=== PATIENT | female | born 1950 | race Caucasian/White ===

== ENCOUNTER 2020-02-14 10:04 | Outpatient (CLI) | payer MEDICARE, SELFPAY ==
[2020-02-14 10:45] LABS: Add Urine Microscopic? YES; Appearance Urine Cloudy (Clear); Bacteria Urine Trace /hpf; Bilirubin Urine Negative (Negative); Blood Urine 2+ (Negative); Color Urine Yellow (Yellow); Glucose Urine UA Negative (Negative); Ketones Urine Negative (Negative); Leukocyte Esterase Ur 3+ LEU/UL (Negative); Mucus Urine Few /lpf; Nitrate Urine Positive (Negative); Protein Urine 2+ mg/dL (Negative); RBC Urine >75 /hpf (0-2); Specific Grav Ur 1.017 (1.001-1.035); Urobilinogen Urine Negative mg/dL (<2.0); WBC Clumps Urine Present /HPF; WBC Urine >75 /hpf
== END 2020-02-14 10:05 | disposition home or self-care (01) ==
PROVIDERS: PCP Internal Medicine; Visit Provider Nurse Practitioner
DX: R35.0 Frequency of micturition (principal)
CPT/HCPCS: 81001; 87077; 87086; 87088; 87186

== ENCOUNTER 2020-08-16 07:56 | Outpatient (CLI) | payer MEDICARE, SELFPAY ==
[2020-08-16 08:28] LABS: Alanine Aminotransferase 22 U/L (4-35); Alkaline Phosphatase 77 U/L (38-126); Anion Gap 2 mmol/L (8-16); Aspartate Amino Transferase 30 U/L (14-36); Bilirubin,Total 1.2 mg/dL (0.2-1.3); Blood Urea Nitrogen 15 mg/dL (7-17); Calcium 9.5 mg/dL (8.4-10.2); Carbon Dioxide 33 mmol/L (22-30); Chloride 102 mmol/L (98-107); Cholesterol 286 mg/dL (0-200); Estimated Glomerular Filt Rate > 60; Glucose 112 mg/dL (65-105); HDL Direct 93 mg/dL; Potassium 4.4 mmol/L (3.4-5.0); Sodium 137 mmol/L (137-145); Triglycerides 62 mg/dL (<150)
[2020-08-16 08:39] LABS: LDL Cholesterol Direct 144 mg/dL
[2020-08-16 09:13] LABS: Vitamin D 25 Hydroxy 37.6 ng/mL
== END 2020-08-16 07:57 | disposition home or self-care (01) ==
PROVIDERS: PCP Internal Medicine; Visit Provider Nurse Practitioner
DX: E55.9 Vitamin D deficiency, unspecified (principal); E78.5 Hyperlipidemia, unspecified
CPT/HCPCS: 36415; 80053; 80061; 82306

== ENCOUNTER 2020-10-31 15:07 | Outpatient (CLI) | payer MEDICARE, SELFPAY | END 2020-10-31 15:08 | disposition home or self-care (01) | LOC: ANHCOVIDVC 15:07 | PROVIDERS: PCP Internal Medicine | DX: Z23 Encounter for immunization (principal) | CPT/HCPCS: 0001A; 91300 ==

== ENCOUNTER → 2020-11-06 11:22 | Outpatient (CLI) | payer MEDICARE, SELFPAY ==
[2020-11-06 23:58] LABS: SARS-CoV-2 RNA PCR Negative
== END ==
PROVIDERS: PCP Internal Medicine; Visit Provider Nurse Practitioner
DX: R05 Cough (principal); Z20.822 Contact with and (suspected) exposure to COVID-19
CPT/HCPCS: C9803; U0003; U0005

== ENCOUNTER 2020-11-08 12:16 | Outpatient (CLI) | payer MEDICARE, SELFPAY ==
--- NOTE | ~2020-11-08 | XR_ITS ---
EXAMINATION: XR chest 2V DATE: 11/08/2020 12:48 INDICATION: Shortness of breath. TECHNIQUE: Frontal and lateral views of the chest were obtained. COMPARISON: Chest 2 views 12/07/2012 FINDINGS: There is mild scarring at the lung apices. No pleural effusion or pneumothorax. The heart s ize is normal. Surgical clips in the right upper quadrant are likely from cholecystectomy. There are suture anchors in the humeral heads bilaterally. IMPRESSION: 1. Mild scarring at the lung apices. Reviewed, dictated and finalized at location A.
[2020-11-08 13:03] LABS: Basophils Percent Auto 0.4 % (0.2-1.2); Eosinophils Absolute Auto 0.1 K/mm3 (0-0.3); Eosinophils Percent Auto 1.4 % (0-4.4); Hematocrit 41.3 % (37.0-47.0); Hemoglobin 13.5 g/dL (12.0-15.0); Immature Granulocyte Absolute 0.01 K/mm3 (0.00-0.031); Immature Granulocyte Percent A 0.2 % (0-0.5); Lymphocytes Absolute Auto 2.32 K/mm3 (0.9-3.2); Lymphocytes Percent Auto 41.7 % (18.3-44.2); Mean Corpuscular HGB Conc 32.7 g/dl (32-36); Mean Corpuscular Hemoglobin 29.7 pg (26-34); Mean Corpuscular Volume 90.8 fl (80-100); Mean Platelet Volume 10.7 fl (7.4-10.4); Monocytes Absolute Auto 0.4 K/mm3 (0.1-0.6); Monocytes Percent Auto 7.6 % (2.6-8.5); Neutrophils Absolute Auto 2.7 K/mm3 (1.3-6.7); Neutrophils Percent Auto 48.7 % (45.5-73.1); Platelet Count Result 258 k/mm3 (150-375); Red Blood Count 4.55 M/mm3 (4.2-5.4); Red Cell Distribution Width 13.5 % (11.5-14.5); White Blood Count 5.6 K/mm3 (4.5-10.0)
[2020-11-08 13:12] LABS: Add Urine Microscopic? YES; Appearance Urine Clear (Clear); Bilirubin Urine Negative (Negative); Blood Urine Negative (Negative); Color Urine Yellow (Yellow); Glucose Urine UA Negative (Negative); Ketones Urine Negative (Negative); Leukocyte Esterase Ur Negative LEU/UL (Negative); Mucus Urine Few /lpf; Nitrate Urine Negative (Negative); Protein Urine 1+ mg/dL (Negative); Specific Grav Ur 1.029 (1.001-1.035); Urobilinogen Urine Negative mg/dL (<2.0); WBC Urine 0-3 /hpf
[2020-11-08 13:24] LABS: Alanine Aminotransferase 23 U/L (4-35); Albumin Level 4.4 g/dL (3.5-5.1); Alkaline Phosphatase 70 U/L (38-126); Anion Gap 4 mmol/L (8-16); Aspartate Amino Transferase 32 U/L (14-36); Bilirubin,Total 0.7 mg/dL (0.2-1.3); Blood Urea Nitrogen 15 mg/dL (7-17); Calcium 10.1 mg/dL (8.4-10.2); Carbon Dioxide 29 mmol/L (22-30); Chloride 105 mmol/L (98-107); Estimated Glomerular Filt Rate > 60; Glucose 85 mg/dL (65-105); Potassium 4.9 mmol/L (3.4-5.0); Sodium 138 mmol/L (137-145)
== END 2020-11-08 12:17 | disposition home or self-care (01) ==
PROVIDERS: PCP Internal Medicine; Visit Provider Nurse Practitioner
DX: R31.9 Hematuria, unspecified (principal); R06.02 Shortness of breath; E78.5 Hyperlipidemia, unspecified
CPT/HCPCS: 36415; 71046; 80053; 81001; 85025

== ENCOUNTER 2020-11-21 15:11 | Outpatient (CLI) | payer MEDICARE, SELFPAY | END 2020-11-21 15:12 | disposition home or self-care (01) | LOC: ANHCOVIDVC 15:11 | PROVIDERS: PCP Internal Medicine | DX: Z23 Encounter for immunization (principal) | CPT/HCPCS: 0002A; 91300 ==

== ENCOUNTER 2021-03-25 11:14 | Outpatient (CLI) | payer MEDICARE, SELFPAY ==
[2021-03-25 12:32] LABS: LDL Cholesterol Direct 166 mg/dL
[2021-03-25 12:42] LABS: Triglycerides 58 mg/dL (<150)
[2021-03-25 13:01] LABS: Cholesterol 350 mg/dL (0-200); HDL Direct 116 mg/dL
[2021-03-25 15:15] LABS: Vitamin D 25 Hydroxy 37.1 ng/mL
== END 2021-03-25 11:15 | disposition home or self-care (01) ==
PROVIDERS: PCP Internal Medicine; Visit Provider Nurse Practitioner
DX: E55.9 Vitamin D deficiency, unspecified (principal); E78.5 Hyperlipidemia, unspecified
CPT/HCPCS: 36415; 80061; 82306

== ENCOUNTER 2021-04-05 12:11 | Outpatient (CLI) | payer MEDICARE, SELFPAY ==
--- NOTE | ~2021-04-05 | XR_ITS ---
XR knee RT 2V DATE: 04/05/2021 12:31 INDICATION: Right knee pain TECHNIQUE: AP and lateral views COMPARISON: None FINDINGS: No fracture or dislocation or joint effusion. Mild superior pole patellar enthesopathy. Codi nt spaces are well preserved. No radiopaque intra-articular loose body or chondrocalcinosis. No perio steal reaction or bone destruction. IMPRESSION: Mild superior pole patellar enthesopathy; otherwise negative Reviewed, dictated and finalized at location A.
== END 2021-04-05 12:12 | disposition home or self-care (01) ==
PROVIDERS: PCP Internal Medicine; Visit Provider Nurse Practitioner
DX: M25.561 Pain in right knee (principal)
CPT/HCPCS: 73560

== ENCOUNTER 2021-04-22 14:37 | Emergency (ER) | payer MEDICARE, SELFPAY ==
--- NOTE | ~2021-04-22 | XR_ITS ---
EXAMINATION: XR chest 2V DATE: 04/22/2021 15:18 INDICATION: Cough and shortness of breath TECHNIQUE: PA and lateral views of the chest are obtained. COMPARISON: 11/08/2020 FINDINGS: The lungs are free of acute opacities. There is no pleural effusion or pneumothorax. The ca rdiomediastinal silhouette is normal. There is moderate thoracic spondylosis. Surgical clips in the r ight upper quadrant are likely from prior cholecystectomy. Suture anchors are noted in the humeral he ads. IMPRESSION: 1. No acute cardiopulmonary abnormality. Reviewed, dictated and finalized at location A.
--- NOTE | 2021-04-22 14:46 | ED.GENADULT ---
HPI - General Adult General Chief complaint: Upper Respiratory Infection Stated complaint: difficulty breathing/cough Source: patient Mode of arrival: ambulatory Limitations: no limitations History of Present Illness HPI narrative: Patient is a 70-year-old female who presents to the [facility] via POV for evaluation of upper respiratory symptoms that have been present for 4 days. Additionally, patient reports dry cough, sinus problems, ear pain, rhinorrhea, fatigue, chest tightness, pain with deep inspiration, myalgias, and chills. Antihistamines provide minimal relief. Nothing worsens symptoms. Patient reports she is fully vaccinated against Covid. Denies known exposure to sick contacts. Related Data Home Medications Medication Instructions Recorded Confirmed multivitamin with minerals-folic 1 tablet PO DAILY 11/08/20 04/22/21 acid 0.4 mg tablet cranberry fruit concentrate 250 mg 250 mg PO DAILY tablet 12/20/20 04/22/21 chewable tablet biotin 10,000 mcg capsule 10,000 mcg PO DAILY 04/15/21 04/22/21 turmeric root extract 500 mg 500 mg PO DAILY 04/15/21 04/22/21 capsule Allergies Allergy/AdvReac Type Severity Reaction Status Date / Time hydrocodone Allergy Mild HIVES, Verified 04/22/21 15:00 ITCHING hydromorphone Allergy Mild Itching Verified 04/22/21 15:00 oxycodone Allergy Mild Itching Verified 04/22/21 15:01 codeine Allergy Unknown Unknown Verified 04/22/21 15:01 nitrofurantoin AdvReac Intermediate Nausea Verified 04/22/21 15:01 CYCLOBENZAPRINE HCL Allergy Mild Unknown Uncoded 04/22/21 15:01 Review of Systems Review of Systems: Denies history of COPD, bronchitis, asthma, and pneumonia. Denies current/past tobacco use. Denies fever, sweats, change in appetite, skin color changes, headache, nasal congestion/discharge, dizziness, lymphadenopathy, sinus pain, ear drainage, muffled hearing, tinnitus, vertigo, sore throat, drooling, chest pain, heart murmurs, heart palpitations, shortness of breath, wheezing, cyanosis, hemoptysis, hoarseness, orthopnea, pleuritic pain, nausea, vomiting, and diarrhea PMFSH Past Medical History Medical History (Reviewed 04/22/21 @ 14:47 by Bharat Wellington, COORDINATE MEASURING EQUIPMENT OPERATOR, LILIAN) History of kidney stones Increased urinary frequency Surgical History Surgical History History of abdominoplasty History of cholecystectomy History of fusion of cervical spine C-6 History of repair of rotator cuff Bilateral History of right cataract extraction Family History Family History Mother Hypertension Family history of elevated blood lipids Family history of congestive heart failure Family history of chronic obstructive pulmonary disease Sibling Family history of malignant neoplasm of breast in first degree relative Father Patient's father is in good health Other Asthma Family history of gout Social History Social History Smoking status: Never smoker Second hand tobacco smoke exposure: Yes Alcohol intake: current Alcohol use details: 2-3 drinks per year Comments I have reviewed and agree with the patient's past medical, surgical, social, and family hx as documented by the RN. There is no relevant family history pertinent to the presenting complaint. Exam Narrative: GENERAL: Well-appearing, well-nourished, and in no acute distress. HEAD: Normocephalic, atraumatic. No sinus tenderness or facial swelling appreciated. EYES: PERRLA and EOMI. No evidence of erythema, swelling, or drainage. ENT: Bilateral external ears and ear canals normal. Bilateral TMs are normal.No TM perforation. Nares clear, no rhinorrhea or epistaxis. Bilateral turbinates without erythema/ swelling. Mucous membranes moist and pink. Uvula is midline without erythema and swelling. No evidence of petechial rash
== END 2021-04-22 15:35 | disposition home or self-care (01) ==
PROVIDERS: Emergency Provider Nurse Practitioner Family; PCP Internal Medicine
DX: R05 Cough (principal)
CPT/HCPCS: 71046; 99213; G0463

== ENCOUNTER 2021-06-13 11:35 | Outpatient (CLI) | payer MEDICARE, SELFPAY ==
[2021-06-13 12:16] LABS: Alanine Aminotransferase 20 U/L (4-35); Albumin Level 4.4 g/dL (3.5-5.1); Alkaline Phosphatase 77 U/L (38-126); Anion Gap 3 mmol/L (8-16); Aspartate Amino Transferase 28 U/L (14-36); Bilirubin,Total 0.9 mg/dL (0.2-1.3); Blood Urea Nitrogen 18 mg/dL (7-17); Calcium 10.2 mg/dL (8.4-10.2); Carbon Dioxide 32 mmol/L (22-30); Chloride 103 mmol/L (98-107); Estimated Glomerular Filt Rate > 60; Glucose 103 mg/dL (65-110); Potassium 4.6 mmol/L (3.4-5.0); Sodium 138 mmol/L (137-145)
[2021-06-13 13:25] LABS: Thyroid Stimulating Hormone 0.391 uIU/mL (0.465-4.680)
== END 2021-06-13 11:36 | disposition home or self-care (01) ==
LOC: ANHLAB 11:38
PROVIDERS: Nurse Practitioner; PCP Internal Medicine; Visit Provider Internal Medicine
DX: R53.83 Other fatigue (principal); E78.5 Hyperlipidemia, unspecified
CPT/HCPCS: 36415; 80053; 84443

== ENCOUNTER 2021-06-24 08:09 | Outpatient (CLI) | payer MEDICARE, SELFPAY ==
--- NOTE | ~2021-06-24 | NM_ITS ---
EXAMINATION: NM thania stress w perfusion DATE: 06/24/2021 11:25 INDICATION: Sensation of chest tightness. Other chest pain. TECHNIQUE: Rest images were obtained following intravenous administration of 10.2 mCi Tc99m tetrofosm in (Myoview). The patient was infused intravenously with Lexiscan (Regadenoson). Then, 32.5 mCi Tc99m tetrofosmin (Myoview) was administered intravenously, and stress images were obtained. Data was sierra nstructed into short axis and horizontal and vertical long axis SPECT images. Gated SPECT images were also obtained. COMPARISON: None. FINDINGS: There is no definite reversible or fixed perfusion abnormality to suggest ischemia or infar ction. There is normal left ventricular chamber size, wall motion and ejection fraction. Left ventr icular ejection fraction measures >70%. IMPRESSION: 1. Normal myocardial perfusion at rest and during stress. 2. Left ventricular ejection fraction measuring >70%. Reviewed, dictated and finalized at location A.
--- NOTE | 2021-06-24 09:13 | EST_ITS ---
Patient Info Name: Verna Cerna Age: 70 years : 1950 Gender: Female Ht: 62 in Wt: 131 lbs BSA: 1.62 m2 HR: 67 bpm BP: 141 / 99 mmHg Heart Rhythm: Sinus Rhythm Exam Date: 06/24/2021 9:30 AM Exam Location: [facility] Stress Patient Status: Outpatient Admit Date: 06/24/2021 Staff Ordering Physician: Wale Ge DO Attending Provider: Wale Ge DO Exercise Technologist: Heather Wooten CT Exercise Physician: Doc Chand DO Exam Type: CA stress thania w NM Study Info Indications R07.89 - Other chest pain A regadenoson stress test was performed. Summary 1. 1. Negative lexiscan stress test for ischemic ST changes by ECG criteria. 2. 2. Baseline hypertension. 3. 3. Nuclear scan to follow and will be reported separately. Please correlate with it. 4. 4. Patient informed of the above results. Protocol: Lexiscan Stress ECG Details Stage: REST Duration (min): 3 min : 28 sec HR (bpm): 67 SBP (mmHg): 141 DBP (mmHg): 99 Stage: REST Duration (min): 11 min : 41 sec HR (bpm): 67 SBP (mmHg): 141 DBP (mmHg): 99 Stage: STAGE 1 Duration (min): 1 min : 0 sec HR (bpm): 97 SBP (mmHg): 150 DBP (mmHg): 108 Stage: RECOVERY Duration (min): 1 min : 0 sec HR (bpm): 107 SBP (mmHg): 150 DBP (mmHg): 108 Stage: RECOVERY Duration (min): 2 min : 0 sec HR (bpm): 91 SBP (mmHg): 150 DBP (mmHg): 108 Stage: RECOVERY Duration (min): 3 min : 0 sec HR (bpm): 88 SBP (mmHg): 163 DBP (mmHg): 100 Stage: RECOVERY Duration (min): 3 min : 3 sec HR (bpm): 89 SBP (mmHg): 163 DBP (mmHg): 100 Rest HR: 67 bpm Peak HR: 111 bpm Rest Sys BP: 141 mmHg Peak Sys BP: 163 mmHg Max Pred HR: 151 bpm % Max Pred HR: 74 % Target HR: 128 bpm Max RPP: 18,093 bpm*mmHg Termination Reason: Completed protocol Cardiac Symptoms: Shortness of breath Total Time: 1 min : 0 sec Rest Rivas BP: 99 mmHg Peak Rivas BP: 100 mmHg Total Dose: 0.4 mg Resting ECG Sinus rhythm. Stress ECG No ST changes. Arrhythmias None. Report Signatures
== END 2021-06-24 08:10 | disposition home or self-care (01) ==
LOC: ANHCARD 08:10
PROVIDERS: PCP Internal Medicine; Visit Provider Internal Medicine
DX: R07.89 Other chest pain (principal)
CPT/HCPCS: 78452; 93017; A9502; J2785

== ENCOUNTER 2021-07-03 12:21 | Outpatient (CLI) | payer MEDICARE, SELFPAY ==
[2021-07-03 12:35] LABS: Basophils Absolute Auto 0.1 K/mm3 (0.0-0.1); Basophils Percent Auto 0.5 % (0.2-1.2); Eosinophils Absolute Auto 0.1 K/mm3 (0-0.3); Eosinophils Percent Auto 1.2 % (0-4.4); Hematocrit 40.3 % (37.0-47.0); Hemoglobin 13.1 g/dL (12.0-15.0); Immature Granulocyte Absolute 0.03 K/mm3 (0.00-0.031); Immature Granulocyte Percent A 0.3 % (0-0.5); Lymphocytes Percent Auto 29.6 % (18.3-44.2); Mean Corpuscular HGB Conc 32.5 g/dl (32-36); Mean Corpuscular Hemoglobin 29.7 pg (26-34); Mean Corpuscular Volume 91.4 fl (80-100); Mean Platelet Volume 10.5 fl (7.4-10.4); Monocytes Absolute Auto 0.8 K/mm3 (0.1-0.6); Monocytes Percent Auto 8.3 % (2.6-8.5); Neutrophils Absolute Auto 5.7 K/mm3 (1.3-6.7); Neutrophils Percent Auto 60.1 % (45.5-73.1); Platelet Count Result 263 k/mm3 (150-375); Red Blood Count 4.41 M/mm3 (4.2-5.4); Red Cell Distribution Width 13.7 % (11.5-14.5); White Blood Count 9.5 K/mm3 (4.5-10.0)
== END 2021-07-03 12:22 | disposition home or self-care (01) ==
PROVIDERS: PCP Internal Medicine; Visit Provider Internal Medicine
DX: R53.83 Other fatigue (principal)
CPT/HCPCS: 36415; 85025

== ENCOUNTER → 2021-12-03 08:03 | Outpatient (CLI) | payer MEDICARE, SELFPAY ==
[2021-12-03 11:19] LABS: Influenza A QL RT-PCR Negative (Negative); Influenza B QL RT-PCR Negative (Negative); SARS-CoV-2 RNA PCR Negative
== END ==
PROVIDERS: PCP Internal Medicine; Visit Provider Internal Medicine
DX: R68.89 Other general symptoms and signs (principal); Z20.822 Contact with and (suspected) exposure to COVID-19
CPT/HCPCS: 87502; C9803; U0003; U0005

== ENCOUNTER 2021-12-15 23:22 | Emergency (ER) | payer MEDICARE, SELFPAY ==
--- NOTE | ~2021-12-15 | XR_ITS ---
EXAMINATION: XR chest 2V DATE: 12/15/2021 23:55 INDICATION: Chest pain. TECHNIQUE: Frontal and lateral views of the chest were obtained. COMPARISON: Chest 2 views 04/22/2021 FINDINGS: The chest demonstrates clear lungs without pneumonia, pleural effusion, or pneumothorax. Th e heart size is normal. Surgical clips in the right upper quadrant are likely from cholecystectomy. T here are suture anchors in right humeral head. IMPRESSION: 1. No acute cardiopulmonary disease. Reviewed, dictated and finalized at location A.
[2021-12-15 23:27] VITALS: BP 157/95; PULSE 96; RESP 20; TEMP 36.5; O2SAT 98
--- NOTE | 2021-12-15 23:27 | ECG_ITS ---
Measurements Intervals [place] Rate: 75 P: 67 [place]: 154 QRS: 11 QRSD: 86 T: 66 QT: 363 QTc: 405 Interpretive Statements SINUS RHYTHM POSSIBLE RIGHT VENTRICULAR CONDUCTION DELAY [RSR (QR) IN V1/V2] OTHERWISE UNREMARKABLE ECG NO PREVIOUS ECG AVAILABLE FOR COMPARISON Electronically Signed On 12-16-2021 16:17:20 CDT by Geovany Mcclain M.D.
[2021-12-16] VITALS (12 sets, daily range): BP systolic 152–165; BP diastolic 82–91; PULSE 64–78; RESP 12–18; O2SAT 95–100
[2021-12-16] MEDS: ASPIRIN 81 MG CHEWABLE TABLET 324 MG PO (00:12)
[2021-12-16 00:24] LABS: Basophils Absolute Auto 0.1 K/mm3 (0.0-0.1); Basophils Percent Auto 0.8 % (0.2-1.2); Eosinophils Absolute Auto 0.1 K/mm3 (0-0.3); Eosinophils Percent Auto 1.3 % (0-4.4); Hemoglobin 13.1 g/dL (12.0-15.0); Immature Granulocyte Absolute 0.03 K/mm3 (0.00-0.031); Immature Granulocyte Percent A 0.4 % (0-0.5); Lymphocytes Absolute Auto 2.92 K/mm3 (0.9-3.2); Lymphocytes Percent Auto 35.3 % (18.3-44.2); Mean Corpuscular HGB Conc 31.2 g/dl (32-36); Mean Corpuscular Hemoglobin 28.5 pg (26-34); Mean Corpuscular Volume 91.3 fl (80-100); Mean Platelet Volume 10.8 fl (7.4-10.4); Monocytes Absolute Auto 0.6 K/mm3 (0.1-0.6); Monocytes Percent Auto 7.6 % (2.6-8.5); Neutrophils Absolute Auto 4.5 K/mm3 (1.3-6.7); Neutrophils Percent Auto 54.6 % (45.5-73.1); Platelet Count Result 279 k/mm3 (150-375); Red Cell Distribution Width 13.9 % (11.5-14.5); White Blood Count 8.3 K/mm3 (4.5-10.0)
[2021-12-16 00:29] LABS: Alanine Aminotransferase 21 U/L (4-35); Albumin Level 4.4 g/dL (3.5-5.1); Alkaline Phosphatase 88 U/L (38-126); Anion Gap 8 mmol/L (8-16); Aspartate Amino Transferase 28 U/L (14-36); Bilirubin,Total 0.6 mg/dL (0.2-1.3); Blood Urea Nitrogen 15 mg/dL (7-17); Calcium 9.5 mg/dL (8.4-10.2); Carbon Dioxide 28 mmol/L (22-30); Chloride 102 mmol/L (98-107); Estimated CRCL calculation 51 ml/min; Estimated Glomerular Filt Rate > 60; Glucose 89 mg/dL (65-110); INR 0.9; Lipase 70 U/L (23-300); Potassium 3.6 mmol/L (3.4-5.0); Prothrombin Time 12.2 Seconds (11.1-14.7); Sodium 138 mmol/L (137-145)
[2021-12-16 00:30] LABS: Partial Thromboplastin Time 28.3 SECONDS (22.3-36.8)
[2021-12-16 00:40] LABS: Troponin I < 0.012 ng/mL (0.000-0.034)
[2021-12-16] MEDS: BELLADONNA ALK/PHENOB ELIX 10 ML, MAG HYDROX/ALUMINUM HYD/SIMETH 30 ML, LIDOCAINE HCL 2... PO (01:14)
--- NOTE | 2021-12-16 02:04 | ED.GENADULT ---
HPI - General Adult General Chief complaint: Shortness of Breath/Dyspnea Stated complaint: difficulty breathing Time Seen by Provider: 12/16/21 00:17 History of Present Illness HPI narrative: Patient is a 71-year-old female who presents ER with chest pressure. Central. No radiation. Has been having issues with this for about 8 months. She has had a negative stress test and normal pulmonary function test. Tonight symptoms were more increased. They have been treating this as anxiety for which she takes Valium. She reports it does help but makes her go to sleep. She does not feel particularly stressed or anxious about anything at this time. No fevers or chills or sweats. No nausea or vomiting. Symptoms move up into the neck. Related Data Home Medications Medication Instructions Recorded Confirmed biotin 10,000 mcg capsule 10,000 mcg PO DAILY 04/15/21 11/25/21 Lacto.acidophilus-Bif.animalis 1 cap PO DAILY 11/25/21 11/25/21 [Daily Probiotic] multivit with min-folic acid 1 tablet PO DAILY 11/25/21 11/25/21 [Adult One Daily Multivitamin] Allergies Allergy/AdvReac Type Severity Reaction Status Date / Time cyclobenzaprine Allergy Mild Unknown Verified 12/16/21 00:16 hydrocodone Allergy Mild HIVES, Verified 12/16/21 00:16 ITCHING hydromorphone Allergy Mild Itching Verified 12/16/21 00:16 oxycodone Allergy Mild Itching Verified 12/16/21 00:16 codeine Allergy Unknown Unknown Verified 12/16/21 00:16 nitrofurantoin AdvReac Intermediate Nausea Verified 12/16/21 00:16 Review of Systems Review of Systems: All systems reviewed & are unremarkable except as noted in HPI and below Constitutional: Constitutional: Denies chills, Denies fever(s) and Denies weakness ENT: Denies nasal congestion and Denies sore throat Cardiovascular: Cardiovascular: Reports chest pain, Denies rapid heart rate and Reports radiating jaw, neck or arm pain Respiratory: Respiratory: Denies cough, Denies dyspnea and Denies wheezing Gastrointestinal: Gastrointestinal: Denies abdominal pain, Denies diarrhea, Denies nausea and Denies vomiting Psychiatric: Psychiatric: Denies anxiety and Denies depression [facility] Past Medical History Medical History History of kidney stones Increased urinary frequency Surgical History Surgical History History of abdominoplasty History of cholecystectomy History of fusion of cervical spine C-6 History of repair of rotator cuff Bilateral History of right cataract extraction Family History Family History Mother Hypertension Family history of elevated blood lipids Family history of congestive heart failure Family history of chronic obstructive pulmonary disease Sibling Family history of malignant neoplasm of breast in first degree relative Father Patient's father is in good health Other Asthma Family history of gout Social History Social History Smoking status: Never smoker Second hand tobacco smoke exposure: Yes Alcohol intake: current Alcohol use details: 2-3 drinks per year Substance use: never Substance use type: does not use Other substance usage details: Occasional edible Spiritual care concerns: No Exam Narrative: GENERAL: Well-appearing, well-nourished, and in no acute distress. HEAD: Normocephalic, atraumatic. ENT: Mucous membranes moist. TMs normal bilaterally. CHEST: Clear to auscultation. No respiratory distress. HEART: Regular rate and rhythm. Normal peripheral pulses. ABDOMEN: Soft, nontender, nondistended. EXTREMITIES: Normal range of motion. No edema. SKIN: Warm, dry, no rash. NEURO: Alert and oriented x3. PSYCH: Normal mood and affect. Course Course Emergency Course: Patient resting comfortably. Symptoms improved with
== END 2021-12-16 02:22 | disposition home or self-care (01) ==
PROVIDERS: Emergency Provider Emergency Medicine; PCP Internal Medicine
DX: R07.89 Other chest pain (principal); Z87.442 Personal history of urinary calculi; Z98.1 Arthrodesis status; Z98.41 Cataract extraction status, right eye; Z77.22 Contact with and (suspected) exposure to environmental tobacco smoke (acute) (chronic); R94.31 Abnormal electrocardiogram [ECG] [EKG]
CPT/HCPCS: 36415; 71046; 80053; 83690; 84484; 85025; 85610; 85730; 93005; 99284; A9270

== ENCOUNTER 2022-04-17 00:43 | Day surgery (SDC) | payer MEDICARE, SELFPAY ==
[2022-04-07 11:47] VITALS: BMI 24.2
--- NOTE | 2022-04-16 16:00 | PM.HPGS ---
History of Present Illness History of Present Illness Consent: Risks, benefits, and alternatives have been discussed and questions answered. Patient agrees to proceed with procedure. Chief complaint: neoplasm screening Narrative: Verna Cerna is a 71 year old female referred for colon cancer screening. She had screening colonoscopy 10 years ago with removal of 2 small polyps. Seven years ago she was hospitalized with acute ischemic colitis from which he recovered well. Review of Systems Review of Systems: All systems reviewed & are unremarkable except as noted in HPI and below PMFSH Past Medical History Medical History History of kidney stones Increased urinary frequency Surgical History Surgical History History of abdominoplasty History of cholecystectomy History of fusion of cervical spine C-6 History of repair of rotator cuff Bilateral History of right cataract extraction Family History Family History Mother Hypertension Family history of elevated blood lipids Family history of congestive heart failure Family history of chronic obstructive pulmonary disease Sibling Family history of malignant neoplasm of breast in first degree relative Father Patient's father is in good health Other Asthma Family history of gout Social History Social History Smoking status: Never smoker Second hand tobacco smoke exposure: Yes Alcohol intake: never Alcohol use details: 2-3 drinks per year Substance use: current Substance use type: other Other substance usage details: occasional edible Living arrangements: alone Spiritual care concerns: No Meds Home Medications and Allergies Home Medications Medication Instructions Recorded Confirmed Type diazepam 5 mg tablet 5 mg PO DAILY PRN anxiety #30 tabs 06/11/21 04/17/22 Rx multivitamin with minerals-folic 1 tablet PO DAILY 11/25/21 04/17/22 History acid 0.4 mg tablet dextroamphetamine-amphetamine ER 30 mg PO DAILY #30 caps 04/14/22 04/17/22 Rx 30 mg 24hr capsule,extend release (Adderall XR) Allergies Allergy/AdvReac Type Severity Reaction Status Date / Time cyclobenzaprine Allergy Mild Unknown Verified 04/17/22 06:52 hydrocodone Allergy Mild HIVES, Verified 04/17/22 06:52 ITCHING hydromorphone Allergy Mild Itching Verified 04/17/22 06:52 oxycodone Allergy Mild Itching Verified 04/17/22 06:52 codeine Allergy Unknown Unknown Verified 04/17/22 06:52 nitrofurantoin AdvReac Intermediate Nausea Verified 04/17/22 06:52 Exam Const: General: alert Orientation/consciousness: patient oriented x3 Resp: Auscultation: clear to auscultation bilaterally Cardio: Rhythm: regular rhythm GI: GI Palp: Yes Soft to palpation and No Tenderness to palpation present (GI) Neuro: General: patient oriented x3 Assessment and Plan Assessment and plan (1) Colon cancer screening: Code(s): Z12.11 - Encounter for screening for malignant neoplasm of colon Status: Acute Assessment and Plan: Colonoscopy with possible biopsy or polypectomy or cautery or injection of substances.
[2022-04-17 06:45] VITALS: BP 133/77; PULSE 71; RESP 18; TEMP 36.4; O2SAT 97
[2022-04-17] MEDS: LACTATED RINGERS 1,000 ML 150 ML IV CONT (07:13)
--- NOTE | 2022-04-17 07:49 | WPDANESEPPF ---
Anes - Initial Pre Proc Eval Procedure: Operation Date: 04/17/22 08:00 Proposed Procedures p Screening Colonoscopy - Edmundo Torrez MD Date/Time: 04/17/22 07:49 Surgeon: Edmundo Torrez MD Pre Op Diagnosis: neoplasm screening Patient Data Age: 71 Gender: F Height: 1.57 m Weight: 60 kg Last Vital Signs Temp 97.6 F 04/17/22 06:45 Pulse 71 04/17/22 06:45 Resp 18 04/17/22 06:45 BP 133/77 04/17/22 06:45 Pulse Ox 97 04/17/22 06:45 O2 Del Method Room Air 04/17/22 06:45 Allergies Allergy/AdvReac Type Severity Reaction Status Date / Time cyclobenzaprine Allergy Mild Unknown Verified 04/17/22 06:52 hydrocodone Allergy Mild HIVES, Verified 04/17/22 06:52 ITCHING hydromorphone Allergy Mild Itching Verified 04/17/22 06:52 oxycodone Allergy Mild Itching Verified 04/17/22 06:52 codeine Allergy Unknown Unknown Verified 04/17/22 06:52 nitrofurantoin AdvReac Intermediate Nausea Verified 04/17/22 06:52 Home Medications Medication Instructions Recorded Confirmed Type diazepam 5 mg tablet 5 mg PO DAILY PRN anxiety #30 tabs 06/11/21 04/17/22 Rx multivitamin with minerals-folic 1 tablet PO DAILY 11/25/21 04/17/22 History acid 0.4 mg tablet dextroamphetamine-amphetamine ER 30 mg PO DAILY #30 caps 04/14/22 04/17/22 Rx 30 mg 24hr capsule,extend release (Adderall XR) Patient hx anesthesia problems: none Family hx anesthesia problems: none Results Review: All pre-operative results and documents have been reviewed as part of the pre-operative evaluation. [facility] Past Medical History Medical History History of kidney stones Increased urinary frequency Surgical History Surgical History History of abdominoplasty History of cholecystectomy History of fusion of cervical spine C-6 History of repair of rotator cuff Bilateral History of right cataract extraction Family History Family History Mother Hypertension Family history of elevated blood lipids Family history of congestive heart failure Family history of chronic obstructive pulmonary disease Sibling Family history of malignant neoplasm of breast in first degree relative Father Patient's father is in good health Other Asthma Family history of gout Social History Social History Smoking status: Never smoker Second hand tobacco smoke exposure: Yes Alcohol intake: never Alcohol use details: 2-3 drinks per year Substance use: current Substance use type: other Other substance usage details: occasional edible Living arrangements: alone Spiritual care concerns: No Anes - Eval Final PreProcedure Day of Procedure 04/17/22 07:49 Patient weight: normal Heart: regular rate and rhythm Lungs: clear to auscultation Airway: Mallampati scale class II Neurological: alert and oriented Last oral intake: >/= 8 hours ASA classification: II Emergent: no Anesthetic plan: proceed Anesthesia type and monitoring: general GIVS and standard monitoring Results Review: All pre-operative results and documents have been reviewed as part of the pre-operative evaluation. Informed Consent: The patient's anesthetic plan and its attendant risks and benefits were discussed with the patient/family/POA. Questions were solicited and answers provided to the satisfaction of the patient/family/POA.
[2022-04-17 08:22] VITALS: BP 112/64; PULSE 70; RESP 14; O2SAT 97
[2022-04-17 08:32] VITALS: BP 113/65; PULSE 67; RESP 16; O2SAT 97
[2022-04-17 08:42] VITALS: BP 129/71; PULSE 68; RESP 18; O2SAT 100
== END 2022-04-17 08:53 | disposition home or self-care (01) ==
PROVIDERS: PCP Internal Medicine; Visit Provider Internal Medicine Gastroenterology
PROC: 0DJD8ZZ Inspection of Lower Intestinal Tract, Via Natural or Artificial Opening Endoscopic (ICD-10-PCS; CPT 45378; principal; 2022-04-17 08:00)
DX: Z12.11 Encounter for screening for malignant neoplasm of colon (principal); Z98.1 Arthrodesis status; Z90.49 Acquired absence of other specified parts of digestive tract
CPT/HCPCS: G0121; J2704; J7120

== ENCOUNTER 2022-07-08 10:18 | Outpatient (CLI) | payer MEDICARE, SELFPAY ==
[2022-07-08 10:49] LABS: Alanine Aminotransferase 23 U/L (6-35); Albumin Level 4.3 g/dL (3.5-5.1); Alkaline Phosphatase 74 U/L (38-126); Anion Gap 11 mmol/L (8-16); Aspartate Amino Transferase 29 U/L (14-36); Blood Urea Nitrogen 17 mg/dL (7-17); Calcium 9.5 mg/dL (8.4-10.2); Carbon Dioxide 28 mmol/L (22-30); Chloride 101 mmol/L (98-107); Estimated Glomerular Filt Rate > 60; Glucose 102 mg/dL (65-110); HDL Direct 102 mg/dL; Potassium 4.2 mmol/L (3.4-5.0); Sodium 140 mmol/L (137-145); Triglycerides 62 mg/dL (<150)
[2022-07-08 10:58] LABS: LDL Cholesterol Direct 178 mg/dL
[2022-07-08 11:26] LABS: Vitamin D 25 Hydroxy 38.5 ng/mL
[2022-07-08 12:05] LABS: Cholesterol 375 mg/dL (0-200)
== END 2022-07-08 10:19 | disposition home or self-care (01) ==
PROVIDERS: PCP Internal Medicine; Visit Provider Internal Medicine
DX: E55.9 Vitamin D deficiency, unspecified (principal); E78.5 Hyperlipidemia, unspecified; F98.8 Other specified behavioral and emotional disorders with onset usually occurring in childhood and adolescence
CPT/HCPCS: 36415; 80053; 80061; 82306

== ENCOUNTER 2022-07-29 14:52 | Outpatient (CLI) | payer MEDICARE, SELFPAY ==
--- NOTE | ~2022-07-29 | CT_ITS ---
EXAMINATION: CT brain wo con DATE: 07/29/2022 15:08 INDICATION: Maxillofacial pain TECHNIQUE: Computed tomography (CT) of the head was performed without intravenous contrast. The mA wa s adjusted according to patient size. Iterative reconstruction technique was employed. Exam dose: 60 5.33 mGy-cm total exam DLP. COMPARISON: 03/07/2005 CT brain FINDINGS: No intracranial mass lesion or hemorrhage or cerebrovascular accident. No midline shift or mass effect effect. Normal ventricular size. Bilateral carotid siphon internal carotid artery calcifications are noted. No subdural or epidural hematoma. No fracture or bone destruction of the cranial vault. Included paranasal sinuses and the mastoid air cells are unremarkable. IMPRESSION: Cerebral atherosclerosis No acute intracranial finding or skull fracture Reviewed, dictated and finalized at [facility]. Reviewed, dictated and finalized at location B. TANCE ABUSE RN
== END 2022-07-29 14:53 | disposition home or self-care (01) ==
LOC: ANHIMG 14:54
PROVIDERS: PCP Internal Medicine; Visit Provider Internal Medicine
DX: R51.9 Headache, unspecified (principal); I67.2 Cerebral atherosclerosis
CPT/HCPCS: 70450

== ENCOUNTER 2022-10-17 09:49 | Outpatient (CLI) | payer MEDICARE, SELFPAY ==
--- NOTE | ~2022-10-17 | XR_ITS ---
Lumbosacral Spine: AP and lateral views Clinical History: Pain Findings: The normal lordotic curve is maintained. The vertebral bodies and posterior elements are i ntact. There is mild degenerative disc narrowing at L5-S1. There is probable facet arthropathy from L 3 through S1. Cholecystectomy clips noted. The sacroiliac joints are normally outlined. Impression: Mild degenerative spondylitic changes, as above. Reviewed, dictated and finalized at location M. N LIFEGUARD Impression: Mild degenerative spondylitic changes, as above.
[2022-10-17 10:50] LABS: Basophils Percent Auto 0.5 % (0.2-1.2); Eosinophils Absolute Auto 0.1 K/mm3 (0-0.3); Eosinophils Percent Auto 2.2 % (0-4.4); Hematocrit 41.2 % (37.0-47.0); Hemoglobin 12.9 g/dL (12.0-15.0); Immature Granulocyte Absolute 0.02 K/mm3 (0.00-0.031); Immature Granulocyte Percent A 0.4 % (0-0.5); Lymphocytes Absolute Auto 1.89 K/mm3 (0.9-3.2); Lymphocytes Percent Auto 34.4 % (18.3-44.2); Mean Corpuscular HGB Conc 31.3 g/dl (32-36); Mean Corpuscular Hemoglobin 28.9 pg (26-34); Mean Corpuscular Volume 92.2 fl (80-100); Monocytes Absolute Auto 0.5 K/mm3 (0.1-0.6); Monocytes Percent Auto 8.2 % (2.6-8.5); Neutrophils Percent Auto 54.3 % (45.5-73.1); Platelet Count Result 240 k/mm3 (150-375); Red Blood Count 4.47 M/mm3 (4.2-5.4); Red Cell Distribution Width 13.7 % (11.5-14.5); White Blood Count 5.5 K/mm3 (4.5-10.0)
[2022-10-17 11:22] LABS: Thyroid Stimulating Hormone 0.226 uIU/mL (0.465-4.680)
== END 2022-10-17 09:50 | disposition home or self-care (01) ==
PROVIDERS: PCP Internal Medicine; Visit Provider Internal Medicine
DX: M54.9 Dorsalgia, unspecified (principal); R53.83 Other fatigue
CPT/HCPCS: 36415; 72100; 84443; 85025

== ENCOUNTER 2023-01-06 14:20 | Outpatient (CLI) | payer MEDICARE, SELFPAY ==
[2023-01-06 15:30] LABS: Free T4 Free Thyroxine 1.05 ng/mL (0.78-2.19)
[2023-01-06 16:05] LABS: Vitamin B12 > 1000.0 pg/mL (239-931)
== END 2023-01-06 14:21 | disposition home or self-care (01) ==
LOC: ANHLAB 14:23
PROVIDERS: PCP Family Medicine; Visit Provider Nurse Practitioner Family
DX: R53.83 Other fatigue (principal); R79.89 Other specified abnormal findings of blood chemistry
CPT/HCPCS: 36415; 82607; 84439

== ENCOUNTER 2023-01-13 11:11 | Outpatient (CLI) | payer MEDICARE, SELFPAY ==
[2023-01-13 11:51] LABS: LDL Cholesterol Direct 157 mg/dL
[2023-01-13 11:59] LABS: Alanine Aminotransferase 21 U/L (6-35); Albumin Level 4.3 g/dL (3.5-5.1); Alkaline Phosphatase 89 U/L (38-126); Anion Gap 3 mmol/L (8-16); Aspartate Amino Transferase 28 U/L (14-36); Bilirubin,Total 0.6 mg/dL (0.2-1.3); Blood Urea Nitrogen 20 mg/dL (7-17); Calcium 9.7 mg/dL (8.4-10.2); Carbon Dioxide 31 mmol/L (22-30); Chloride 103 mmol/L (98-107); Cholesterol 313 mg/dL (0-200); Estimated Glomerular Filt Rate > 60; Glucose 97 mg/dL (65-110); Potassium 4.7 mmol/L (3.4-5.0); Sodium 137 mmol/L (137-145); Triglycerides 87 mg/dL (<150)
[2023-01-13 12:10] LABS: Thyroid Stimulating Hormone 0.291 uIU/mL (0.465-4.680)
[2023-01-13 12:34] LABS: HDL Direct 120 mg/dL
== END 2023-01-13 11:12 | disposition home or self-care (01) ==
PROVIDERS: PCP Family Medicine; Visit Provider Nurse Practitioner Family
DX: E78.5 Hyperlipidemia, unspecified (principal); R79.89 Other specified abnormal findings of blood chemistry; R53.83 Other fatigue
CPT/HCPCS: 36415; 80053; 80061; 84443

== ENCOUNTER 2023-02-08 13:57 | Emergency (ER) | payer MEDICARE, SELFPAY ==
--- NOTE | ~2023-02-08 | XR_ITS ---
EXAMINATION: XR chest 2V 02/08/2023 14:45 INDICATION: Shortness of breath PROCEDURE: 2 view chest COMPARISON: Comparison to multiple prior studies sequentially, with oldest reviewed study dated 12/07. FINDINGS: The lungs are clear. The cardiomediastinal silhouette is within normal limits. There are no pleural effusions. There is no pneumothorax suspected. There are cholecystectomy clips. IMPRESSION: 1: NO ACUTE CARDIOPULMONARY DISEASE. Reviewed, dictated and finalized at location A.
[2023-02-08 14:00] VITALS: BP 147/72; PULSE 90; RESP 20; TEMP 36.5; O2SAT 100
--- NOTE | 2023-02-08 14:06 | ECG_ITS ---
Measurements Intervals [place] Rate: 73 P: 62 GA: 145 QRS: 19 QRSD: 87 T: 65 QT: 373 QTc: 413 Interpretive Statements SINUS RHYTHM NORMAL ECG COMPARED TO ECG 12/15/2021 23:30:33 NO SIGNIFICANT CHANGES Electronically Signed On 02-09-2023 15:32:14 CDT by Geovany Mcclain M.D.
[2023-02-08 14:20] LABS: Basophils Percent Auto 0.4 % (0.2-1.2); Eosinophils Absolute Auto 0.1 K/mm3 (0-0.3); Eosinophils Percent Auto 1.5 % (0-4.4); Hematocrit 40.2 % (37.0-47.0); Hemoglobin 12.7 g/dL (12.0-15.0); Immature Granulocyte Absolute 0.02 K/mm3 (0.00-0.031); Immature Granulocyte Percent A 0.3 % (0-0.5); Lymphocytes Absolute Auto 2.37 K/mm3 (0.9-3.2); Mean Corpuscular HGB Conc 31.6 g/dl (32-36); Mean Corpuscular Hemoglobin 28.9 pg (26-34); Mean Corpuscular Volume 91.6 fl (80-100); Mean Platelet Volume 10.6 fl (7.4-10.4); Monocytes Absolute Auto 0.5 K/mm3 (0.1-0.6); Monocytes Percent Auto 6.7 % (2.6-8.5); Neutrophils Absolute Auto 4.8 K/mm3 (1.3-6.7); Neutrophils Percent Auto 61.1 % (45.5-73.1); Platelet Count Result 278 k/mm3 (150-375); Red Blood Count 4.39 M/mm3 (4.2-5.4); Red Cell Distribution Width 13.7 % (11.5-14.5); White Blood Count 7.9 K/mm3 (4.5-10.0)
[2023-02-08 15:50] LABS: Alanine Aminotransferase 19 U/L (6-35); Albumin Level 4.4 g/dL (3.5-5.1); Alkaline Phosphatase 105 U/L (38-126); Anion Gap 8 mmol/L (8-16); Aspartate Amino Transferase 27 U/L (14-36); Bilirubin,Total 0.7 mg/dL (0.2-1.3); Blood Urea Nitrogen 17 mg/dL (7-17); Calcium 9.9 mg/dL (8.4-10.2); Carbon Dioxide 27 mmol/L (22-30); Chloride 103 mmol/L (98-107); Estimated CRCL calculation 58 ml/min; Estimated Glomerular Filt Rate > 60; Glucose 104 mg/dL (65-110); Potassium 4.8 mmol/L (3.4-5.0); Sodium 138 mmol/L (137-145)
--- NOTE | 2023-02-08 17:47 | ED.GENADULT ---
HPI - General Adult General Chief complaint: Shortness of Breath/Dyspnea Stated complaint: sob Time Seen by Provider: 02/08/23 17:16 History of Present Illness HPI narrative: 72-year-old female presented to the emergency department for for evaluation of left flank pain. Patient states that she began developing the flank pain last night. Patient states he does have this intermittently. Patient reports pain with inspiration. Patient denies any falls or injuries. Denies any chest pain or shortness of breath. Patient states she has had this pain and sensation previously and she was worked up and states that they diagnosed her with anxiety. Patient denies any prior history of cancer, CVA, ACS, pulm embolism Related Data Home Medications Medication Instructions Recorded Confirmed multivitamin with minerals-folic 1 tablet PO DAILY 11/25/21 10/21/22 acid 0.4 mg tablet Allergies Allergy/AdvReac Type Severity Reaction Status Date / Time cyclobenzaprine Allergy Mild Unknown Verified 01/13/23 10:07 hydrocodone Allergy Mild HIVES, Verified 01/13/23 10:07 ITCHING hydromorphone Allergy Mild Itching Verified 01/13/23 10:07 oxycodone Allergy Mild Itching Verified 01/13/23 10:07 codeine Allergy Unknown Unknown Verified 01/13/23 10:07 nitrofurantoin AdvReac Intermediate Nausea Verified 01/13/23 10:07 Review of Systems Review of Systems: All systems reviewed & are unremarkable except as noted in HPI and below PMFSH Past Medical History Medical History Attention deficit disorder (ADD) without hyperactivity History of kidney stones Increased urinary frequency Vitamin D deficiency Surgical History Surgical History History of abdominoplasty History of cholecystectomy History of fusion of cervical spine C-6 History of repair of rotator cuff Bilateral History of right cataract extraction Family History Family History Mother Hypertension Family history of elevated blood lipids Family history of congestive heart failure Family history of chronic obstructive pulmonary disease Sibling Family history of malignant neoplasm of breast in first degree relative Father Patient's father is in good health Other Asthma Family history of gout Social History Social History Smoking status: Never smoker Second hand tobacco smoke exposure: Yes Alcohol intake: never Substance use: never Substance use type: does not use Lack of Transportation: No Lack of Food: Never True Current Housing: I Have Housing Concerned About Future Housing: No Difficulty Paying Gas/Electric Bills: No Difficulty Paying for Meds: No Currently Unemployed: No Education: Associate Degree Difficulty w/ Childcare or Family Care: YES Living arrangements: alone Spiritual care concerns: No Exam Narrative: APPEARANCE: Well appearing, no pain, no distress, well-nourished. HEAD: normocephalic, atraumatic. EYES: PERRLA/EOMI, conjunctivae clear. NOSE: Normal no drainage NECK: Supple. No adenopathy, no masses. RESPIRATORY: Airway patent, respirations nonlabored. Clear to auscultation bilaterally, no rales, rhonchi, wheezing. CARDIOVASCULAR: Regular rate and rhythm without murmurs rubs or gallops. ABDOMINAL: Soft, nontender, nondistended, normal bowel sounds MUSCULOSKELETAL: Moves all extremities. Strength/ROM intact, No edema, No calf tenderness. NEURO: Alert. Cranial nerves II through XII intact. Grossly intact SKIN: Warm, dry. Normal Color Course Course Emergency Course: 72-year-old female presented the ED for evaluation of flank pain. 89 patient is afebrile with no leukocytosis and stable hemoglobin. Patient had a CMP that had no significant normalities UA showed no evidence of uri
[2023-02-08 18:53] LABS: D Dimer < 0.27 ug/mL (<0.48)
[2023-02-08 18:57] VITALS: BP 160/68; PULSE 62; RESP 17; O2SAT 99
[2023-02-08 20:03] LABS: Add Urine Microscopic? YES; Appearance Urine Clear (Clear); Bacteria Urine None Seen /hpf; Bilirubin Urine Negative (Negative); Blood Urine Negative (Negative); Color Urine Yellow (Yellow); Glucose Urine UA Negative (Negative); Ketones Urine Negative (Negative); Leukocyte Esterase Ur 1+ LEU/UL (Negative); Need Manual Microscopic Reviewed; Nitrate Urine Negative (Negative); Non Pathogenic Casts 0-2; Protein Urine Negative (Negative); RBC Urine 0-2 /hpf (0-2); Specific Grav Ur 1.017 (1.001-1.035); Squamous Epithelial Cell Urine None seen /hpf (Few); Urobilinogen Urine 0.2 mg/dL (<2.0); WBC Urine 0-5 /hpf; pH Urine 5.5 (5.0-9.0)
[2023-02-08 20:33] VITALS: BP 156/76; PULSE 89; RESP 17; O2SAT 96
== END 2023-02-08 20:50 | disposition home or self-care (01) ==
PROVIDERS: Emergency Provider Emergency Medicine; PCP Family Medicine
DX: M54.50 Low back pain, unspecified (principal); Z87.442 Personal history of urinary calculi
CPT/HCPCS: 36415; 71046; 80053; 81001; 85025; 85380; 93005; 99284

== ENCOUNTER 2023-05-18 10:52 | Outpatient (CLI) | payer MEDICARE, SELFPAY ==
--- NOTE | ~2023-05-18 | MR_ITS ---
EXAMINATION: MR lumbar spine wo con DATE: 05/18/2023 12:04 INDICATION: Low back pain, unspecified. TECHNIQUE: Magnetic resonance imaging (MRI) of the lumbar spine was performed without intravenous con trast. Sequences included sagittal T2-weighted FSE, sagittal T2-weighted FS FSE, sagittal T1-weighted FSE, and axial T2-weighted FSE. COMPARISON: Lumbar spine radiographs 10/17/2022 FINDINGS: There is 9 degrees levocurvature of lumbar spine. L5 is a transitional segment. Vertebral b dorinda heights are normal. There is mildly decreased disc height at L2-L3. The distal spinal cord signal intensity is normal. The conus medullaris is at L1. The following disc levels are specifically discu ssed: L1-L2: There is a left foraminal protrusion. There is mild bilateral facet joint osteoarthritis. Ther e is mild left neural foraminal stenosis. There is mild central canal stenosis. L2-L3: The disc is bulging. There is mild bilateral facet joint osteoarthritis. There is mild bilater al neural foraminal stenosis. There is mild central canal stenosis. L3-L4: The disc is bulging. There is moderate right and severe left facet joint osteoarthritis. There is mild bilateral neural foraminal stenosis. There is mild central canal stenosis. L4-L5: The disc is bulging and has an annular fissure. There is severe bilateral facet joint osteoart hritis. There is mild bilateral neural foraminal stenosis. There is mild central canal stenosis. L5-S1: The disc does not extend beyond the endplate margin. There is mild right facet joint osteoarth ritis. There is no neural foraminal stenosis. There is no central canal stenosis. IMPRESSION: 1. Mild lumbar spondylosis. Reviewed, dictated and finalized at location A. IMPRESSION: 1. Mild lumbar spondylosis.
--- NOTE | ~2023-05-18 | MR_ITS ---
EXAMINATION: MR shoulder RT wo con DATE: 05/18/2023 12:05 INDICATION: Right shoulder pain. TECHNIQUE: Magnetic resonance imaging (MRI) of the right shoulder was performed without intravenous c ontrast. COMPARISON: None. FINDINGS: Coracoacromial arch: The acromion undersurface is flat in morphology (type I). There is mild acromioclavicular joint osteo arthritis. There is mild subacromial/subdeltoid bursitis. Rotator cuff: There are suture anchors in humeral head. There is a bursal sided partial-thickness tear of the junct ion of supraspinatus and infraspinatus tendons measuring 7 mm anterior to posterior by 16 mm proximal to distal by 80% tendon thickness. Teres minor tendon is normal. There is mild subscapularis tendino cesar. Biceps tendon and glenoid labrum: Biceps tendon is in bicipital groove. Intra-articular biceps tendon is normal. The glenoid labrum is normal. Fluid: There is no glenohumeral joint effusion. Bones/cartilage: Glenoid cartilage and humeral head cartilage is normal. IMPRESSION: 1. Bursal sided partial-thickness tear of the rotator cuff. 2. Mild acromioclavicular joint osteoarthritis. 3. Mild subacromial/subdeltoid bursitis. Reviewed, dictated and finalized at location A.
== END 2023-05-18 10:53 | disposition home or self-care (01) ==
LOC: ANHIMG 10:54
PROVIDERS: PCP Family Medicine; Visit Provider Nurse Practitioner Family
DX: R93.89 Abnormal findings on diagnostic imaging of other specified body structures (principal); M19.011 Primary osteoarthritis, right shoulder; M75.51 Bursitis of right shoulder; M75.101 Unspecified rotator cuff tear or rupture of right shoulder, not specified as traumatic; M47.896 Other spondylosis, lumbar region
CPT/HCPCS: 72148; 73221

== ENCOUNTER 2023-07-22 11:48 | Outpatient (CLI) | payer MEDICARE, SELFPAY ==
[2023-07-22 13:32] LABS: Alanine Aminotransferase 28 U/L (6-35); Albumin Level 4.3 g/dL (3.5-5.1); Alkaline Phosphatase 93 U/L (38-126); Anion Gap 7 mmol/L (8-16); Aspartate Amino Transferase 31 U/L (14-36); Bilirubin,Total 0.6 mg/dL (0.2-1.3); Blood Urea Nitrogen 16 mg/dL (7-17); Calcium 9.8 mg/dL (8.4-10.2); Carbon Dioxide 28 mmol/L (22-30); Chloride 103 mmol/L (98-107); Estimated Glomerular Filt Rate > 60; Glucose 106 mg/dL (65-110); Potassium 4.4 mmol/L (3.4-5.0); Sodium 138 mmol/L (137-145)
[2023-07-22 13:55] LABS: Free T4 Free Thyroxine 1.18 ng/mL (0.78-2.19); Vitamin D 25 Hydroxy 54.5 ng/mL
[2023-07-22 14:01] LABS: Thyroid Stimulating Hormone 0.383 uIU/mL (0.465-4.680)
== END 2023-07-22 11:49 | disposition home or self-care (01) ==
PROVIDERS: PCP Family Medicine; Visit Provider Nurse Practitioner Family
DX: E55.9 Vitamin D deficiency, unspecified (principal); R53.83 Other fatigue; R79.89 Other specified abnormal findings of blood chemistry; E78.5 Hyperlipidemia, unspecified; F98.8 Other specified behavioral and emotional disorders with onset usually occurring in childhood and adolescence
CPT/HCPCS: 36415; 80053; 82306; 84439; 84443

== ENCOUNTER 2023-07-26 19:27 | Emergency (ER) | payer MEDICARE, SELFPAY ==
[2023-07-26 19:38] VITALS: BP 166/81; PULSE 78; RESP 16; TEMP 36.5; O2SAT 100
--- NOTE | 2023-07-26 19:46 | ED.URI ---
HPI - URI/Sore Throat General Chief Complaint: Upper Respiratory Infection Stated Complaint: soreness under eyes, Headaches Time Seen by Provider: 07/26/23 19:46 Source: patient Mode of arrival: ambulatory Limitations: no limitations History of Present Illness HPI Narrative: 73-year-old female presents with complaint of sinus congestion pressure postnasal drainage for the past 2 weeks. Reports dry cough. Reports pain to upper back with coughing. Started having intermittent mild headaches this week. Saw her primary care physician for headaches. Did outpatient labs but does not know results. Reports that she has a MRI of her head ordered but is not scheduled yet. Patient reports that her primary care physician told her to try Claritin for her sinuses. Patient states that she tried 1 pill and an hour and half later she was dizzy. Denies nausea vomiting diarrhea. Afebrile. no headache at this time. All systems reviewed and negative except as noted above. Related Data Home Medications Medication Instructions Recorded Confirmed multivitamin with minerals-folic 1 tablet PO DAILY 11/25/21 07/26/23 acid 0.4 mg tablet Allergies Allergy/AdvReac Type Severity Reaction Status Date / Time acetaminophen AdvReac Intermediate Other Verified 07/26/23 19:49 [From Coricidin] chlorpheniramine AdvReac Intermediate Other Verified 07/26/23 19:49 [From Coricidin] nitrofurantoin AdvReac Intermediate Nausea Verified 07/26/23 19:39 phenylpropanolamine AdvReac Intermediate Other Verified 07/26/23 19:48 [From Coricidin] codeine AdvReac Mild Hives Verified 07/26/23 19:39 cyclobenzaprine AdvReac Mild Unknown Verified 07/26/23 19:39 hydrocodone AdvReac Mild HIVES, Verified 07/26/23 19:39 ITCHING hydromorphone AdvReac Mild Itching Verified 07/26/23 19:39 oxycodone AdvReac Mild Itching Verified 07/26/23 19:39 Review of Systems Review of Systems: CONSTITUTIONAL: Denies fever, chills, or sweats. EYES: Denies visual changes, redness, or discharge. ENT: Reports rhinorrhea, congestion, sore throat, intermittent otalgia. CARDIOVASCULAR: Denies chest pain, palpitations, or edema. RESPIRATORY: reports cough. Denies dyspnea. GASTROINTESTINAL: Denies abdominal pain, nausea, vomiting, or diarrhea. GENITOURINARY: Denies dysuria or hematuria. SKIN: Denies rash or itching. MUSCULOSKELETAL: Denies back pain, joint pain, or myalgia. NEUROLOGIC: Denies headache, numbness, or weakness. PSYCHIATRIC: Denies anxiety or depression. All other systems reviewed are negative, except as documented in HPI. FORMERLY [facility], 1928–1983 Past Medical History Medical History Attention deficit disorder (ADD) without hyperactivity History of kidney stones Increased urinary frequency Vitamin D deficiency Surgical History Surgical History History of abdominoplasty History of cholecystectomy History of fusion of cervical spine C-6 History of repair of rotator cuff Bilateral History of right cataract extraction Family History Family History Mother Hypertension Family history of elevated blood lipids Family history of congestive heart failure Family history of chronic obstructive pulmonary disease Sibling Family history of malignant neoplasm of breast in first degree relative Father Patient's father is in good health Other Asthma Family history of gout Social History Social History Smoking status: Never smoker Second hand tobacco smoke exposure: Yes Alcohol intake: never Substance use: never Substance use type: does not use Lack of Transportation: No Lack of Food: Never True Current Housing: I Have Housing Concerned About Future Housing: No Difficulty Paying Gas/Electric Bills: No Difficulty Paying for M
== END 2023-07-26 20:00 | disposition home or self-care (01) ==
PROVIDERS: Emergency Provider Nurse Practitioner Family; PCP Family Medicine
DX: J01.90 Acute sinusitis, unspecified (principal); D17.1 Benign lipomatous neoplasm of skin and subcutaneous tissue of trunk; F98.8 Other specified behavioral and emotional disorders with onset usually occurring in childhood and adolescence
CPT/HCPCS: 99213; G0463

== ENCOUNTER 2023-10-27 15:27 | Outpatient (CLI) | payer MEDICARE, SELFPAY ==
--- NOTE | ~2023-10-27 | XR_ITS ---
EXAMINATION: XR finger 4th RT min 2V INDICATION: Right fourth finger pain, initial encounter TECHNIQUE: Three views of the right fourth finger are obtained. COMPARISON: None available FINDINGS: There is an oblique intra-articular fracture at the palmar base of the fourth middle phalan x. There appears to be some calcified callus formation at the fracture site, suggesting subacute inju ry. There is mild osteoarthritis of the interphalangeal joints. There is soft tissue swelling of the fourth finger. No additional fracture is identified. IMPRESSION: 1. Oblique intra-articular fracture at the palmar base of the fourth middle phalanx, likely subacute. Orthopedic evaluation is recommended. Reviewed, dictated and finalized at location B. OFFICE ASSISTANT IMPRESSION: 1. Oblique intra-articular fracture at the palmar base of the fourth middle pha lanx, likely subacute. Orthopedic evaluation is recommended.
[2023-10-27 17:02] LABS: Influenza A QL RT-PCR Negative (Negative); Influenza B QL RT-PCR Negative (Negative); RSV RNA, RT-PCR Negative (Negative); SARS-CoV-2 RNA PCR Negative (Negative)
== END 2023-10-27 15:28 | disposition home or self-care (01) ==
PROVIDERS: PCP Nurse Practitioner Family; Visit Provider Nurse Practitioner Family
DX: M79.644 Pain in right finger(s) (principal); R06.02 Shortness of breath; S62.624A Displaced fracture of middle phalanx of right ring finger, initial encounter for closed fracture; X58.XXXA Exposure to other specified factors, initial encounter
CPT/HCPCS: 73140; 87637

== ENCOUNTER 2023-12-04 14:12 | Outpatient (CLI) | payer MEDICARE, SELFPAY ==
--- NOTE | ~2023-12-04 | MM_ITS ---
EXAMINATION: MM screening jb BI w [place] HISTORY: Screening TECHNIQUE: Craniocaudal and mediolateral oblique 3-D tomosynthesis images were obtained and synthetic 2-D images were generated. CAD analysis was submitted and interpreted. COMPARISON: 03/27/2017 BREAST PARENCHYMAL COMPOSITION: Dense: The breasts are heterogeneously dense, which may obscure small masses FINDINGS: There is no evidence of suspicious mass, calcification, or architectural distortion to sugg est malignancy in either breast. There has been no suspicious interval change. IMPRESSION: 1. No mammographic evidence of malignancy. 2. Recommend routine screening mammography in one year. BI-RADS Category 1: Negative Reviewed, dictated and finalized at location A.
== END 2023-12-04 14:13 | disposition home or self-care (01) ==
LOC: ANHIMG 14:15
PROVIDERS: PCP Nurse Practitioner Family; Visit Provider Nurse Practitioner Family
DX: Z12.31 Encounter for screening mammogram for malignant neoplasm of breast (principal)
CPT/HCPCS: 77063; 77067

== ENCOUNTER 2023-12-25 11:11 | Outpatient (CLI) | payer MEDICARE, SELFPAY ==
[2023-12-25 12:05] LABS: Free T4 Free Thyroxine 1.19 ng/mL (0.78-2.19)
[2023-12-25 12:15] LABS: Total Triiodothyronine (T3) 1.32 NG/ML (0.97-1.69)
[2023-12-28 11:28] LABS: Thyroid Peroxidase Antibodies 1 IU/mL (<9)
[2024-01-01 13:53] LABS: Thyrotropin Receptor Antibody <1.00 IU/L (< OR = 2.00)
[2024-01-01 19:12] LABS: Thyroid Stimulating Immunoglob <89 % baseline (<140)
== END 2023-12-25 11:12 | disposition home or self-care (01) ==
LOC: ANHLAB 11:15
PROVIDERS: PCP Nurse Practitioner Family; Visit Provider Internal Medicine
DX: R79.89 Other specified abnormal findings of blood chemistry (principal); R53.83 Other fatigue
CPT/HCPCS: 36415; 83519; 84439; 84443; 84445; 84480; 86376

== ENCOUNTER 2024-01-04 15:17 | Outpatient (CLI) | payer MEDICARE, SELFPAY ==
--- NOTE | ~2024-01-04 | DEXA_ITS ---
Bone Density Report Name: ADENIKE CARBAJAL Age: 73 Sex: Female Ethnicity: White Date of : 1950 Indication: postmenopausal; screening for osteoporosis; parental hip fracture; history of glucocorticoids; hysterectomy; Referring Provider: DESTINEY STEVEN Study: Bone densitometry was performed. Exam Date: January 04, 2024 Accession number: [id number] Bone Density: Region BMD T-score Z-score Classification AP Spine(L1-L4) 0.858 -1.7 0.5 Osteopenia Femoral Neck (Left) 0.680 -1.5 0.4 Osteopenia Total Hip (Left) 0.920 -0.2 1.5 Normal Femoral Neck (Right) 0.623 -2.0 -0.1 Osteopenia Total Hip (Right) 0.773 -1.4 0.3 Osteopenia Total Hip Mean 0.846 -0.8 0.9 Normal World Health Organization criteria for BMD impression classify patients as: Normal (T-score at or above -1.0), Osteopenia (T-score between -1.0 and -2.5), or Osteoporosis (T-score at or below -2.5). 10-year Fracture Risk(1): Major Osteoporotic Fracture 32% Hip Fracture 15% Reported Risk Factors: [place] (), Neck BMD=0.623, BMI=25.3, parental fracture, glucocorticoids (1) FRAX(R) Version 3.08. Fracture probability calculated for an untreated patient. Fracture probability may be lower if the patient has received treatment. Previous Exams: Region Exam Age BMD T-score BMD Change BMD Change Date g/cm2 vs Baseline vs Previous AP Spine (L1-L4) 01/04/2024 73 0.858 -1.7 -0.072 (-7.8%) -0.132 (-13.4% 03/27/2017 66 0.990 -0.5 0.060 (6.4%)# 0.060 (6.4%)# 02/16/2012 61 0.930 -1.1 Total Hip(Left) 01/04/2024 73 0.920 -0.2 -0.138 (-13.0% -0.085 (-8.5%) 03/27/2017 66 1.005 0.5 -0.053 (-5.0%) -0.053 (-5.0%) 02/16/2012 61 1.057 0.9 Total Hip(Right) 01/04/2024 73 0.773 -1.4 -0.122 (-13.7% -0.187 (-19.5% 03/27/2017 66 0.960 0.1 0.065 (7.2%)# 0.065 (7.2%)# 02/16/2012 61 0.895 -0.4 *Denotes significance at 95% confidence level, LSC for AP Spine = 0.022 g/cm2, LSC for Total Hip = 0.027 g/cm2 # Denotes dissimilar scan types or analysis methods Clinical Information Provided by Patient: Parent has had a hip fracture Has taken Glucocorticoids Has used the following medications: Vitamin D, multi Has the following medical conditions: Hysterectomy Patient maximum height was 62.5 Menopause Age: 56 Drinks caffeinated beverages Onset of menses at age 14 Number of children 2 Impression: The patient has low bone mass, based on
== END 2024-01-04 15:18 | disposition home or self-care (01) ==
LOC: ANHIMG 15:19
PROVIDERS: PCP Nurse Practitioner Family; Visit Provider Nurse Practitioner Family
DX: Z78.0 Asymptomatic menopausal state (principal); M85.88 Other specified disorders of bone density and structure, other site; M85.852 Other specified disorders of bone density and structure, left thigh; M85.851 Other specified disorders of bone density and structure, right thigh
CPT/HCPCS: 77080

== ENCOUNTER 2024-01-19 08:26 | Emergency (ER) | payer MEDICARE, SELFPAY ==
--- NOTE | ~2024-01-19 | XR_ITS ---
EXAMINATION: XR chest 2V DATE: 01/19/2024 08:54 INDICATION: Shortness of breath. Cough. TECHNIQUE: Frontal and lateral views of the chest were obtained. COMPARISON: Chest 2 views 02/08/2023 FINDINGS: There is no pneumonia, pleural effusion, or pneumothorax. The heart size is normal. There a re suture anchors in the humeral heads bilaterally. Surgical clips in the right upper quadrant are brian katz from cholecystectomy. IMPRESSION: 1. No acute cardiopulmonary disease. Reviewed, dictated and finalized at location A.
[2024-01-19 08:34] VITALS: BP 140/96; PULSE 84; RESP 20; TEMP 37.1; O2SAT 100
--- NOTE | 2024-01-19 08:34 | ED.URI ---
HPI - URI/Sore Throat General Chief Complaint: Upper Respiratory Infection Stated Complaint: COUGH/PAIN ACROSS BACK/DIZZY/HOT & COLD/ST Time Seen by Provider: 01/19/24 08:34 Source: patient, RN notes reviewed and old records reviewed Mode of arrival: ambulatory Limitations: no limitations History of Present Illness HPI Narrative: 73-year-old female presents to the [facility] with complaints of fatigue, cough, sinus pain and pressure for 10 days. Has tried [id number] products. States she is feels like she has gotten worse over the last 3 days. Reports that when she coughs she gets a pain across her back. Denies any pain currently Treatments prior to arrival: cold medicine Related Data Home Medications Medication Instructions Recorded Confirmed multivitamin with minerals-folic 1 tablet PO DAILY 11/25/21 01/19/24 acid 0.4 mg tablet Allergies Allergy/AdvReac Type Severity Reaction Status Date / Time acetaminophen AdvReac Intermediate Other Verified 01/19/24 08:31 [From Coricidin] chlorpheniramine AdvReac Intermediate Other Verified 01/19/24 08:31 [From Coricidin] nitrofurantoin AdvReac Intermediate Nausea Verified 01/19/24 08:31 phenylpropanolamine AdvReac Intermediate Other Verified 01/19/24 08:31 [From Coricidin] codeine AdvReac Mild Hives Verified 01/19/24 08:31 cyclobenzaprine AdvReac Mild Unknown Verified 01/19/24 08:31 hydrocodone AdvReac Mild HIVES, Verified 01/19/24 08:31 ITCHING hydromorphone AdvReac Mild Itching Verified 01/19/24 08:31 oxycodone AdvReac Mild Itching Verified 01/19/24 08:31 Review of Systems Review of Systems: All systems reviewed & are unremarkable except as noted in HPI and below Constitutional: Constitutional: Reports no additional constitutional complaints Eyes: Eyes: Reports no additional eye complaints ENT: Reports as per HPI, Reports sinus pain and Reports sinus pressure Cardiovascular: Cardiovascular: Reports no additional cardiovascular complaints, Denies chest pain and Denies dyspnea Respiratory: Respiratory: Reports as per HPI, Reports chest congestion, Reports cough and Denies dyspnea Gastrointestinal: Gastrointestinal: Reports no additional gastrointestinal complaints, Denies abdominal pain, Denies nausea and Denies vomiting Musculoskeletal: Musculoskeletal: Reports no additional musculoskeletal complaints Integumentary/Breasts: Skin/Breast: Reports system reviewed and no additional complaints, except as docu Neurologic: Reports system reviewed and no additional complaints, except as documented Psychiatric: Psychiatric: Reports no additional psychiatric complaints Allergic/Immunologic: Allergic/Immunologic: Reports no additional allergic/immunologic complaints PMFSH Past Medical History Medical History Attention deficit disorder (ADD) without hyperactivity History of kidney stones Increased urinary frequency Vitamin D deficiency Surgical History Surgical History History of abdominoplasty History of cholecystectomy History of fusion of cervical spine C-6 History of repair of rotator cuff Bilateral History of right cataract extraction Family History Family History Mother Hypertension Family history of elevated blood lipids Family history of congestive heart failure Family history of chronic obstructive pulmonary disease Sibling Family history of malignant neoplasm of breast in first degree relative Father Patient's father is in good health Other Asthma Family history of gout Social History Social History Smoking status: Never smoker Second hand tobacco smoke exposure: Yes Alcohol intake: never Substance use: never Substance use type: does not use Do You Feel Safe in your Home?: Yes Lack
== END 2024-01-19 09:20 | disposition home or self-care (01) ==
PROVIDERS: Emergency Provider Nurse Practitioner; PCP Nurse Practitioner Family
DX: J40 Bronchitis, not specified as acute or chronic (principal); J01.01 Acute recurrent maxillary sinusitis; F98.8 Other specified behavioral and emotional disorders with onset usually occurring in childhood and adolescence
CPT/HCPCS: 71046; 99213; G0463

== ENCOUNTER → 2024-02-08 01:32 | Day surgery (SDC) | payer MEDICARE, SELFPAY ==
[2024-01-27 12:20] VITALS: BMI 24.3
--- NOTE | 2024-01-27 12:25 | PC.NURSE ---
Report to the Outpatient Waiting Room, entrance under the green pavilion located off [facility], at time ___1115____ on date ___02/08/24____. Planned Procedure Time: __1:15 PM . Time changes happen often and if your time is changed the preop area will call you the afternoon before. - You and your visitor will be asked to self-screen and do not enter if you have any COVID symptoms. - A mask is optional within the hospital at this time. Patients may have clear liquids (water, carbonated beverages, clear teas, apple juice) until 3 hours prior to surgery (1015 AM) with a maximum of 20 ounces. - No food from midnight until time of surgery - Infants may have breast milk until 4 hours before surgery, formula 6 hours prior to surgery. - Children will be allowed to drink immediately following surgery. If applicable, please bring a bottle or sippy cup to assist with drinking. Juice, water, soda, and popsicles are readily available. For infants on formula, please bring formula the day of surgery. Pacifiers are allowed. Take the following medications with a SIP of water the morning of surgery: _ADDERALL, & TIZANIDINE IF NEEDED_ DO NOT STOP ANY OF YOUR OTHER PRESCRIPTION MEDICATIONS PRIOR TO SURGERY ?EXCEPT THE FOLLOWING Medications to discontinue per ANESTHESIA - _VITAMINS/SUPPLEMENTS 3 DAYS PRIOR TO SURGERY, Date to take last dose 02/04/24 Please no make-up, nail latvian, hairspray, perfume, deodorant, or body powder the day of surgery. No jewelry (including any body piercings) or valuables the day of surgery, leave them at home. Please take a shower or bath the night before, or the morning of, surgery with an antibacterial soap. Wear comfortable, loose fitting clothing. Children are encouraged to wear pajamas. - Jewelry must be removed prior to entering the operating room. Rings and piercings that are not removed may be cut off. - The hospital will not accept responsibility for valuables. - Please leave all valuables, including medications, at home the day of surgery. If you are going home after surgery, a licensed team truck driver must drive you home. - NO public transportation without another adult if you receive anesthesia. - We recommend that an adult stay with you for 24 hours following discharge. - We also recommend that you do not drive, make important decision, drink alcoholic beverages, or take any drugs that were not prescribed by your health care provider for at least 24 hours after your discharge time. For Pediatric surgeries, we recommend two adults accompany the child home. Follow any additional instructions given to you from your surgeon. If you or anyone in your household have experienced Covid symptoms in the past week, please notify your surgeon or the nurse liaison at the phone number below for possible testing. Telephone instructions given to ____PT and asked if any additional questions and then verbalized understanding. Patient advised to call surgeon office or pre surgery nurse liaison [phone] if any additional questions.
[2024-02-08] VITALS (9 sets, daily range): BP systolic 126–151; BP diastolic 59–88; PULSE 70–84; RESP 14–20; TEMP 36.1–37; O2SAT 96–100
--- NOTE | 2024-02-08 12:02 | WPDHPUPDATE1 ---
History and Physical Update Update Date/Time: 02/08/24 12:02 History and Physical has been reviewed, including an updated exam of the patient. There are NO changes in the patient's condition. Risks, benefits, and alternatives have been discussed and questions answered. Patient agrees to proceed with procedure.
[2024-02-08] MEDS: LACTATED RINGERS 1,000 ML 30 ML IV CONT (13:00)
--- NOTE | 2024-02-08 13:04 | WPDANESEPPF ---
Anes - Initial Pre Proc Eval Procedure: Operation Date: 02/08/24 13:15 Proposed Procedures p Excisional Biopsy Of Subcutaneous Mass Left Posterior Shoulder - Libby Kaminski MD Date/Time: 02/08/24 13:04 Surgeon: Libby Kaminski MD Pre Op Diagnosis: subcutaneous mass of left posterior shoulder Patient Data Age: 73 Gender: F Height: 1.59 m Weight: 61.36 kg Allergies Allergy/AdvReac Type Severity Reaction Status Date / Time chlorpheniramine AdvReac Intermediate Other Verified 01/27/24 12:15 [From Coricidin] nitrofurantoin AdvReac Intermediate Nausea Verified 01/27/24 12:15 phenylpropanolamine AdvReac Intermediate Other Verified 01/27/24 12:15 [From Coricidin] codeine AdvReac Mild Hives Verified 01/27/24 12:15 cyclobenzaprine AdvReac Mild Confusion Verified 01/27/24 12:15 hydrocodone AdvReac Mild HIVES, Verified 01/27/24 12:15 ITCHING hydromorphone AdvReac Mild Itching Verified 01/27/24 12:15 oxycodone AdvReac Mild Itching Verified 01/27/24 12:15 Home Medications Medication Instructions Recorded Confirmed Type multivitamin with minerals-folic 1 tablet PO DAILY 11/25/21 01/27/24 History acid 0.4 mg tablet tizanidine 2 mg tablet 2 mg PO TID PRN muscle spasticity 01/06/24 01/27/24 Rx #60 tabs ascorbic acid 7.5 mg-vit E 7.5 1 tablet PO DAILY 01/27/24 01/27/24 History unit-biotin 1,250 mcg chewable tablet (Hair,Skin,Nails with Biotin) calcium carbonate 600 mg-vitamin 1 tablet PO DAILY 01/27/24 01/27/24 History D3 20 mcg (800 unit) chewable tablet (Caltrate 600 plus D) Adderall XR 30 mg capsule,extended 30 mg PO DAILY #30 caps 02/02/24 Rx release (dextroamphetamine-amphetamine) Patient hx anesthesia problems: none Family hx anesthesia problems: none Results Review: All pre-operative results and documents have been reviewed as part of the pre-operative evaluation. [facility], [facility] Past Medical History Medical History Attention deficit disorder (ADD) without hyperactivity History of kidney stones Increased urinary frequency Vitamin D deficiency Surgical History Surgical History History of abdominoplasty History of cholecystectomy History of fusion of cervical spine C-6 History of repair of rotator cuff Bilateral History of right cataract extraction Family History Family History Mother Hypertension Family history of elevated blood lipids Family history of congestive heart failure Family history of chronic obstructive pulmonary disease Sibling Family history of malignant neoplasm of breast in first degree relative Father Patient's father is in good health Other Asthma Family history of gout Social History Social History Smoking status: Never smoker Second hand tobacco smoke exposure: No Alcohol intake: never Substance use: never Substance use type: does not use Do You Feel Safe in your Home?: Yes Lack of Transportation: No Lack of Food: Never True Current Housing: I Have Housing Concerned About Future Housing: No Difficulty Paying Gas/Electric Bills: No Difficulty Paying for Meds: No Currently Unemployed: No Education: Associate Degree Difficulty w/ Childcare or Family Care: YES Living arrangements: with friend(s) Additional living arrangements comments: LIVES WITH [facility] - [place] Spiritual care concerns: No Anes - Eval Final PreProcedure Day of Procedure 02/08/24 13:04 Patient weight: normal Heart: regular rate and rhythm Lungs: clear to auscultation Airway: Mallampati scale and special considerations (Missing many in the post lower aspect. ) Neurological: alert and oriented Last oral intake: >/= 8 hours ASA classification: II Emergent: no An
[2024-02-08] MEDS: BUPIVACAINE/EPINEPHRINE 0.5% 10 ML VIAL 30 ML INFILTRATE (13:37)
[2024-02-08] MEDS: ceFAZolin 2 GM/D5W 50 ML 2 GM/50 ML BAG IVPB (13:38)
--- NOTE | 2024-02-08 14:39 | W.PM.PROC2 ---
Procedure Note - Detailed Date of Procedure 02/08/24 Pre-op Diagnosis subcutaneous mass of left posterior shoulder, upper back Post-op Diagnosis Same Procedure Performed excisional biopsy large subcutaneous mass left posterior shoulder, upper back measuring 9 x 11 cm most consistent with multi lobular lipoma Surgeon Libby Kaminski MD Anesthesia General and Local Indications A 73-year-old female presenting with a large subcutaneous mass on her left posterior shoulder, upper back. She reports that this has been slowly growing over time and is now symptomatic. 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 After adequate induction of general anesthesia, the patient was prepped and draped in the normal sterile fashion. A time-out was then done to verify the patient's identity, as well as the procedure being performed. I began by localizing the area and around this mass in the left posterior shoulder, upper back. I then made an incision over the mass. This was taken down through the dermis and into the subcutaneous tissue. At this point a large multi lobular mass was noted. I was able to excise the main part of the mass in full, however, there was noted to be multiple small pockets of additional mass. I was able to go ahead and excise all of these areas as well. The mass in total measured approximately 9 x 11 cm. It was all contained within the subcutaneous tissue but did extend to the level of the muscle. This did not extend into the muscle. Once the area was completely excised, I copiously irrigated the cavity. Hemostasis was gained with the Bovie cautery. No other pathology was noted in the cavity. I then closed the subcutaneous tissue with 3-0 Vicryl suture. The skin was closed with 4-0 Monocryl subcuticular suture. Dermabond was placed on the wound. The patient tolerated the procedure well and was extubated postoperatively. She will be transferred to the recovery room in stable condition. Estimated Blood Loss 5 Drains No Packing No Pathology Yes Complications No immediate complications Condition Stable [facility] Billing Surgery - Charge Forward: Surgery Billing
== END | disposition home or self-care (01) ==
PROVIDERS: PCP Nurse Practitioner Family; Visit Provider Surgery
PROC: (CPT 21931; principal; 2024-02-08 13:15)
DX: D17.1 Benign lipomatous neoplasm of skin and subcutaneous tissue of trunk (principal); F98.8 Other specified behavioral and emotional disorders with onset usually occurring in childhood and adolescence; E55.9 Vitamin D deficiency, unspecified; Z98.1 Arthrodesis status
CPT/HCPCS: 21931; 88304; J0330; J0690; J1100; J2250; J2371; J2405; J2704; J3010; J7120

== ENCOUNTER 2024-11-07 09:40 | Outpatient (CLI) | payer MEDICARE, SELFPAY ==
[2024-11-07 10:41] LABS: Basophils Absolute Auto 0.1 K/mm3 (0.0-0.1); Basophils Percent Auto 1.3 % (0.2-1.2); Eosinophils Absolute Auto 0.2 K/mm3 (0-0.3); Hematocrit 41.4 % (37.0-47.0); Immature Granulocyte Absolute 0.01 K/mm3 (0.00-0.031); Immature Granulocyte Percent A 0.2 % (0-0.5); Lymphocytes Absolute Auto 2.61 K/mm3 (0.9-3.2); Lymphocytes Percent Auto 41.1 % (18.3-44.2); Mean Corpuscular HGB Conc 31.4 g/dl (32-36); Mean Corpuscular Hemoglobin 28.2 pg (26-34); Mean Corpuscular Volume 89.8 fl (80-100); Mean Platelet Volume 11.1 fl (7.4-10.4); Monocytes Absolute Auto 0.5 K/mm3 (0.1-0.6); Monocytes Percent Auto 8.2 % (2.6-8.5); Neutrophils Absolute Auto 2.9 K/mm3 (1.3-6.7); Neutrophils Percent Auto 46.2 % (45.5-73.1); Platelet Count Result 271 k/mm3 (150-375); Red Blood Count 4.61 M/mm3 (4.2-5.4); Red Cell Distribution Width 14.6 % (11.5-14.5); White Blood Count 6.4 K/mm3 (4.5-10.0)
[2024-11-07 11:09] LABS: Hemoglobin A1C 5.8 % (<5.7)
[2024-11-07 11:14] LABS: Alanine Aminotransferase 29 U/L (6-35); Albumin Level 4.3 g/dL (3.5-5.1); Alkaline Phosphatase 82 U/L (38-126); Anion Gap 6 mmol/L (4-12); Aspartate Amino Transferase 31 U/L (14-36); Bilirubin,Total 1.3 mg/dL (0.2-1.3); Blood Urea Nitrogen 16 mg/dL (7-17); Calcium 9.9 mg/dL (8.4-10.2); Carbon Dioxide 29 mmol/L (22-30); Chloride 103 mmol/L (98-107); Cholesterol 324 mg/dL (0-200); Estimated Glomerular Filt Rate > 60; Glucose 99 mg/dL (65-110); Potassium 4.4 mmol/L (3.4-5.0); Sodium 138 mmol/L (137-145); Triglycerides 69 mg/dL (<150)
[2024-11-07 11:15] LABS: LDL Cholesterol Direct 150 mg/dL
[2024-11-07 11:26] LABS: HDL Direct 129 mg/dL
== END 2024-11-07 09:41 | disposition home or self-care (01) ==
PROVIDERS: PCP Family Medicine; Visit Provider Nurse Practitioner Family
DX: E78.5 Hyperlipidemia, unspecified (principal); E55.9 Vitamin D deficiency, unspecified; R79.89 Other specified abnormal findings of blood chemistry; R73.01 Impaired fasting glucose; F98.8 Other specified behavioral and emotional disorders with onset usually occurring in childhood and adolescence
CPT/HCPCS: 36415; 80053; 80061; 83036; 85025

== ENCOUNTER 2024-11-12 15:58 | Emergency (ER) | payer MEDICARE, SELFPAY ==
--- NOTE | ~2024-11-12 | XR_ITS ---
XR chest 2V DATE: 11/12/2024 16:50 INDICATION: Chest tightness. Anxiety. TECHNIQUE: 2 views COMPARISON: 01/19/2024 PA and lateral chest FINDINGS: Normal heart size. Mild aortic unfolding. No hilar or mediastinal enlargement. No pulmonary infiltrate or consolidation, pleural effusion or pulmonary vascular congestion or pneumo thorax. Status post cholecystectomy Suture anchors are noted at both humeral heads. Osteopenia. IMPRESSION: No active cardiopulmonary disease Reviewed, dictated and finalized at location A.
--- OUTSIDE RECORDS SUMMARY | 2024-11-12 16:01 | XMS_ITS | Continuity of Care Document ---
Author Organization [employer] [place] Address [address] [place] [address] [address] [place] [address] Phone Care Team Providers [employer] Applier Name Role Phone Fadi PT, AYSHAT, Noah Unavailable Unavailable Procedures Procedure Date Neuromuscular Re-Ed Neuromuscular Re-Ed Therapeutic Exercise Neuromuscular Re-Ed Therapeutic Exercise Progress Note Neuromuscular Re-Ed Neuromuscular Re-Ed Therapeutic Exercise Therapeutic Activities Neuromuscular Re-Ed Therapeutic Exercise Therapeutic Activities Neuromuscular Re-Ed Therapeutic Exercise Therapeutic Activities Neuromuscular Re-Ed Therapeutic Exercise Therapeutic Activities Neuromuscular Re-Ed Therapeutic Exercise Therapeutic Activities Neuromuscular Re-Ed Therapeutic Exercise Doc neg elder mal no plan PRES/ABSN URINE INCON ASSESS PT Evaluation Moderate Complexity Therapeutic Activities Neuromuscular Re-Ed Therapeutic Exercise Neuromuscular Re-Ed Therapeutic Activities Therapeutic Exercise Therapeutic Activities Neuromuscular Re-Ed Therapeutic Exercise Neuromuscular Re-Ed Therapeutic Activities Therapeutic Exercise Therapeutic Activities Neuromuscular Re-Ed Therapeutic Exercise Therapeutic Exercise Neuromuscular Re-Ed Therapeutic Activities PT Re-evaluation Therapeutic Activities Neuromuscular Re-Ed Therapeutic Exercise Therapeutic Activities Neuromuscular Re-Ed Therapeutic Exercise Therapeutic Activities Neuromuscular Re-Ed Therapeutic Exercise Therapeutic Activities Neuromuscular Re-Ed Therapeutic Exercise PT Evaluation Low Complexity Therapeutic Activities Therapeutic Exercise PT Re-evaluation Therapeutic Exercise Neuromuscular Re-Ed Manual Therapy Hot or Cold Pack Therapeutic Exercise Manual Therapy Hot or Cold Pack Therapeutic Exercise Manual Therapy Hot or Cold Pack Carrying, Moving And Handling Objects-Cu rrent Carrying, Moving And Handling Objects-Go al Therapeutic Exercise Manual Therapy Hot or Cold Pack Therapeutic Exercise Manual Therapy Hot or Cold Pack Therapeutic Exercise Neuromuscular Re-Ed Manual Therapy Hot or Cold Pack Electrical Stimulation Therapeutic Exercise Manual Therapy Hot or Cold Pack Electrical Stimulation Therapeutic Exercise Manual Therapy Hot or Cold Pack Electrical Stimulation Therapeutic Exercise Manual Therapy Hot or Cold Pack Electrical Stimulation Therapeutic Exercise Manual Therapy Hot or Cold Pack Therapeutic Exercise Neuromuscular Re-Ed Manual Therapy Hot or Cold Pack PT Re-evaluation Therapeutic Exercise Neuromuscular Re-Ed Manual Therapy Hot or Cold Pack Carrying, Moving And Handling Objects-Cu rrent Carrying, Moving And Handling Objects-Go al Therapeutic Exercise Manual Therapy Hot or Cold Pack Therapeutic Exercise Manual Therapy Hot or Cold Pack Therapeutic Exercise Neuromuscular Re-Ed Manual Therapy Hot or Cold Pack Therapeutic Exercise Neuromuscular Re-Ed Manual Therapy Hot or Cold Pack Therapeutic Exercise Neuromuscular Re-Ed Manual Therapy Hot or Cold Pack Carrying, Moving And Handling Objects-Cu rrent Carrying, Moving And Handling Objects-Go al Therapeutic Exercise Manual Therapy Hot or Cold Pack Therapeutic Exercise Neuromuscular Re-Ed Manual Therapy Hot or Cold Pack Therapeutic Exercise Neuromuscular Re-Ed Manual Therapy Hot or Cold Pack Therapeutic Exercise Neuromuscular Re-Ed Manual Therapy Hot or Cold Pack PT Re-evaluation Therapeutic Exercise Manual Therapy Hot or Cold Pack Therapeutic Exercise Manual Therapy Hot or Cold Pack Therapeutic Exercise Manual Therapy Hot or Cold Pack Therapeutic Exercise Manual Therapy Hot or Cold Pack Therapeutic Exercise Manual Therapy Hot or Cold Pack Carrying, Moving And Handling Objects-Cu rrent Carrying, Moving And Handling Objects-Go al Therapeutic Exercise Manual Therapy Hot or Cold Pack Carrying, Moving And Handling Objects-Cu rrent Carrying, Moving And Handling Objects-Go al Therapeutic Exercise Manual Therapy Hot or Cold Pack Therapeutic Exercise Manual Therapy Hot or Cold Pack Therapeutic Exercise Manual Therapy Hot or Cold Pack Therapeutic Exercise Manual Therapy Hot or Cold Pack Therapeutic Exercise Manual Therapy Hot or Cold Pack PT Re-evaluation Therapeutic Exercise Manual Therapy Hot or Cold Pack Therapeutic Exercise Manual Therapy Hot or Cold Pack Therapeutic Exercise Manual Therapy Hot or Cold Pack Therapeutic Exercise Manual Therapy Hot or Cold Pack Carrying, Moving And Handling Objects-Cu rrent Carrying, Moving And Handling Objects-Go al Therapeutic Exercise Manual Therapy Hot or Cold Pack Therapeutic Exercise Manual Therapy Hot or Cold Pack Therapeutic Exercise Manual Therapy Hot or Cold Pack Carrying, Moving And Handling Objects-Cu rrent Carrying, Moving And Handling Objects-Go al Therapeutic Exercise Manual Therapy Hot or Cold Pack Carrying, Moving And Handling Objects-Cu rrent Carrying, Moving And Handling Objects-Go al PT Evaluation Moderate Complexity Therapeutic Exercise Manual Therapy Carrying, Moving And Handling Objects-Cu rrent Carrying, Moving And Handling Objects-Go al Therapeutic Exercise Neuromuscular Re-Ed Manual Therapy Hot or Cold Pack Therapeutic Exercise Neuromuscular Re-Ed Manual Therapy Hot or Cold Pack Carrying, Moving And Handling Objects-Cu rrent Carrying, Moving And Handling Objects-Go al Therapeutic Exercise Neuromuscular Re-Ed Manual Therapy Hot or Cold Pack Therapeutic Exercise Neuromuscular Re-Ed Manual Therapy Hot or Cold Pack Therapeutic Exercise Neuromuscular Re-Ed Manual Therapy Hot or Cold Pack Therapeutic Exercise Neuromuscular Re-Ed Manual Therapy Hot or Cold Pack Therapeutic Exercise Neuromuscular Re-Ed Manual Therapy Hot or Cold Pack Therapeutic Exercise Neuromuscular Re-Ed Manual Therapy Hot or Cold Pack Therapeutic Exercise Neuromuscular Re-Ed Manual Therapy Hot or Cold Pack Therapeutic Exercise Neuromuscular Re-Ed Manual Therapy Hot or Cold Pack Carrying, Moving And Handling Objects-Cu rrent Carrying, Moving And Handling Objects-Go al Therapeutic Exercise Neuromuscular Re-Ed Manual Therapy Hot or Cold Pack Therapeutic Exercise Therapeutic Activities Neuromuscular Re-Ed Manual Therapy Hot or Cold Pack Therapeutic Exercise Neuromuscular Re-Ed Manual Therapy Hot or Cold Pack Therapeutic Exercise Neuromuscular Re-Ed Manual Therapy Hot or Cold Pack Carrying, Moving And Handling Objects-Cu rrent Carrying, Moving And Handling Objects-Go al Therapeutic Exercise Manual Therapy Hot or Cold Pack Therapeutic Exercise Neuromuscular Re-Ed Manual Therapy Hot or Cold Pack Therapeutic Exercise Neuromuscular Re-Ed Manual Therapy Hot or Cold Pack Therapeutic Exercise Therapeutic Activities Neuromuscular Re-Ed Manual Therapy Hot or Cold Pack Therapeutic Exercise Neuromuscular Re-Ed Manual Therapy Hot or Cold Pack Therapeutic Exercise Neuromuscular Re-Ed Manual Therapy Hot or Cold Pack Therapeutic Exercise Therapeutic Activities Manual Therapy Hot or Cold Pack Therapeutic Exercise Therapeutic Activities Manual Therapy Hot or Cold Pack Therapeutic Exercise Manual Therapy Hot or Cold Pack Carrying, Moving And Handling Objects-Cu rrent Carrying, Moving And Handling Objects-Go al Therapeutic Exercise Manual Therapy Hot or Cold Pack Carrying, Moving And Handling Objects-Cu rrent Carrying, Moving And Handling Objects-Go al PT Evaluation High Complexity 7 Therapeutic Exercise Manual Therapy Hot or Cold Pack Carrying, Moving And Handling Objects-Cu rrent Carrying, Moving And Handling Objects-Go al Advance Directives Directive Yes / No Effective Date File Name No Information Encounters Encounter Description Practice Location Reason(s) For Visit Diagnoses Date Provider Providers Copied on Encounter [facility], [place], [place], [id number], tel:[phone] [place] No Information 4 Fadi Zamora. . [facility], [place], [place], [address], tel:[phone] [place] No Information 2 3 Fadi Zamroa. . [facility], [place], [place], [address], [place] tel:[phone] [place] No Information Jun-0 3 Onieljohanarosa Noah. . [facility], [place], [place], [address], [place] tel:[phone] [place] No Information Jun-0 3 Onieljohanarosa Noah. . [facility], [place], [place], [address], [place] tel:[phone] [place] No Information May-2 3 Fadi Zamora. . [facility], [place], [place], [address], [place] tel:[phone] [place] No Information 3 Fadi Zamora. . [facility], [place], [place], [address], [place] tel:[phone] [place] No Information 3 Fadi Zamora. . [facility], [place], [place], [address], [place] tel:[phone] [place] No Information Oct-1 2- 3 Zunildan Noah. . [facility], [address], [place], [place], [address], [place] tel:[phone] [place] No Information Oct-1 0- 3 Klahn Noah. . [facility], [address], [place], [place], [address], [place] tel:[phone] [place] No Information Oct-0 5- 3 Zunildan Noah. . [facility], [address], [place], [place], [address], [place] tel:[phone] [place] No Information Oct-0 3- 3 Zunildan Noah. . [facility], [address], [place], [place], [address], [place] tel:[phone] [place] No Information Sep-2 - 3 Zunildan Noah. . [facility], [address], [place], [place], [address], [place] tel:[phone] [place] No Information Oct-1 9- 1 Makler Luke. . Referring Provider: Sharyn Larios [address], [place], [address]. tel:[phone] [facility], [place], [place], [address], [place] tel:[phone] [place] No Information Oct-1 2- 1 Makler Luke. . Referring Provider: Sharyn Larios [address], [place], [address]. tel:[phone] [facility], [place], [place], [address], [place] tel:[phone] [place] No Information Oct-0 7- 1 Makler Luke. . Referring Provider: Sharyn Larios [address], [place], [address]. tel: [facility] [address], [place], [place], [address], [place] tel:[phone] [place] No Information Oct-0 5-202 1 Makler Luke. . Referring Provider: Sharyn Larios [facility] [address] [facility] 10, [place], [address]. tel: [address], [place], [place], [id number], [place] tel:[phone] [place] No Information Sep-3 0-202 1 Makler Luke. . Referring Provider: Sharyn Larios [facility] [address], [place], [address]. tel: [facility] [address] [place], [place] [address], [place], [place], [address], [place] tel:[phone] [place] No Information Sep-2 8-202 1 Makler Luke. . Referring Provider: Sharyn Larios [facility] [address], [place], [address]. tel: [facility] [address] [place], [place] [address], [place], [place], [address], [place] tel:[phone] [place] No Information Sep-2 3-202 1 Makler Luke. . Referring Provider: Sharyn Larios [facility] [address], [place], [address]. tel: [facility] [address], [place], [place], [address], [place] tel:[phone] [place] No Information Sep-2 1-202 1 Makler Luke. . Referring Provider: Sharyn Larios [facility] [address], [place], [address]. tel: [facility] [address], [place], [place], [address], [place] tel:[phone] [place] No Information Apr- 1 Makdarby Hurleyke. . Referring Provider: Odalis Valencia [address], [place], [address]. tel:[phone] [facility] [address] [facility], [place], [place], [address], [place] tel:[phone] [place] No Information Apr- 1 Makler Meike. . Referring Provider: Odalis Valencia [address], [place], [address]. tel:[phone] [facility] [address] [facility], [place], [place], [address], [place] tel:[phone] [place] Pain in left shoulderStiffnes s of left shoulder, not elsewhere classifiedOth symptoms and signs involving the musculoskeletal systemOther specified postprocedural statesUnsp rotatr-cuff tear/ruptr of left shoulder, not trauma Jan- 8 Ovidio Amy. [address] [facility], [address], [place], [address], [place]. tel:[phone] Referring Provider: Edmund Frazier[address] [place], [address]. tel:[phone] [facility] [address] [address], [place], [place], [address], [place] tel:[phone] [place] Pain in left shoulderStiffnes s of left shoulder, not elsewhere classifiedOth symptoms and signs involving the musculoskeletal systemOther specified postprocedural statesUnsp rotatr-cuff tear/ruptr of left shoulder, not trauma 8 Ovidio Amy. [address] [facility], [address], [place], [address], [place]. tel:[phone] Referring Provider: Daniel Vigil [address] [place], [address]. tel:[phone] [facility] [facility], [place], [place], [address], [place] tel:[phone] [place] Pain in left shoulderStiffnes s of left shoulder, not elsewhere classifiedOth symptoms and signs involving the musculoskeletal systemOther specified postprocedural statesUnsp rotatr-cuff tear/ruptr of left shoulder, not trauma Garcia-1 2-201 8 Ovidio Amy. [address] [facility], [address], [place], [address], [place]. tel:[phone] Referring Provider: Edmund Frazier[address] [facility], [place], [address]. tel:[phone] [place] [address] [address], [place], [address], [place] tel:[phone] [place] Pain in left shoulderStiffnes s of left shoulder, not elsewhere classifiedOth symptoms and signs involving the musculoskeletal systemOther specified postprocedural statesUnsp rotatr-cuff tear/ruptr of left shoulder, not trauma Garcia-0 7-201 8 Ovidio Amy. [address] [facility], [address], [place], [address], [place]. tel:[phone] Referring Provider: Edmund Frazier[address] [facility], [place], [address]. tel:[phone], [place], [place], [address], [place] tel:[phone] [place] Pain in left shoulderStiffnes s of left shoulder, not elsewhere classifiedOth symptoms and signs involving the musculoskeletal systemOther specified postprocedural statesUnsp rotatr-cuff tear/ruptr of left shoulder, not trauma Garcia-0 5-201 8 Ovidio Amy. [address] [facility], [address], [place], [address], [place]. tel:[phone] Referring Provider: Edmund Frazier[address] [facility], [place], [address]. tel:[phone] [address] [facility] [address], [place], [place], [address], [place] tel:[phone] [place] Pain in left shoulderStiffnes s of left shoulder, not elsewhere classifiedOth symptoms and signs involving the musculoskeletal systemOther specified postprocedural statesUnsp rotatr-cuff tear/ruptr of left shoulder, not trauma 8 [place] [employer] Amy. [address] [facility], [address], [place], [address], [place]. [phone] Referring Provider: Edmund Frazier[address] [place], [address]. tel:[phone] [facility] [address], [id number], [place] tel:[phone] [place] Pain in left shoulderStiffnes s of left shoulder, not elsewhere classifiedOth symptoms and signs involving the musculoskeletal systemOther specified postprocedural statesUnsp rotatr-cuff tear/ruptr of left shoulder, not trauma 8 [place] [employer] Amy. [address] [facility], [address], [place], [address], [place]. [phone] Referring Provider: Edmund Frazier[address] [place], [address]. tel:[phone] [facility], [id number], [place] tel:[phone] [place] Pain in left shoulderStiffnes s of left shoulder, not elsewhere classifiedOth symptoms and signs involving the musculoskeletal systemOther specified postprocedural statesUnsp rotatr-cuff tear/ruptr of left shoulder, not trauma 8 [place] Jimé[place], [place]. Referring Provider: Daniel Vigil [address] [place], [address]. tel:[phone] [facility], [id number], [place] tel:[phone] [place] Pain in left shoulderStiffnes s of left shoulder, not elsewhere classifiedOth symptoms and signs involving the musculoskeletal systemOther specified postprocedural statesUnsp rotatr-cuff tear/ruptr of left shoulder, not trauma 8 [place], [place]. Referring Provider: Edmund Frazier[address] [facility], [place], [address]. tel:[phone] [place] [address], [id number], [place] tel:[phone] [place] Pain in left shoulderStiffnes s of left shoulder, not elsewhere classifiedOth symptoms and signs involving the musculoskeletal systemOther specified postprocedural statesUnsp rotatr-cuff tear/ruptr of left shoulder, not trauma May-1 4-201 8 [place] [employer] Amy. [address] [facility], [address], [place], [place], [facility], [place]. tel:[phone] Referring Provider: Edmund Frazier[address] [facility], [place], [address]. tel:[phone] [place] [address] [place] [address], [id number], [place] tel:[phone] [place] Pain in left shoulderStiffnes s of left shoulder, not elsewhere classifiedOth symptoms and signs involving the musculoskeletal systemOther specified postprocedural statesUnsp rotatr-cuff tear/ruptr of left shoulder, not trauma May-1 0-201 8 Ovidio Amy. [address] [place] [address], [address], [place], [address], [place]. tel:[phone] Referring Provider: Edmund Frazier[address] [facility], [place], [address]. tel:[phone] [place] [address] [address] [address], [place], [place], [address], [place] tel:[phone] [place] Pain in left shoulderStiffnes s of left shoulder, not elsewhere classifiedOth symptoms and signs involving the musculoskeletal systemOther specified postprocedural statesUnsp rotatr-cuff tear/ruptr of left shoulder, not trauma May-0 8-201 8 Ovidio Amy. [address] [facility], [address], [place], [address], [place]. tel:[phone] Referring Provider: Edmund Frazier[address] [facility], [place], [address]. tel:[phone] [facility] [address] [address], [place], [place], [address], [place] tel:[phone] [place] Pain in left shoulderStiffnes s of left shoulder, not elsewhere classifiedOth symptoms and signs involving the musculoskeletal systemOther specified postprocedural statesUnsp rotatr-cuff tear/ruptr of left shoulder, not trauma May-0 3-201 8 [place] [employer] Amy. [address] [facility], [address], [place], [address], [place]. [phone] Referring Provider: Edmund Frazier[address] [facility], [place], [address]. tel:[phone] [facility] [address] [facility] 300, [place], [place], [address], [place] tel:[phone] [place] Pain in left shoulderStiffnes s of left shoulder, not elsewhere classifiedOth symptoms and signs involving the musculoskeletal systemOther specified postprocedural statesUnsp rotatr-cuff tear/ruptr of left shoulder, not trauma May-0 1-201 8 Ovidio Amy. [address] [facility], [address], [place], [address], [place]. [phone] Referring Provider: Edmund Frazier[address] [facility], [place], [address]. tel:[phone] [facility], [id number], [place] tel:[phone] [place] Pain in left shoulderStiffnes s of left shoulder, not elsewhere classifiedOth symptoms and signs involving the musculoskeletal systemOther specified postprocedural statesUnsp rotatr-cuff tear/ruptr of left shoulder, not trauma Apr-2 4-201 8 [place] [employer] Amy. [address] [facility], [address], [place], [address], [place]. [phone] Referring Provider: Daniel Vigil [address] [address] [facility], [place], [address]. tel:[phone] [place], [place] [address], [place], [place], [address], [place] tel:[phone] [place] Pain in left shoulderStiffnes s of left shoulder, not elsewhere classifiedOth symptoms and signs involving the musculoskeletal systemOther specified postprocedural statesUnsp rotatr-cuff tear/ruptr of left shoulder, not trauma Apr-2 0-201 8 [place] [employer] Amy. [address] [facility], [address], [place], [address], [place]. tel: [phone] Referring Provider: Daniel Vigil [address] [facility], [place], [address]. tel:[phone] [place] [address] [address], [place], [place], [address], [place] tel:[phone] [place] Pain in left shoulderStiffnes s of left shoulder, not elsewhere classifiedOth symptoms and signs involving the musculoskeletal systemOther specified postprocedural statesUnsp rotatr-cuff tear/ruptr of left shoulder, not trauma Apr-1 8-201 8 [place] [employer] Amy. [address] [facility], [address], [place], [address], [place]. tel: [phone] Referring Provider: Edmund Frazier[address] [facility], [place], [address]. tel:[phone] [place] [address] [address], [place], [place], [address], [place] tel:[phone] [place] Pain in left shoulderStiffnes s of left shoulder, not elsewhere classifiedOth symptoms and signs involving the musculoskeletal systemOther specified postprocedural statesUnsp rotatr-cuff tear/ruptr of left shoulder, not trauma Apr-1 3-201 8 [place] [employer] Amy. [address] [facility], [address], [place], [address], [place]. tel:[phone] Referring Provider: Daniel Vigil [address] [address] [facility], [place], [address]. tel:[phone] [place], [place] [address], [place], [place], [address], [place] tel:[phone] [place] Pain in left shoulderStiffnes s of left shoulder, not elsewhere classifiedOth symptoms and signs involving the musculoskeletal systemOther specified postprocedural statesUnsp rotatr-cuff tear/ruptr of left shoulder, not trauma Apr-0 6-201 8 [place] [employer] Amy. [address] [facility], [address], [place], [address], [place]. tel:[phone] Referring Provider: Edmund Frazier[address] [facility], [place], [address]. tel:[phone] [place] [address] [address], [place], [place], [address], [place] tel:[phone] [place] Pain in left shoulderStiffnes s of left shoulder, not elsewhere classifiedOth symptoms and signs involving the musculoskeletal systemOther specified postprocedural statesUnsp rotatr-cuff tear/ruptr of left shoulder, not trauma Apr-0 3-201 8 Ovidio Amy. [address] [facility], [address], [place], [address], [place]. tel:[phone] Referring Provider: Edmund Frazier[address] [facility], [place], [address]. tel:[phone] [facility] [address], [place], [place], [address], [place] tel:[phone] [place] Pain in left shoulderStiffnes s of left shoulder, not elsewhere classifiedOth symptoms and signs involving the musculoskeletal systemOther specified postprocedural statesUnsp rotatr-cuff tear/ruptr of left shoulder, not trauma Mar-2 9-201 8 Ovidio Amy. [address] [facility], [address], [place], [address], [place]. [phone] Referring Provider: Edmund Frazier[address] [facility], [place], [address]. tel:[phone] [facility] [address], [place] [place], [id number], [place] tel:[phone] [place] Pain in left shoulderStiffnes s of left shoulder, not elsewhere classifiedOth symptoms and signs involving the musculoskeletal systemOther specified postprocedural statesUnsp rotatr-cuff tear/ruptr of left shoulder, not trauma Mar-2 7-201 8 Ovidio Amy. [address] [facility], [address], [place], [address], [place]. tel:[phone] Referring Provider: Daniel Vigil [address] [facility], [place], [address]. tel:[phone] [facility] [address] [facility] [address], [place], [place], [id number], [place] tel:[phone] [place] Pain in left shoulderStiffnes s of left shoulder, not elsewhere classifiedOth symptoms and signs involving the musculoskeletal systemOther specified postprocedural statesUnsp rotatr-cuff tear/ruptr of left shoulder, not trauma Oct- 2- 8 [place] [employer]. [address] [facility], [address], [place], [address], [place]. tel:[phone] Referring Provider: Daniel Vigil [address] [facility], [place], [address]. tel:[phone] [facility] [address] [facility] [address], [place], [place], [id number], [place] tel:[phone] [place] Pain in left shoulderStiffnes s of left shoulder, not elsewhere classifiedOth symptoms and signs involving the musculoskeletal systemOther specified postprocedural statesUnsp rotatr-cuff tear/ruptr of left shoulder, not trauma Oct- 0-201 8 Ovidio Amy. [address] [facility], [address], [place], [address], [place]. tel:[phone] Referring Provider: Daniel Vigil [address] [facility], [place], [address]. tel:[phone] [facility] [address] [facility] [address], [place], [place], [id number], [place] tel:[phone] [place] Pain in left shoulderStiffnes s of left shoulder, not elsewhere classifiedOth symptoms and signs involving the musculoskeletal systemOther specified postprocedural statesUnsp rotatr-cuff tear/ruptr of left shoulder, not trauma Mar-1 5-201 8 [place] [employer]. [address] [place] [address], [address], [place], [address], [place]. tel: [phone] Referring Provider: Edmund Frazier[address] [place] [address], [place], [address]. tel:[phone] [place] [address], [id number], [place] tel:[phone] [place] No Information Oct-1 3-201 8 Ovidio Amy. [address] [place] [address], [address], [place], [address], [place]. tel:[phone] Referring Provider: Daniel Vigil [address] [place] [address], [place], [address]. tel:[phone] [place] [address] [place] [address], [id number], [place] tel:[phone] [place] No Information Mar-0 8-201 8 Ovidio Amy. [address] [place] [address], [address], [place], [address], [place]. tel:[phone] Referring Provider: Edmund Frazier[address] [facility], [place], [address]. tel:[phone] [place] [address], [id number], [place] tel:[phone] [place] No Information Mar-0 6-201 8 [place] [employer]. [address] [place] [address], [address], [place], [address], [place]. tel:[phone] Referring Provider: Edmund Frazier32 [facility], [place], [address]. tel:[phone] [facility] [address], [id number], [place] tel:[phone] [place] No Information Mar-0 1-201 8 [place] [employer] [facility]. [address] [facility], [address], [place], [address], [place]. tel: [phone] Referring Provider: Edmund Frazier[address] [place] [address], [place], [address]. tel:[phone] [place] [address], [address] [place] [address], [id number], [place] tel:[phone] [place] No Information 8 [place] [employer]. [address] [place] [address], [address], [place], [address], [place]. tel: [phone] Referring Provider: Daniel Vigil [address] [place] [address], [place], [address]. tel:[phone] [place] [address], [address] [place] [address], [id number], [place] tel:[phone] [place] No Information 8 Ovidio Amy. [address] [place] [address], [address], [place], [address], [place]. tel: [phone] Referring Provider: Edmund Frazier[address] [place] [address], [place], [address]. tel:[phone] [place] [address], [address] [place] [address], [id number], [place] tel:[phone] [place] No Information 8 Ovidio Amy. [address] [facility], [address], [place], [address], [place]. tel: [phone] Referring Provider: Daniel Vigil [address] [place] [address], [place], [address]. tel:[phone] [place] [address], [address] [place] [address], [id number], [place] tel:[phone] [place] No Information 8 [place] [employer]. [address] [place] [address], [address], [place], [address], [place]. tel:[phone] Referring Provider: Daniel Vigil, [address], [place], [address]. tel:[phone] [place] [address], [address] [place] [address], [id number], tel:[phone] [place] No Information 0 8-201 8 Ovidio Amy. [address] [place] [address], [address], [place], [address], [place]. tel:[phone] Referring Provider: Daniel Vigil, [address] [facility] [address], [place], [address]. tel:[phone] [place] [address], [id number], tel:[phone] [place] No Information 0 5-201 8 Ovidio Amy. [address] [place] [address], [address], [place], [address], [place]. tel:[phone] Referring Provider: Daniel Vigil, [address] [facility] [address], [place], [address]. tel:[phone], [id number], tel:[phone] [place] No Information Sep-0 1-201 8 Ovidio Amy. [address] [place] [address], [address], [place], [address], [place]. tel:[phone] Referring Provider: Daniel Vigil, [address], [place], [address]. tel:[phone], [id number], tel:[phone] [place] No Information 0-201 8 [place] [employer]. [address] [place] [address], [address], [place], [address], [place]. tel:[phone] Referring Provider: Daniel Vigil [address], [place], [address]. tel:[phone] [facility] [address] [facility] [address], [place], [id number], [place] tel:[phone] [place] No Information 8 [place] [employer] [facility]. [address] [facility], [address], [place], [address], [place]. tel: [phone] Referring Provider: Daniel Vigil [address], [place], [address]. tel:[phone] [facility] [address] [facility] [address], [id number], [place] tel:[phone] [place] No Information 8 [place] [employer]. [address] [place] [address], [address], [place], [address], [place]. tel: [phone] Referring Provider: Edmund Frazier[address] [facility] [address], [place], [address]. tel:[phone] [place] [address], [id number], [place] tel:[phone] [place] No Information 8 Ovidio Amy. [address] [facility], [address], [place], [address], [place]. tel:[phone] Referring Provider: Edmund Frazier[address] [facility] [address], [place], [address]. tel:[phone] [facility] [facility] [address], [place], [id number], [place] tel:[phone] [place] Other specified postprocedural states 8 [place] [employer]. [address] [facility], [address], [place], [address], [place]. tel: [phone] Referring Provider: Daniel Vigil [address], [place], [address]. tel:[phone] [facility], [address] [facility] [address], [id number], [place] tel:[phone] [place] No Information Ovidio Amy. [address] [facility], [address], [place], [address], [place]. tel: [phone] Referring Provider: Daniel Vigil, [facility] [address] [facility] [address], [place], [address]. tel:[phone] [place] [address] [facility] [address], [place], [id number], [place] tel:[phone] [place] No Information Ovidio Amy. [address] [facility], [address], [place], [address], [place]. tel:[phone] Referring Provider: Daniel Vigil, [address] [place] [address] Road, [place], [address]. tel:[phone] [place] [address] [facility] [address], [place], [id number], [place] tel:[phone] [place] No Information Ovidio Amy. [address] [facility], [address], [place], [address], [place]. tel:[phone] Referring Provider: Daniel Vigil, [facility] [address] [facility] [address], [place], [address]. tel:[phone] [place] [address] [facility] [address], [id number], [place] tel:[phone] [place] No Information Ovidio Amy. [address] [facility], [address], [place], [address], [place]. tel:[phone] Referring Provider: Daniel Vigil [facility] [address] [facility] [address], [place], [address]. tel:[phone] [facility] [facility] [address], [id number], [place] tel:[phone] [place] No Information 7 Ovidio Amy. [address] [facility], [address], [place], [address], [place]. tel:[phone] Referring Provider: Edmund Frazier[address] [place] [address] Road, [place], [address]. tel:[phone] [place] [address], [facility] [address], [id number], [place] tel:[phone] [place] No Information 7 Ovidio Amy. [address] [facility], [address], [place], [address], [place]. tel:[phone] Referring Provider: Daniel Vigil [address] [place] [address], [place], [address]. tel:[phone] [place] [address], [address] [place] [address], [id number], [place] tel:[phone] [place] No Information 7 Ovidio Amy. [address] [facility], [address], [place], [address], [place]. tel:[phone] Referring Provider: Edmund Frazier[address] [place] [address] Road, [place], [address]. tel:[phone] [place] [address], [address] [place] [address], [id number], [place] tel:[phone] [place] No Information 7 [place] [employer] [facility]. [address] [facility], [address], [place], [address], [place]. tel:[phone] Referring Provider: Daniel Vigil [address] [place] [address] Road, [place], [address]. tel:[phone] [place] [address], [address], [id number], [place] tel:[phone] [place] No Information 7 [place] [employer] [facility]. [address] [facility], [address], [place], [address], [place]. tel: [phone] Referring Provider: Daniel Vigil, [address], [place], [address]. tel:[phone] [place] [address], [address] [place] [address], [id number], [place] tel:[phone] [place] No Information 7 [place] [employer] [facility]. [address] [facility], [address], [place], [address], [place]. tel: [phone] Referring Provider: Daniel Vigil, [address], [place], [address]. tel:[phone], [id number], [place] tel:[phone] [place] No Information 7 Ovidio Amy. [address] [place] [address], [address], [place], [address], [place]. tel: [phone] Referring Provider: Daniel Vigil, [address], [place], [address]. tel:[phone] [place] [address], [id number], [place] tel:[phone] [place] No Information 7 Ovidio Amy. [address] [place] [address], [address], [place], [address], [place]. tel: [phone] Referring Provider: Daniel Vigil, [address], [place], [address]. tel:[phone] [facility] [address], [id number], [place] tel:[phone] [place] No Information 7 Ovidio Amy. [address] [facility], [address], [place], [address], [place]. tel: [phone] Referring Provider: Daniel Vigil, [address], [place], [address]. tel:[phone] [place] [address] [place], [place] [address], [place], [place], [id number], [place] tel:[phone] [place] No Information 2-201 7 Ovidio Amy. [address] [place] [address], [address], [place], [address], [place]. tel: [phone] Referring Provider: Daniel Vigil, [address] [facility] [address], [place], [address]. tel:[phone] [place] [address] [place], [place] [address], [place], [place], [id number], [place] tel:[phone] [place] No Information 0-201 7 Ovidio Amy. [address] [place] [address], [address], [place], [address], [place]. tel: [phone] Referring Provider: Daniel Vigil [facility] [address] [facility] [address], [place], [address]. tel:[phone] [place] [address] [place], [place] [address], [place], [place], [id number], [place] tel:[phone] [place] No Information 7-201 7 Ovidio Amy. [address] [place] [address], [address], [place], [address], [place]. tel: [phone] Referring Provider: Daniel Vigil, [address] [facility] [address], [place], [address]. tel:[phone] [place] [address] [address] [facility], [place], [place], [id number], [place] tel:[phone] [place] No Information 5-201 7 [place] [employer]. [address] [place] [address], [address], [place], [address], [place]. tel: [phone] Referring Provider: Daniel Vigil, [address] [facility] [address], [place], [address]. tel:[phone] [place] [address], [address] [facility], [id number], tel:[phone] [place] No Information 0 3-201 7 [place] [employer]. [address] [place] [address], [address], [place], [address], [place]. tel:[phone] Referring Provider: Daniel Vigil [address] [place] [address], [place], [address]. tel:[phone] [place] [address], [address] [place] [address], [id number], tel:[phone] [place] No Information 3 0-201 7 Ovidio Amy. [address] [place] [address], [address], [place], [address], [place]. tel:[phone] Referring Provider: Daniel Vigil [address] [place] [address], [place], [address]. tel:[phone] [place] [address], [address] [place] [address], [id number], [place] tel:[phone] [place] No Information 8-201 7 Ovidio Amy. [address] [place] [address], [address], [place], [address], [place]. tel:[phone] Referring Provider: Daniel Vigil [address] [place] [address] Road, [place], [address]. tel:[phone] [place] [address], [address] [place] [address], [id number], [place] tel:[phone] [place] No Information 2 6201 7 [place] [employer]. [address] [place] [address], [address], [place], [address], [place]. tel:[phone] Referring Provider: Daniel Vigil [address] [place] [address], [place], [address]. tel:[phone] [place] [address], [address], [id number], tel:[phone] [place] No Information Jan-2 3-201 7 Ovidio Amy. [address] [facility], [address], [place], [address], [place]. [phone] Referring Provider: Roger Frazier [facility], [place], [address]. tel:[phone], [id number], tel:[phone] [place] No Information 7 Ovidio Amy. [address] [place] [address], [address], [place], [address], [place]. tel:[phone] Referring Provider: Edmund Frazier32 [address] [facility], [place], [address]. tel:[phone], [id number], tel:[phone] [place] No Information [place] [employer]. [address] [place] [address], [address], [place], [address], [place]. [phone] Referring Provider: Roger Fraizer S [facility], [place], [address]. tel:[phone], [id number], [place] tel:[phone] [place] Pain in left shoulderStiffnes s of left shoulder, not elsewhere classifiedOth symptoms and signs involving the musculoskeletal systemUnsp rotatr-cuff tear/ruptr of left shoulder, not traumaBursitis of left shoulder 7 [place] [employer] [facility]. [address] [facility], [address], [place], [address], [place]. [phone] Referring Provider: Roger Frazier [facility], [place], [address]. tel:[phone] Family History Family Member Type Diagnosis Age At Onset No Information Payers Payer name Insurance type Covered constitution party ID Authorstevea titrent(s) Medicare [place] [id number] AARP Medicare Supplement [place] [id number] Social History Type Description Quantity Date Captured Comments Sex Female Smoking Status No Information Chief Complaint And Reason For Visit No Information Reason For Referral Reason For Referral No Information History Of Present Illness Encounter Date Complaint History Of Prese nt Illness No Information Functional Status Date Functional Assessmen t No Information Instructions Date Instruction Additional Infor mation No Information Assessments Type Assessment Date No Information Patient Care Teams Name Effective Dates (start - stop) Status Members No Information
--- OUTSIDE RECORDS SUMMARY | 2024-11-12 16:01 | XMS_ITS | Continuity of Care Document ---
Author Organization [facility] Address [address] [place] [address] Phone Care Team Providers Care Operations Advisor Name Role Phone Rylan Stein MD Unavailable Unavailable Advance Directives Directive Yes / No Effective Date File Name No Information Encounters Encounter Description Practice Location Reason(s) For Visit Diagnoses Date Provider Providers [facility] [address], [place], [place], [address], tel:[phone] [facility] LUMBAR DISC DISPLACEMENT Emil Fagan. [address], [place], [place], [address]. tel:[phone] Family History Family Member Type Diagnosis Age At Onset No Information Payers Payer name Insurance type Covered constitution party ID Authoriza tion(s) No Information Social History Type Description Quantity Date Captured [...]
--- NOTE | 2024-11-12 16:02 | ECG_ITS ---
Test Date: 2024-11-12 16:06:28 Measurements Intervals [place] Rate: 84 P: 60 OR: 152 QRS: -2 QRSD: 87 T: 61 QT: 344 QTc: 408 Interpretive Statements SINUS RHYTHM No previous ECG available for comparison Electronically Signed On 11-12-2024 17:44:09 CDT by Keiko King M.D.
[2024-11-12 16:03] VITALS: BP 151/94; PULSE 102; RESP 22; TEMP 36.6; O2SAT 100
[2024-11-12 16:19] VITALS: O2SAT 100
[2024-11-12 16:27] LABS: Basophils Percent Auto 0.5 % (0.2-1.2); Eosinophils Absolute Auto 0.1 K/mm3 (0-0.3); Eosinophils Percent Auto 1.6 % (0-4.4); Immature Granulocyte Absolute 0.02 K/mm3 (0.00-0.031); Immature Granulocyte Percent A 0.3 % (0-0.5); Lymphocytes Absolute Auto 2.43 K/mm3 (0.9-3.2); Mean Corpuscular HGB Conc 32.5 g/dl (32-36); Mean Corpuscular Hemoglobin 28.6 pg (26-34); Mean Corpuscular Volume 88.1 fl (80-100); Mean Platelet Volume 10.6 fl (7.4-10.4); Monocytes Absolute Auto 0.6 K/mm3 (0.1-0.6); Monocytes Percent Auto 8.4 % (2.6-8.5); Neutrophils Absolute Auto 4.4 K/mm3 (1.3-6.7); Neutrophils Percent Auto 57.2 % (45.5-73.1); Platelet Count Result 255 k/mm3 (150-375); Red Blood Count 4.54 M/mm3 (4.2-5.4); Red Cell Distribution Width 14.5 % (11.5-14.5); White Blood Count 7.6 K/mm3 (4.5-10.0)
[2024-11-12 16:37] LABS: Alanine Aminotransferase 22 U/L (6-35); Albumin Level 4.4 g/dL (3.5-5.1); Alkaline Phosphatase 87 U/L (38-126); Anion Gap 8 mmol/L (4-12); Aspartate Amino Transferase 25 U/L (14-36); Bilirubin,Total 0.9 mg/dL (0.2-1.3); Blood Urea Nitrogen 14 mg/dL (7-17); Calcium 10.4 mg/dL (8.4-10.2); Carbon Dioxide 25 mmol/L (22-30); Chloride 105 mmol/L (98-107); Estimated CRCL calculation 52 ml/min; Estimated Glomerular Filt Rate > 60; Glucose 104 mg/dL (65-110); Potassium 4.8 mmol/L (3.4-5.0); Sodium 138 mmol/L (137-145)
--- OUTSIDE RECORDS SUMMARY | 2024-11-12 16:43 | XMS_ITS | Continuity of Care Document ---
Author Organization [facility] Address [address] [place] [address] Phone Care Team Providers Care Process Development Manager Name Role Phone Rylan Stein MD Unavailable Unavailable Advance Directives Directive Yes / No Effective Date File Name No Information Encounters Encounter Description Practice Location Reason(s) For Visit Diagnoses Date Provider Providers [facility] [address], [place], [place], [address], tel:[phone] [facility] LUMBAR DISC DISPLACEMENT Emil Fagan. [address], [place], [place], [address]. tel:[phone] Family History Family Member Type Diagnosis Age At Onset No Information Payers Payer name Insurance type Covered republican ID Authoriza tion(s) No Information Social History [...]
--- OUTSIDE RECORDS SUMMARY | 2024-11-12 16:44 | XMS_ITS | Continuity of Care Document ---
Author Organization [employer] [facility] Address [address] [place] [address] [address] [place] [address] Phone Care Team Providers Care Supervisor Nurse Name Role Phone Fadi PT, AYSHAT, Noah [...] Exercise Therapeutic Exercise Neuromuscular Re-Ed Therapeutic Activities Therapeutic Activities Neuromuscular Re-Ed Therapeutic Exercise Therapeutic Activities PT Re-evaluation Neuromuscular Re-Ed Therapeutic Exercise Therapeutic Activities Neuromuscular Re-Ed Therapeutic Exercise Therapeutic Activities Neuromuscular Re-Ed Therapeutic Exercise Therapeutic Activities Therapeutic Exercise Neuromuscular Re-Ed Therapeutic Activities Neuromuscular Re-Ed Therapeutic Exercise Therapeutic Activities PT Evaluation Low Complexity Therapeutic Exercise PT Re-evaluation Therapeutic Exercise Neuromuscular [...] Diagnoses Date Provider Providers Copied on Encounter [facility], [place], [place], [id number], tel:[phone] Elon No Information 4 Fadi Zamora. . [facility], [place], [place], [address], tel:[phone] Elon No Information 2 3 Fadi Zamora. . [facility], [place], [place], [address], [place] tel:[phone] Elon No Information Jun-0 3 Onieljohanarosa Noah. . [facility], [place], [place], [address], [place] tel:[phone] Elon No Information Jun-0 3 Onieljohanarosa Noah. . [facility], [place], [place], [address], [place] tel:[phone] Elon No Information May-2 3 Fadi Zamora. . [facility], [place], [place], [address], [place] tel:[phone] Elon No Information 3 Fadi Zamora. . [facility], [place], [place], [address], [place] tel:[phone] Elon No Information 3 Fadi Zamora. . [facility], [place], [place], [address], [place] tel:[phone] Elon No Information Oct-1 2- 3 Zunildan Noah. . [facility], [address], [place], [place], [address], [place] tel:[phone] Elon No Information Oct-1 0- 3 Klahn Noah. . [facility], [address], [place], [place], [address], [place] tel:[phone] Elon No Information Oct-0 5- 3 Zunildan Noah. . [facility], [address], [place], [place], [address], [place] tel:[phone] Elon No Information Oct-0 3- 3 Zunildan Noah. . [facility], [address], [place], [place], [address], [place] tel:[phone] Elon No Information Sep-2 - 3 Zunildan Noah. . [facility], [address], [place], [place], [address], [place] tel:[phone] Elon No Information Oct-1 9- 1 Makler Luke. . Referring Provider: Sharyn Larios [address], [place], [address]. tel:[phone] [facility], [place], [place], [address], [place] tel:[phone] Elon No Information Oct-1 2- 1 Makler Luke. . Referring Provider: Sharyn Larios [address], [place], [address]. tel:[phone] [facility], [place], [place], [address], [place] tel:[phone] Elon No Information Oct-0 7- 1 Makler Luke. . Referring Provider: Sharyn Larios [address], [place], [address]. tel: [facility] [address], [place], [place], [address], [place] tel:[phone] Elon No Information Oct-0 5-202 1 Makler Luke. . Referring Provider: Sharyn Larios [facility] [address] [facility] 10, [place], [address]. tel: [address], [place], [place], [address], [place] tel:[phone] Elon No Information Sep-3 0-202 1 Makler Luke. . Referring Provider: Sharyn Larios [facility] [address], [place], [address]. tel: [facility] [address] [place], [place] [address], [place], [place], [address], [place] tel:[phone] Elon No Information Sep-2 8-202 1 Makler Luke. . Referring Provider: Sharyn Larios [facility] [address], [place], [address]. tel: [facility] [address] [place], [place] [address] [address], [place], [place], [address], [place] tel:[phone] Elon No Information Sep-2 3-202 1 Makler Luke. . Referring Provider: Sharyn Larios [facility] [address], [place], [address]. tel: [facility] [address], [place], [place], [address], [place] tel:[phone] Elon No Information Sep-2 1-202 1 Makler Luke. . Referring Provider: Sharyn Larios [facility] [address], [place], [address]. tel: [facility] [address], [place], [place], [address], [place] tel:[phone] Elon No Information Apr- 1 Makdarby Hurleyke. . Referring Provider: Odalis Valencia [address], [place], [address]. tel:[phone] [facility] [address] [facility] [address], [place], [place], [address], [place] tel:[phone] Elon No Information Apr- 1 Makler Meike. . Referring Provider: Odlais Valencia [address], [place], [address]. tel:[phone] [facility] [address] [facility], [place], [place], [address], [place] tel:[phone] Elon Pain in left shoulderStiffnes s of left shoulder, not elsewhere classifiedOth symptoms and signs involving the musculoskeletal systemOther specified postprocedural statesUnsp rotatr-cuff tear/ruptr of left shoulder, not trauma Jan- 8 Ovidio Amy. [address] [facility], [address], [place], [address], [place]. tel:[phone] Referring Provider: Edmund Frazier[address] [place], [address]. tel:[phone] [facility] [address] [address], [place], [place], [address], [place] tel:[phone] Elon Pain in left shoulderStiffnes s of left shoulder, not elsewhere classifiedOth symptoms and signs involving the musculoskeletal systemOther specified postprocedural statesUnsp rotatr-cuff tear/ruptr of left shoulder, not trauma 8 Ovidio Amy. [address] [facility], [address], [place], [address], [place]. tel:[phone] Referring Provider: Daniel Vigil [address] [place], [address]. tel:[phone] [facility] [facility] [address] [facility], [place], [place], [address], [place] tel:[phone] Elon Pain in left shoulderStiffnes s of left shoulder, not elsewhere classifiedOth symptoms and signs involving the musculoskeletal systemOther specified postprocedural statesUnsp rotatr-cuff tear/ruptr of left shoulder, not trauma Garcia-1 2-201 8 Ovidio Amy. [address] [facility], [address], [place], [address], [place]. tel:[phone] Referring Provider: Edmund Frazier[address] [facility], [place], [address]. tel:[phone] [place] [address] [address], [place], [place], [address], [place] tel:[phone] Elon Pain in left shoulderStiffnes s of left shoulder, not elsewhere classifiedOth symptoms and signs involving the musculoskeletal systemOther specified postprocedural statesUnsp rotatr-cuff tear/ruptr of left shoulder, not trauma Garcia-0 7-201 8 Ovidio Amy. [address] [facility], [address], [place], [address], [place]. tel:[phone] Referring Provider: Edmund Frazier[address] [facility], [place], [address]. tel:[phone], [place], [place], [address], [place] tel:[phone] Elon Pain in left shoulderStiffnes s of left shoulder, not elsewhere classifiedOth symptoms and signs involving the musculoskeletal systemOther specified postprocedural statesUnsp rotatr-cuff tear/ruptr of left shoulder, not trauma Garcia-0 5-201 8 Ovidio Amy. [address] [facility], [address], [place], [address], [place]. tel:[phone] Referring Provider: Edmund Frazier[address] [facility], [place], [address]. tel:[phone] [address] [facility], [place], [place], [address], [place] tel:[phone] Elon Pain in left shoulderStiffnes s of left shoulder, not elsewhere classifiedOth symptoms and signs involving the musculoskeletal systemOther specified postprocedural statesUnsp rotatr-cuff tear/ruptr of left shoulder, not trauma 8 Mod[place] Amy. [address] [facility], [address], [place], [address], [place]. [phone] Referring Provider: Edmund Fraz[address] [place], [address]. tel:[phone] [facility] [address], [id number], [place] tel:[phone] Elon Pain in left shoulderStiffnes s of left shoulder, not elsewhere classifiedOth symptoms and signs involving the musculoskeletal systemOther specified postprocedural statesUnsp rotatr-cuff tear/ruptr of left shoulder, not trauma 8 Mod[place] Amy. [address] [facility], [address], [place], [address], [place]. [phone] Referring Provider: Edmund Fraz[address] [place], [address]. tel:[phone] [facility], [id number], [place] tel:[phone] Elon Pain in left shoulderStiffnes s of left shoulder, not elsewhere classifiedOth symptoms and signs involving the musculoskeletal systemOther specified postprocedural statesUnsp rotatr-cuff tear/ruptr of left shoulder, not trauma 8 [place], [place]. Referring Provider: Daniel Vigil [address] [place], [address]. tel:[phone] [facility], [id number], [place] tel:[phone] Elon Pain in left shoulderStiffnes s of left shoulder, not elsewhere classifiedOth symptoms and signs involving the musculoskeletal systemOther specified postprocedural statesUnsp rotatr-cuff tear/ruptr of left shoulder, not trauma 8 [place], [place]. Referring Provider: Edmund Frazier[address] [facility], [place], [address]. tel:[phone] [place] [address], [id number], [place] tel:[phone] Elon Pain in left shoulderStiffnes s of left shoulder, not elsewhere classifiedOth symptoms and signs involving the musculoskeletal systemOther specified postprocedural statesUnsp rotatr-cuff tear/ruptr of left shoulder, not trauma May-1 4-201 8 [place] Amy. [address] [facility], [address], [place], [place], [facility], [place]. tel:[phone] Referring Provider: Edmund Frazier[address] [facility], [place], [address]. tel:[phone] [place] [address] [place] [address], [id number], [place] tel:[phone] Elon Pain in left shoulderStiffnes s of left shoulder, not elsewhere classifiedOth symptoms and signs involving the musculoskeletal systemOther specified postprocedural statesUnsp rotatr-cuff tear/ruptr of left shoulder, not trauma May-1 0-201 8 Ovidio Amy. [address] [place] [address], [address], [place], [address], [place]. tel:[phone] Referring Provider: Edmund Frazier[address] [facility], [place], [address]. tel:[phone] [place] [address] [address] [address], [place], [place], [address], [place] tel:[phone] Elon Pain in left shoulderStiffnes s of left shoulder, not elsewhere classifiedOth symptoms and signs involving the musculoskeletal systemOther specified postprocedural statesUnsp rotatr-cuff tear/ruptr of left shoulder, not trauma May-0 8-201 8 Ovidio Amy. [address] [facility], [address], [place], [address], [place]. tel:[phone] Referring Provider: Edmund Frazier[address] [facility], [place], [address]. tel:[phone] [facility] [address] [address], [place], [place], [address], [place] tel:[phone] Elon Pain in left shoulderStiffnes s of left shoulder, not elsewhere classifiedOth symptoms and signs involving the musculoskeletal systemOther specified postprocedural statesUnsp rotatr-cuff tear/ruptr of left shoulder, not trauma May-0 3-201 8 [place] Amy. [address] [facility], [address], [place], [address], [place]. [phone] Referring Provider: Edmund Frazier[address] [facility], [place], [address]. tel:[phone] [facility] 2121 [facility] 300, [place], [place], [address], [place] tel:[phone] Elon Pain in left shoulderStiffnes s of left shoulder, not elsewhere classifiedOth symptoms and signs involving the musculoskeletal systemOther specified postprocedural statesUnsp rotatr-cuff tear/ruptr of left shoulder, not trauma May-0 1-201 8 Ovidio Amy. [address] [facility], [address], [place], [address], [place]. [phone] Referring Provider: Edmund Frazier[address] [facility], [place], [address]. tel:[phone] [facility], [id number], [place] tel:[phone] Elon Pain in left shoulderStiffnes s of left shoulder, not elsewhere classifiedOth symptoms and signs involving the musculoskeletal systemOther specified postprocedural statesUnsp rotatr-cuff tear/ruptr of left shoulder, not trauma Apr-2 4-201 8 [place] Amy. [address] [facility], [address], [place], [address], [place]. [phone] Referring Provider: Daniel Vigil [address] [facility], [place], [address]. tel:[phone] [place] [address], [place], [place], [address], [place] tel:[phone] Elon Pain in left shoulderStiffnes s of left shoulder, not elsewhere classifiedOth symptoms and signs involving the musculoskeletal systemOther specified postprocedural statesUnsp rotatr-cuff tear/ruptr of left shoulder, not trauma Apr-2 0-201 8 [place] Amy. [address] [facility], [address], [place], [address], [place]. tel: [phone] Referring Provider: Daniel Vigil [address] [address] [facility], [place], [address]. tel:[phone] [place] [address] [address], [place], [place], [address], [place] tel:[phone] Elon Pain in left shoulderStiffnes s of left shoulder, not elsewhere classifiedOth symptoms and signs involving the musculoskeletal systemOther specified postprocedural statesUnsp rotatr-cuff tear/ruptr of left shoulder, not trauma Apr-1 8-201 8 [place] Amy. [address] [facility], [address], [place], [address], [place]. tel: [phone] Referring Provider: Edmund Frazier[address] [facility], [place], [address]. tel:[phone] [place] [address] [address], [place], [place], [address], [place] tel:[phone] Elon Pain in left shoulderStiffnes s of left shoulder, not elsewhere classifiedOth symptoms and signs involving the musculoskeletal systemOther specified postprocedural statesUnsp rotatr-cuff tear/ruptr of left shoulder, not trauma Apr-1 3-201 8 [place] Amy. [address] [facility], [address], [place], [address], [place]. tel:[phone] Referring Provider: Daniel Vigil [address] [facility], [place], [address]. tel:[phone] [place], [place] [address], [place], [place], [address], [place] tel:[phone] Elon Pain in left shoulderStiffnes s of left shoulder, not elsewhere classifiedOth symptoms and signs involving the musculoskeletal systemOther specified postprocedural statesUnsp rotatr-cuff tear/ruptr of left shoulder, not trauma Apr-0 6-201 8 [place] Amy. [address] [facility], [address], [place], [address], [place]. tel:[phone] Referring Provider: Edmund Frazier[address] [facility], [place], [address]. tel:[phone] [place] [address] [address], [place], [place], [address], [place] tel:[phone] Elon Pain in left shoulderStiffnes s of left shoulder, not elsewhere classifiedOth symptoms and signs involving the musculoskeletal systemOther specified postprocedural statesUnsp rotatr-cuff tear/ruptr of left shoulder, not trauma Apr-0 3-201 8 Ovidio Amy. [address] [facility], [address], [place], [address], [place]. tel:[phone] Referring Provider: Edmund Frazier[address] [facility], [place], [address]. tel:[phone] [facility] [address], [place], [place], [address], [place] tel:[phone] Elon Pain in left shoulderStiffnes s of left shoulder, not elsewhere classifiedOth symptoms and signs involving the musculoskeletal systemOther specified postprocedural statesUnsp rotatr-cuff tear/ruptr of left shoulder, not trauma Mar-2 9-201 8 Ovidio Amy. [address] [facility], [address], [place], [address], [place]. [phone] Referring Provider: Edmund Frazier[address] [facility], [place], [address]. tel:[phone] [facility] [address], [place], [place], [address], [place] tel:[phone] Elon Pain in left shoulderStiffnes s of left shoulder, not elsewhere classifiedOth symptoms and signs involving the musculoskeletal systemOther specified postprocedural statesUnsp rotatr-cuff tear/ruptr of left shoulder, not trauma Mar-2 7-201 8 Ovidio Amy. [address] [facility], [address], [place], [address], [place]. tel:[phone] Referring Provider: Daniel Vigil [address] [facility], [place], [address]. tel:[phone] [facility] [address] [facility] [address], [place], [place], [address], [place] tel:[phone] Elon Pain in left shoulderStiffnes s of left shoulder, not elsewhere classifiedOth symptoms and signs involving the musculoskeletal systemOther specified postprocedural statesUnsp rotatr-cuff tear/ruptr of left shoulder, not trauma Oct- 2- 8 [place] Amy. [address] [facility], [address], [place], [address], [place]. tel:[phone] Referring Provider: Daniel Vigil [address] [facility], [place], [address]. tel:[phone] [facility] [address], [place], [place], [address], [place] tel:[phone] Elon Pain in left shoulderStiffnes s of left shoulder, not elsewhere classifiedOth symptoms and signs involving the musculoskeletal systemOther specified postprocedural statesUnsp rotatr-cuff tear/ruptr of left shoulder, not trauma Oct- 0-201 8 Ovidio Amy. [address] [facility], [address], [place], [address], [place]. tel:[phone] Referring Provider: Daniel Vigil [address] [facility], [place], [address]. tel:[phone] [facility] [address] [facility] [address], [place], [place], [id number], [place] tel:[phone] Elon Pain in left shoulderStiffnes s of left shoulder, not elsewhere classifiedOth symptoms and signs involving the musculoskeletal systemOther specified postprocedural statesUnsp rotatr-cuff tear/ruptr of left shoulder, not trauma Mar-1 5-201 8 [place] Amy. [address] [place] [address], [address], [place], [address], [place]. tel: [phone] Referring Provider: Edmund Frazier[address] [place] [address], [place], [address]. tel:[phone] [place] [address], [id number], [place] tel:[phone] Elon No Information Oct-1 3-201 8 Ovidio Amy. [address] [place] [address], [address], [place], [address], [place]. tel:[phone] Referring Provider: Daniel Vigil [address] [place] [address], [place], [address]. tel:[phone] [place] [address] [place] [address], [id number], [place] tel:[phone] Elon No Information Mar-0 8-201 8 Ovidio Amy. [address] [place] [address], [address], [place], [address], [place]. tel: [phone] Referring Provider: Edmund Frazier[address] [facility], [place], [address]. tel:[phone] [place] [address], [id number], [place] tel:[phone] Elon No Information Mar-0 6-201 8 Mod[place] Amy. [address] [place] [address], [address], [place], [address], [place]. tel:[phone] Referring Provider: Edmund Frazier32 [facility], [place], [address]. tel:[phone] [facility] [address], [id number], [place] tel:[phone] Elon No Information Mar-0 1-201 8 Modesto Amy. [address] [facility], [address], [place], [address], [place]. tel: [phone] Referring Provider: Edmund Frazier[address] [place] [address], [place], [address]. tel:[phone] [place] [address], [address] [place] [address], [id number], [place] tel:[phone] Elon No Information 8 Mod[place] Amy. [address] [place] [address], [address], [place], [address], [place]. tel: [phone] Referring Provider: Daniel Viigl [address] [place] [address], [place], [address]. tel:[phone] [place] [address], [address] [place] [address], [id number], [place] tel:[phone] Elon No Information 8 Ovidio Amy. [address] [place] [address], [address], [place], [address], [place]. tel: [phone] Referring Provider: Edmund Frazier[address] [place] [address], [place], [address]. tel:[phone] [place] [address], [address] [place] [address], [id number], [place] tel:[phone] Elon No Information 8 Ovidio Amy. [address] [facility], [address], [place], [address], [place]. tel: [phone] Referring Provider: Daniel Vigil [address] [place] [address], [place], [address]. tel:[phone] [place] [address], [address] [place] [address], [id number], [place] tel:[phone] Elon No Information 8 Mod[place] Amy. [address] [place] [address], [address], [place], [address], [place]. tel:[phone] Referring Provider: Daniel Vigil, [address], [place], [address]. tel:[phone] [place] [address], [address] [place] [address], [id number], tel:[phone] Elon No Information 0 8-201 8 Ovidio Amy. [address] [place] [address], [address], [place], [address], [place]. tel:[phone] Referring Provider: Daniel Vigil, [address] [facility] [address], [place], [address]. tel:[phone] [place] [address], [id number], tel:[phone] Elon No Information 0 5-201 8 Ovidio Amy. [address] [place] [address], [address], [place], [address], [place]. tel:[phone] Referring Provider: Daniel Vigil, [address] [facility] [address], [place], [address]. tel:[phone], [id number], tel:[phone] Elon No Information Sep-0 1-201 8 Ovidio Amy. [address] [place] [address], [address], [place], [address], [place]. tel:[phone] Referring Provider: Daniel Vigil, [address], [place], [address]. tel:[phone], [id number], tel:[phone] Elon No Information 0-201 8 [place] Amy. [address] [place] [address], [address], [place], [address], [place]. tel:[phone] Referring Provider: Daniel Vigil [address], [place], [address]. tel:[phone] [facility] [address] [facility] [address], [place], [id number], [place] tel:[phone] Elon No Information 8 [place] Amy. [address] [facility], [address], [place], [address], [place]. tel: [phone] Referring Provider: Daniel Vigil [address], [place], [address]. tel:[phone] [facility] [address], [id number], [place] tel:[phone] Elon No Information 8 [place] Amy. [address] [place] [address], [address], [place], [address], [place]. tel: [phone] Referring Provider: Edmund Frazier[address] [facility], [place], [address]. tel:[phone] [place] [address], [id number], [place] tel:[phone] Elon No Information 8 Ovidio Amy. [address] [facility] [facility], [address], [place], [address], [place]. tel:[phone] Referring Provider: Edmund Frazier[address] [facility] [address], [place], [address]. tel:[phone] [facility], [place], [id number], [place] tel:[phone] Elon Other specified postprocedural states 8 [place] Amy. [address] [facility], [address], [place], [address], [place]. tel: [phone] Referring Provider: Daniel Vigil [address], [place], [address]. tel:[phone] [facility], [address] [facility] [address], [place], [id number], [place] tel:[phone] Elon No Information Ovidio Amy. [address] [facility], [address], [place], [address], [place]. tel: [phone] Referring Provider: Daniel Vigil, [facility] [address] [facility] [address], [place], [address]. tel:[phone] [place] [id number] [facility] [address], [place], [id number], [place] tel:[phone] Elon No Information Ovidio Amy. [address] [facility], [address], [place], [address], [place]. tel:[phone] Referring Provider: Daniel Vigil, [address] [place] [address] Road, [place], [address]. tel:[phone] [place] [id number] [facility] [address], [place], [id number], [place] tel:[phone] Elon No Information Ovidio Amy. [address] [facility], [address], [place], [address], [place]. tel:[phone] Referring Provider: Daniel Vigil, [facility] [address] [facility] [address], [place], [address]. tel:[phone] [place], [place] [id number] [facility] [address], [id number], [place] tel:[phone] Elon No Information Ovidio Amy. [address] [facility], [address], [place], [address], [place]. tel:[phone] Referring Provider: Daniel Vigil [facility] [address] [facility] [address], [place], [address]. tel:[phone] [facility] [facility] [address], [id number], [place] tel:[phone] Elon No Information 7 Ovidio Amy. [address] [facility], [address], [place], [address], [place]. tel:[phone] Referring Provider: Edmund Frazier[address] [place] [address] Road, [place], [address]. tel:[phone] [place] [address], [facility] [address], [id number], [place] tel:[phone] Elon No Information 7 Ovidio Amy. [address] [facility], [address], [place], [address], [place]. tel:[phone] Referring Provider: Daniel Vigil [address] [place] [address], [place], [address]. tel:[phone] [place] [address], [address] [place] [address], [id number], [place] tel:[phone] Elon No Information 7 Ovidio Amy. [address] [facility], [address], [place], [address], [place]. tel:[phone] Referring Provider: Edmund Frazier[address] [place] [address] Road, [place], [address]. tel:[phone] [place] [address], [address] [place] [address], [id number], [place] tel:[phone] Elon No Information 7 [place] Amy. [address] [facility], [address], [place], [address], [place]. tel:[phone] Referring Provider: Daniel Vigil [address] [place] [address] Road, [place], [address]. tel:[phone] [place] [address], [address], [id number], [place] tel:[phone] Elon No Information 7 [place] Amy. [address] [facility], [address], [place], [address], [place]. tel: [phone] Referring Provider: Daniel Vigil, [address], [place], [address]. tel:[phone] [place] [address], [address] [place] [address], [id number], [place] tel:[phone] Elon No Information 7 [place] Amy. [address] [facility], [address], [place], [address], [place]. tel: [phone] Referring Provider: Daniel Vigil, [address], [place], [address]. tel:[phone], [id number], [place] tel:[phone] Elon No Information 7 Ovidio Amy. [address] [place] [address], [address], [place], [address], [place]. tel: [phone] Referring Provider: Daniel Vigil, [address], [place], [address]. tel:[phone] [place] [address], [id number], [place] tel:[phone] Elon No Information 7 Ovidio Amy. [address] [place] [address], [address], [place], [address], [place]. tel: [phone] Referring Provider: Daniel Vigil, [address], [place], [address]. tel:[phone] [facility] [address], [id number], [place] tel:[phone] Elon No Information 7 Ovidio Amy. [address] [facility], [address], [place], [address], [place]. tel: [phone] Referring Provider: Daniel Vigil, [address], [place], [address]. tel:[phone] [place] [address] [place], [place] [address] [address], [place], [place], [id number], [place] tel:[phone] Elon No Information 2-201 7 Ovidio Amy. [address] [place] [address], [address], [place], [address], [place]. tel: [phone] Referring Provider: Daniel Vigil, [address] [facility] [address], [place], [address]. tel:[phone] [place] [address] [place], [place] [address] [address], [place], [id number], [place] tel:[phone] Elon No Information 0-201 7 Ovidio Amy. [address] [place] [address], [address], [place], [address], [place]. tel: [phone] Referring Provider: Daniel Vigil [facility] S [facility] [address], [place], [address]. tel:[phone] [place] [address] [place], [place] [address] [address], [place], [id number], [place] tel:[phone] Elon No Information 7-201 7 Ovidio Amy. [address] [place] [address], [address], [place], [address], [place]. tel: [phone] Referring Provider: Daniel Vigil, [address] [facility] [address], [place], [address]. tel:[phone] [place] [address] [address] [facility], [place], [place], [id number], [place] tel:[phone] Elon No Information 5-201 7 [place] Amy. [address] [place] [address], [address], [place], [address], [place]. tel: [phone] Referring Provider: Daniel Vigil, [address] [facility] [address], [place], [address]. tel:[phone] [place] [address], [address] [facility], [id number], tel:[phone] Elon No Information 0 3-201 7 [place] Amy. [address] [place] [address], [address], [place], [address], [place]. tel:[phone] Referring Provider: Daniel Vigil [address] [place] [address], [place], [address]. tel:[phone] [place] [address], [address] [place] [address], [id number], tel:[phone] Elon No Information 3 0-201 7 Ovidio Amy. [address] [place] [address], [address], [place], [address], [place]. tel:[phone] Referring Provider: Daniel Vigil [address] [place] [address], [place], [address]. tel:[phone] [place] [address], [address] [place] [address], [id number], [place] tel:[phone] Elon No Information 8-201 7 Ovidio Amy. [address] [place] [address], [address], [place], [address], [place]. tel:[phone] Referring Provider: Daniel Vigil [address] [place] [address] Road, [place], [address]. tel:[phone] [place] [address], [address] [place] [address], [id number], [place] tel:[phone] Elon No Information 2 6201 7 [place] Amy. [address] [place] [address], [address], [place], [address], [place]. tel:[phone] Referring Provider: Daniel Vigil [address] [place] [address], [place], [address]. tel:[phone] [place] [address], [address], [id number], tel:[phone] Elon No Information Jan-2 3-201 7 Ovidio Amy. [address] [facility], [address], [place], [address], [place]. [phone] Referring Provider: Roger Frazier [facility], [place], [address]. tel:[phone], [id number], tel:[phone] Elon No Information 7 Ovidio Amy. [address] [place] [address], [address], [place], [address], [place]. tel:[phone] Referring Provider: Edmund Frazier[address] [facility], [place], [address]. tel:[phone], [id number], tel:[phone] Elon No Information Mod[place] Amy. [address] [place] [address], [address], [place], [address], [place]. [phone] Referring Provider: Roger Frazier [facility], [place], [address]. tel:[phone], [id number], [place] tel:[phone] Elon Pain in left shoulderStiffnes s of left shoulder, not elsewhere classifiedOth symptoms and signs involving the musculoskeletal systemUnsp rotatr-cuff tear/ruptr of left shoulder, not traumaBursitis of left shoulder 7 [place] Amy. [address] [facility], [address], [place], [address], [place]. [phone] Referring Provider: Roger Frazier [facility], [place], [address]. tel:[phone] Family History Family Member Type Diagnosis Age At Onset No Information Payers Payer name Insurance type Covered constitution party ID Authorstevea titrent(s) Medicare [place] [id number] AARP Medicare Supplement [place] [id number] Social History Type Description Quantity Date Captured [...]
[2024-11-12 16:49] LABS: Troponin I < 0.012 ng/mL (0.000-0.034)
[2024-11-12] MEDS: LORazepam INJ (*CRX) 2 MG/ML VIAL 0.5 MG IV PUSH (16:59)
[2024-11-12 17:05] VITALS: BP 144/76; PULSE 72; RESP 15; O2SAT 100
--- NOTE | 2024-11-12 17:25 | ED_ITS ---
HPI - Chest Pain General Chief Complaint: Chest Pain Stated Complaint: chest tightness I've had this for months told an Time Seen by Provider: 11/12/24 16:26 History of Present Illness HPI narrative: 74-year-old female with history of hypertension and anxiety presents emergency department for chest tightness for 1 year. Patient states she has chest tightness throughout the front of her chest. She can at immediately identify any aggravating or alleviating factors but upon further questioning she notes that when she was previously on antianxiety medications and when she takes Valium her symptoms seem to improve. She states she was on medication for anxiety about 8 months ago and took this medication for 2 months p.r.n. with improvement. She never refilled this medication with her PCP. She notes she has been under lot of stress and believes her significant other has undiagnosed dementia. She has been evaluated by her PCP for this issue and was told her symptoms are likely secondary to anxiety. 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 She denies exertional symptoms. She is reporting intermittent dyspnea which seems to be worse when she lays flat. She denies lower extremity edema, history of CHF, history of COPD or asthma. She does not smoke. She has no history of cardiac disease or stroke and no immediate family history of cardiac disease or strokes. Pt is endorsing fatigue and difficulty sleeping at night. Related Data Home Medications ?Medication ?Instructions ?Recorded ?Confirmed ?Last Taken ?Type multivitamin with minerals-folic 1 tablet PO DAILY 11/25/21 11/08/24 Unknown History acid 0.4 mg tablet ascorbic acid 7.5 mg-vit E 7.5 1 tablet PO DAILY 01/27/24 11/08/24 Unknown History unit-biotin 1,250 mcg chewable tablet (Hair,Skin,Nails with Biotin) calcium 600 mg (as carbonate)-vit 1 tablet PO DAILY 01/27/24 11/08/24 Unknown History D3 20 mcg (800 unit) chewable tablet (Caltrate plus D) Allergies Allergy/AdvReac Type Severity Reaction Status Date / Time chlorpheniramine (From AdvReac Intermediate Other Verified 11/12/24 16:18 Coricidin) nitrofurantoin AdvReac Intermediate Nausea Verified 11/12/24 16:18 phenylpropanolamine (From AdvReac Intermediate Other Verified 11/12/24 16:18 Coricidin) codeine AdvReac Mild Hives Verified 11/12/24 16:18 cyclobenzaprine AdvReac Mild Confusion Verified 11/12/24 16:18 hydrocodone AdvReac Mild HIVES, Verified 11/12/24 16:18 ITCHING hydromorphone AdvReac Mild Itching Verified 11/12/24 16:18 oxycodone AdvReac Mild Itching Verified 11/12/24 16:18 Review of Systems 2 Review of Systems: All systems reviewed & are unremarkable except as noted in HPI and below PMFSH Past Medical History Medical History History of kidney stones Increased urinary frequency Attention deficit disorder (ADD) without hyperactivity Vitamin D deficiency Surgical History Surgical History Hx of local excision of skin lesion Excisional biopsy large subcutaneous mass left posterior shoulder, upper back measuring 9 x 11 cm most consistent with multi lobular lipoma on 02/08/[address] Kaminski. History of right cataract extraction History of abdominoplasty History of fusion of cervical spine C-6 History of cholecystectomy History of repair of rotator cuff Bilateral Family History Family History Mother Hypertension Family history of elevated blood lipids Family history of congestive heart failure Family history of chronic obstructive pulmonary disease Sibling Family history of malignant neoplasm of breast in first degree relative Father Patient's father is in good health Other Asthma Family history of gout Social History Social History Smoking status: Never smoker Second hand tobacco smoke exposure: No Alcohol intake: never Substance use: never Substance use type: does not use Do You Feel Safe in your Home?: Yes Lack of Transportation: No Lack of Food: Never True Current Housing: I Have Housing Concerned About Future Housing: No Difficulty Paying Gas/Electric Bills: No Difficulty Paying for Meds: No Currently Unemployed: No Education: Associate Degree Difficulty w/ Childcare or Family Care: YES Living arrangements: with friend(s) Additional living arrangements comments: LIVES WITH DOMESTIC [facility]NER - [facility] Occupation/Education: retired Gender identity (if verbalized by the patient): Female Sexual Orientation (if Verbalized by the Patient): Straight or Heterosexual Spiritual care concerns: No Agree to blood products: Yes Exam 2 Narrative: GENERAL: Anxious-appearing, well-nourished, and in no acute distress. HEAD: Normocephalic, atraumatic. EYES: PERRLA and EOMI. ENT: Nares clear, no rhinorrhea or epistaxis. Mucous membranes moist. NECK: Supple. CHEST: Clear to auscultation. No respiratory distress. HEART: Regular rate and rhythm. No murmur heard. Normal peripheral pulses. ABDOMEN: Soft, nontender, nondistended, normal active bowel sounds. EXTREMITIES: Normal range of motion. No edema. Negative Homans bilaterally SKIN: Warm, dry, no rash. NEURO: No focal deficits. Alert and oriented x3 Course Vital Signs Vital signs: Vital Signs Temperature 97.9 F 11/12/24 16:03 Pulse Rate 102 H 11/12/24 16:03 Respiratory Rate 22 H 11/12/24 16:03 Blood Pressure 151/94 H 11/12/24 16:03 Pulse Oximetry 100 11/12/24 16:03 Oxygen Delivery Room Air 11/12/24 16:03 Temperature 97.9 F 11/12/24 16:03 Pulse Rate 74 11/12/24 18:06 Respiratory Rate 17 11/12/24 18:06 Blood Pressure 133/70 11/12/24 18:06 Pulse Oximetry 100 11/12/24 18:06 Oxygen Delivery Room Air 11/12/24 16:19 MDM - Chest Pain MDM Narrative Medical decision making narrative: 74-year-old female with history of hypertension and anxiety presents emergency department for chest tightness for 1 year. Patient notes she is under a lot of stress. She has been evaluated by her PCP for this and attributed it to anxiety. She notes that her symptoms seem to improve when she takes Valium and when she was on a different prn anxiety medication 8 months ago. She denies exertional sx, but is endorsing some dyspnea and orthopnea. Also reporting fatigue but has difficulty falling asleep at night. Will obtain chest pain or for including EKG, troponin, chest x-ray. Patient will be given a dose of Ativan she appears very anxious on exam. EKG shows normal sinus rhythm with a rate of 84 ppm, normal MN interval, normal QRS duration, normal QTC, no ischemic changes. Troponin undetectable. D-dimer and BNP within normal limits. Wells score is low risk. Chest x-ray shows no acute cardiopulmonary findings. Patient updated on results. Heart score is 2. She received Ativan with significant improvement and is resting comfortably in exam bed. Suspect symptoms are secondary to anxiety, however will provide follow-up for Cardiology. Advised to follow-up closely with PCP. Hydroxyzine sent to pharmacy to use p.r.n. given she does not like side effects of Valium which is what she has at home. Discussed return precautions. She is agreeable with the plan verbalized understanding. Discharged in stable condition. Lab Data 11/12/24 16:22 11/12/24 16:22 Labs: Lab Results 11/12/24 11/12/24 Range/Units 16:22 17:33 WBC 7.6 (4.5-10.0) K/mm3 RBC 4.54 (4.2-5.4) M/mm3 Hgb 13.0 (12.0-15.0) g/dL Hct 40.0 (37.0-47.0) % MCV 88.1 (80-100) fl MCH 28.6 (26-34) pg MCHC 32.5 (32-36) g/dl RDW 14.5 (11.5-14.5) % Plt Count 255 (150-375) k/mm3 MPV 10.6 H (7.4-10.4) fl Immature Gran % (Auto) 0.3 (0-0.5) % Neut % (Auto) 57.2 (45.5-73.1) % Lymph % (Auto) 32.0 (18.3-44.2) % Robertson % (Auto) 8.4 (2.6-8.5) % Eos % (Auto) 1.6 (0-4.4) % Baso % (Auto) 0.5 (0.2-1.2) % Lymph # (Auto) 2.43 (0.9-3.2) K/mm3 Robertson # (Auto) 0.6 (0.1-0.6) K/mm3 Eos # (Auto) 0.1 (0-0.3) K/mm3 Baso # (Auto) 0.0 (0.0-0.1) K/mm3 Abs Immat Gran (auto) 0.02 (0.00-0.031) K/mm3 Absolute Neuts (auto) 4.4 (1.3-6.7) K/mm3 Absolute Nucleated RBC 0.000 (0.0-0.012) K/mm3 Nucleated RBC % 0.0 (0.0-0.2) % PT 12.4 (11.1-14.7) Seconds INR 0.9 APTT 27.3 (22.3-36.8) Seconds D-Dimer 0.27 (<0.48) ug/mL Sodium 138 (137-145) mmol/L Potassium 4.8 (3.4-5.0) mmol/L Chloride 105 (98-107) mmol/L Carbon Dioxide 25 (22-30) mmol/L Anion Gap 8 (4-12) mmol/L BUN 14 (7-17) mg/dL Creatinine 0.65 L (0.7-1.0) mg/dL Estim Creat Clear Calc 52 ml/min Estimated GFR > 60 (59 - ) Glucose 104 (65-110) mg/dL Calcium 10.4 H (8.4-10.2) mg/dL Total Bilirubin 0.9 (0.2-1.3) mg/dL AST 25 (14-36) U/L ALT 22 (6-35) U/L Alkaline Phosphatase 87 (38-126) U/L Troponin I < 0.012 (0.000-0.034) ng/mL NT-Pro-B Natriuret Pep 52 (19.9-100) pg/mL Total Protein 7.0 (6.3-8.2) g/dL Albumin 4.4 (3.5-5.1) g/dL Lipase 68 (23-300) U/L Influenza A (RT-PCR) Negative (Negative) Influenza B (RT-PCR) Negative (Negative) RSV (RT-PCR) Negative (Negative) SARS-CoV-2 RNA (RT-PCR) Negative (Negative) Discharge Plan Discharge Clinical Impression: Atypical chest pain, Anxiety Patient Disposition: Home, Self-Care Condition: Stable Instructions: Antibiotic Form, Chest Pain (DC), Anxiety (ED) Additional Instructions: You were evaluated in the emergency department for chest tightness. Your workup here is reassuring. Your symptoms seem to be related to anxiety, however you should still follow-up with field crop ii farmworker to ensure there is no underlying cardiac disease. Please follow-up closely with her primary care provider as well for further management of your anxiety. Take hydroxyzine as needed for acute anxiety. Return to the emergency department if you develop new or worsening symptoms. Patient Language: Pashto Prescriptions: New hydroxyzine pamoate 50 mg capsule 50 mg PO TID PRN (Reason: anxiety) Qty: 20 0RF No Action dextroamphetamine-amphetamine [Adderall XR] 20 mg capsule,extended release 24hr 20 mg PO DAILY Qty: 30 0RF fluticasone propionate [Flonase Allergy Relief] 50 mcg/actuation spray,suspension 2 spray intranasal DAILY Qty: 48 1RF Rx Instructions: administer into each nostril azithromycin 250 mg tablet See Rx Instructions PO .COMPLEX Qty: 6 0RF Rx Instructions: For 250 mg dose pack: take 500 mg today (day 1), then 250 mg for 4 days (days 2-5) PO lisinopril 5 mg tablet 5 mg PO DAILY Qty: 30 1RF fluconazole 150 mg tablet 150 mg PO ONCE Qty: 2 0RF Rx Instructions: as a single dose may repeat in 72 hours if no improvement in symptoms. Caltrate 600 plus D 600 mg-20 mcg (800 unit) Tablet,Chewable 1 tablet PO DAILY Hair, Skin, Nails with Biotin 7.5-7.5-1,250 mg-unit-mcg Tablet,Chewable 1 tablet PO DAILY multivit with min-folic acid 0.4 mg Tablet 1 tablet PO DAILY tizanidine 2 mg tablet 2 mg PO TID PRN (Reason: muscle spasticity) Qty: 60 0RF dextroamphetamine-amphetamine [Adderall XR] 30 mg capsule,extended release 24hr 30 mg PO DAILY Qty: 30 0RF Follow-up/Referrals: Keiko King MD [Physician] - Alta Obregon APRN [Primary Care Provider] - Quality HEART score for chest pain patients History: slightly suspicious ECG: normal Age: > or = to 65 years Risk factors: no risk factors known Troponin: < or = to 1x normal limit Heart score: 2
[2024-11-12 17:42] LABS: Lipase 68 U/L (23-300)
[2024-11-12 17:48] LABS: INR 0.9; Partial Thromboplastin Time 27.3 Seconds (22.3-36.8); Prothrombin Time 12.4 Seconds (11.1-14.7)
[2024-11-12 17:51] LABS: NT Pro B Type Natriuretic Pept 52 pg/mL (19.9-100)
[2024-11-12 17:59] LABS: D Dimer 0.27 ug/mL (<0.48)
[2024-11-12 18:06] VITALS: BP 133/70; PULSE 74; RESP 17; O2SAT 100
[2024-11-12 18:22] LABS: Influenza A QL RT-PCR Negative (Negative); Influenza B QL RT-PCR Negative (Negative); RSV RNA, RT-PCR Negative (Negative); SARS-CoV-2 RNA PCR Negative (Negative)
== END 2024-11-12 19:19 | disposition home or self-care (01) ==
PROVIDERS: Emergency Medicine; Emergency Provider Physician Assistant; PCP Nurse Practitioner Family
DX: R07.89 Other chest pain (principal); F41.9 Anxiety disorder, unspecified; R06.00 Dyspnea, unspecified; Z20.822 Contact with and (suspected) exposure to COVID-19; E55.9 Vitamin D deficiency, unspecified; F98.8 Other specified behavioral and emotional disorders with onset usually occurring in childhood and adolescence; Z98.1 Arthrodesis status; Z87.442 Personal history of urinary calculi; Z98.41 Cataract extraction status, right eye; Z90.49 Acquired absence of other specified parts of digestive tract; Z79.899 Other long term (current) drug therapy
CPT/HCPCS: 36415; 71046; 80053; 83690; 83880; 84484; 85025; 85380; 85610; 85730; 87637; 93005; 96374; 99284; J2060

== ENCOUNTER 2024-11-24 11:21 | Outpatient (CLI) | payer MEDICARE, SELFPAY ==
--- NOTE | ~2024-11-24 | MMUS_ITS ---
EXAMINATION: MM diagnostic jb BI w enrico, US breast BI complete HISTORY: Bloody nipple discharge on the left TECHNIQUE: Additional 3-D tomosynthesis images of the breasts were performed and synthetic 2-D images were generated. CAD analysis was submitted and interpreted. High resolution bilateral complete breas t ultrasound was performed. COMPARISON: Comparison to multiple prior studies sequentially, with oldest reviewed study dated 04/2015. BREAST PARENCHYMAL COMPOSITION: Not dense: There are scattered areas of fibroglandular density. FINDINGS: MAMMOGRAPHIC FINDINGS: The breasts are composed of stable fibroglandular tissue. There are scattered stable benign-appearing breast calcifications. No suspicious distinct masses or architectural distortion in either breast. ULTRASOUND: Complete US of all 4 quadrants of the breast/s and retroareolar region was reviewed. Right breast: Normal heterogeneous echotexture without focal solid or cystic mass. Left breast: In the subareolar location of the left breast there is an oval circumscribed hypoechoic mass measuring 11 x 8 x 5 mm without posterior features or internal vascularity. IMPRESSION: 1. Oval hypoechoic left breast mass located in the subareolar location measuring 11 mm. 2. Ultrasound-guided left breast biopsy recommended. BI-RADS category 4, suspicious findings. Reviewed, dictated and finalized at location A. IMPRESSION: 1. Oval hypoechoic left breast mass located in the subareolar location measurin g 11 mm. 2. Ultrasound-guided left breast biopsy recommended. BI-RADS category 4, suspicious findings.
== END 2024-11-24 11:22 | disposition home or self-care (01) ==
PROVIDERS: PCP Nurse Practitioner Family; Visit Provider Nurse Practitioner Family
DX: N64.52 Nipple discharge (principal); R92.8 Other abnormal and inconclusive findings on diagnostic imaging of breast
CPT/HCPCS: 76641; 77062; 77066; G0279

== ENCOUNTER 2024-12-26 19:27 | Emergency (ER) | payer MEDICARE, SELFPAY ==
[2024-12-26 19:30] VITALS: BP 134/56; PULSE 88; RESP 18; O2SAT 98
--- NOTE | 2024-12-26 21:43 | PC.NURSE ---
Call x1 for labs, no answer, patient not seen in waiting room.
--- NOTE | 2024-12-26 22:04 | PC.NURSE ---
Called for room, no answer, patient not seen in waiting room.
== END 2024-12-26 21:43 | disposition left against medical advice (07) ==
PROVIDERS: PCP Nurse Practitioner Family
DX: K62.5 Hemorrhage of anus and rectum (principal)
CPT/HCPCS: 99199

== ENCOUNTER 2024-12-27 14:56 | Inpatient (IN) | payer MEDICARE, SELFPAY ==
--- NOTE | ~2024-12-27 | CT_ITS ---
EXAMINATION: CTA abdomen pelvis DATE: 12/27/2024 18:45 CDT INDICATION: Personal history of ischemic colitis presents following remote history of rectal bleeding TECHNIQUE: Computed tomographic angiography (CTA) of the abdomen and pelvis with 100 mL Omnipaque-350 intravenous contrast. The dose-length product was 284.97 mGy-cm. Maximum intensity projection 3D-rec onstructions of the aorta and other arteries were constructed by the technologist on a separate works tation. FINDINGS/OBSERVATIONS: LUNG BASES: The bilateral lung bases are clear. The heart is borderline enlarged without pericardial effusion. Small hiatal hernia is present. LIVER: The liver enhances homogeneously, without enlargement. GALLBLADDER AND BILIARY SYSTEM: The gallbladder is surgically absent. PANCREAS: The pancreas enhances homogeneously without ductal dilatation. SPLEEN: The spleen enhances homogeneously and is not enlarged. KIDNEYS: The bilateral kidneys enhance symmetrically without hydronephrosis or renal calculi. ADRENAL GLANDS: Unremarkable. GASTROINTESTINAL TRACT: Colonic diverticulosis without surrounding inflammatory change. Mural thickening and edema is identified within the descending colon, with surrounding inflammatory c hange. APPENDIX: The appendix is not definitively visualized. However, no pericecal inflammatory change is identified suggest the presence of acute appendicitis. VASCULATURE: No aneurysmal dilatation or significant stenosis. The celiac axis is patent, demonstrating conventional anatomy. The superior mesenteric artery is also patent, without filling defect and demonstrates conventional a natomy. The inferior mesenteric artery is diminutive, but patent. No contrast extravasation is identified within the visualized bowel loops suggest acute hemorrhage. LYMPH NODES: No pathologically enlarged or morphologically suspicious lymph nodes within the retroperitoneum or at the root of the mesentery. PELVIC STRUCTURES: The bladder is only minimally distended, and otherwise unremarkable. The uterus is either atrophic or surgically absent. BODY WALL AND MUSCULOSKELETAL: Age appropriate degenerative disease within the lumbosacral spine. IMPRESSION: No acute contrast extravasation to suggest GI bleeding. Inflammatory change within the descending colon, as detailed above. Reviewed, dictated and finalized at location A.
--- NOTE | ~2024-12-27 | US_ITS ---
US abdomen limited INDICATION: Right upper quadrant pain. Elevated liver function tests. PROCEDURE: Realtime right upper abdominal ultrasound. COMPARISON: No prior studies for comparison. FINDINGS: The pancreas is normal without focal mass or pancreatic ductal dilation. Liver echotexture is normal without focal mass or intrahepatic biliary dilatation. There is normal directional flow i n the portal vein. Gallbladder is surgically absent. Common bile duct measures 11 mm. No sonographic Cordero's sign. IMPRESSION: 1: Mildly dilated common bile duct measuring 11 mm which may relate to prior cholecystectomy. No obst ructing stone or mass identified. Reviewed, dictated and finalized at location A. IMPRESSION: 1: Mildly dilated common bile duct measuring 11 mm which may relate to prior ch olecystectomy. No obstructing stone or mass identified.
[2024-12-27 15:06] VITALS: BP 123/61; PULSE 70; RESP 16; TEMP 36.5; O2SAT 100
[2024-12-27 16:04] LABS: Basophils Percent Auto 0.5 % (0.2-1.2); Eosinophils Absolute Auto 0.1 K/mm3 (0-0.3); Eosinophils Percent Auto 1.3 % (0-4.4); Hematocrit 39.8 % (37.0-47.0); Hemoglobin 12.4 g/dL (12.0-15.0); Immature Granulocyte Absolute 0.02 K/mm3 (0.00-0.031); Immature Granulocyte Percent A 0.2 % (0-0.5); Lymphocytes Absolute Auto 2.76 K/mm3 (0.9-3.2); Lymphocytes Percent Auto 33.3 % (18.3-44.2); Mean Corpuscular HGB Conc 31.2 g/dl (32-36); Mean Corpuscular Hemoglobin 28.3 pg (26-34); Mean Corpuscular Volume 90.9 fl (80-100); Mean Platelet Volume 10.9 fl (7.4-10.4); Monocytes Absolute Auto 0.7 K/mm3 (0.1-0.6); Monocytes Percent Auto 8.1 % (2.6-8.5); Neutrophils Absolute Auto 4.7 K/mm3 (1.3-6.7); Neutrophils Percent Auto 56.6 % (45.5-73.1); Platelet Count Result 239 k/mm3 (150-375); Red Blood Count 4.38 M/mm3 (4.2-5.4); Red Cell Distribution Width 14.5 % (11.5-14.5); White Blood Count 8.3 K/mm3 (4.5-10.0)
[2024-12-27 16:15] LABS: Alanine Aminotransferase 17 U/L (6-35); Albumin Level 4.3 g/dL (3.5-5.1); Alkaline Phosphatase 81 U/L (38-126); Anion Gap 6 mmol/L (4-12); Aspartate Amino Transferase 23 U/L (14-36); Bilirubin,Total 1.1 mg/dL (0.2-1.3); Blood Urea Nitrogen 15 mg/dL (7-17); Calcium 9.6 mg/dL (8.4-10.2); Carbon Dioxide 26 mmol/L (22-30); Chloride 106 mmol/L (98-107); Estimated CRCL calculation 52 ml/min; Estimated Glomerular Filt Rate > 60; Glucose 87 mg/dL (65-110); Potassium 4.1 mmol/L (3.4-5.0); Sodium 138 mmol/L (137-145)
[2024-12-27 16:20] LABS: Prothrombin Time 13.2 Seconds (11.1-14.7)
[2024-12-27 16:21] LABS: Partial Thromboplastin Time 27.4 Seconds (22.3-36.8)
--- NOTE | 2024-12-27 17:55 | ED_ITS ---
HPI - GI Bleed General Chief complaint: GI Bleed Stated complaint: Rectal bleeding Time Seen by Provider: 12/27/24 15:41 Source: patient Mode of arrival: ambulatory Limitations: no limitations History of Present Illness HPI Narrative: This is a 74-year-old female, with history of hypertension and acute ischemic colitis, who presents to the emergency department complaining of rectal bleeding from our the past day. She states this began yesterday afternoon and was associated with diffuse abdominal cramping rated moderate to severe. She noted initial passage of bright red blood that has since slowed. Her last bowel movement was yesterday evening. She has however noted intermittent passage of what appeared to be small clots, most recently approximately 30 minutes prior to my evaluation. She complains of generalized fatigue but denies fevers, vomiting, bleeding elsewhere or loss of consciousness. She has no other complaints at this time. Related Data Home Medications Medication Instructions Recorded Confirmed Last Taken Type multivitamin with minerals-folic 1 tablet PO DAILY 11/25/21 11/22/24 Unknown History acid 0.4 mg tablet ascorbic acid 7.5 mg-vit E 7.5 1 tablet PO DAILY 01/27/24 11/22/24 Unknown History unit-biotin 1,250 mcg chewable tablet (Hair,Skin,Nails with Biotin) calcium 600 mg (as carbonate)-vit 1 tablet PO DAILY 01/27/24 11/22/24 Unknown History D3 20 mcg (800 unit) chewable tablet (Caltrate plus D) Allergies Allergy/AdvReac Type Severity Reaction Status Date / Time chlorpheniramine (From AdvReac Intermediate Other Verified 12/27/24 14:57 Coricidin) nitrofurantoin AdvReac Intermediate Nausea Verified 12/27/24 14:57 phenylpropanolamine (From AdvReac Intermediate Other Verified 12/27/24 14:57 Coricidin) codeine AdvReac Mild Hives Verified 12/27/24 14:57 cyclobenzaprine AdvReac Mild Confusion Verified 12/27/24 14:57 hydrocodone AdvReac Mild HIVES, Verified 11/22/24 14:32 ITCHING hydromorphone AdvReac Mild Itching Verified 11/22/24 14:32 oxycodone AdvReac Mild Itching Verified 11/22/24 14:32 Review of Systems 2 Review of Systems: All systems reviewed & are unremarkable except as noted in HPI and below PMFSH Past Medical History Medical History History of kidney stones Increased urinary frequency Attention deficit disorder (ADD) without hyperactivity Vitamin D deficiency Surgical History Surgical History Hx of local excision of skin lesion Excisional biopsy large subcutaneous mass left posterior shoulder, upper back measuring 9 x 11 cm most consistent with multi lobular lipoma on 02/08/[address] Kaminski. History of right cataract extraction History of abdominoplasty History of fusion of cervical spine C-6 History of cholecystectomy History of repair of rotator cuff Bilateral Family History Family History Mother Hypertension Family history of elevated blood lipids Family history of congestive heart failure Family history of chronic obstructive pulmonary disease Sibling Family history of malignant neoplasm of breast in first degree relative Father Patient's father is in good health Other Asthma Family history of gout Social History Social History Smoking status: Never smoker Second hand tobacco smoke exposure: No Alcohol intake: never Substance use: never Substance use type: does not use Do You Feel Safe in your Home?: Yes Lack of Transportation: No Lack of Food: Never True Current Housing: I Have Housing Concerned About Future Housing: No Difficulty Paying Gas/Electric Bills: No Difficulty Paying for Meds: No Currently Unemployed: No Education: Associate Degree Difficulty w/ Childcare or Family Care: YES Living arrangements: with friend(s) Additional living arrangements comments: LIVES WITH [facility] Occupation/Education: retired Gender identity (if verbalized by the patient): Female Sexual Orientation (if Verbalized by the Patient): Straight or Heterosexual Spiritual care concerns: No Agree to blood products: Yes Exam 2 Narrative: GENERAL: Well-developed, well-nourished, and in no acute distress. HEAD: Normocephalic, atraumatic. EYES: PERRLA and EOMI. CHEST: Clear to auscultation. No respiratory distress. No wheezes rales or rhonchi HEART: Regular rate and rhythm. No murmur heard. Normal peripheral pulses. ABDOMEN: Soft, diffuse abdominal tenderness to palpation without rebound or guarding, nondistended, normal active bowel sounds. EXTREMITIES: Normal range of motion. No edema. SKIN: Warm, dry, no rash. NEURO: Alert and oriented x3. No focal deficit. Moving all 4 limbs spontaneously PSYCH: Normal mood and affect. Course Course Emergency Course: 19:34 - CBC unremarkable. Hemoglobin 12.4 with a baseline of 13. Platelets within normal limits. Coags within normal limits. Chemistries within normal limits. CT angiogram of the abdomen pelvis shows mural thickening consistent with colitis of the descending colon but is not concerning for ischemia. The patient has had continued episodes of passage of small tissue versus clots without other severe bleeding. 19:34 - I discussed the patient with GI physician, Dr. Turner who agrees to consult. 21:18 - (After a delay due to a separate critical patient) I discussed patient with hospitalist, CORTES Steven who accepts admission. Vital Signs Vital signs: Vital Signs Temperature 97.7 F 12/27/24 15:06 Pulse Rate 70 12/27/24 15:06 Respiratory Rate 16 12/27/24 15:06 Blood Pressure 123/61 12/27/24 15:06 Pulse Oximetry 100 12/27/24 15:06 Oxygen Delivery Room Air 12/27/24 15:06 Temperature 97.7 F 12/27/24 15:06 Pulse Rate 63 12/27/24 18:26 Respiratory Rate 14 12/27/24 18:26 Blood Pressure 134/70 12/27/24 18:26 Pulse Oximetry 98 12/27/24 18:26 Oxygen Delivery Room Air 12/27/24 15:06 MDM - GI Bleed MDM Narrative Medical decision making narrative: Plan: Labs, imaging, pain control, IV fluids, reassess Differential Diagnosis Differential diagnosis: Likely infectious diarrhea, gastritis, Upper gastrointestinal hemorrhage, Lower gastrointestinal hemorrhage and other (Coagulopathy, malignancy, colitis, ischemia, AV malformation, metabolic abnormality, other) Lab Data 12/27/24 15:56 12/27/24 15:57 Labs: Lab Results 12/27/24 12/27/24 Range/Units 15:56 15:57 WBC 8.3 (4.5-10.0) K/mm3 RBC 4.38 (4.2-5.4) M/mm3 Hgb 12.4 (12.0-15.0) g/dL Hct 39.8 (37.0-47.0) % MCV 90.9 (80-100) fl MCH 28.3 (26-34) pg MCHC 31.2 L (32-36) g/dl RDW 14.5 (11.5-14.5) % Plt Count 239 (150-375) k/mm3 MPV 10.9 H (7.4-10.4) fl Immature Gran % (Auto) 0.2 (0-0.5) % Neut % (Auto) 56.6 (45.5-73.1) % Lymph % (Auto) 33.3 (18.3-44.2) % [place] % (Auto) 8.1 (2.6-8.5) % Eos % (Auto) 1.3 (0-4.4) % Baso % (Auto) 0.5 (0.2-1.2) % Lymph # (Auto) 2.76 (0.9-3.2) K/mm3 [place] # (Auto) 0.7 H (0.1-0.6) K/mm3 Eos # (Auto) 0.1 (0-0.3) K/mm3 Baso # (Auto) 0.0 (0.0-0.1) K/mm3 Abs Immat Gran (auto) 0.02 (0.00-0.031) K/mm3 Absolute Neuts (auto) 4.7 (1.3-6.7) K/mm3 Absolute Nucleated RBC 0.000 (0.0-0.012) K/mm3 Nucleated RBC % 0.0 (0.0-0.2) % PT 13.2 (11.1-14.7) Seconds INR 1.0 APTT 27.4 (22.3-36.8) Seconds Sodium 138 (137-145) mmol/L Potassium 4.1 (3.4-5.0) mmol/L Chloride 106 (98-107) mmol/L Carbon Dioxide 26 (22-30) mmol/L Anion Gap 6 (4-12) mmol/L BUN 15 (7-17) mg/dL Creatinine 0.65 L (0.7-1.0) mg/dL Estim Creat Clear Calc 52 ml/min Estimated GFR > 60 (59 - ) Glucose 87 (65-110) mg/dL Calcium 9.6 (8.4-10.2) mg/dL Total Bilirubin 1.1 (0.2-1.3) mg/dL AST 23 (14-36) U/L ALT 17 (6-35) U/L Alkaline Phosphatase 81 (38-126) U/L Total Protein 7.0 (6.3-8.2) g/dL Albumin 4.3 (3.5-5.1) g/dL Blood Type B Positive Antibody Screen Positive Antibody Identification Anti-Ellen Antigen Identification Ellen Antigen - NEGATIVE ALIYAH, IgG Interpret Not Performed ALIYAH, Poly Interpret Negative ALIYAH, Complement Interp Not Performed Discharge Plan Discharge Clinical Impression: GI bleed, Colitis, Diffuse abdominal pain Patient Disposition: Still a Patient Condition: Stable Patient Language: [place] Leonean Prescriptions: No Action dextroamphetamine-amphetamine [Adderall XR] 20 mg capsule,extended release 24hr 20 mg PO DAILY Qty: 30 0RF fluticasone propionate [Flonase Allergy Relief] 50 mcg/actuation spray,suspension 2 spray intranasal DAILY Qty: 48 1RF Rx Instructions: administer into each nostril azithromycin 250 mg tablet See Rx Instructions PO .COMPLEX Qty: 6 0RF Rx Instructions: For 250 mg dose pack: take 500 mg today (day 1), then 250 mg for 4 days (days 2-5) PO fluconazole 150 mg tablet 150 mg PO ONCE Qty: 2 0RF Rx Instructions: as a single dose may repeat in 72 hours if no improvement in symptoms. lisinopril 5 mg tablet 5 mg PO BID Qty: 60 1RF Caltrate 600 plus D 600 mg-20 mcg (800 unit) Tablet,Chewable 1 tablet PO DAILY Hair, Skin, Nails with Biotin 7.5-7.5-1,250 mg-unit-mcg Tablet,Chewable 1 tablet PO DAILY multivit with min-folic acid 0.4 mg Tablet 1 tablet PO DAILY tizanidine 2 mg tablet 2 mg PO TID PRN (Reason: muscle spasticity) Qty: 60 0RF dextroamphetamine-amphetamine [Adderall XR] 30 mg capsule,extended release 24hr 30 mg PO DAILY Qty: 30 0RF Follow-up/Referrals: Alta Obregon APRN [Primary Care Provider] - Time of Disposition: 19:34
[2024-12-27 18:26] VITALS: BP 134/70; PULSE 63; RESP 14; O2SAT 98
[2024-12-27] MEDS: MORPHINE SULFATE (*CRX) 4 MG/ML INJ IV PUSH (20:25)
[2024-12-27 20:30] VITALS: BP 152/61; PULSE 78; RESP 16; O2SAT 99
--- NOTE | 2024-12-27 21:34 | P.HP_ITS ---
H&P: HPI History of Present Illness Date/Time: 12/27/24 21:34 Chief Complaint: Rectal bleeding Narrative: This is a very pleasant 74-year-old female patient with past medical history of hypertension, acute ischemic colitis 10 years ago, ADHD, kidney stones, vitamin- D deficiency, cataract surgery, abdominal plasty, cervical fusion, cholecystectomy and removal of lipoma who comes to the emergency room who compla ins of 2 days of abdominal pain and cramping described as cramps like a menstrual cramp, light reading per rectum that is slowing down but still passing small clots in fatigued. Patient does not follow a specific diet. She last had a colonoscopy in [address] Torrez in which polyps were removed. Patient does not take any blood thinning medications including aspirin. She has associated nausea, no vomiting. Patient denies any chest pain, dyspnea. No urinary symptoms of burning, urgency, frequency or hematuria. A workup was performed in the emergency room consisted of labs and imaging. Vital signs were noted to be stable. Patient has unremarkable CBC with noted hemoglobin of 12.4. Metabolic panel is also unremarkable. Coags are normal. CT abdomen and pelvis was performed that showed no contrast extravasation to suggest bleeding however there are some inflammatory changes in the descending colon. He ER physician spoke with Dr. Turner on-call for GI and patient is going to be admitted observation at this time with GI consult. Review of Systems Review of Systems: All systems reviewed & are unremarkable except as noted in HPI and below PMFSH Past Medical History Medical History (Updated 12/27/24 @ 21:46 by KERMIT Nunez) Attention deficit disorder Hypertension History of kidney stones Increased urinary frequency Attention deficit disorder (ADD) without hyperactivity Vitamin D deficiency Surgical History Surgical History Hx of local excision of skin lesion Excisional biopsy large subcutaneous mass left posterior shoulder, upper back measuring 9 x 11 cm most consistent with multi lobular lipoma on 02/08/[address] Kaminski. History of right cataract extraction History of abdominoplasty History of fusion of cervical spine C-6 History of cholecystectomy History of repair of rotator cuff Bilateral Family History Family History Mother Hypertension Family history of elevated blood lipids Family history of congestive heart failure Family history of chronic obstructive pulmonary disease Sibling Family history of malignant neoplasm of breast in first degree relative Father Patient's father is in good health Other Asthma Family history of gout Social History Social History Smoking status: Never smoker Second hand tobacco smoke exposure: No Alcohol intake: never Substance use: never Substance use type: does not use Do You Feel Safe in your Home?: Yes Lack of Transportation: No Lack of Food: Never True Current Housing: I Have Housing Concerned About Future Housing: No Difficulty Paying Gas/Electric Bills: No Difficulty Paying for Meds: No Currently Unemployed: No Education: Associate Degree Difficulty w/ Childcare or Family Care: YES Living arrangements: with friend(s) Additional living arrangements comments: LIVES WITH [facility] - [facility] Occupation/Education: retired Gender identity (if verbalized by the patient): Female Sexual Orientation (if Verbalized by the Patient): Straight or Heterosexual Spiritual care concerns: No Agree to blood products: Yes Meds Home Medications and Allergies Home Medications Medication Instructions Recorded Confirmed Type multivitamin with minerals-folic 1 tablet PO DAILY 11/25/21 11/22/24 History acid 0.4 mg tablet tizanidine 2 mg tablet 2 mg PO TID PRN muscle spasticity 01/06/24 11/22/24 Rx #60 tabs ascorbic acid 7.5 mg-vit E 7.5 1 tablet PO DAILY 01/27/24 11/22/24 History unit-biotin 1,250 mcg chewable tablet (Hair,Skin,Nails with Biotin) calcium 600 mg (as carbonate)-vit 1 tablet PO DAILY 01/27/24 11/22/24 History D3 20 mcg (800 unit) chewable tablet (Caltrate plus D) fluconazole 150 mg tablet 150 mg PO ONCE #2 tabs 10/18/24 11/22/24 Rx Adderall XR 30 mg capsule,extended 30 mg PO DAILY #30 caps 11/07/24 11/22/24 Rx release (dextroamphetamine-amphetamine) azithromycin 250 mg tablet See Rx Instructions PO .COMPLEX #6 11/08/24 11/22/24 Rx tabs dextroamphetamine-amphetamine ER 20 mg PO DAILY #30 caps 11/08/24 11/22/24 Rx 20 mg 24hr capsule,extend release (Adderall XR) fluticasone propionate 50 2 spray intranasal DAILY #48 mL 11/08/24 11/22/24 Rx mcg/actuation nasal spray,suspension (Flonase Allergy Relief) lisinopril 5 mg tablet 5 mg PO BID #60 tabs 11/22/24 11/22/24 Rx Allergies Allergy/AdvReac Type Severity Reaction Status Date / Time chlorpheniramine (From AdvReac Intermediate Other Verified 12/27/24 14:57 Coricidin) nitrofurantoin AdvReac Intermediate Nausea Verified 12/27/24 14:57 phenylpropanolamine (From AdvReac Intermediate Other Verified 12/27/24 14:57 Coricidin) codeine AdvReac Mild Hives Verified 12/27/24 14:57 cyclobenzaprine AdvReac Mild Confusion Verified 12/27/24 14:57 hydrocodone AdvReac Mild HIVES, Verified 11/22/24 14:32 ITCHING hydromorphone AdvReac Mild Itching Verified 11/22/24 14:32 oxycodone AdvReac Mild Itching Verified 11/22/24 14:32 Vital Signs Vital Signs - 24 hr 12/27/24 15:06 12/27/24 18:26 Temperature 97.7 F Pulse Rate 70 63 Respiratory Rate 16 14 Blood Pressure 123/61 134/70 Pulse Oximetry 100 98 Oxygen Delivery Room Air Exam Const: General: comfortable and no acute distress Other: Lying in stretcher in no acute distress at this time. HENMT: Face/Nose/Sinus: Normal nares present Mouth: Yes dry mucous membranes Eyes: General: appearance normal, both eyes and all related structures Sclera: sclerae normal Pupils: Equal, round and reactive pupils present Neck: Neck: supple and no JVD Lymphatic: lymphadenopathy not noted Chest: Other: Nontender Resp: Effort & Inspection: normal respiratory effort Auscultation: clear to auscultation bilaterally Cardio: Rate: regular rate Rhythm: regular rhythm Heart sounds: no gallops, no murmurs and no rubs GI: Inspection: non-distended GI Palp: Yes Soft to palpation and Yes Tenderness to palpation present (GI) (Left lower quadrant and left upper quadrant) Auscultation: normal bowel sounds Skin: General skin exam: normal color, no rashes or lesions noted and no erythema Lesions: no lesions noted Rashes: no rashes noted Wounds: no wounds Neuro: General: gait normal Speech: normal speech Motor exam (neuro): 5/5 motor strength present throughout and Normal motor muscle tone present throughout Sensory Exam: normal sensation Extrem: General: normal to inspection, no edema and no pedal edema Other: Freely and equally moves all extremities well without deficit. Psych: Mental Status: mental status grossly normal Affect: normal affect H&P: Results Labs Labs: Short CBC 12/27/24 Range/Units 15:56 WBC 8.3 (4.5-10.0) K/mm3 Hgb 12.4 (12.0-15.0) g/dL Hct 39.8 (37.0-47.0) % Plt Count 239 (150-375) k/mm3 BMP 12/27/24 15:57 Sodium 138 Potassium 4.1 Chloride 106 Carbon Dioxide 26 BUN 15 Creatinine 0.65 L Glucose 87 Calcium 9.6 Liver Function 12/27/24 Range/Units 15:57 Total Bilirubin 1.1 (0.2-1.3) mg/dL AST 23 (14-36) U/L ALT 17 (6-35) U/L Alkaline Phosphatase 81 (38-126) U/L Albumin 4.3 (3.5-5.1) g/dL Assessment and Plan Assessment and plan (1) Colitis: Code(s): K52.9 - Noninfective gastroenteritis and colitis, unspecified Status: Acute Assessment and Plan: * As evidence by CTA of abdomen and pelvis showing inflammatory changes in the descending colon. * Imaging independently reviewed by myself * GI consulted, Dr. Turner * Continue to monitor labs and vital signs and trend * NPO after midnight * Normal saline at 100 mL/hour for hydration * Start Cipro and Flagyl * P.r.n. pain meds with morphine as she tolerated it in ED * P.r.n. antiemetics with Zofran * Last colonoscopy was in 2021 with removal of 1 polyp (2) GI bleed: Qualifiers: GI bleed type/associated pathology: unspecified gastrointestinal hemorrhage type Qualified Code(s): K92.2 - Gastrointestinal hemorrhage, unspec ified Code(s): K92.2 - Gastrointestinal hemorrhage, unspecified Status: Acute Assessment and Plan: * See above 1. (3) Hypertension: Code(s): I10 - Essential (primary) hypertension Status: Chronic Assessment and Plan: * Stable. Continue home medications when confirmed * IV hydralazine ordered p.r.n. (4) Vitamin D deficiency: Code(s): E55.9 - Vitamin D deficiency, unspecified Status: Chronic Assessment and Plan: * Continue home medications when confirmed (5) Attention deficit disorder: Code(s): F98.8 - Other specified behavioral and emotional disorders with onset usually occurring in childhood and adolescence Status: Chronic Assessment and Plan: * Continue home medications been confirmed Quality VTE Prophylaxis VTE prophylaxis: mechanical ordered Hospitalist MIPS Advance Care Plan I have confirmed that the patient's Advanced Care Plan is present, code status is documented, or surrogate decision maker is listed in patient medical record.: Yes Medication Reconciliation I have utilized all available resources to obtain, update and review the patients current medications (includes all prescriptions, OTC, herbals, cannabis, and nutritional supplements).: Yes
[2024-12-27 21:45] VITALS: BP 116/64; PULSE 63; RESP 17; O2SAT 100
[2024-12-27] MEDS: SODIUM CHLORIDE 0.9% IV 1,000 ML 100 ML IV CONT (22:20)
[2024-12-27] MEDS: metroNIDAZOLE 500 MG/ISO 100ML 500 MG/100 ML BAG 100 MG IVPB (22:20)
[2024-12-27 22:47] VITALS: BMI 25.1
[2024-12-28] VITALS: BP 135/88; PULSE 67; RESP 18; TEMP 36; O2SAT 98
[2024-12-28] MEDS: CIPROFLOXACIN 400 MG/D5W 200ML 200 ML 200 MG IVPB ×3 (00:05→23:57)
[2024-12-28] MEDS: MORPHINE SULFATE (*CRX) 4 MG/ML INJ IV PUSH ×2 (02:57→10:50)
[2024-12-28] MEDS: metroNIDAZOLE 500 MG/ISO 100ML 500 MG/100 ML BAG 100 MG IVPB ×3 (05:17→22:29)
[2024-12-28 06:00] VITALS: BP 110/53; PULSE 66; RESP 18; TEMP 36.2; O2SAT 97
[2024-12-28 07:37] LABS: Basophils Percent Auto 0.4 % (0.2-1.2); Eosinophils Absolute Auto 0.1 K/mm3 (0-0.3); Eosinophils Percent Auto 1.3 % (0-4.4); Hematocrit 38.2 % (37.0-47.0); Immature Granulocyte Absolute 0.02 K/mm3 (0.00-0.031); Immature Granulocyte Percent A 0.3 % (0-0.5); Lymphocytes Percent Auto 36.2 % (18.3-44.2); Mean Corpuscular HGB Conc 31.4 g/dl (32-36); Mean Corpuscular Hemoglobin 28.6 pg (26-34); Mean Corpuscular Volume 91.2 fl (80-100); Mean Platelet Volume 11.5 fl (7.4-10.4); Monocytes Absolute Auto 0.6 K/mm3 (0.1-0.6); Monocytes Percent Auto 8.1 % (2.6-8.5); Neutrophils Absolute Auto 4.2 K/mm3 (1.3-6.7); Neutrophils Percent Auto 53.7 % (45.5-73.1); Platelet Count Result 220 k/mm3 (150-375); Red Blood Count 4.19 M/mm3 (4.2-5.4); Red Cell Distribution Width 14.6 % (11.5-14.5); White Blood Count 7.7 K/mm3 (4.5-10.0)
[2024-12-28 07:52] LABS: Anion Gap 6 mmol/L (4-12); Blood Urea Nitrogen 14 mg/dL (7-17); Calcium 9.1 mg/dL (8.4-10.2); Carbon Dioxide 27 mmol/L (22-30); Chloride 105 mmol/L (98-107); Estimated CRCL calculation 57 ml/min; Estimated Glomerular Filt Rate > 60; Glucose 99 mg/dL (65-110); Sodium 138 mmol/L (137-145)
--- NOTE | 2024-12-28 08:04 | P.PNIM_ITS ---
Progress Note: A&P Assessment and Plan (1) Colitis: Code(s): K52.9 - Noninfective gastroenteritis and colitis, unspecified Status: Acute Assessment and Plan: * Abd/Pelvis CTA: Inflammatory change within the descending colon, No acute contrast extravasation to suggest GI bleeding * Continue to monitor labs and vital signs and trend * NPO * NS at 100 mL/hour for hydration * Continue Cipro and Flagyl * P.r.n. pain meds/antiemetics * Last colonoscopy was in 2021 with removal of 1 polyp * GI consulted, still pending at this time (2) GI bleed: Qualifiers: GI bleed type/associated pathology: unspecified gastrointestinal hemorrhage type Qualified Code(s): K92.2 - Gastrointestinal hemorrhage, unspecified Code(s): K92.2 - Gastrointestinal hemorrhage, unspecified Status: Acute Assessment and Plan: * See above 1. (3) Hypertension: Code(s): I10 - Essential (primary) hypertension Status: Chronic Assessment and Plan: * Stable. Continue home medications when confirmed * PRN IV hydralazine (4) Vitamin D deficiency: Code(s): E55.9 - Vitamin D deficiency, unspecified Status: Chronic Assessment and Plan: * Continue home medications (5) Attention deficit disorder: Code(s): F98.8 - Other specified behavioral and emotional disorders with onset usually occurring in childhood and adolescence Status: Chronic Assessment and Plan: * Continue home medications Time Spent With Patient Time: 15-25 Subjective Date/time seen: 12/28/24 08:04 Interval history: Pt is a 74-year-old female with a pmhx of HTN, acute ischemic colitis (10y ago), AHD, Vit D def, abdominal plasty, cervical fusion, cholecystectomy, and removal of lipoma who presents to the hospital for 2 day history of abdominal pain/cramping and light bleeding and clot passage from rectum. 12/28/2024 Patient is sitting comfortably in bed at time of exam. Denies any CP, SOB, n/v, or abdominal pain at this time. Denies any diarrhea/hematochezia today or last night as well. Physical exam is benign. GI consult is still pending at this time. Will continue abx, NPO status, and PRN antiemetics/pain meds. No other complaints or concerns at this time. Review of Systems Review of Systems: All systems reviewed & are unremarkable except as noted in HPI and below Exam Const: General: comfortable and no acute distress Other: Lying in stretcher in no acute distress at this time. HENMT: Face/Nose/Sinus: Normal nares present Mouth: Yes dry mucous membranes Eyes: General: appearance normal, both eyes and all related structures Sclera: sclerae normal Pupils: Equal, round and reactive pupils present Neck: Neck: supple and no JVD Lymphatic: lymphadenopathy not noted Chest: Other: Nontender Resp: Effort & Inspection: normal respiratory effort Auscultation: clear to auscultation bilaterally Cardio: Rate: regular rate Rhythm: regular rhythm Heart sounds: no gallops, no murmurs and no rubs GI: Inspection: non-distended Auscultation: normal bowel sounds Skin: General skin exam: normal color, no rashes or lesions noted, no erythema, No lesion and No rashes Lesions: no lesions noted Rashes: no rashes noted Wounds: no wounds Neuro: General: gait normal Cranial nerves: Yes Equal, round and reactive pupils present Speech: normal speech Motor exam (neuro): 5/5 motor strength present throughout and Normal motor muscle tone present throughout Sensory Exam: normal sensation Extrem: General: normal to inspection, no edema and no pedal edema Other: Freely and equally moves all extremities well without deficit. Psych: Mental Status: mental status grossly normal Affect: normal affect Objective Data Vital Signs Vital Signs: Vital Signs - 24 hr 12/27/24 15:06 12/27/24 18:26 12/27/24 20:30 Temperature 97.7 F Pulse Rate 70 63 78 Respiratory Rate 16 14 16 Blood Pressure 123/61 134/70 152/61 H Pulse Oximetry 100 98 99 Oxygen Delivery Room Air 12/27/24 21:45 12/27/24 22:50 12/28/24 00:00 Temperature 96.8 F L Pulse Rate 63 67 Respiratory Rate 17 18 Blood Pressure 116/64 135/88 Pulse Oximetry 100 98 Oxygen Delivery Room Air 12/28/24 06:00 Temperature 97.1 F L Pulse Rate 66 Respiratory Rate 18 Blood Pressure 110/53 L Pulse Oximetry 97 Oxygen Delivery Intake/Output Intake/Output: Intake & Output 12/25/24 12/26/24 12/27/24 12/28/24 23:59 23:59 23:59 23:59 Intake Total 200 Balance 200 Meds/Results Medications: Active Medications Generic Name Dose Route Start Last Admin Trade Name Freq PRN Reason Stop Dose Admin Calcium Carbonate 500 mg 12/28/24 09:00 Calcium/Vitamin D 500 Mg/5 Mcg (200 I.U.) Tablet PO QAM [facility] Hydralazine HCl 10 mg 12/27/24 21:47 Hydralazine Hcl 20 Mg/Ml Vial IV PUSH Q8H PRN Blood Pressure - High Sodium Chloride 1,000 mls @ 100 mls/hr 12/27/24 21:50 12/27/24 22:20 Normal Saline Iv IV CONT 100 mls/hr .Q10H LEAH Administration Ciprofloxacin/Dextrose 200 mls @ 200 mls/hr 12/28/24 11:00 Cipro 400 Mg/D5w 200 Ml IVPB Q12H LEAH Metronidazole 500 mg in 100 mls @ 100 mls/hr 12/28/24 06:00 12/28/24 06:17 Flagyl 500 Mg/Iso Soln 100 Ml IVPB Infused Q8HR [facility] Infusion Lisinopril 5 mg 12/28/24 09:00 Lisinopril 5 Mg Tablet PO Q12HR [facility] Miscellaneous Information 1 each 12/28/24 00:01 Dextroamphetamine-Amphetamine [Adderall Xr] 20 Mg Capsule,Extended Rele Is Nonformulary, C XX 01/27/25 00:00 CLARIFY [facility] Morphine Sulfate 4 mg 12/27/24 21:47 12/28/24 02:57 Morphine Sulfate (*Crx) 4 Mg/Ml Inj IV PUSH 4 mg Q4HR PRN Administration Abdominal Cramping Multivitamins/Calcium 1 tablet 12/28/24 09:00 Therapeutic Multivitamins/Minerals Tab (*Bkc) PO DAILY [facility] Non-Formulary Medication 20 mg 12/28/24 09:00 Dextroamphetamine-Amphetamine [Adderall Xr] PO 01/27/25 08:59 DAILY [facility] Ondansetron HCl 4 mg 12/27/24 21:47 Ondansetron Inj 4 Mg/2 Ml Vial IV PUSH Q6HR PRN Nausea Radiology Results: ITS Impressions Abdomen/Pelvis CTA 12/27/24 18:38 IMPRESSION: No acute contrast extravasation to suggest GI bleeding. Inflammatory change within the descending colon, as detailed above. Labs Labs: Laboratory Results - last 24 hr 12/27/24 12/27/24 12/28/24 15:56 15:57 06:36 WBC 8.3 7.7 RBC 4.38 4.19 L Hgb 12.4 12.0 Hct 39.8 38.2 MCV 90.9 91.2 MCH 28.3 28.6 MCHC 31.2 L 31.4 L RDW 14.5 14.6 H Plt Count 239 220 MPV 10.9 H 11.5 H Immature Gran % (Auto) 0.2 0.3 Neut % (Auto) 56.6 53.7 Lymph % (Auto) 33.3 36.2 King % (Auto) 8.1 8.1 Eos % (Auto) 1.3 1.3 Baso % (Auto) 0.5 0.4 Lymph # (Auto) 2.76 2.80 King # (Auto) 0.7 H 0.6 Eos # (Auto) 0.1 0.1 Baso # (Auto) 0.0 0.0 Abs Immat Gran (auto) 0.02 0.02 Absolute Neuts (auto) 4.7 4.2 Absolute Nucleated RBC 0.000 0.000 Nucleated RBC % 0.0 0.0 PT 13.2 INR 1.0 APTT 27.4 Sodium 138 138 Potassium 4.1 4.0 Chloride 106 105 Carbon Dioxide 26 27 Anion Gap 6 6 BUN 15 14 Creatinine 0.65 L 0.59 L Estim Creat Clear Calc 52 57 Estimated GFR > 60 > 60 Glucose 87 99 Calcium 9.6 9.1 Magnesium 2.0 Total Bilirubin 1.1 AST 23 ALT 17 Alkaline Phosphatase 81 Total Protein 7.0 Albumin 4.3 Blood Type B Positive Antibody Screen Positive Antibody Identification Anti-Gallup Antigen Identification Ellen Antigen - NEGATIVE ALIYAH, IgG Interpret Not Performed ALIYAH, Poly Interpret Negative ALIYAH, Complement Interp Not Performed Quality VTE Prophylaxis VTE prophylaxis: mechanical ordered
[2024-12-28] MEDS: ONDANSETRON INJ 4 MG/2 ML VIAL IV PUSH ×2 (09:03→21:00)
[2024-12-28] MEDS: SODIUM CHLORIDE 0.9% IV 1,000 ML 100 ML IV CONT (13:45)
[2024-12-28 14:00] VITALS: BP 119/46; PULSE 98; RESP 20; TEMP 35.8; O2SAT 59
--- NOTE | 2024-12-28 15:45 | WPDGICN ---
Assessment and Plan Assessment and plan (1) Colitis: Code(s): K52.9 - Noninfective gastroenteritis and colitis, unspecified <KERMIT Byers - Last Filed: 12/28/24 16:24> Status: Acute <ULICES ByersC - Last Filed: 12/28/24 16:24> Assessment and Plan: CTA abdomen/pelvis shows inflammatory changes in descending colon without active bleeding. Currently on cipro and flagyl with improvement in abdominal pain and has had no episodes of rectal bleeding today. CBC negative for anemia and no leukocytosis noted. DDX: Ischemic colitis VS Infectious colitis VS Inflammatory bowel disease -Stool calprotectin, stool cultures, c-diff and Giardia to be obtained. -Continue Cipro and Flagyl -Continue supportive measures -Since symptoms are improving pt can follow up as out patient for colonoscopy. -From GI standpoint, since no scopes currently planned, Okay to advance diet as tolerated <KERMIT Byers - Last Filed: 12/28/24 16:24> (2) GI bleed: Qualifiers: GI bleed type/associated pathology: unspecified gastrointestinal hemorrhage type Qualified Code(s): K92.2 - Gastrointestinal hemorrhage, unspecified <KERMIT Byers - Last Filed: 12/28/24 16:24> Code(s): K92.2 - Gastrointestinal hemorrhage, unspecified <ULICES ByersC - Last Filed: 12/28/24 16:24> Status: Acute <ULICES ByersC - Last Filed: 12/28/24 16:24> Assessment and Plan: Rectal bleeding improving with no episodes of rectal bleeding today -monitor <ULICES ByersC - Last Filed: 12/28/24 16:24> (3) Diffuse abdominal pain: Code(s): R10.84 - Generalized abdominal pain <ULICES ByersC - Last Filed: 12/28/24 16:24> Status: Acute <ULICES ByersC - Last Filed: 12/28/24 16:24> GI Consult Note Consult date/time: 12/28/24 15:45 <KERMIT Byers - Last Filed: 12/28/24 16:24> Reason for consult: GI bleed <KERMIT Byers - Last Filed: 12/28/24 16:24> HPI: Verna Cerna is a 74 year old female who we were ask to for rectal bleeding. Verna presented to the ER yesterday for complaints of rectal bleeding and diffuse abdominal cramping x1 day. She reports having a regular bowel movement on Thursday, but when she flushed the toilet, she noticed orangey-red blood. She then had to go again and passed a large amount of bright red blood without diarrhea, which frightened her. CTA of the abdomen and pelvis showed inflammatory changes within the descending colon but no acute contrast extravasation to suggest GI bleed. CBC negative for anemia with no leukocytosis. She states the bleeding has stopped today but still has some cramping that is better than two days ago. She reports significant nausea but no vomiting. She reports having a similar episode in 2021 which led to a colonoscopy with only polyp noted. She has distant history of ischemic colitis in 2013. Prior to recent episode she reports having a salad that she had made at home and recently started lisinopril 5 mg BID for HTN. Her last bowel movement was two days ago, and she has not seen blood in her stool today. She denies smoking tobacco or marijuana. She takes Adderall for ADD. <KERMIT Byers - Last Filed: 12/28/24 16:24> Review of Systems Constitutional: Constitutional: Reports anorexia and Reports fatigue <KERMIT Byers - Last Filed: 12/28/24 16:24> Eyes: Eyes: Denies change in vision <KERMIT Byers - Last Filed: 12/28/24 16:24> ENT: Denies hoarseness <KERMIT Byers - Last Filed: 12/28/24 16:24> Cardiovascular: Cardiovascular: Denies chest pain <KERMIT Byers - Last Filed: 12/28/24 16:24> Respiratory: Respiratory: Denies cough <KREMIT Byers - Last Filed: 12/28/24 16:24> Gastrointestinal: Gastrointestinal: Reports as per HPI <KERMIT Byers - Last Filed: 12/28/24 16:24> Genitourinary: Genitourinary: Denies urinary frequency <KERMIT Byers - Last Filed: 12/28/24 16:24> Musculoskeletal: Musculoskeletal: Denies abnormal gait and Denies myalgias <KERMIT Byers - Last Filed: 12/28/24 16:24> Integumentary/Breasts: Skin/Breast: Denies rash and Denies jaundice <KERMIT Byers - Last Filed: 12/28/24 16:24> Neurologic: Denies abnormal gait <KERMIT Byers - Last Filed: 12/28/24 16:24> Psychiatric: Psychiatric: Reports change in appetite <KERMIT Byers - Last Filed: 12/28/24 16:24> Endocrine: Endocrine: Reports fatigue <KERMIT Byers - Last Filed: 12/28/24 16:24> [facility] Past Medical History Medical History: Medical History Attention deficit disorder Hypertension History of kidney stones Increased urinary frequency Attention deficit disorder (ADD) without hyperactivity Vitamin D deficiency <KERMIT Byers - Last Filed: 12/28/24 16:24> Surgical History Surgical History: Surgical History Hx of local excision of skin lesion Excisional biopsy large subcutaneous mass left posterior shoulder, upper back measuring 9 x 11 cm most consistent with multi lobular lipoma on 02/08/[address] Kaminski. History of right cataract extraction History of abdominoplasty History of fusion of cervical spine C-6 History of cholecystectomy History of repair of rotator cuff Bilateral <KERMIT Byers - Last Filed: 12/28/24 16:24> Family History Family History: Family History Mother Hypertension Family history of elevated blood lipids Family history of congestive heart failure Family history of chronic obstructive pulmonary disease Sibling Family history of malignant neoplasm of breast in first degree relative Father Patient's father is in good health Other Asthma Family history of gout <KERMIT Byers - Last Filed: 12/28/24 16:24> Social History Social History: Social History Smoking status: Never smoker Second hand tobacco smoke exposure: No Alcohol intake: never Substance use: never Substance use type: other Other substance usage details: CBD gummies Do You Feel Safe in your Home?: Yes Lack of Transportation: No Lack of Food: Never True Current Housing: I Have Housing Concerned About Future Housing: No Difficulty Paying Gas/Electric Bills: No Difficulty Paying for Meds: No Currently Unemployed: No Education: High School Diploma/GED Difficulty w/ Childcare or Family Care: No Living arrangements: with friend(s) Additional living arrangements comments: LIVES WITH [facility]NER - [facility] Occupation/Education: retired Gender identity (if verbalized by the patient): Female Sexual Orientation (if Verbalized by the Patient): Straight or Heterosexual Spiritual care concerns: No Agree to blood products: Yes <KERMIT Byers - Last Filed: 12/28/24 16:24> Meds Home Medications and Allergies Home medications: Home Medications Medication Instructions Recorded Confirmed Type multivitamin with minerals-folic 1 tablet PO DAILY 11/25/21 12/27/24 History acid 0.4 mg tablet ascorbic acid 7.5 mg-vit E 7.5 1 tablet PO DAILY 01/27/24 12/27/24 History unit-biotin 1,250 mcg chewable tablet (Hair,Skin,Nails with Biotin) calcium 600 mg (as carbonate)-vit 1 tablet PO DAILY 01/27/24 12/27/24 History D3 20 mcg (800 unit) chewable tablet (Caltrate plus D) dextroamphetamine-amphetamine ER 20 mg PO DAILY #30 caps 11/08/24 12/27/24 Rx 20 mg 24hr capsule,extend release (Adderall XR) lisinopril 5 mg tablet 5 mg PO BID #60 tabs 11/22/24 12/27/24 Rx <KERMIT Byers - Last Filed: 12/28/24 16:24> Allergies/Adverse reactions: Allergies Allergy/AdvReac Type Severity Reaction Status Date / Time chlorpheniramine (From AdvReac Intermediate Other Verified 12/27/24 14:57 Coricidin) nitrofurantoin AdvReac Intermediate Nausea Verified 12/27/24 14:57 phenylpropanolamine (From AdvReac Intermediate Other Verified 12/27/24 14:57 Coricidin) codeine AdvReac Mild Hives Verified 12/27/24 14:57 cyclobenzaprine AdvReac Mild Confusion Verified 12/27/24 14:57 hydrocodone AdvReac Mild HIVES, Verified 11/22/24 14:32 ITCHING hydromorphone AdvReac Mild Itching Verified 11/22/24 14:32 oxycodone AdvReac Mild Itching Verified 11/22/24 14:32 <KERMIT Byers - Last Filed: 12/28/24 16:24> Vital Signs Vital Signs - 24 hr 12/27/24 18:26 12/27/24 20:30 12/27/24 21:45 Temperature Pulse Rate 63 78 63 Respiratory Rate 14 16 17 Blood Pressure 134/70 152/61 H 116/64 Pulse Oximetry 98 99 100 Oxygen Delivery 12/27/24 22:50 12/28/24 00:00 12/28/24 06:00 Temperature 96.8 F L 97.1 F L Pulse Rate 67 66 Respiratory Rate 18 18 Blood Pressure 135/88 110/53 L Pulse Oximetry 98 97 Oxygen Delivery Room Air 12/28/24 08:00 Temperature Pulse Rate Respiratory Rate Blood Pressure Pulse Oximetry Oxygen Delivery Room Air <KERMIT Byers - Last Filed: 12/28/24 16:24> Exam Const: General: comfortable <KERMIT Byers - Last Filed: 12/28/24 16:24> HENMT: Face/Nose/Sinus: Normal nares present <KERMIT Byers - Last Filed: 12/28/24 16:24> Eyes: Sclera: sclerae normal <KERMIT Byers - Last Filed: 12/28/24 16:24> Neck: Neck: supple <Justina Vega APNRadhaC - Last Filed: 12/28/24 16:24> Resp: Effort & Inspection: normal respiratory effort <ULICES ByersC - Last Filed: 12/28/24 16:24> Cardio: Rate: regular rate <KERMIT Byers - Last Filed: 12/28/24 16:24> Rhythm: regular rhythm <ULICES ByersC - Last Filed: 12/28/24 16:24> GI: Inspection: non-distended <KERMIT Byers - Last Filed: 12/28/24 16:24> Auscultation: normal bowel sounds <Justina Vega APNRadhaNicol - Last Filed: 12/28/24 16:24> Results Labs CBC & Chem 7: 12/28/24 06:36 12/28/24 06:36 <Justina Vega APNChi - Last Filed: 12/28/24 16:24> Labs: Short CBC 12/27/24 12/28/24 Range/Units 15:56 06:36 WBC 8.3 7.7 (4.5-10.0) K/mm3 Hgb 12.4 12.0 (12.0-15.0) g/dL Hct 39.8 38.2 (37.0-47.0) % Plt Count 239 220 (150-375) k/mm3 BMP 12/27/24 12/28/24 15:57 06:36 Sodium 138 138 Potassium 4.1 4.0 Chloride 106 105 Carbon Dioxide 26 27 BUN 15 14 Creatinine 0.65 L 0.59 L Glucose 87 99 Calcium 9.6 9.1 Liver Function 12/27/24 Range/Units 15:57 Total Bilirubin 1.1 (0.2-1.3) mg/dL AST 23 (14-36) U/L ALT 17 (6-35) U/L Alkaline Phosphatase 81 (38-126) U/L Albumin 4.3 (3.5-5.1) g/dL <KERMIT Byers - Last Filed: 12/28/24 16:24> Attestation Supervising Provider Attestation I, Vic Manrique MD, have provided a substantive portion of the care of this patient and discussed the patient with my Nurse Practitioner. I have reviewed any new relevant radiographic and laboratory results including medications. I agree with her documentation as noted below. I personally performed the medical decision making and much of the history and exam for this encounter. briefly, here with lower abdominal pain and blood in stools, ct scan showed colitis. Last colonoscopy 2021 without polyp, she has previous history of what it seems to be ischemic colitis. Plan is liquid diet, pain control, antibiotics. <Vic Manrique MD - Last Filed: 12/28/24 17:53>
--- NOTE | 2024-12-28 18:49 | PHAR ---
home med verified adderall xr 20mg capsules #12 in home med bottle
[2024-12-28 21:24] VITALS: BP 146/64; PULSE 76; RESP 16; TEMP 36.7; O2SAT 100
[2024-12-28] MEDS: ACETAMINOPHEN 325 MG TABLET 650 MG PO (22:29)
[2024-12-28] MEDS: lisinopriL 5 MG TABLET PO (22:30)
[2024-12-29] MEDS: SODIUM CHLORIDE 0.9% IV 1,000 ML 100 ML IV CONT ×2 (02:50→14:57)
[2024-12-29 05:49] VITALS: BP 110/57; PULSE 55; RESP 16; TEMP 36.4; O2SAT 95
[2024-12-29] MEDS: metroNIDAZOLE 500 MG/ISO 100ML 500 MG/100 ML BAG 100 MG IVPB ×3 (05:57→20:25)
[2024-12-29 08:04] LABS: Basophils Percent Auto 0.5 % (0.2-1.2); Eosinophils Absolute Auto 0.1 K/mm3 (0-0.3); Eosinophils Percent Auto 2.4 % (0-4.4); Hematocrit 36.7 % (37.0-47.0); Hemoglobin 11.2 g/dL (12.0-15.0); Immature Granulocyte Absolute 0.01 K/mm3 (0.00-0.031); Immature Granulocyte Percent A 0.2 % (0-0.5); Lymphocytes Absolute Auto 2.09 K/mm3 (0.9-3.2); Lymphocytes Percent Auto 36.3 % (18.3-44.2); Mean Corpuscular HGB Conc 30.5 g/dl (32-36); Mean Corpuscular Hemoglobin 28.2 pg (26-34); Mean Corpuscular Volume 92.4 fl (80-100); Mean Platelet Volume 11.2 fl (7.4-10.4); Monocytes Absolute Auto 0.5 K/mm3 (0.1-0.6); Monocytes Percent Auto 8.5 % (2.6-8.5); Neutrophils Percent Auto 52.1 % (45.5-73.1); Platelet Count Result 195 k/mm3 (150-375); Red Blood Count 3.97 M/mm3 (4.2-5.4); Red Cell Distribution Width 14.2 % (11.5-14.5); White Blood Count 5.8 K/mm3 (4.5-10.0)
[2024-12-29 08:19] LABS: Alanine Aminotransferase 194 U/L (6-35); Albumin Level 3.5 g/dL (3.5-5.1); Alkaline Phosphatase 98 U/L (38-126); Anion Gap 1 mmol/L (4-12); Aspartate Amino Transferase 147 U/L (14-36); Bilirubin,Total 1.2 mg/dL (0.2-1.3); Blood Urea Nitrogen 8 mg/dL (7-17); Calcium 8.9 mg/dL (8.4-10.2); Carbon Dioxide 30 mmol/L (22-30); Chloride 108 mmol/L (98-107); Estimated CRCL calculation 49 ml/min; Estimated Glomerular Filt Rate > 60; Glucose 92 mg/dL (65-110); Potassium 4.7 mmol/L (3.4-5.0); Sodium 139 mmol/L (137-145)
[2024-12-29] MEDS: lisinopriL 5 MG TABLET PO ×2 (08:38→20:24)
[2024-12-29] MEDS: DEXTROAMPHETAMINE PO ×2 (08:40)
[2024-12-29] MEDS: AMPHETAMINE PO ×2 (08:40)
[2024-12-29] MEDS: [UNRECOGNIZED DRUG - OTHER] PO (08:40)
[2024-12-29 08:45] VITALS: RESP 16; O2SAT 95
--- NOTE | 2024-12-29 08:57 | P.PNIM_ITS ---
Progress Note: A&P Assessment and Plan (1) Colitis: Code(s): K52.9 - Noninfective gastroenteritis and colitis, unspecified Status: Acute Assessment and Plan: * Abd/Pelvis CTA: Inflammatory change within the descending colon, No acute contrast extravasation to suggest GI bleeding * Continue to monitor labs and vital signs and trend * NPO * NS at 100 mL/hour for hydration * Continue Cipro and Flagyl * P.r.n. pain meds/antiemetics * Last colonoscopy was in 2021 with removal of 1 polyp * GI consulted, appreciate further recommendations * As of 12/28, no scopes were planned, will look for further recommendations given additional episode of bloody diarrhea * RUQ US: Mildly dilated common bile duct measuring 11 mm which may relate to prior cholecystectomy. No obstructing stone or mass identified. * Hepatitis panel pending (2) GI bleed: Qualifiers: GI bleed type/associated pathology: unspecified gastrointestinal hemorrhage type Qualified Code(s): K92.2 - Gastrointestinal hemorrhage, unspecified Code(s): K92.2 - Gastrointestinal hemorrhage, unspecified Status: Acute Assessment and Plan: * See above 1. (3) Hypertension: Code(s): I10 - Essential (primary) hypertension Status: Chronic Assessment and Plan: * Stable. Continue home medications when confirmed * PRN IV hydralazine * No changes (4) Vitamin D deficiency: Code(s): E55.9 - Vitamin D deficiency, unspecified Status: Chronic Assessment and Plan: * Continue home medications * No changes (5) Attention deficit disorder: Code(s): F98.8 - Other specified behavioral and emotional disorders with onset usually occurring in childhood and adolescence Status: Chronic Assessment and Plan: * Continue home medications Time Spent With Patient Time: Subjective Date/time seen: 12/29/24 08:57 Interval history: Pt is a 74-year-old female with a pmhx of HTN, acute ischemic colitis (10y ago), AHD, Vit D def, abdominal plasty, cervical fusion, cholecystectomy, and removal of lipoma who presents to the hospital for 2 day history of abdominal pain/cramping and light bleeding and clot passage from rectum. 12/29/2024 Patient sitting comfortably in bed. Denies any chest pain, shortness a breath, nausea or vomiting at this time. Does endorse intermittent lower abdominal dis comfort but not at this time. States that she had an episode of painless bloody diarrhea this morning, no further episodes since this morning. Also on a.m. labs, LFTs were increased. Right upper quadrant ultrasound was obtained and showed mildly dilated common duct measuring 11 mm, but no obstructing stone or mass identified. Will continue to follow GI recommendations with additional hepatitis panel to further assess increased LFTs. Review of Systems Review of Systems: All systems reviewed & are unremarkable except as noted in HPI and below Exam Const: General: comfortable and no acute distress Other: Lying in stretcher in no acute distress at this time. HENMT: Face/Nose/Sinus: Normal nares present Mouth: Yes dry mucous membranes Eyes: General: appearance normal, both eyes and all related structures Sclera: sclerae normal Pupils: Equal, round and reactive pupils present Neck: Neck: supple and no JVD Lymphatic: lymphadenopathy not noted Chest: Other: Nontender Resp: Effort & Inspection: normal respiratory effort Auscultation: clear to auscultation bilaterally Cardio: Rate: regular rate Rhythm: regular rhythm Heart sounds: no gallops, no murmurs and no rubs GI: Inspection: non-distended Auscultation: normal bowel sounds Skin: General skin exam: normal color, no rashes or lesions noted, no erythema, No lesion and No rashes Lesions: no lesions noted Rashes: no rashes noted Wounds: no wounds Neuro: General: gait normal Cranial nerves: Yes Equal, round and reactive pupils present Speech: normal speech Motor exam (neuro): 5/5 motor strength present throughout and Normal motor muscle tone present throughout Sensory Exam: normal sensation Extrem: General: normal to inspection, no edema and no pedal edema Other: Freely and equally moves all extremities well without deficit. Psych: Mental Status: mental status grossly normal Affect: normal affect Objective Data Vital Signs Vital Signs: Vital Signs - 24 hr 12/28/24 14:00 12/28/24 20:00 12/28/24 21:24 Temperature 96.4 F L 98.0 F Pulse Rate 98 76 Respiratory Rate 20 16 Blood Pressure 119/46 L 146/64 H Pulse Oximetry 59 L 100 Oxygen Delivery Room Air 12/29/24 05:49 12/29/24 08:45 Temperature 97.6 F Pulse Rate 55 L Respiratory Rate 16 16 Blood Pressure 110/57 L Pulse Oximetry 95 95 Oxygen Delivery Room Air Intake/Output Intake/Output: Intake & Output 12/26/24 12/27/24 12/28/24 12/29/24 23:59 23:59 23:59 23:59 Intake Total 1600 2220 Balance 1600 2220 Meds/Results Medications: Active Medications Generic Name Dose Route Start Last Admin Trade Name Freq PRN Reason Stop Dose Admin Acetaminophen 650 mg 12/28/24 22:19 12/28/24 22:29 Acetaminophen 325 Mg Tablet PO 650 mg Q4H PRN Administration Headache Calcium Carbonate 500 mg 12/28/24 09:00 12/29/24 08:39 Calcium/Vitamin D 500 Mg/5 Mcg (200 I.U.) Tablet PO Not Given QAM LEAH Home Med 20 each 12/29/24 09:00 12/29/24 08:40 Home Med (Dextroamphetamine-Amphetamine)Adderall Xr 20mg Capsules PO 01/28/25 08:59 20 each DAILY LEAH Administration Hydralazine HCl 10 mg 12/27/24 21:47 Hydralazine Hcl 20 Mg/Ml Vial IV PUSH Q8H PRN Blood Pressure - High Sodium Chloride 1,000 mls @ 100 mls/hr 12/27/24 21:50 12/29/24 07:03 Normal Saline Iv IV CONT Not Given .Q10H LEAH Ciprofloxacin/Dextrose 200 mls @ 200 mls/hr 12/28/24 11:00 12/29/24 00:57 Cipro 400 Mg/D5w 200 Ml IVPB Infused Q12H LEAH Infusion Metronidazole 500 mg in 100 mls @ 100 mls/hr 12/28/24 06:00 12/29/24 06:57 Flagyl 500 Mg/Iso Soln 100 Ml IVPB Infused Q8HR LEAH Infusion Lisinopril 5 mg 12/28/24 09:00 12/29/24 08:38 Lisinopril 5 Mg Tablet PO 5 mg Q12HR LEAH Administration Morphine Sulfate 4 mg 12/27/24 21:47 12/28/24 10:50 Morphine Sulfate (*Crx) 4 Mg/Ml Inj IV PUSH 4 mg Q4HR PRN Administration Abdominal Cramping Multivitamins/Calcium 1 tablet 12/28/24 09:00 12/29/24 08:39 Therapeutic Multivitamins/Minerals Tab (*Bkc) PO Not Given DAILY [facility] Home Med ( 1 each 12/28/24 18:45 12/29/24 08:40 Dextroamphetamin/ PO 01/27/25 18:44 1 each Amphetamine 20 Mg ) DAILY LEAH Administration Adderall 20mg Xr Ondansetron HCl 4 mg 12/27/24 21:47 12/28/24 21:00 Ondansetron Inj 4 Mg/2 Ml Vial IV PUSH 4 mg Q6HR PRN Administration Nausea Radiology Results: ITS Impressions Abdomen/Pelvis CTA 12/27/24 18:38 IMPRESSION: No acute contrast extravasation to suggest GI bleeding. Inflammatory change within the descending colon, as detailed above. Labs Labs: Laboratory Results - last 24 hr 12/29/24 07:45 WBC 5.8 RBC 3.97 L Hgb 11.2 L Hct 36.7 L MCV 92.4 MCH 28.2 MCHC 30.5 L RDW 14.2 Plt Count 195 MPV 11.2 H Immature Gran % (Auto) 0.2 Neut % (Auto) 52.1 Lymph % (Auto) 36.3 [place] % (Auto) 8.5 Eos % (Auto) 2.4 Baso % (Auto) 0.5 Lymph # (Auto) 2.09 [place] # (Auto) 0.5 Eos # (Auto) 0.1 Baso # (Auto) 0.0 Abs Immat Gran (auto) 0.01 Absolute Neuts (auto) 3.0 Absolute Nucleated RBC 0.000 Nucleated RBC % 0.0 Sodium 139 Potassium 4.7 Chloride 108 H Carbon Dioxide 30 Anion Gap 1 L BUN 8 D Creatinine 0.69 L Estim Creat Clear Calc 49 Estimated GFR > 60 Glucose 92 Calcium 8.9 Total Bilirubin 1.2 AST 147 H ALT 194 H Alkaline Phosphatase 98 Total Protein 6.0 L Albumin 3.5 Quality VTE Prophylaxis VTE prophylaxis: mechanical ordered
[2024-12-29 09:40] VITALS: O2SAT 98
[2024-12-29] MEDS: ONDANSETRON INJ 4 MG/2 ML VIAL IV PUSH ×2 (10:07→23:22)
[2024-12-29] MEDS: CIPROFLOXACIN 400 MG/D5W 200ML 200 ML 200 MG IVPB ×2 (10:09→23:22)
[2024-12-29] MEDS: ACETAMINOPHEN 325 MG TABLET 650 MG PO ×3 (10:10→20:24)
[2024-12-29 14:00] VITALS: BP 128/49; PULSE 67; RESP 16; TEMP 35.9; O2SAT 98
[2024-12-29 16:40] LABS: Hepatitis B Surface Antigen Negative (Negative)
[2024-12-29 16:46] LABS: HAV RESULT Negative (Negative); Hepatitis B Core IgM Result Negative (Negative)
[2024-12-29 16:58] LABS: Hepatitis C Virus Antibody Negative (Negative)
--- NOTE | 2024-12-29 17:38 | WPDGIPROGNO ---
Progress Note: A&P Assessment and Plan (1) Colitis: Code(s): K52.9 - Noninfective gastroenteritis and colitis, unspecified Status: Acute Assessment and Plan: could be infectious vs ischemic on abx no need to repeat colonoscopy, probably as outpatient after fully recovered from this episode (2) Rectal bleeding: Code(s): K62.5 - Hemorrhage of anus and rectum Status: Acute Assessment and Plan: from colitis ct scan reviewed c/w colitis ? ischemic (3) Diffuse abdominal pain: Code(s): R10.84 - Generalized abdominal pain Status: Acute (4) Elevated liver enzymes: Code(s): R74.8 - Abnormal levels of other serum enzymes Status: Acute Assessment and Plan: new finding ultrasound no major findings probably from colitis, use of abx, etc Subjective Date/time seen: 12/29/24 17:38 Interval history: earlier had blood after using restroom, still with lower abdominal pain and headache Review of Systems Review of Systems: All systems reviewed & are unremarkable except as noted in HPI and below Exam Const: General: comfortable and no acute distress HENMT: Face/Nose/Sinus: Normal nares present Mouth: Yes dry mucous membranes Eyes: General: appearance normal, both eyes and all related structures Sclera: sclerae normal Neck: Neck: supple and no JVD Chest: Other: Nontender Resp: Effort & Inspection: normal respiratory effort Auscultation: clear to auscultation bilaterally Cardio: Rate: regular rate Rhythm: regular rhythm GI: Inspection: non-distended GI Palp: Yes Tenderness to palpation present (GI) (mild ttp in lower abdomen, no rebound) and No Guarding due to palpation present (GI) Auscultation: normal bowel sounds Skin: General skin exam: normal color Neuro: Cranial nerves: Yes Equal, round and reactive pupils present Speech: normal speech Motor exam (neuro): 5/5 motor strength present throughout Extrem: General: normal to inspection and no edema Psych: Mental Status: mental status grossly normal Affect: normal affect Objective Data Vital Signs Vital Signs: Vital Signs - 24 hr 12/28/24 20:00 12/28/24 21:24 12/29/24 05:49 Temperature 98.0 F 97.6 F Pulse Rate 76 55 L Respiratory Rate 16 16 Blood Pressure 146/64 H 110/57 L Pulse Oximetry 100 95 Oxygen Delivery Room Air 12/29/24 08:45 05/08/25 09:40 12/29/24 14:00 Temperature 96.6 F L Pulse Rate 67 Respiratory Rate 16 16 Blood Pressure 128/49 L Pulse Oximetry 95 98 98 Oxygen Delivery Room Air Room Air Intake/Output Intake/Output: Intake & Output 12/26/24 12/27/24 12/28/24 12/29/24 23:59 23:59 23:59 23:59 Intake Total 1600 3495.0 Balance 1600 3495.0 Meds/Results Medications: Active Medications Generic Name Dose Route Start Last Admin Trade Name Freq PRN Reason Stop Dose Admin Acetaminophen 650 mg 12/28/24 22:19 12/29/24 14:58 Acetaminophen 325 Mg Tablet PO 650 mg Q4H PRN Administration Headache Calcium Carbonate 500 mg 12/28/24 09:00 12/29/24 08:39 Calcium/Vitamin D 500 Mg/5 Mcg (200 I.U.) Tablet PO Not Given QAM LEAH Dicyclomine HCl 20 mg 12/29/24 17:37 Dicyclomine Hcl 10 Mg Capsule PO QID PRN Abdominal Cramping Home Med 20 each 12/29/24 09:00 12/29/24 08:40 Home Med (Dextroamphetamine-Amphetamine)Adderall Xr 20mg Capsules PO 01/28/25 08:59 20 each DAILY LEAH Administration Hydralazine HCl 10 mg 12/27/24 21:47 Hydralazine Hcl 20 Mg/Ml Vial IV PUSH Q8H PRN Blood Pressure - High Sodium Chloride 1,000 mls @ 100 mls/hr 12/27/24 21:50 12/29/24 17:10 Normal Saline Iv IV CONT 100 mls/hr .Q10H LEAH Infusion Ciprofloxacin/Dextrose 200 mls @ 200 mls/hr 12/28/24 11:00 12/29/24 11:10 Cipro 400 Mg/D5w 200 Ml IVPB Infused Q12H LEAH Infusion Metronidazole 500 mg in 100 mls @ 100 mls/hr 12/28/24 06:00 12/29/24 14:35 Flagyl 500 Mg/Iso Soln 100 Ml IVPB Infused Q8HR LEAH Infusion Lisinopril 5 mg 12/28/24 09:00 12/29/24 08:38 Lisinopril 5 Mg Tablet PO 5 mg Q12HR LEAH Administration Morphine Sulfate 4 mg 12/27/24 21:47 12/28/24 10:50 Morphine Sulfate (*Crx) 4 Mg/Ml Inj IV PUSH 4 mg Q4HR PRN Administration Abdominal Cramping Multivitamins/Calcium 1 tablet 12/28/24 09:00 12/29/24 08:39 Therapeutic Multivitamins/Minerals Tab (*Bkc) PO Not Given DAILY LEAH Home Med ( 1 each 12/30/24 09:00 Dextroamphetamin/ PO 01/27/25 18:44 Amphetamine 20 Mg ) DAILY LEAH Adderall 20mg Xr Ondansetron HCl 4 mg 12/27/24 21:47 12/29/24 10:07 Ondansetron Inj 4 Mg/2 Ml Vial IV PUSH 4 mg Q6HR PRN Administration Nausea Radiology Results: ITS Impressions Abdomen/Pelvis CTA 12/27/24 18:38 IMPRESSION: No acute contrast extravasation to suggest GI bleeding. Inflammatory change within the descending colon, as detailed above. Abdomen Ultrasound 12/29/24 14:13 IMPRESSION: 1: Mildly dilated common bile duct measuring 11 mm which may relate to prior cholecystectomy. No obstructing stone or mass identified. Labs Labs: Laboratory Results - last 24 hr 12/29/24 12/29/24 07:40 07:45 WBC 5.8 RBC 3.97 L Hgb 11.2 L Hct 36.7 L MCV 92.4 MCH 28.2 MCHC 30.5 L RDW 14.2 Plt Count 195 MPV 11.2 H Immature Gran % (Auto) 0.2 Neut % (Auto) 52.1 Lymph % (Auto) 36.3 [place] % (Auto) 8.5 Eos % (Auto) 2.4 Baso % (Auto) 0.5 Lymph # (Auto) 2.09 [place] # (Auto) 0.5 Eos # (Auto) 0.1 Baso # (Auto) 0.0 Abs Immat Gran (auto) 0.01 Absolute Neuts (auto) 3.0 Absolute Nucleated RBC 0.000 Nucleated RBC % 0.0 Sodium 139 Potassium 4.7 Chloride 108 H Carbon Dioxide 30 Anion Gap 1 L BUN 8 D Creatinine 0.69 L Estim Creat Clear Calc 49 Estimated GFR > 60 Glucose 92 Calcium 8.9 Total Bilirubin 1.2 AST 147 H ALT 194 H Alkaline Phosphatase 98 Total Protein 6.0 L Albumin 3.5 Hepatitis A IgM Ab Negative Hep Bs Antigen Negative Hep B Core IgM Ab Negative Hepatitis C Ab Screen Negative
[2024-12-29 20:00] VITALS: PULSE 66; RESP 12; O2SAT 99
[2024-12-29] MEDS: DICYCLOMINE HCL 10 MG CAPSULE 20 MG PO (20:24)
[2024-12-29 21:56] VITALS: BP 151/70; PULSE 66; RESP 12; TEMP 36.4; O2SAT 99
[2024-12-30] MEDS: ONDANSETRON INJ 4 MG/2 ML VIAL IV PUSH ×2 (04:41→09:34)
[2024-12-30] MEDS: metroNIDAZOLE 500 MG/ISO 100ML 500 MG/100 ML BAG 100 MG IVPB (05:20)
[2024-12-30] MEDS: SODIUM CHLORIDE 0.9% IV 1,000 ML 100 ML IV CONT (05:21)
[2024-12-30 06:00] VITALS: BP 156/65; PULSE 63; RESP 12; TEMP 36.5; O2SAT 100
[2024-12-30 06:17] LABS: Basophils Percent Auto 0.7 % (0.2-1.2); Eosinophils Absolute Auto 0.2 K/mm3 (0-0.3); Eosinophils Percent Auto 3.6 % (0-4.4); Hematocrit 34.9 % (37.0-47.0); Hemoglobin 10.9 g/dL (12.0-15.0); Immature Granulocyte Absolute 0.02 K/mm3 (0.00-0.031); Immature Granulocyte Percent A 0.4 % (0-0.5); Lymphocytes Absolute Auto 2.27 K/mm3 (0.9-3.2); Mean Corpuscular HGB Conc 31.2 g/dl (32-36); Mean Corpuscular Hemoglobin 28.7 pg (26-34); Mean Corpuscular Volume 91.8 fl (80-100); Monocytes Absolute Auto 0.5 K/mm3 (0.1-0.6); Monocytes Percent Auto 8.9 % (2.6-8.5); Neutrophils Absolute Auto 2.5 K/mm3 (1.3-6.7); Neutrophils Percent Auto 45.4 % (45.5-73.1); Platelet Count Result 192 k/mm3 (150-375); Red Cell Distribution Width 14.2 % (11.5-14.5); White Blood Count 5.5 K/mm3 (4.5-10.0)
[2024-12-30 06:31] LABS: Lactic Acid Reflex 0.7 mmol/L (0.7-2.0)
[2024-12-30 06:33] LABS: Alanine Aminotransferase 134 U/L (6-35); Albumin Level 3.7 g/dL (3.5-5.1); Alkaline Phosphatase 91 U/L (38-126); Anion Gap 4 mmol/L (4-12); Aspartate Amino Transferase 77 U/L (14-36); Bilirubin,Total 1.1 mg/dL (0.2-1.3); Blood Urea Nitrogen 8 mg/dL (7-17); Carbon Dioxide 29 mmol/L (22-30); Chloride 107 mmol/L (98-107); Estimated CRCL calculation 54 ml/min; Estimated Glomerular Filt Rate > 60; Glucose 95 mg/dL (65-110); Potassium 4.2 mmol/L (3.4-5.0); Sodium 140 mmol/L (137-145)
[2024-12-30 08:00] VITALS: O2SAT 100
[2024-12-30] MEDS: ACETAMINOPHEN 325 MG TABLET 650 MG PO (10:19)
[2024-12-30] MEDS: DICYCLOMINE HCL 10 MG CAPSULE 20 MG PO (10:19)
--- NOTE | 2024-12-30 10:53 | P.DS_ITS ---
DS: Admitting Diagnosis Discharge Date 12/30/2024 Admitting Diagnosis Colitis GI bleed DS: Discharge Diagnosis Discharge Diagnosis (1) Colitis: Code(s): K52.9 - Noninfective gastroenteritis and colitis, unspecified Status: Acute (2) GI bleed: Qualifiers: GI bleed type/associated pathology: unspecified gastrointestinal hemorrhage type Qualified Code(s): K92.2 - Gastrointestinal hemorrhage, unspecified Code(s): K92.2 - Gastrointestinal hemorrhage, unspecified Status: Acute (3) Hypertension: Code(s): I10 - Essential (primary) hypertension Status: Chronic (4) Vitamin D deficiency: Code(s): E55.9 - Vitamin D deficiency, unspecified Status: Chronic (5) Attention deficit disorder: Code(s): F98.8 - Other specified behavioral and emotional disorders with onset usually occurring in childhood and adolescence Status: Chronic DS: Summary Hospital Course Reason for hospitalization: Rectal bleeding Hospital Course: This is a very pleasant 74-year-old female patient with past medical history of hypertension, acute ischemic colitis 10 years ago, ADHD, kidney stones, vitamin- D deficiency, cataract surgery, abdominal plasty, cervical fusion, cholecyst ectomy and removal of lipoma who comes to the emergency room who complains of 2 days of abdominal pain and cramping described as cramps like a menstrual cramp, light reading per rectum that is slowing down but still passing small clots in fatigued. Patient does not follow a specific diet. She last had a colonoscopy in [address] Torrez in which polyps were removed. Patient does not take any blood thinning medications including aspirin. She has associated nausea, no vomiting. Patient denies any chest pain, dyspnea. No urinary symptoms of burning, urgency, frequency or hematuria. A workup was performed in the emergency room consisted of labs and imaging. Vital signs were noted to be stable. Patient has unremarkable CBC with noted hemoglobin of 12.4. Metabolic panel is also unremarkable. Coags are normal. CT abdomen and pelvis was performed that showed no contrast extravasation to suggest bleeding however there are some inflammatory changes in the descending colon. He ER physician spoke with Dr. Turner on-call for GI and patient is going to be admitted observation at this time with GI consult. Gastroenterology was consulted regarding presence of colitis. Agreed with continuation of ciprofloxacin and Flagyl. Throughout hospitalization, patient's rectal bleeding improved greatly. Patient continued to have some nausea but no vomiting. CBC remained negative for anemia or leukocytosis. On 12/29, she did have an episode early in the morning of blood after using the restroom with some mild lower abdominal discomfort, but this improved over the day and she cont inued to have improving symptoms through 12/30. GI agreed that rectal bleeding and abdominal pain likely attributed to colitis but otherwise is stable at this time. Blood work has been stable and maintained throughout hospitalization. Vital signs also have been stable. On 12/30, patient had some slight nausea but otherwise had no complaints. She expressed interest in being discharged and from a GI standpoint, she is stable to follow-up in the outpatient setting with their office. GI will likely set up a colonoscopy after she has fully recovered from this episode. She requires no further workup can be discharged home at this time. She will be given a prescription for Zofran as needed for nausea. Status at Discharge Functional status at discharge: independent ambulation Overall status at discharge: patient is back to baseline Time Spent with Patient Time attestation: Total time spent providing and/or coordinating discharge services:35 Exam Const: General: comfortable and no acute distress Other: Lying in stretcher in no acute distress at this time. HENMT: Face/Nose/Sinus: Normal nares present Mouth: Yes dry mucous membranes Eyes: General: appearance normal, both eyes and all related structures Sclera: sclerae normal Pupils: Equal, round and reactive pupils present Neck: Neck: supple and no JVD Lymphatic: lymphadenopathy not noted Chest: Other: Nontender Resp: Effort & Inspection: normal respiratory effort Auscultation: clear to auscultation bilaterally Cardio: Rate: regular rate Rhythm: regular rhythm Heart sounds: no gal lops, no murmurs and no rubs GI: Inspection: non-distended Auscultation: normal bowel sounds Skin: General skin exam: normal color, no rashes or lesions noted, no erythema, No lesion and No rashes Lesions: no lesions noted Rashes: no rashes noted Wounds: no wounds Neuro: General: gait normal Cranial nerves: Yes Equal, round and reactive pupils present Speech: normal speech Motor exam (neuro): 5/5 motor strength present throughout and Normal motor muscle tone present throughout Sensory Exam: normal sensation Extrem: General: normal to inspection, no edema and no pedal edema Other: Freely and equally moves all extremities well without deficit. Psych: Mental Status: mental status grossly normal Affect: normal affect DS: Data Data Completed and Pending Labs on day of discharge: Labs from last 24 hours 12/30/24 12/29/24 05:58 07:40 WBC 5.5 RBC 3.80 L Hgb 10.9 L Hct 34.9 L MCV 91.8 MCH 28.7 MCHC 31.2 L RDW 14.2 Plt Count 192 MPV 11.0 H Immature Gran % (Auto) 0.4 Neut % (Auto) 45.4 L Lymph % (Auto) 41.0 [place] % (Auto) 8.9 H Eos % (Auto) 3.6 Baso % (Auto) 0.7 Lymph # (Auto) 2.27 [place] # (Auto) 0.5 Eos # (Auto) 0.2 Baso # (Auto) 0.0 Abs Immat Gran (auto) 0.02 Absolute Neuts (auto) 2.5 Absolute Nucleated RBC 0.000 Nucleated RBC % 0.0 Sodium 140 Potassium 4.2 Chloride 107 Carbon Dioxide 29 Anion Gap 4 BUN 8 Creatinine 0.62 L Estim Creat Clear Calc 54 Estimated GFR > 60 Glucose 95 Lactic Acid 0.7 Calcium 9.0 Total Bilirubin 1.1 AST 77 H ALT 134 H Alkaline Phosphatase 91 Total Protein 6.0 L Albumin 3.7 Hepatitis A IgM Ab Negative Hep Bs Antigen Negative Hep B Core IgM Ab Negative Hepatitis C Ab Screen Negative Discharge Plan Discharge Attending physician on discharge: Albaro Nair Consulting providers: Vic Manrique Discharging Clinician: Albaro Nair Anticipated Discharge Date/Time: 12/30/24 10:50 Patient Disposition: Home Activity: as tolerated Diet: as tolerated Discharge Instructions: Discharge disposition: Stable Take medications as prescribed. Monitor blood pressures Take caution while standing, rising, or moving Change positions slowly taking a break between each position change If you standing feel dizzy sit back down and take a break Encouraged to continue with yearly vaccinations Return to the emergency department if he developed sudden shortness of breath, chest pain, nausea, vomiting, upset stomach or intractable diarrhea Return to the emergency department if you develop fever greater than 101.5 Follow-up with the primary care physician within 1-2 weeks Follow-up with Dr. Manrique of gastroenterology for follow-up appointment as soon as possible. Thank you for [facility] for your healthcare needs Patient Instructions: Antibiotic Form Patient Language: Bahamian Stand Alone Forms: General Discharge Information Follow-up/Referrals: Vic Manrique MD [Physician] - Alta Obregon APRN [Primary Care Provider] - Discharge Medications: New ondansetron 4 mg tablet,disintegrating 4 mg PO Q8H PRN (Reason: nausea and vomiting) Qty: 14 0RF Continued dextroamphetamine-amphetamine [Adderall XR] 20 mg capsule,extended release 24hr 20 mg PO DAILY Qty: 30 0RF lisinopril 5 mg tablet 5 mg PO BID Qty: 60 1RF Caltrate 600 plus D 600 mg-20 mcg (800 unit) Tablet,Chewable 1 tablet PO DAILY Hair, Skin, Nails with Biotin 7.5-7.5-1,250 mg-unit-mcg Tablet,Chewable 1 tablet PO DAILY multivit with min-folic acid 0.4 mg Tablet 1 tablet PO DAILY Date of admission: 12/29/24 10:34 Primary Care Provider: Alta Obregon Admitting Provider: Dat Lopez Attending physician on admission: Albaro Nair Condition: Stable Quality VTE Prophylaxis VTE prophylaxis: mechanical ordered
--- NOTE | 2024-12-30 17:15 | WPDGIPROGNO ---
Progress Note: A&P Assessment and Plan (1) Colitis: Code(s): K52.9 - Noninfective gastroenteritis and colitis, unspecified Status: Acute Assessment and Plan: could be infectious vs ischemic, pain almost resolved no need to repeat colonoscopy, probably as outpatient after fully recovered from this episode in few weeks she can go home and complete 5 more days of abx (2) Rectal bleeding: Code(s): K62.5 - Hemorrhage of anus and rectum Status: Acute Assessment and Plan: from colitis ct scan reviewed c/w colitis ? ischemic (3) Elevated liver enzymes: Code(s): R74.8 - Abnormal levels of other serum enzymes Status: Acute Assessment and Plan: new finding ultrasound no major findings probably from colitis, use of abx, etc trending down repeat as outpatient Subjective Date/time seen: 12/30/24 10:15 Interval history: doing better, she is feeling like going home Review of Systems Review of Systems: All systems reviewed & are unremarkable except as noted in HPI and below Exam Const: General: comfortable and no acute distress HENMT: Face/Nose/Sinus: Normal nares present Mouth: Yes dry mucous membranes Eyes: General: appearance normal, both eyes and all related structures Sclera: sclerae normal Neck: Neck: supple and no JVD Chest: Other: Nontender Resp: Effort & Inspection: normal respiratory effort Auscultation: clear to auscultation bilaterally Cardio: Rate: regular rate Rhythm: regular rhythm GI: Inspection: non-distended GI Palp: Yes Tenderness to palpation present (GI) (mild ttp in lower abdomen, no rebound) and No Guarding due to palpation present (GI) Auscultation: normal bowel sounds Skin: General skin exam: normal color Neuro: Cranial nerves: Yes Equal, round and reactive pupils present Speech: normal speech Motor exam (neuro): 5/5 motor strength present throughout Extrem: General: normal to inspection and no edema Psych: Mental Status: mental status grossly normal Affect: normal affect Objective Data Vital Signs Vital Signs: Vital Signs - 24 hr 12/29/24 20:00 12/29/24 21:56 12/30/24 06:00 Temperature 97.5 F L 97.7 F Pulse Rate 66 66 63 Respiratory Rate 12 12 12 Blood Pressure 151/70 H 156/65 H Pulse Oximetry 99 99 100 Oxygen Delivery Room Air 12/30/24 08:00 Temperature Pulse Rate Respiratory Rate Blood Pressure Pulse Oximetry 100 Oxygen Delivery Room Air Intake/Output Intake/Output: Intake & Output 12/27/24 12/28/24 12/29/24 12/30/24 23:59 23:59 23:59 23:59 Intake Total 1600 3895.0 1415 Balance 1600 3895.0 1415 Meds/Results Radiology Results: ITS Impressions Abdomen/Pelvis CTA 12/27/24 18:38 IMPRESSION: No acute contrast extravasation to suggest GI bleeding. Inflammatory change within the descending colon, as detailed above. Abdomen Ultrasound 12/29/24 14:13 IMPRESSION: 1: Mildly dilated common bile duct measuring 11 mm which may relate to prior cholecystectomy. No obstructing stone or mass identified. Labs Labs: Laboratory Results - last 24 hr 12/30/24 05:58 WBC 5.5 RBC 3.80 L Hgb 10.9 L Hct 34.9 L MCV 91.8 MCH 28.7 MCHC 31.2 L RDW 14.2 Plt Count 192 MPV 11.0 H Immature Gran % (Auto) 0.4 Neut % (Auto) 45.4 L Lymph % (Auto) 41.0 Gilchrist % (Auto) 8.9 H Eos % (Auto) 3.6 Baso % (Auto) 0.7 Lymph # (Auto) 2.27 Gilchrist # (Auto) 0.5 Eos # (Auto) 0.2 Baso # (Auto) 0.0 Abs Immat Gran (auto) 0.02 Absolute Neuts (auto) 2.5 Absolute Nucleated RBC 0.000 Nucleated RBC % 0.0 Sodium 140 Potassium 4.2 Chloride 107 Carbon Dioxide 29 Anion Gap 4 BUN 8 Creatinine 0.62 L Estim Creat Clear Calc 54 Estimated GFR > 60 Glucose 95 Lactic Acid 0.7 Calcium 9.0 Total Bilirubin 1.1 AST 77 H ALT 134 H Alkaline Phosphatase 91 Total Protein 6.0 L Albumin 3.7
== END 2024-12-30 12:27 | disposition home or self-care (01) | DRG 391 ==
LOC: ANHED 21:21 → ANH3MEDSUR 21:53
PROVIDERS: Internal Medicine Gastroenterology; Admitting Provider Internal Medicine; Emergency Provider Preventive Medicine Aerospace Medicine; PCP Nurse Practitioner Family; Visit Provider Physician Assistant
DX: A09 Infectious gastroenteritis and colitis, unspecified (principal); K55.039 Acute (reversible) ischemia of large intestine, extent unspecified; I10 Essential (primary) hypertension; E55.9 Vitamin D deficiency, unspecified; F90.9 Attention-deficit hyperactivity disorder, unspecified type; Z90.49 Acquired absence of other specified parts of digestive tract; Z98.1 Arthrodesis status
CPT/HCPCS: 36415; 74174; 76705; 80048; 80053; 80074; 83605; 83735; 85025; 85610; 85730; 86850; 86880; 86900; 86901; 86902; 96365; 96375; 96376; 99285; A9270; G0378; J0744; J1836; J2270; J2405; J7030; Q9967

== ENCOUNTER 2025-03-01 12:25 | Outpatient (CLI) | payer MEDICARE, SELFPAY ==
--- NOTE | ~2025-03-01 | XR_ITS ---
Right Knee Technique: AP, lateral, and sunrise views were obtained. Clinical History: Chondromalacia patella Findings: No fracture or dislocation is seen. Osseous alignment is anatomic. Joint spaces are preserv ed without degenerative or erosive change. Soft tissues are unremarkable. No joint effusion is seen. Impression: Unremarkable right knee radiographs. Reviewed, dictated and finalized at location . Impression: Unremarkable right knee radiographs.
--- NOTE | ~2025-03-01 | XR_ITS ---
Left Knee Technique: AP, lateral, and sunrise views were obtained. Clinical History: Chondromalacia patella Findings: No fracture or dislocation is seen. Osseous alignment is anatomic. Joint spaces are preserv ed without degenerative or erosive change. Soft tissues are unremarkable. No joint effusion is seen. Impression: Unremarkable left knee radiographs. Reviewed, dictated and finalized at location . Impression: Unremarkable left knee radiographs.
--- OUTSIDE RECORDS SUMMARY | 2025-03-01 12:05 | XMS_ITS | Encounter Summary ---
Author Organization [facility] Healthcare Address [address] [place] [address] Care Team Providers Care Market Investigator Name Role Phone Unavailable Primary Care Provider Unavailabl e Reason for Visit * Diagnostic Imaging (Routine) - Pending Review Specialty Diagnoses / Procedures Referred By Leoncio t Referred To Contact Procedures Breast Imaging Screening Outside Reference Transcribed Order, Provider Referral ID Status Reason Start Date Expiration Date V isits Requested Visits Authorized [id number] Pending Review 01/03/2025 02/02/2026 1 1 Encounter Details Date Type Department Care Team (Late st Contact Info) Description 02/16/2012 Hospital Encounter [facility] [address] [place] [id number] Social History Tobacco Use Types Packs/Day Years Used Date Smoking Tobacco: Never Comments No Sex and Gender Information Value Date Recorded Sex Assigned at Not on file 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 There will be no report generated by a [facility] Radiologist. Narrative [email or web address] - 01/03/2025 10:37 AM CDT EXAMINATION: Images For Reference Purposes Only us Provider Transcribed Order IMG MAMMO PROCEDURES Final Result Performing Organization Address City/State/[facility] Co de Phone Number [email or web address] documented in this encounter Visit Diagnoses Not on filedocumented in this encounter
--- OUTSIDE RECORDS SUMMARY | 2025-03-01 12:05 | XMS_ITS | Encounter Summary ---
Author Organization [facility] Healthcare Address [address] [place] [address] Care Team Providers Care Gardener Name Role Phone Unavailable Primary Care Provider Unavailabl e Reason for Visit * Diagnostic Imaging (Routine) - Pending Review Specialty Diagnoses / Procedures Referred By Leoncio t Referred To Contact Procedures Breast Imaging Screening Outside Reference Transcribed Order, Provider Referral ID Status Reason Start Date Expiration Date V isits Requested Visits Authorized [id number] Pending Review 01/03/2025 02/02/2026 1 1 Encounter Details Date Type Department Care Team (Late st Contact Info) Description 03/18/2013 Hospital Encounter [facility] Radiology [facility] [address] [place] [id number] Social History Tobacco Use Types Packs/Day Years Used Date Smoking Tobacco: Never Comments No Sex and Gender Information Value Date Recorded Sex Assigned at Not on file 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 There will be no report generated by a [facility] Radiologist. Narrative [email or web address] - 01/03/2025 10:37 AM CDT EXAMINATION: Images For Reference Purposes Only us Provider Transcribed Order IMG MAMMO PROCEDURES Final Result Performing Organization Address City/State/[facility] Co de Phone Number [email or web address] documented in this encounter Visit Diagnoses Not on filedocumented in this encounter
--- OUTSIDE RECORDS SUMMARY | 2025-03-01 12:05 | XMS_ITS | Encounter Summary ---
Author Organization [facility] Address [address] [place] [address] Phone Care Team Providers Care Fire Apparatus Engineer Name Role Phone Alta Obregon PROCESS MANAGER Primary Care Provider [phone] Encounter Details Date Type Department Care Team (Late st Contact Info) Description 01/23/2025 Results Follow-Up [facility] Surgery [address] [facility] [address] [place] [address] Lucinda Elena NP [address] [facility] [id number] [place] [address] US Breast Left Limited Social History Tobacco Use Types Packs/Day Years Used Date Smoking Tobacco: Never Comments No Sex and Gender Information Value Date Recorded Sex Assigned at Not on file 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
--- OUTSIDE RECORDS SUMMARY | 2025-03-01 12:05 | XMS_ITS | Referral Summary ---
Author Organization [facility] Address [address] [place] [address] Care Team Providers Care Sheet Sorter Name Role Phone Alta Obregon NP Primary Care Provider [phone] Encounters Date Type Department Care Team Description 02/07/2025 Orders Only [facility] Surgery [address] [place] [address] [address] [place] [phone] Ailyn Santos PA Abnormal findings on diagnostic imaging of breast (Primary Dx); Encounter for screening mammogram for breast cancer 02/07/2025 Results Follow-Up [facility] Surgery [address] [place] [address] 8 [place] [phone] Ailyn Santos PA Surgical pathology 02/06/2025 Telephone [facility] [address] [place] [phone] Tisha Daniel Test Results (Left breast biopsy 02/02/25 ) 02/02/2025 2:08 PM CDT - 02/02/2025 11:59 PM CDT Hospital Encounter [facility]) [address] [place], [place] [phone] Abnormal mammogram Discharge Disposition: Discharge to home or self care 02/02/2025 1:37 PM CDT - 02/02/2025 11:59 PM CDT Hospital Encounter [facility]) [address] [place] [phone] Abnormal mammogram Discharge Disposition: Discharge to home or self care 01/23/2025 Results Follow-Up [facility] Surgery [address] [place] [phone] Lucinda Elena NP US Breast Left Limited 01/23/2025 9:06 AM CDT - 01/23/2025 11:59 PM CDT Hospital Encounter [facility] [place] - Breast Imaging [address] [place] [address] 8 [place] [address] Abnormal findings on diagnostic imaging of breast Discharge Disposition: Discharge to home or self care 01/23/2025 9:00 AM CDT Office Visit [facility] Surgery [address] [place] [phone] Lucinda Elena NP Bloody discharge from left nipple (Primary Dx); Abnormal findings on diagnostic imaging of breast 01/09/2025 2:55 PM CDT - 01/09/2025 11:59 PM CDT Hospital Encounter [facility]) [address] [place] [phone] Abnormal findings on diagnostic imaging of breast Discharge Disposition: Discharge to home or self care 12/27/2024 Orders Only [facility] Surgery [address] [place] [phone] Lucinda Elena NP Abnormal findings on diagnostic imaging of breast (Primary Dx) 12/13/2024 Orders Only [facility] Surgery [address] [place] [phone] Iliana Martinez NP Abnormal findings on diagnostic imaging of breast (Primary Dx) 12/09/2024 Orders Only [facility] [address] [place] [phone] Provider, MD Jannie from Last 3 Months Allergies Active Allergy Reactions Criticality Noted Date Comments Hydrocodone-Acetaminophen Itching,Hives Medium 009 Reaction: ITCHING Morphine (Bulk) Itching Low 11/10/2008 Medications amoxicillin-cla vulanate (AUGMENTIN) 875125 mg per tablet 12/14/2017 Active calcium carbonate-vitam in D3 (CALCIUM+D) 400-133.3 mg-unit tablet daily. Activ e ADDERALL XR 20 mg 24 hr capsule 01/13/2018 Active diclofenac sodium (VOLTAREN) 1 % gel Place on the skin. 10/07/2017 Active estradiol (CLIMARA) 0.025 mg/[address] on the skin. Active famotidine (PEPCID) 40 mg tablet daily. Active diclofenac epolamine (FLECTOR) 1.3 %Indications:Sp rains and Strains Place on the skin. Active lidocaine (LIDODERM) 5 % APPLY 2 PATCHs TO THE AFFECTED AREA AND LEAVE IN PLACE FOR 12 HOURS, THEN REMOVE AND LEAVE OFF FOR 12 HOURS. 08/08/2009 Active pldkcrtb-wgi-te on fum-folic ac 7.5 mg iron-400 mcg tablet daily. 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 Gender Identity Not on file Sexual Orientation Not on file Last Filed Vital Signs Vital Sign Reading Time Taken Comments Blood Pressure 145/86 12/18/2014 3:29 PM CDT Pulse 69 12/18/2014 3:29 PM CDT Temperature - - Respiratory Rate - - Oxygen Saturation 100% 01/27/2014 12:59 PM CDT Inhaled Oxygen Concentration - - Weight 61.2 kg (135 lb) 01/23/2025 9:49 AM CDT Height 157.5 cm (5' 2) 01/23/2025 9:49 AM CDT Body Mass Index 24.69 01/23/2025 9:49 AM CDT Plan of Treatment Not on file Medical Devices Implanted Type Area Taco Maker Device Identifier Shelf Expiration Date Model / Serial / Lot Bard Peripheral Vascular Ultraclip Bard 17ga 10cm 2 Trigger Permanent Ultrasound [id number] - [id number] Implanted:Qty: 1 on 02/02/2025 by Taryn Gutierrez MD at [facility] Left: Breast Bard Peripheral Vascular [id number] / / Procedures Procedure Name Priority Date/Time Associated Diagnosis Comments ARMANDO POST CLIP PLACEMENT LEFT Schedule Routine, Read Routine (OP Routine) 02/02/2025 2:20 PM CDT Abnormal mammogram US GUIDED BREAST BIOPSY LEFT Schedule Routine, Read Routine (OP Routine) 02/02/2025 2:07 PM CDT Abnormal mammogram SURGICAL PATHOLOGY Routine 02/02/2025 1: 54 PM CDT Abnormal mammogram US BREAST LEFT LIMITED Schedule Routine, Read Routine (OP Routine) 01/23/2025 10:01 AM CDT Abnormal findings on diagnostic imaging of breast BREAST IMAGING [facility] DIAGNOSTIC OUTSIDE CONSULT Routine 01/09/2025 2:56 PM CDT Abnormal findings on diagnostic imaging of breast DIAGNOSTIC MAMMOGRAM Schedule Routine, Read Routine (OP Routine) 11/24/2024 7:38 AM CDT from Last 3 Months or Most Recently Relevant to Health Maintenance Results * Armando Post Clip Placement Left (02/02/2025 2:20 PM CDT) Anatomical Region Laterality Modality Breast Left Mammography 02/02/2025 2:22 PM CDT Addenda Addendum by Taryn Gutierrez MD on 02/07/2025 8:05 AM CDT ADDENDUM: Pathology from biopsy of the left breast demonstrated the following: Diagnosis: Breast, left, 3:00, subareolar, core biopsy - Benign breast tissue with dense stromal fibrosis - No evidence of atypia or malignancy Please refer to pathology report for details. Pathology is benign and concordant. Management of the patient's left nipple discharge will be determined by surgical oncology. Normal interval screening mammography is recommended. Results and recommendations will be discussed with the patient by [facility] or referring provider staff and will be separately documented in the medical record. Electronically signed by: Taryn Gutierrez M.D. Impressions 02/02/2025 2:22 PM CDT Successful core needle biopsy of the LEFT breast. Pathology is pending. ASSESSMENT: Post Procedure Mammograms for Marker Placement Electronically signed by: Taryn Gutierrez M.D. Narrative 02/02/2025 2:22 PM CDT EXAMINATION: LEFT BREAST CORE BIOPSY UTILIZING SONOGRAPHIC GUIDANCE, PLACEMENT OF A BIOPSY TISSUE MARKER CLIP, AND LEFT FULL FIELD DIGITAL MAMMOGRAM WITH DIGITAL BREAST TOMOSYNTHESIS HISTORY: Abnormal breast imaging. 74-year-old female with left breast spontaneous nipple discharge and a 1.1 cm left subareolar mass which is of moderate suspicion for malignancy. Ultrasound guided core needle biopsy is requested to evaluate for malignancy. COMPARISON: Multiple prior studies dating back to 2014 BREAST PARENCHYMAL COMPOSITION: The breasts are heterogeneously dense, which may obscure small masses. PROCEDURE AND FINDINGS: The risks and potential benefits of the procedures were discussed with the patient and written informed consent was obtained. After sterile preparation of the skin, 1% lidocaine was utilized for local anesthesia. A small skin incision was made with a #11 scalpel blade. A 14G vacuum-assisted biopsy needle was then advanced through the skin incision to the edge of the lesion of interest at the left breast 3:00 subareolar position from a lateral approach utilizing sonographic guidance. A total of 3 tissue cores were obtained through the lesion. An UltraClip wing-shaped tissue marker clip was then placed at the biopsy site. Hemostasis was achieved. Dermabond and an ice pack were applied. There was no evidence of significant immediate complication. The patient was given verbal as well as written post procedural instructions prior to release from the department. The tissue cores were submitted to surgical pathology in formalin for histologic analysis. A two-view LEFT digital mammogram, including digital breast tomosynthesis, obtained post procedure demonstrates that the tissue marker clip is in expected position. The attending radiologist, Dr. Taryn Gutierrez M.D., was present throughout the entire procedure. Procedure Note Taryn Gutierrez MD - 02/02/2025 EXAMINATION: LEFT BREAST CORE BIOPSY UTILIZING SONOGRAPHIC GUIDANCE, PLACEMENT OF A BIOPSY TISSUE MARKER CLIP, AND LEFT FULL FIELD DIGITAL MAMMOGRAM WITH DIGITAL BREAST TOMOSYNTHESIS HISTORY: Abnormal breast imaging. 74-year-old female with left breast spontaneous nipple discharge and a 1.1 cm left subareolar mass which is of moderate suspicion for malignancy. Ultrasound guided core needle biopsy is requested to evaluate for malignancy. COMPARISON: Multiple prior studies dating back to 2015 BREAST PARENCHYMAL COMPOSITION: The breasts are heterogeneously dense, which may obscure small masses. PROCEDURE AND FINDINGS: The risks and potential benefits of the procedures were discussed with the patient and written informed consent was obtained. After sterile preparation of the skin, 1% lidocaine was utilized for local anesthesia. A small skin incision was made with a #11 scalpel blade. A 14G vacuum-assisted biopsy needle was then advanced through the skin incision to the edge of the lesion of interest at the left breast 3:00 subareolar position from a lateral approach utilizing sonographic guidance. A total of 3 tissue cores were obtained through the lesion. An UltraClip wing-shaped tissue marker clip was then placed at the biopsy site. Hemostasis was achieved. Dermabond and an ice pack were applied. There was no evidence of significant immediate complication. The patient was given verbal as well as written post procedural instructions prior to release from the department. The tissue cores were submitted to surgical pathology in formalin for histologic analysis. A two-view LEFT digital mammogram, including digital breast tomosynthesis, obtained post procedure demonstrates that the tissue marker clip is in expected position. The attending radiologist, Dr. Taryn Gutierrez M.D., was present throughout the entire procedure. IMPRESSION: Successful core needle biopsy of the LEFT breast. Pathology is pending. ASSESSMENT: Post Procedure Mammograms for Marker Placement Electronically signed by: Taryn Gutierrez M.D. Iliana Martinez NP IMG MAMMO PROCEDURES Ed ited Result - Final * US Guided Breast Biopsy Left (02/02/2025 2:07 PM CDT) Anatomical Region Laterality Modality Breast Left Ultrasound 02/02/2025 2:22 PM CDT Addenda Addendum by Taryn Gutierrez MD on 02/07/2025 8:05 AM CDT ADDENDUM: Pathology from biopsy of the left breast demonstrated the following: Diagnosis: Breast, left, 3:00, subareolar, core biopsy - Benign breast tissue with dense stromal fibrosis - No evidence of atypia or malignancy Please refer to pathology report for details. Pathology is benign and concordant. Management of the patient's left nipple discharge will be determined by surgical oncology. Normal interval screening mammography is recommended. Results and recommendations will be discussed with the patient by [facility] or referring provider staff and will be separately documented in the medical record. Electronically signed by: Taryn Gutierrez M.D. Impressions 02/02/2025 2:22 PM CDT Successful core needle biopsy of the LEFT breast. Pathology is pending. ASSESSMENT: Post Procedure Mammograms for Marker Placement Electronically signed by: Taryn Gutierrez M.D. Narrative 02/02/2025 2:22 PM CDT EXAMINATION: LEFT BREAST CORE BIOPSY UTILIZING SONOGRAPHIC GUIDANCE, PLACEMENT OF A BIOPSY TISSUE MARKER CLIP, AND LEFT FULL FIELD DIGITAL MAMMOGRAM WITH DIGITAL BREAST TOMOSYNTHESIS HISTORY: Abnormal breast imaging. 74-year-old female with left breast spontaneous nipple discharge and a 1.1 cm left subareolar mass which is of moderate suspicion for malignancy. Ultrasound guided core needle biopsy is requested to evaluate for malignancy. COMPARISON: Multiple prior studies dating back to 2014 BREAST PARENCHYMAL COMPOSITION: The breasts are heterogeneously dense, which may obscure small masses. PROCEDURE AND FINDINGS: The risks and potential benefits of the procedures were discussed with the patient and written informed consent was obtained. After sterile preparation of the skin, 1% lidocaine was utilized for local anesthesia. A small skin incision was made with a #11 scalpel blade. A 14G vacuum-assisted biopsy needle was then advanced through the skin incision to the edge of the lesion of interest at the left breast 3:00 subareolar position from a lateral approach utilizing sonographic guidance. A total of 3 tissue cores were obtained through the lesion. An UltraClip wing-shaped tissue marker clip was then placed at the biopsy site. Hemostasis was achieved. Dermabond and an ice pack were applied. There was no evidence of significant immediate complication. The patient was given verbal as well as written post procedural instructions prior to release from the department. The tissue cores were submitted to surgical pathology in formalin for histologic analysis. A two-view LEFT digital mammogram, including digital breast tomosynthesis, obtained post procedure demonstrates that the tissue marker clip is in expected position. The attending radiologist, Dr. Taryn Gutierrez M.D., was present throughout the entire procedure. us Iliana Martinez BOTTOM SAW OPERATOR IMG MAMMO PROCEDURES Ed ited Result - Final * Surgical pathology (02/02/2025 1:54 PM CDT) Tissue (Breast biopsy, needle core) 02/02/2025 1:54 PM CDT Comment:LEFT ultrasound guid ed breast biopsy 3:00 subareolar BIRADS 4B. Narrative PATHOLOGY [facility] - 02/03/2025 12:05 PM CDT EPIC results best viewed via link to PDF [facility] [place] [address] Note to Patients: This report may contain a detailed description of human tissue sent by a health care provider to the laboratory for pathologic evaluation. The content of this report is essential for diagnosis and may provide important critical findings. This information may be unfamiliar to patients to review without a medical professional present. It is advised that the patient review this report in the presence of a health care provider who can answer questions and explain the details. SURGICAL PATHOLOGY REPORT FINAL Patient Name: VERNA CARBAJAL Gender: F : 1950 (Age: 74) Address: [address] [place] [address] Hospital #: [id number] Taken:02/02/2025 Received:02/02/2025 Reported: 02/03/2025 Patient Type: [facility] Ancillary Service: Laboratory Location: Physician(s): Ramya Galvin WHNP Tina Ann Winter, NP Diagnosis: Breast, left, 3:00, subareolar, core biopsy - Benign breast tissue with dense stromal fibrosis - No evidence of atypia or malignancy elca/02/03/2025 12:05 By this signature, I attest that the above diagnosis is based upon my personal examination of the slides(and/or other material indicated in the diagnosis). Noelle Skinner MD Report Electronically Reviewed and Signed Out By Noelle Skinner MD 02/03/2025 12:05:00 Cheyanne Garcia M.D. History: The patient is a 74-year-old woman presenting for abnormal mammogram. Operative procedure: Left ultrasound-guided breast biopsy BI-RADS 4B. Specimen(s) Received: A: Left ultrasound guided breast biopsy 3:00 subareolar birads 4b. Gross Description: Received in formalin, labeled with the patient s identifiers and left ultrasound-guided breast biopsy 3:00 subareolar BI-RADS 4B are three nielson-yellow cores of fibrofatty tissue (measuring 0.8 to 2.1 cm in length by 0.2 cm in diameter. Labeled A1 to A2. Jar 0. Placed in formalin immediately after collection. Total fixation time= 7.0 hours. [facility]/02/02/2025 17:41 PA(s): Christen Bear By this signature, I attest that the above diagnosis is based upon my personal examination of the slides(and/or other material). Addenda/Procedures The performance characteristics of some immunohistochemical stains, fluorescence in-situ hybridization tests and immunophenotyping by flow cytometry cited in this report (if any) were determined by the Surgical Pathology and Flow Cytometry Departments at [facility] as part of an ongoing ethanol quality leader program and in compliance with federally mandated regulations drawn from the Clinical Laboratory Improvement Act of 1988 (CLIA '88). Some of these tests rely on the use of analyte specific reagents and are subject to specific labeling requirements by the US Food and Drug Administration. Such diagnostic tests may only be performed in a facility that is certified by the Department of Health and Human Services as a high complexity laboratory under CLIA '88. The FDA has determined that such clearance or approval is not necessary. This test is used for clinical purposes. It should not be regarded as investigational or for research. Nevertheless, federal rules concerning the medical use of analyte specific reagents require that the following disclaimer be attached to the report: This test was developed and its performance characteristics determined by the Surgical Pathology and Flow Cytometry Departments of [facility]. It has not been cleared or approved by the U. S. Food and Drug Administration. IMAGES AND SCANNED DOCUMENTS, IF INCLUDED, ONLY VIEWABLE IN PDF VERSION OF REPORT us Iliana Martinez NP LAB PATHOLOGY ORDERABLE S Final Result PATHOLOGY [facility] [address] [place], [place] [phone] * (ABNORMAL) US Breast Left Limited (01/23/2025 10:01 AM CDT) Anatomical Region Laterality Modality Breast Left Ultrasound 01/23/2025 10:2 0 AM CDT Addenda Addendum by Taryn Gutierrez MD on 02/06/2025 9:47 AM CDT ADDENDUM: Pathology from biopsy of the left breast demonstrated the following: Diagnosis: Breast, left, 3:00, subareolar, core biopsy - Benign breast tissue with dense stromal fibrosis - No evidence of atypia or malignancy Please refer to pathology report for details. Pathology is benign and concordant. Management of the patient's left nipple discharge will be determined by surgical oncology. Normal interval screening mammography is recommended. Results and recommendations will be discussed with the patient by [facility] or referring provider staff and will be separately documented in the medical record. Electronically signed by: Taryn Gutierrez M.D. Impressions 01/23/2025 10:29 AM CDT In the LEFT subareolar breast, at the 3 o'clock position, there is a hypoechoic mass which is moderately suspicious. Ultrasound guided biopsy of this mass is recommended. The method of initial detection of finding was patient-reported clinical symptom (Pat). OVERALL FINAL ASSESSMENT: SUSPICIOUS. BI-RADS Category 4B: Moderate suspicion for malignancy. RECOMMENDATION: Ultrasound-guided biopsy of LEFT breast hypoechoic mass. Drs. Kash Doty and Dr. Knox discussed the above findings and recommendations with the patient. She has been scheduled for biopsy on 02/02/2025. This facility will contact the referring clinician's office for an order. Dr. Wild Knox MD (residential roofer helper) personally participated in sonographic imaging of this patient. Dictated by: Wild nKox M.D. The radiology attending physician has personally reviewed this study, and had reviewed and/or edited this written report and agrees with it. Electronically signed by: Kash Doty MD Narrative 01/23/2025 10:29 AM CDT EXAMINATION: LEFT BREAST ULTRASOUND HISTORY: 74-year-old presenting with spontaneous, left-sided nipple bloody discharge. COMPARISON: Mammogram 11/24/2024, 12/04/2023 and 11/02/2019. As on outside hospital for 11/10/2024 TECHNIQUE: Directed ultrasound evaluation of the LEFT breast was performed by a trained truck rental manager and by Dr. Doty. ULTRASOUND FINDINGS: LEFT breast, 3:00 in the subareolar region: There is a 1.0 x 0.5 x 1.1 cm hypoechoic, parallel, slightly irregular mass closely related to nearby ducts. There are no posterior features. There is no internal Doppler signal. LEFT breast, subareolar region at the 6, 9 and 12:00 positions: No suspicious sonographic findings. Procedure Note Kash Doty MD / Taryn Gutierrez MD - 01/23/2025 EXAMINATION: LEFT BREAST ULTRASOUND HISTORY: 74-year-old presenting with spontaneous, left-sided nipple bloody discharge. COMPARISON: Mammogram 11/24/2024, 12/04/2023 and 11/02/2019. As on outside hospital for 11/10/2024 TECHNIQUE: Directed ultrasound evaluation of the LEFT breast was performed by a trained truck rental manager and by Dr. Doty. ULTRASOUND FINDINGS: LEFT breast, 3:00 in the subareolar region: There is a 1.0 x 0.5 x 1.1 cm hypoechoic, parallel, slightly irregular mass closely related to nearby ducts. There are no posterior features. There is no internal Doppler signal. LEFT breast, subareolar region at the 6, 9 and 12:00 positions: No suspicious sonographic findings. IMPRESSION: In the LEFT subareolar breast, at the 3 o'clock position, there is a hypoechoic mass which is moderately suspicious. Ultrasound guided biopsy of this mass is recommended. The method of initial detection of finding was patient-reported clinical symptom (Pat). OVERALL FINAL ASSESSMENT: SUSPICIOUS. BI-RADS Category 4B: Moderate suspicion for malignancy. RECOMMENDATION: Ultrasound-guided biopsy of LEFT breast hypoechoic mass. Drs. Kash Doty and Dr. Knox discussed the above findings and recommendations with the patient. She has been scheduled for biopsy on 02/02/2025. This facility will contact the referring clinician's office for an order. Dr. Wild Knox MD (residential roofer helper) personally participated in sonographic imaging of this patient. Dictated by: Wild Knox M.D. The radiology attending physician has personally reviewed this study, and had reviewed and/or edited this written report and agrees with it. Electronically signed by: Kash Doty MD Iliana Brunner Terelesia BOTTOM SAW OPERATOR IMG MAMMO PROCEDURES Ed ited Result - Final * Breast Imaging DX Outside Consult (01/09/2025 2:56 PM CDT) Anatomical Region Laterality Modality Breast N/A Mammography 01/09/2025 3:02 PM CDT Impressions 01/09/2025 3:02 PM CDT Negative bilateral breast imaging. OVERALL FINAL ASSESSMENT: BI-RADS Category 0: Incomplete - Need Additional Imaging Evaluation. RECOMMENDATION: Targeted left breast ultrasound for new onset left nipple discharge. NOTE: The findings, conclusions and recommendations within this report do not replace the initial findings, conclusions and recommendations made at the facility where the study was performed based upon the imaging and clinical condition at that time. Review of the prior report and correlation with the clinical history are necessary. The provided images may or may not represent the iroquois source data set and thus may contain changes which may lower the sensitivity of the second opinion interpretation. Electronically signed by: Taryn Gutierrez M.D. Narrative 01/09/2025 3:02 PM CDT EXAMINATION: REVIEW AND INTERPRETATION OF OUTSIDE IMAGING FACILITY PERFORMING OUTSIDE IMAGING: [facility] EXAM(S) REVIEWED: 1. BILATERAL DIAGNOSTIC MAMMOGRAM WITH TOMOSYNTHESIS, 11/24/2024 DATE OF INTERPRETATION: 12/10/2024 HISTORY: 74-year-old female who by report has new onset left nipple discharge. By report, a left breast ultrasound was performed, and a 1.1 cm oval, hypoechoic mass was identified for which ultrasound-guided core needle biopsy was recommended. COMPARISON: Multiple prior studies dating back to 08/01/2015 BREAST PARENCHYMAL COMPOSITION: The breasts are heterogeneously dense, which may obscure small masses. FINDINGS: No suspicious findings were identified in either breast. Procedure Note Taryn Gutierrez MD - 01/09/2025 EXAMINATION: REVIEW AND INTERPRETATION OF OUTSIDE IMAGING FACILITY PERFORMING OUTSIDE IMAGING: [facility] EXAM(S) REVIEWED: 1. BILATERAL DIAGNOSTIC MAMMOGRAM WITH TOMOSYNTHESIS, 11/24/2024 DATE OF INTERPRETATION: 12/10/2024 HISTORY: 74-year-old female who by report has new onset left nipple discharge. By report, a left breast ultrasound was performed, and a 1.1 cm oval, hypoechoic mass was identified for which ultrasound-guided core needle biopsy was recommended. COMPARISON: Multiple prior studies dating back to 08/01/2015 BREAST PARENCHYMAL COMPOSITION: The breasts are heterogeneously dense, which may obscure small masses. FINDINGS: No suspicious findings were identified in either breast. IMPRESSION: Negative bilateral breast imaging. OVERALL FINAL ASSESSMENT: BI-RADS Category 0: Incomplete - Need Additional Imaging Evaluation. RECOMMENDATION: Targeted left breast ultrasound for new onset left nipple discharge. NOTE: The findings, conclusions and recommendations within this report do not replace the initial findings, conclusions and recommendations made at the facility where the study was performed based upon the imaging and clinical condition at that time. Review of the prior report and correlation with the clinical history are necessary. The provided images may or may not represent the [place] source data set and thus may contain changes which may lower the sensitivity of the second opinion interpretation. Electronically signed by: Taryn Gutierrez M.D. Lucinda Elena NP IMG MAMMO PROCEDURES Final Result * Diagnostic Mammogram (11/24/2024 7:38 AM CDT) Anatomical Region Laterality Modality Breast Mammography Historical Provider IMG MAMMO PROCEDURES Irma l Result from Last 3 Months or Most Recently Relevant to Health Maintenance Insurance MEDICARE [facility] MEDICARE [facility] MEDICARE [facility] Care Teams Sheet Sorter Relationship Specialty Start Date End Date Alta Obregon NP [address] [place], [place] [id number] PCP - General Nurse Practitioner 01/11/25
--- OUTSIDE RECORDS SUMMARY | 2025-03-01 12:05 | XMS_ITS | Encounter Summary ---
Author Organization [facility] Healthcare Address [address] [place] [address] Care Team Providers Care Firer Locomotive Name Role Phone Gerson Brand MD Primary Care Provider [phone] Reason for Visit * Diagnostic Imaging (Routine) - Pending Review Specialty Diagnoses / Procedures Referred By Contac t Referred To Contact Procedures Breast Imaging Screening Outside Reference Transcribed Order, Provider Referral ID Status Reason Start Date Expiration Date V isits Requested Visits Authorized [id number] Pending Review 01/03/2025 02/02/2026 1 1 Encounter Details Date Type Department Care Team (Late st Contact Info) Description 03/27/2017 Hospital Encounter [facility] [address] [place] [id number] Social History Tobacco Use Types Packs/Day Years Used Date Smoking Tobacco: Never Comments No Sex and Gender Information Value Date Recorded Sex Assigned at Not on file 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 There will be no report generated by a [facility] Radiologist. Narrative RAD_MAMMO_[facility] - 01/03/2025 10:37 AM CDT EXAMINATION: Images For Reference Purposes Only us Provider Transcribed Order IMG MAMMO PROCEDURES Final Result RAD_MAMMO_[facility] documented in this encounter Visit Diagnoses Not on filedocumented in this encounter Care Teams Firer Locomotive Relationship Specialty Start Date End Date Gerson Brand MD PCP - General 01/05/17 02/09/18 documented as of this encounter
--- OUTSIDE RECORDS SUMMARY | 2025-03-01 12:05 | XMS_ITS | Clinical Summary ---
Author Organization [facility] Address [address] [place] [address] Care Team Providers Care Risk Control Consultant Name Role Phone Alta Obregon NP Primary Care Provider [phone] Allergies Active Allergy Reactions Criticality Noted Date Comments Hydrocodone-Acetaminophen Itching,Hives Medium 009 Reaction: ITCHING Morphine (Bulk) Itching Low 11/10/2008 Medications amoxicillin-cla vulanate (AUGMENTIN) 875-125 mg per tablet 12/14/2017 Active calcium carbonate-vitam [...] LEAVE OFF FOR 12 HOURS. 08/08/2009 Active khkbtnyu-qss-ze on fum-folic ac 7.5 mg iron-400 mcg tablet daily. Active lisinopriL (PRINIVIL,ZESTR IL) 5 mg tablet Take 1 tablet (5 mg total) by mouth 2 (two) times a day 11/22/2024 Active Active Problems No known active problems Encounters Date Type Department Care Team Description 02/07/[address] [facility] [address] [place] [address] [address] [place] [phone] Ailyn Santos PA Abnormal findings on diagnostic imaging of breast (Primary Dx); Encounter for screening mammogram for breast cancer 02/07/2025 Results Follow-Up [facility] [address] [place] [address] 8 [place] [phone] Ailyn Santos PA Surgical pathology 02/06/2025 Telephone [facility]) [address] [place] [address] Tisha Daniel Test Results (Left breast biopsy 02/02/25 ) 02/02/2025 2:08 PM CDT - 02/02/2025 11:59 PM CDT Hospital Encounter [facility] ([facility]) [address] [place] [address] Abnormal mammogram Discharge Disposition: Discharge to home or self care 02/02/2025 1:37 PM CDT - 02/02/2025 11:59 PM CDT Hospital Encounter [facility] ([facility]) [address] [place] [address] Abnormal mammogram Discharge Disposition: Discharge to home or self care 01/23/2025 9:06 AM CDT - 01/23/2025 11:59 PM CDT Hospital Encounter [facility] [address] [place] [address] 8 [place] [address] Abnormal findings on diagnostic imaging of breast Discharge Disposition: Discharge to home or self care 01/23/2025 9:00 AM CDT Office Visit [facility] [address] [place] [address] 8 [place] [phone] Lucinda Elena NP Bloody discharge from left nipple (Primary Dx); Abnormal findings on diagnostic imaging of breast 01/23/2025 Results Follow-Up [facility] [address] [place] [address] 8 [place] [phone] Lucinda Elena NP US Breast Left Limited 01/09/2025 2:55 PM CDT - 01/09/2025 11:59 PM CDT Hospital Encounter [facility]) [address] [place] [address] Abnormal findings on diagnostic imaging of breast Discharge Disposition: Discharge to home or self care 12/27/[address] [facility] [address] [place] [address] 8 [place] [phone] Lucinda Elena NP Abnormal findings on diagnostic imaging of breast (Primary Dx) 12/13/[address] [facility] [address] [place] [address] 8 [place] [phone] Iliana Martinez NP Abnormal findings on diagnostic imaging of breast (Primary Dx) 12/09/2024 Orders Only [facility] ([facility]) [address] [place] [address] ProviderJannie MD from Last 3 Months Surgical History Surgery Date Site/Laterality Comments EPIDURAL INJECTION LUMBOSACRAL 01/27/2014 N/A EPIDURAL INJECTION LUMBOSACRAL 01/10/2014 N/A FLUORO GUIDED ASPIRATION OR INJECTION INTERMEDIATE JOINT LEFT 02/17/2018 Left HYSTERECTOMY OOPHORECTOMY BREAST BIOPSY 02/02/2025 Left Family History Medical History Relation Name Comments Breast cancer Sister Endometrial cancer Neg Hx Ovarian cancer Neg Hx Thyroid cancer Neg Hx Relation Name Status Comments Sister Social History Tobacco Use Types Packs/Day Years Used Date Smoking Tobacco: Never Tobacco Cessation:Counseling Given: Not Answered Comments No Sex and Gender Information Value Date Recorded Sex Assigned at Not on file 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 Gender Identity Not on file Sexual Orientation Not on file Obstetrics History Para Term AB IAB SAB Ectopic Multiple Livin g Live Births 2 2 2 Date Outcome GA Total Labor Labor/2nd/3rd Weight Sex Type Anes PTL Katelin A1 A5 Name Clin Term Term Last Filed Vital Signs Vital Sign Reading [...] 01/23/2025 9:49 AM CDT Plan of Treatment Health Maintenance Due Date Last Done Comments Colon Cancer Screening-Colonoscopy 1950 Depression Screening 1950 Fall Risk Assessment 1950 Hepatitis C Screening 1950 Osteoporosis Screening-Bone Density Scan 1950 Hepatitis B Screening 1969 DTaP/Tdap/Td Vaccine (1 - Tdap) 06/20/2014 4 Well Visit 65+ 2016 Zoster Vaccine (2 of 2) 01/17/2019 11/22/2018, 09/13 Influenza Vaccine (Season Ended) 2025 05/14/2019, 04/22/2018, 06/27/2017, Additional history exists Breast Cancer Screening-Mammogram 11/24/2025 11/24/2024, 11/02/2019, 08/01/2015 Pneumococcal vaccine 65+ Completed 02/12/2018, 02/2017 Medical Devices Implanted Type Area Zyglo Inspector Device Identifier Shelf Expiration Date Model / Serial / Lot Bard Peripheral Vascular Ultraclip Bard 17ga 10cm 2 Trigger Permanent Ultrasound [id number] - [id number] Implanted:Qty: 1 on 02/02/2025 by Taryn Gutierrez MD at [facility] Left: Breast Bard Peripheral Vascular [id number] / / Procedures Procedure Name Priority Date/Time [...] will be discussed with the patient by [facility] or referring provider staff and will [...] Placement Electronically signed by: Taryn Gutierrez M.D. us Iliana Martinez HANGER OFF IMG MAMMO PROCEDURES Ed ited Result - [...] will be discussed with the patient by [facility] or referring provider staff and will [...] M.D., was present throughout the entire procedure. Iliana Martinez NP IMG MAMMO PROCEDURES Ed ited Result - Final * Surgical pathology (02/02/2025 1:54 PM CDT) Tissue (Breast biopsy, needle core) 02/02/2025 1:54 PM CDT Comment:LEFT ultrasound guid ed breast biopsy 3:00 subareolar BIRADS 4B. Narrative PATHOLOGY [facility] - 02/03/2025 12:05 PM CDT EPIC results best viewed via link to PDF [facility] of Surgical Pathology [facility] [place] [address] Note to Patients: This report may contain [...] Gender: F : 1950 (Age: 74) Address: [address] [place], [place] [id number] Hospital #: [id number] Taken:02/02/2025 Received:02/02/2025 Reported: 02/03/2025 Patient Type: [facility] Ancillary Service: Laboratory Location: Physician(s): Ramya Galvin [...] after collection. Total fixation time= 7.0 hours. [facility]02[facility]2025 17:41 PA(s): Christen Bear By this signature, I attest that the above diagnosis is based upon my personal examination of the slides(and/or other material). Addenda/Procedures The performance characteristics of some immunohistochemical stains, fluorescence in-situ hybridization tests and immunophenotyping by flow cytometry cited in this report (if any) were determined by the Surgical Pathology and Flow Cytometry Departments at [facility] as part of an ongoing senior data quality analyst program and in compliance with federally mandated [...] Surgical Pathology and Flow Cytometry Departments of [facility]. It has not been cleared or approved by the [place]. S. Food and Drug Administration. IMAGES AND SCANNED DOCUMENTS, IF INCLUDED, ONLY VIEWABLE IN PDF VERSION OF REPORT us Iliana Martinez NP LAB PATHOLOGY ORDERABLE S Final Result PATHOLOGY [facility] 3rd Floor [place], [place] [phone] * (ABNORMAL) US Breast Left Limited (01/23/2025 [...] be discussed with the patient by Breast [facility] or referring provider staff and [...] for an order. Dr. Wild Knox MD (vice president process) personally participated in sonographic imaging of this [...] LEFT breast was performed by a trained city treasurer and by Dr. Doty. ULTRASOUND FINDINGS: LEFT [...] LEFT breast was performed by a trained city treasurer and by Dr. Doty. ULTRASOUND FINDINGS: LEFT [...] for an order. Dr. Wild Knox MD (vice president process) personally participated in sonographic imaging of this patient. Dictated by: Wild Knox M.D. The radiology attending physician has personally reviewed this study, and had reviewed and/or edited this written report and agrees with it. Electronically signed by: Kash Doty MD Iliana Martinez HANGER OFF IMG MAMMO PROCEDURES Ed ited Result - [...] images may or may not represent the [place] source data set and thus may contain changes which may lower the sensitivity of the second opinion interpretation. Electronically signed by: Taryn Gutierrez M.D. Narrative 01/09/2025 3:02 PM CDT EXAMINATION: REVIEW AND INTERPRETATION OF OUTSIDE IMAGING FACILITY PERFORMING OUTSIDE IMAGING: [facility] EXAM(S) REVIEWED: 1. BILATERAL DIAGNOSTIC MAMMOGRAM WITH [...] OF OUTSIDE IMAGING FACILITY PERFORMING OUTSIDE IMAGING: [facility] EXAM(S) REVIEWED: 1. BILATERAL DIAGNOSTIC MAMMOGRAM WITH [...] images may or may not represent the [place] source data set and thus may contain changes which may lower the sensitivity of the second opinion interpretation. Electronically signed by: Taryn Gutierrez M.D. Lucinda Elena NP IMG MAMMO PROCEDURES Final Result * Diagnostic Mammogram (11/24/2024 7:38 AM CDT) Anatomical Region Laterality Modality Breast Mammography Historical Provider IMDilan MAMMO PROCEDURES Irma l Result from Last 3 Months or Most Recently Relevant to Health Maintenance Insurance MEDICARE [facility] Address: [facility] [address] [place] [address] [facility] MEDICARE [facility] MEDICARE [facility] Care Teams Risk Control Consultant Relationship Specialty Start Date End Date Alta Obregon NP [address] [place] [address] PCP - General Nurse Practitioner 01/11/25
--- OUTSIDE RECORDS SUMMARY | 2025-03-01 12:28 | XMS_ITS | Encounter Summary ---
Author Organization [facility] Healthcare Address [address] [place] [address] Care Team Providers Care Bicycle Ii Assembler Name Role Phone Unavailable Primary Care Provider Unavailabl e Reason for Visit * Diagnostic Imaging (Routine) - Pending Review Specialty Diagnoses / Procedures Referred By Leoncio t Referred To Contact Procedures Breast Imaging Screening Outside Reference Transcribed Order, Provider Referral ID Status Reason Start Date Expiration Date V isits Requested Visits Authorized [id number] Pending Review 01/03/2025 02/02/2026 1 1 Encounter Details Date Type Department Care Team (Late st Contact Info) Description 03/18/2013 Hospital Encounter [facility] [address] [place] [phone] Social History Tobacco Use Types Packs/Day Years Used Date Smoking Tobacco: Never Comments No Sex and Gender Information Value Date Recorded Sex Assigned at Not on file 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 Radiology. There will be no report generated by a [facility] Radiologist. Narrative RAD_MAMMO_[facility] - 01/03/2025 10:37 AM CDT EXAMINATION: Images For Reference Purposes Only us Provider Transcribed Order IMG MAMMO PROCEDURES Final Result Performing Organization Address City/State/[facility] Co de Phone Number [facility] documented in this encounter Visit Diagnoses Not on filedocumented in this encounter
--- OUTSIDE RECORDS SUMMARY | 2025-03-01 12:28 | XMS_ITS | Referral Summary ---
Author Organization [facility] Address [address] [place] [address] Care Team Providers Care Stunt Person Name Role Phone Alta Obregon NP Primary Care Provider [phone] Encounters Date Type Department Care Team Description 02/07/2025 Orders Only [facility] Surgery [address] [place] [address] 8 [place] [phone] Ailyn Santos PA Abnormal findings on diagnostic imaging of breast (Primary Dx); Encounter for screening mammogram for breast cancer 02/07/2025 Results Follow-Up [facility] Surgery [address] [place] [address] 8 [place] [phone] Ailyn Santos PA Surgical pathology 02/06/2025 Telephone [facility] [address] [place] [address] Tisha Daniel Test Results (Left breast biopsy 02/02/25 ) 02/02/2025 2:08 PM CDT - 02/02/2025 11:59 PM CDT Hospital Encounter [facility]) [address] [place], [place] [phone] Abnormal mammogram Discharge Disposition: Discharge to home or self care 02/02/2025 1:37 PM CDT - 02/02/2025 11:59 PM CDT Hospital Encounter [facility]) [address] [place] [phone] Abnormal mammogram Discharge Disposition: Discharge to home or self care 01/23/2025 Results Follow-Up [facility] Surgery [address] [place] [phone] Lucinda Elena NP US Breast Left Limited 01/23/2025 9:06 AM CDT - 01/23/2025 11:59 PM CDT Hospital Encounter [facility] - Breast Imaging [address] [place] [address] 8 [place] [address] Abnormal findings on diagnostic imaging of breast Discharge Disposition: Discharge to home or self care 01/23/2025 9:00 AM CDT Office Visit [facility] Surgery [address] [place] [phone] Lucinda Elena NP Bloody discharge from left nipple (Primary Dx); Abnormal findings on diagnostic imaging of breast 01/09/2025 2:55 PM CDT - 01/09/2025 11:59 PM CDT Hospital Encounter [facility] Rad[facility]) [address] [place] [address] Abnormal findings on diagnostic imaging of breast Discharge Disposition: Discharge to home or self care 12/27/2024 Orders Only [facility] Surgery [address] [place] [phone] Lucinda Elena NP Abnormal findings on diagnostic imaging of breast (Primary Dx) 12/13/2024 Orders Only [facility] Surgery [address] [place] [phone] Iliana Martinez NP Abnormal findings on diagnostic imaging of breast (Primary Dx) 12/09/2024 Orders Only [facility] [address] [place] [phone] Provider, MD Jannie from Last 3 Months [...] LEAVE OFF FOR 12 HOURS. 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 us Iliana Martinez CLINICAL PRACTITIONER IMG MAMMO PROCEDURES Ed ited Result - Final * Surgical pathology (02/02/2025 1:54 PM CDT) Tissue (Breast biopsy, needle core) 02/02/2025 1:54 PM CDT Comment:LEFT ultrasound guid ed breast biopsy 3:00 subareolar BIRADS 4B. Narrative PATHOLOGY [facility] - 02/03/2025 12:05 PM CDT EPIC results best viewed via link to PDF [facility] [place] [address] Note to Patients: This report may contain [...] Gender: F : 1950 (Age: 74) Address: [address] [place] [address] Hospital #: [id number] Taken:02/02/2025 Received:02/02/2025 Reported: 02/03/2025 Patient Type: [facility] [...] after collection. Total fixation time= 7.0 hours. [facility]02/02/2025 17:41 PA(s): Christen Bear By this signature, I attest that the above diagnosis is based upon my personal examination of the slides(and/or other material). Addenda/Procedures The performance characteristics of some immunohistochemical stains, fluorescence in-situ hybridization tests and immunophenotyping by flow cytometry cited in this report (if any) were determined by the Surgical Pathology and Flow Cytometry Departments at [facility] as part of an ongoing air quality instrument specialist program and in compliance with federally mandated [...] Surgical Pathology and Flow Cytometry Departments of [facility]. It has not been cleared or approved by the U. S. Food and Drug Administration. IMAGES AND SCANNED DOCUMENTS, IF INCLUDED, ONLY VIEWABLE IN PDF VERSION OF REPORT us Iliana Martinez NP LAB PATHOLOGY ORDERABLE S Final Result PATHOLOGY [facility] 3rd Floor [place], [place] [phone] * (ABNORMAL) US Breast Left Limited (01/23/2025 [...] will be discussed with the patient by [facility] or referring provider staff and will be [...] for an order. Dr. Wild Knox MD (resident care manager rn) personally participated in sonographic imaging of this [...] LEFT breast was performed by a trained medical records manager and by Dr. Doty. ULTRASOUND FINDINGS: [...] LEFT breast was performed by a trained medical records manager and by Dr. Doty. ULTRASOUND FINDINGS: [...] for an order. Dr. Wild Knox MD (resident care manager rn) personally participated in sonographic imaging of this patient. Dictated by: Wild Knox M.D. The radiology attending physician has personally reviewed this study, and had reviewed and/or edited this written report and agrees with it. Electronically signed by: Kash Doty MD Iliana Brunner Terelesia CLINICAL PRACTITIONER IMG MAMMO PROCEDURES Ed ited Result - [...] images may or may not represent the [place] source data set and thus may contain changes which may lower the sensitivity of the second opinion interpretation. Electronically signed by: Taryn Gutierrez M.D. Narrative 01/09/2025 3:02 PM CDT EXAMINATION: REVIEW AND INTERPRETATION OF OUTSIDE IMAGING FACILITY PERFORMING OUTSIDE IMAGING: [facility] EXAM(S) REVIEWED: 1. BILATERAL DIAGNOSTIC MAMMOGRAM WITH [...] OF OUTSIDE IMAGING FACILITY PERFORMING OUTSIDE IMAGING: [facility] EXAM(S) REVIEWED: 1. BILATERAL DIAGNOSTIC MAMMOGRAM WITH [...] images may or may not represent the [place] source data set and thus may contain [...] Recently Relevant to Health Maintenance Insurance MEDICARE [facility] MEDICARE [facility] MEDICARE [facility] Care Teams Stunt Person Relationship Specialty Start Date End Date Alta Obregon NP [address] [place], [place] [id number] PCP - General Nurse Practitioner 01/11/25
--- OUTSIDE RECORDS SUMMARY | 2025-03-01 12:28 | XMS_ITS | Clinical Summary ---
Author Organization [facility] Address [address] [place] [address] Care Team Providers Care Charter Boat Captain Name Role Phone Alta Obregon NP Primary Care Provider [phone] Allergies Active Allergy Reactions Criticality Noted Date [...] LEAVE OFF FOR 12 HOURS. 08/08/2009 Active elvylpgs-cgc-ed on fum-folic ac 7.5 mg iron-400 mcg tablet daily. Active lisinopriL (PRINIVIL,ZESTR IL) 5 mg tablet Take 1 tablet (5 mg total) by mouth 2 (two) times a day 11/22/2024 Active Active Problems No known active problems Encounters Date Type Department Care Team Description 02/07/2025 Orders Only [facility] Surgery [address] [place] [address] 8 [place] [phone] Ailyn Santos PA Abnormal findings on diagnostic imaging of breast (Primary Dx); Encounter for screening mammogram for breast cancer 02/07/2025 Results Follow-Up [facility] Surgery [address] [place] [address] 8 [place] [phone] Ailyn Santos PA Surgical pathology 02/06/2025 Telephone [facility] [address] [place] [address] Tisha Daniel Test Results (Left breast biopsy 02/02/25 ) 02/02/2025 2:08 PM CDT - 02/02/2025 11:59 PM CDT Hospital Encounter [facility] ([facility] [address] [place] [address] Abnormal mammogram Discharge Disposition: Discharge to home or self care 02/02/2025 1:37 PM CDT - 02/02/2025 11:59 PM CDT Hospital Encounter [facility] ([facility]) [address] [place] [address] Abnormal mammogram Discharge Disposition: Discharge to home or self care 01/23/2025 9:06 AM CDT - 01/23/2025 11:59 PM CDT Hospital Encounter [facility] - Breast Imaging [address] [place] [address] 8 [place] [address] Abnormal findings on diagnostic imaging of breast Discharge Disposition: Discharge to home or self care 01/23/2025 9:00 AM CDT Office Visit [facility] [address] [place] [address] 8 [place] [phone] Lucinda Elena NP Bloody discharge from left nipple (Primary Dx); Abnormal findings on diagnostic imaging of breast 01/23/2025 Results Follow-Up [facility] [address] [place] [address] 8 [place] [phone] Lucinda Elena NP US Breast Left Limited 01/09/2025 2:55 PM CDT - 01/09/2025 11:59 PM CDT Hospital Encounter [facility]) [address] [place] [address] Abnormal findings on diagnostic imaging of breast Discharge Disposition: Discharge to home or self care 12/27/2024 Orders Only [facility] [address] [place] [address] 8 [place] [phone] Lucinda Elena NP Abnormal findings on diagnostic imaging of breast (Primary Dx) 12/13/2024 Orders Only [facility] [address] [place] [address] 8 [place] [phone] Iliana Martinez NP Abnormal findings on diagnostic imaging of breast (Primary Dx) 12/09/2024 Orders Only [facility] ([facility]) [address] [place] [address] ProviderJannie MD from Last 3 Months Surgical [...] on file 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 us Iliana Martinez GEAR TOOTH GRINDING MACHINE OPERATOR IMG MAMMO PROCEDURES Ed ited Result [...] will be discussed with the patient by [facility] or referring provider staff and will [...] biopsy 3:00 subareolar BIRADS 4B. Narrative PATHOLOGY [facility] - 02/03/2025 12:05 PM CDT EPIC results best viewed via link to PDF [facility] Bethany Rivera Laboratory of Surgical Pathology [place] [address] Note to Patients: This report may contain [...] Gender: F : 1950 (Age: 74) Address: [address] [place], [place] [address] Hospital #: [id number] Taken:02/02/2025 Received:02/02/2025 Reported: 02/03/2025 Patient Type: [facility] Ancillary Service: Laboratory Location: Physician(s): Ramya [...] after collection. Total fixation time= 7.0 hours. [facility]02/02/2025 17:41 PA(s): Christen Bear By this signature, I attest that the above diagnosis is based upon my personal examination of the slides(and/or other material). Addenda/Procedures The performance characteristics of some immunohistochemical stains, fluorescence in-situ hybridization tests and immunophenotyping by flow cytometry cited in this report (if any) were determined by the Surgical Pathology and Flow Cytometry Departments at [facility] as part of an ongoing water quality assistant program and in compliance with federally mandated [...] Surgical Pathology and Flow Cytometry Departments of [facility]. It has not been cleared or approved by the U. S. Food and Drug Administration. IMAGES AND SCANNED DOCUMENTS, IF INCLUDED, ONLY VIEWABLE IN PDF VERSION OF REPORT us Iliana Martinez NP LAB PATHOLOGY ORDERABLE S Final Result PATHOLOGY [facility] 3rd Floor [place], [place] [phone] * (ABNORMAL) US Breast Left Limited (01/23/2025 [...] be discussed with the patient by Breast [facility] or referring provider staff and [...] an order. Dr. Wild Knox MD (residential care officer) personally participated in sonographic imaging of this [...] LEFT breast was performed by a trained divisional merchandising manager and by Dr. Doty. ULTRASOUND FINDINGS: [...] LEFT breast was performed by a trained divisional merchandising manager and by Dr. Doty. ULTRASOUND FINDINGS: [...] an order. Dr. Wild Knox MD (residential care officer) personally participated in sonographic imaging of this patient. Dictated by: Wild Knox M.D. The radiology attending physician has personally reviewed this study, and had reviewed and/or edited this written report and agrees with it. Electronically signed by: Kash Doty MD Iliana Martinez GEAR TOOTH GRINDING MACHINE OPERATOR IMG MAMMO PROCEDURES Ed ited Result [...] images may or may not represent the [place] source data set and thus may contain changes which may lower the sensitivity of the second opinion interpretation. Electronically signed by: Taryn Gutierrez M.D. Narrative 01/09/2025 3:02 PM CDT EXAMINATION: REVIEW AND INTERPRETATION OF OUTSIDE IMAGING FACILITY PERFORMING OUTSIDE IMAGING: [facility] EXAM(S) REVIEWED: 1. BILATERAL DIAGNOSTIC MAMMOGRAM WITH [...] IMAGING FACILITY PERFORMING OUTSIDE IMAGING: [facility] EXAM(S) REVIEWED: 1. BILATERAL DIAGNOSTIC MAMMOGRAM WITH [...] images may or may not represent the [place] source data set and thus may contain [...] Recently Relevant to Health Maintenance Insurance MEDICARE [facility] MEDICARE [facility] MEDICARE [facility] Care Teams Charter Boat Captain Relationship Specialty Start Date End Date Alta Obregon NP [address] [place] [address] PCP - General Nurse Practitioner 01/11/25
--- OUTSIDE RECORDS SUMMARY | 2025-03-01 12:28 | XMS_ITS | Encounter Summary ---
Author Organization [facility] Healthcare Address [address] [place] [address] Care Team Providers Care Douper Name Role Phone Gerson Brand MD Primary Care Provider [phone] Reason for Visit * Diagnostic Imaging (Routine) - Pending Review Specialty Diagnoses / Procedures Referred By Contac t Referred To Contact Procedures Breast Imaging Screening Outside Reference Transcribed Order, Provider Referral ID Status Reason Start Date Expiration Date V isits Requested Visits Authorized [id number] Pending Review 01/03/2025 02/02/2026 1 1 Encounter Details Date Type Department Care Team (Late st Contact Info) Description 03/27/2017 Hospital Encounter [facility] [address] [place] [address] Social History Tobacco Use Types Packs/Day Years Used Date Smoking Tobacco: Never Comments No Sex and Gender Information Value Date Recorded Sex Assigned at Not on file 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 Gender Identity Not on file Sexual Orientation Not on file documented as of this encounter Plan of Treatment Not on file documented as of this encounter Procedures Procedure Name Priority Date/Time Associated Diagnosis Comments BREAST IMAGING [facility] SCREENING OUTSIDE REFERENCE Routine 03/27/2017 12:00 AM CDT documented in this encounter Results * Breast Imaging Screening Outside Reference (03/27/2017 12:00 AM CDT) Impressions RAD_MAMMO[facility] - 01/03/2025 10:37 AM CDT These images are for Reference purposes only and have not been reviewed by [facility] Radiology. There will be no report generated by a [facility] Radiologist. Narrative RAD_MAMMO_[facility] - 01/03/2025 10:37 AM CDT EXAMINATION: Images For Reference Purposes Only us Provider Transcribed Order IMG MAMMO PROCEDURES Final Result RAD_MAMMO_[facility] documented in this encounter Visit Diagnoses Not on filedocumented in this encounter Care Teams Douper Relationship Specialty Start Date End Date Gerson Brand MD PCP - General 01/05/17 02/09/18 documented as of this encounter
--- OUTSIDE RECORDS SUMMARY | 2025-03-01 12:28 | XMS_ITS | Encounter Summary ---
Author Organization [facility] Healthcare Address [address] [place] [address] Care Team Providers Care Brush Painter Name Role Phone Unavailable Primary Care Provider Unavailabl e Reason for Visit * Diagnostic Imaging (Routine) - Pending Review Specialty Diagnoses / Procedures Referred By Leoncio t Referred To Contact Procedures Breast Imaging Screening Outside Reference Transcribed Order, Provider Referral ID Status Reason Start Date Expiration Date V isits Requested Visits Authorized [id number] Pending Review 01/03/2025 02/02/2026 1 1 Encounter Details Date Type Department Care Team (Late st Contact Info) Description 02/16/2012 Hospital Encounter [facility] [address] [place] [phone] Social History Tobacco Use Types Packs/Day Years Used Date Smoking Tobacco: Never Comments No Sex and Gender Information Value Date Recorded Sex Assigned at Not on file 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 There will be no report generated by a [facility] Radiologist. Narrative RAD_MAMMO_[facility] - 01/03/2025 10:37 AM CDT EXAMINATION: Images For Reference Purposes Only us Provider Transcribed Order IMG MAMMO PROCEDURES Final Result Performing Organization Address City/State/[facility] Co de Phone Number RAD_MAMMO[facility] documented in this encounter Visit Diagnoses Not on filedocumented in this encounter
--- OUTSIDE RECORDS SUMMARY | 2025-03-01 12:28 | XMS_ITS | Encounter Summary ---
Author Organization [facility] Address [address] [place] [address] Phone Care Team Providers Care Butter Maker Name Role Phone Alta Obregon STEEL FABRICATING SUPERVISOR Primary Care Provider [phone] Encounter Details Date Type Department Care Team (Late st Contact Info) Description 01/23/2025 Results Follow-Up [facility] Surgery [address] 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
[2025-03-01 12:54] LABS: Hematocrit 40.0 % (37.0-47.0); Hemoglobin 12.6 g/dL (12.0-15.0); Immature Granulocyte Percent A 0.3 % (0-0.5); Lymphocytes Absolute Auto 2.45 K/mm3 (0.9-3.2); Mean Corpuscular HGB Conc 31.5 g/dl (32-36); Mean Corpuscular Hemoglobin 28.5 pg (26-34); Mean Corpuscular Volume 90.5 fl (80-100); Nucleated Red Blood Cells Absolute Auto 0.000 K/mm3 (0.0-0.012); Nucleated Red Blood Cells Perc 0.0 % (0.0-0.2); Platelet Count Result 266 k/mm3 (150-375); Red Blood Count 4.42 M/mm3 (4.2-5.4); White Blood Count 7.2 K/mm3 (4.5-10.0)
[2025-03-01 16:04] LABS: Alanine Aminotransferase 18 U/L (6-35); Albumin Level 4.4 g/dL (3.5-5.1); Alkaline Phosphatase 79 U/L (38-126); Anion Gap 8 mmol/L (4-12); Aspartate Amino Transferase 34 U/L (14-36); Bilirubin,Total 0.5 mg/dL (0.2-1.3); Blood Urea Nitrogen 16 mg/dL (7-17); Calcium 10.5 mg/dL (8.4-10.2); Carbon Dioxide 26 mmol/L (22-30); Chloride 105 mmol/L (98-107); Estimated Glomerular Filt Rate > 60; Glucose 102 mg/dL (65-110); Potassium 4.9 mmol/L (3.4-5.0); Sodium 139 mmol/L (137-145); Total Protein 7.6 g/dL (6.3-8.2)
[2025-03-01 16:51] LABS: Iron 76 ug/dL (37-170)
[2025-03-01 17:09] LABS: Percent Iron Saturation 29 % (20-50)
[2025-03-01 17:30] LABS: Ferritin 64.60 ng/mL (11.1-264)
== END 2025-03-01 12:26 | disposition home or self-care (01) ==
PROVIDERS: Nurse Practitioner Family; PCP Nurse Practitioner Family; Visit Provider Orthopaedic Surgery
DX: D64.9 Anemia, unspecified (principal); K52.9 Noninfective gastroenteritis and colitis, unspecified; M22.41 Chondromalacia patellae, right knee; M22.42 Chondromalacia patellae, left knee
CPT/HCPCS: 36415; 73564; 80053; 82728; 83540; 83550; 85025

== ENCOUNTER 2025-07-17 08:51 | Outpatient (CLI) | payer MEDICARE, SELFPAY ==
--- OUTSIDE RECORDS SUMMARY | 2012-02-15 23:00 | XMS_ITS | Encounter Summary ---
Author Organization [facility] Healthcare Address [address] [place] [address] Care Team Providers Care Distributor Advertising Material Name Role Phone Unavailable Primary Care Provider Unavailabl e Reason for Visit * Diagnostic Imaging (Routine) - Pending Review Specialty Diagnoses / Procedures Referred By Leoncio t Referred To Contact Procedures Breast Imaging Screening Outside Reference Transcribed Order, Provider Referral ID Status Reason Start Date Expiration Date V isits Requested Visits Authorized [id number] Pending Review 01/03/2025 02/02/2026 1 1 Encounter Details Date Type Department Care Team (Late st Contact Info) Description 02/16/2012 Hospital Encounter [facility] [address], [place] [id number] Social History Tobacco Use Types Packs/Day Years Used Date Smoking Tobacco: Never Social Connection and Isolation Panel Answer Date Recorded In a typical week, how many times do you talk on the phone with family, friends, or neighbors? Three times a week 07/03/20 How often do you get togethe r with friends or relatives? Three times a week 07/03/2025 How often do you attend chur ch or cheondoism services? 1 to 4 times per year 07/03/2025 Do you belong to any clubs o r organizations such as taoist groups, unions, fraternal or athletic groups, or school groups? Yes 07/03/2025 How often do you attend meet ings of the clubs or organizations you belong to? 1 to 4 times per year 07/03/2025 Are you , , di vorced, , never , or living with a partner? 07/03/2025 Overall Financial Resource Strain (CARDIA) Answe r Date Recorded How hard is it for you to pa y for the very basics like food, housing, medical care, and heating? Not hard at all 07/03/2025 Hunger Vital Sign Answer Date Recorded Within the past 12 months, y ou worried that your food would run out before you got the money to buy more. Never true 07/03/20 25 Within the past 12 months, t he food you bought just didn't last and you didn't have money to get more. Never true 07/03/2025 PRAPARE - Transportation Answer Date Re corded In the past 12 months, has l ack of transportation kept you from medical appointments or from getting medications? No 06/24 In the past 12 months, has l ack of transportation kept you from meetings, work, or from getting things needed for daily living? No 07/03/2025 Housing Stability Vital Sign Answer Darryn e Recorded In the last 12 months, was t here a time when you were not able to pay the mortgage or rent on time? No 07/03/2025 In the past 12 months, how m any times have you moved where you were living? 0 07/03/2025 At any time in the past [address] [facility], were you homeless or living in a halfway (including now)? No 07/03/[address] [facility] Utilities Answer Date Recorded In the past 12 months has th e electric, gas, oil, or water company threatened to shut off services in your home? No 07/03/2025 Personal Safety Answer Date Recorded Have you ever been in or are you currently in a harmful physical or emotional relationship or is someone making you feel afraid or unsafe? Denies 07/01/2025 Comments No Sex and Gender Information Value Date Recorded Sex Assigned at Not on file Legal Sex Female 8:16 AM HORIZONTAL DRILL OPERATOR Gender Identity Not on file Sexual Orientation Not on file documented as of this encounter Functional Status * Difference in Last Two Lauri Scores Answer Date of Assessment Author 0 07/04/2025 7:10 AM HORIZONTAL DRILL OPERATOR Carole Brock RN * Weiner Fall Risk Question Answer Date of Assessment Author History of Falling 0 07/04/2025 7:10 AM HORIZONTAL DRILL OPERATOR Carole Brock RN Secondary Diagnosis 0 07/04/2025 7:10 AM Carole Clarke RN Ambulatory Aids 0 07/04/2025 7:10 AM HORIZONTAL DRILL OPERATOR Carole Whiting RN Intravenous Therapy/Heparin/Saline Lock 20 07/04/2025 7:10 AM Carole Nick RN Gait/Transferring 0 07/04/2025 7:10 AM Carole Nick RN Mental Status 0 07/04/2025 7:10 AM HORIZONTAL DRILL OPERATOR Carole Masters RN * Lauri Scale Question Answer Date of Assessment Author Sensory Perceptions 4 07/04/2025 7:10 AM Carole Clarke RN Moisture 4 07/04/2025 7:10 AM HORIZONTAL DRILL OPERATOR Carole Morris RN Activity 3 07/04/2025 7:10 AM HORIZONTAL DRILL OPERATOR Carole Morris RN Mobility 4 07/04/2025 7:10 AM HORIZONTAL DRILL OPERATOR Carole Morris RN Nutrition 3 07/04/2025 7:10 AM HORIZONTAL DRILL OPERATOR Carole Morris RN Friction and Shear 3 07/04/2025 7:10 AM HORIZONTAL DRILL OPERATOR Carole Brock RN * MAP (mmHg) Answer Date of Assessment Author 100 07/04/2025 7:25 AM HORIZONTAL DRILL OPERATOR Dio Chairez * Lauri Scale Score Answer Date of Assessment Author 21 07/04/2025 7:10 AM Carole Nick RN * Question Answer Date of Assessment Author BP Location Left arm 07/04/2025 7:25 AM Dio Mary BP Method Automatic 07/04/2025 7:25 AM Dio Mary * Fall Risk Interventions Question Answer Date of Assessment Author All Low Fall Interventions Applied Yes 07/04/2025 7:10 AM Carole Nick RN All Moderate Fall Interventions Applied Yes 07/04/2025 7:10 AM Carole Nick RN All High Fall Risk Interventions Applied No 07/04/2025 7:10 AM Carole Nick RN All High Risk Interventions EXCEPT: Bed alarm;Chair alarm 07/03/2025 8:00 PM Verónica Lang, JULIENNE Reason For Exception(s) BMAT 4 07/03/2025 8:00 P M Verónica Lang, RN * Weiner Fall Risk Score (Score >= 45 places fall precaution order) Answer Date of Assessment Author 20 07/04/2025 7:10 AM Carole Nick RN * Prior Fall Event (Autopopulated from EMR) Answer Date of Assessment Author None found 07/04/2025 7:10 AM Carole Nick, JULIENNE * B.M.A.T. - Bedside Mobility Assessment Tool for Nurses Question Answer Date of Assessment Author Is patient able to participate in the BMAT? Yes 07/04/2025 7:10 AM Jt Nick RN BMAT Level Level 4 - Green 07/04/2025 7:10 AM Carole Patino RN * Question Answer Date of Assessment Author 1. Has the patient self-reported, presented with clinical signs of, or have a documented history of any of the following within the past 30 days? No 07/01/2025 2:00 PM Anthony Martinez RN * Question Answer Date of Assessment Author Is the patient being treated today because it is known or suspected that they prepared, started, or tried to end their life? No 07/01/2025 2:00 PM Anthony Martinez RN * Question Answer Date of Assessment Author 1. In the past month, have y ou wished you were or that you could go to sleep and not wake up? No 07/01/2025 2:00 PM Anthony Martinez RN 2. In the past month, have y ou actually had any thoughts of killing yourself? No 07/01/2025 2:00 PM Anthony Martinez RN 6. Have you ever done anythi ng, started to do anything, or prepared to do anything to end your life? No 07/01/2025 2:00 PM Anthony Martinez RN * Suicide Risk Level Answer Date of Assessment Author No risk level 07/01/2025 2:00 PM Moise Martinez RN * Self-Injurious Risk Level Answer Date of Assessment Author No risk level 07/01/2025 2:00 PM Moise Martinez RN * Pressure Injury Prevention Question Answer Date of Assessment Author Pressure Ulcer Prevention Interventions Keep skin clean and dry (Sensory Perception/Moisture ) 07/04/2025 7:10 AM HORIZONTAL DRILL OPERATOR Carole Brock, RN 2 Nurse Skin Assessment Jt RN and Sander RN 07/04/2025 7:10 AM HORIZONTAL DRILL OPERATOR Carole Brock, JULIENNE * Transdermal Patch Admission Assessment Question Answer Date of Assessment Author Transdermal Patch Assessment on Admission Not Present 07/01/2025 2:00 PM HORIZONTAL DRILL OPERATOR Anthony Sharma RN * Fall Risk Assessment Tool - MEDFRAT Question Answer Date of Assessment Author Prior Fall Event (Autopopula juliana from EMR) None found 07/01/2025 8:09 AM Mary Moreno R N Pt needs supervision/assista nce with ambulation? (makes patient High risk) No 07/01/2025 8:09 AM Mary Moreno R N History of falling in last 3 months, including since admission 0 07/01/2025 8:09 AM Mary Moreno R N Confusion or disorientation 0 07/01/2025 8: 09 AM Mary Moreno RN Intoxicated or sedated 0 07/01/2025 8:09 AM Mary Moreno RN Impaired gait 0 07/01/2025 8:09 AM Mary Moreno RN Mobility assist device used 0 07/01/2025 8: 09 AM Mary Moreno RN Altered elimination 0 07/01/2025 8:09 AM Mary Beltran RN Fall risk score: (1-2 low ri sk), (3-4 moderate risk), (5 or more high risk) 0 07/01/2025 8:09 AM Mary Moreno R N * Integumentary Question Answer Date of Assessment Author Integumentary (WDL) WDL 07/04/2025 7:10 AM Carole Clarke, JULIENNE * Question Answer Date of Assessment Author Percent Meal Eaten (%) 75 07/04/2025 1:20 PM Silva Barnes Feeding Level of Assistance Able to feed self 07/04/2025 1:20 PM HORIZONTAL DRILL OPERATOR Rosa Jauregui Appetite Good 07/04/2025 1:20 PM HORIZONTAL DRILL OPERATOR Silva Garcia Percent Snack Eaten (%) 0 07/04/2025 8:45 A M HORIZONTAL DRILL OPERATOR Dio Chairez * Question Answer Date of Assessment Author BP Location Left arm 07/04/2025 7:25 AM Dio Mary BP Method Automatic 07/04/2025 7:25 AM Dio Mary * Fall Risk Interventions Question Answer Date of Assessment Author All Low Fall Interventions Applied Yes 07/04/2025 7:10 AM Carole Nick RN All Moderate Fall Interventions Applied Yes 07/04/2025 7:10 AM Carole Nick RN All High Fall Risk Interventions Applied No 07/04/2025 7:10 AM Carole Nick RN All High Risk Interventions EXCEPT: Bed alarm;Chair alarm 07/03/2025 8:00 PM HORIZONTAL DRILL OPERATOR Verónica Fu RN Reason For Exception(s) BMAT 4 07/03/2025 8:00 P M HORIZONTAL DRILL OPERATOR Verónica Fu RN * ADL Screening Question Answer Date of Assessment Author Patient's Vision Adequate to Safely Complete Daily Activities Yes 07/01/2025 2:00 PM Anthony Martinez RN Patient's Judgement Adequate to Safely Complete Daily Activities Yes 07/01/2025 2:00 PM Anthony Martinez RN Patient's Memory Adequate to Safely Complete Daily Activities Yes 07/01/2025 2:00 PM Anthony Martinez RN Patient Able to Express Needs/Desires Yes 07/01/2025 2:00 PM Anthony Martinez RN Dressing Independent 07/01/2025 2:00 PM Moise Quiñones RN Grooming Independent 07/01/2025 2:00 PM Moise Quiñones RN Feeding Independent 07/01/2025 2:00 PM Moise Quiñones RN Bathing Independent 07/01/2025 2:00 PM Moise Quiñones RN Toileting Independent 07/01/2025 2:00 PM Moise Quiñones RN In/Out Bed Independent 07/01/2025 2:00 PM Moise Quiñones RN Walks in Home Independent 07/01/2025 2:00 PM Moise Zamarripa RN Weakness of Legs None 07/01/2025 2:00 PM Moise Lacy RN Weakness of Arms/Hands None 07/01/2025 2:00 PM Moise Martinez RN Hearing - Right Ear Functional 07/01/2025 2:00 PM CS T Moise Sharma RN Hearing - Left Ear Functional 07/01/2025 2:00 PM Moise Martinez RN Dominant hand? Right 07/01/2025 2:00 PM Moise Rodrigez RN Decline in ADLs in last 2 weeks? No 07/01/2025 2:00 PM Anthony Martinez RN * Therapy Consults Question Answer Date of Assessment Author PT Evaluation Needed 2 07/01/2025 2:00 PM Moise Hatch RN OT Evaluation Needed 2 07/01/2025 2:00 PM Moise Hatch RN BROOM BUNDLER Evaluation Needed 2 07/01/2025 2:00 PM Moise Martinez RN * Assistive Devices Question Answer Date of Assessment Author Assistive Devices/DME None 07/01/2025 2:00 PM Moise Martinez RN * Speech/Swallow Screening Question Answer Date of Assessment Author Currently, does patient have difficulty swallowing; coughing/choking while swallowing, or feels like food is sticking No 07/01/2025 2:00 PM Moise Martinez RN In the past two weeks has the patient had changes in speaking or ability to comprehend conversation No 07/01/2025 2:00 PM Moise Martinez RN Currently, does patient require thickened liquids or dysphagia diet No 07/01/2025 2:00 PM Moise Martinez RN Patient is in need of BROOM BUNDLER Order: No BROOM BUNDLER order needed from this assessment 07/01/2025 2:00 PM Moise Martinez RN * Hygiene Question Answer Date of Assessment Author Hygiene Level of Assistance Independent 07/04/2025 2:00 PM HORIZONTAL DRILL OPERATOR Dio Chairez Toileting: Assistance with Up to bathroom toilet 07/04/2025 2:00 PM HORIZONTAL DRILL OPERATOR Dio Chairez Toileting: Level of assistance Independent 07/04/2025 2:00 PM HORIZONTAL DRILL OPERATOR Dio Chairez Bath Bathed/showered non- chg (CHG not indicated OR not required here) 07/03/2025 2:00 PM HORIZONTAL DRILL OPERATOR Silva Jauregui documented as of this encounter Mental Status * Question Answer Entry Date Author Neuro (JULIANO) WDL 07/04/2025 7:10 AM HORIZONTAL DRILL OPERATOR Carole Morris RN documented in this encounter Plan of Treatment Not on file documented as of this encounter Procedures Procedure Name Priority Date/Time Associated Diagnosis Comments BREAST IMAGING MG SCREENING OUTSIDE REFERENCE Routine 02/16/2012 12:00 AM CDT documented in this encounter Results * Breast Imaging Screening Outside Reference (02/16/2012 12:00 AM CDT) Impressions [facility] - 01/03/2025 10:37 AM CDT These images are for Reference purposes only and have not been reviewed by [facility]. There will be no report generated by a [facility] Radiologist. Narrative [facility] - 01/03/2025 10:37 AM CDT EXAMINATION: Images For Reference Purposes Only us Provider Transcribed Order IMG MAMMO PROCEDURES Final Result [facility] documented in this encounter Visit Diagnoses Not on filedocumented in this encounter Additional Health Concerns Infection Onset Date Last Indicated Resolved Time COVID: Suspected 07/02/2025 07/02/2025 07/02/2025 3:40 PM HORIZONTAL DRILL OPERATOR COVID: Suspected 07/02/2025 07/02/2025 07/02/2025 6:19 PM HORIZONTAL DRILL OPERATOR documented as of this encounter
--- OUTSIDE RECORDS SUMMARY | 2013-03-17 23:00 | XMS_ITS | Encounter Summary ---
Author Organization [facility] Healthcare Address [address] [place] [address] Care Team Providers Care Utilization Review Coordinator Name Role Phone Unavailable Primary Care Provider Unavailabl e Reason for Visit * Diagnostic Imaging (Routine) - Pending Review Specialty Diagnoses / Procedures Referred By Leoncio t Referred To Contact Procedures Breast Imaging Screening Outside Reference Transcribed Order, Provider Referral ID Status Reason Start Date Expiration Date V isits Requested Visits Authorized [id number] Pending Review 01/03/2025 02/02/2026 1 1 Encounter Details Date Type Department Care Team (Late st Contact Info) Description 03/18/2013 Hospital Encounter [facility] [address], [place] [id number] Social History Tobacco Use Types Packs/Day Years [...] often do you attend chur ch or advent services? 1 to 4 times per year 07/03/2025 Do you belong to any clubs o r organizations such as anabaptist groups, unions, fraternal or athletic groups, or [...] any time in the past 12 m [facility], were you homeless or living in a snf (including now)? No 07/03/[address] [facility] Utilities Answer Date Recorded In the [...] on file Legal Sex Female 8:16 AM BAND SALVAGER Gender Identity Not on file Sexual Orientation Not on file documented as of this encounter Functional Status * Difference in Last Two Lauri Scores Answer Date of Assessment Author 0 07/04/2025 7:10 AM BAND SALVAGER Carole Brock RN * Weiner Fall Risk Question Answer Date of Assessment Author History of Falling 0 07/04/2025 7:10 AM BAND SALVAGER Carole Brock RN Secondary Diagnosis 0 07/04/2025 7:10 AM Carole Clarke RN Ambulatory Aids 0 07/04/2025 7:10 AM BAND SALVAGER Carole Whiting RN Intravenous Therapy/Heparin/Saline Lock 20 07/04/2025 7:10 AM Carole Nick RN Gait/Transferring 0 07/04/2025 7:10 AM Carole Nick RN Mental Status 0 07/04/2025 7:10 AM BAND SALVAGER Carole Masters RN * Lauri Scale Question Answer Date of Assessment Author Sensory Perceptions 4 07/04/2025 7:10 AM Carole Clarke RN Moisture 4 07/04/2025 7:10 AM BAND SALVAGER Carole Morris RN Activity 3 07/04/2025 7:10 AM BAND SALVAGER Carole Morris RN Mobility 4 07/04/2025 7:10 AM BAND SALVAGER Carole Morris RN Nutrition 3 07/04/2025 7:10 AM BAND SALVAGER Carole Morris RN Friction and Shear 3 07/04/2025 7:10 AM BAND SALVAGER Carole Brock RN * MAP (mmHg) Answer Date of Assessment Author 100 07/04/2025 7:25 AM BAND SALVAGER Dio Chairez * Lauri Scale Score Answer [...] dry (Sensory Perception/Moisture ) 07/04/2025 7:10 AM BAND SALVAGER Carole Brock, RN 2 Nurse Skin Assessment Jt RN and Sander RN 07/04/2025 7:10 AM BAND SALVAGER Carole rBock, JULIENNE * Transdermal Patch Admission Assessment Question Answer Date of Assessment Author Transdermal Patch Assessment on Admission Not Present 07/01/2025 2:00 PM BAND SALVAGER Anthony Sharma RN * Fall Risk Assessment [...] Able to feed self 07/04/2025 1:20 PM BAND SALVAGER Rosa Jauregui Appetite Good 07/04/2025 1:20 PM BAND SALVAGER Silva Garcia Percent Snack Eaten (%) 0 07/04/2025 8:45 A M BAND SALVAGER Dio Chairez * Question Answer Date of Assessment Author BP Location Left arm 07/04/2025 7:25 AM Dio Mayr BP Method Automatic 07/04/2025 7:25 AM Dio [...] EXCEPT: Bed alarm;Chair alarm 07/03/2025 8:00 PM BAND SALVAGER Verónica Fu RN Reason For Exception(s) BMAT 4 07/03/2025 8:00 P M BAND SALVAGER Verónica Fu RN * ADL Screening Question [...] 2 07/01/2025 2:00 PM Moise Hatch RN STRAIGHT LINE PRESS SETTER Evaluation Needed 2 07/01/2025 2:00 PM Moise [...] Martinez RN Patient is in need of STRAIGHT LINE PRESS SETTER Order: No STRAIGHT LINE PRESS SETTER order needed from this assessment 07/01/2025 2:00 PM Moise Martinez RN * Hygiene Question Answer Date of Assessment Author Hygiene Level of Assistance Independent 07/04/2025 2:00 PM BAND SALVAGER Dio Chairez Toileting: Assistance with Up to bathroom toilet 07/04/2025 2:00 PM BAND SALVAGER Dio Chairez Toileting: Level of assistance Independent 07/04/2025 2:00 PM BAND SALVAGER Dio Chairez Bath Bathed/showered non- chg (CHG not indicated OR not required here) 07/03/2025 2:00 PM BAND SALVAGER Silva Jauregui documented as of this encounter Mental Status * Question Answer Entry Date Author Neuro (JULIANO) WDL 07/04/2025 7:10 AM BAND SALVAGER Carole Morris RN documented in this encounter Plan of Treatment Not on file documented as of this encounter Procedures Procedure Name Priority Date/Time Associated Diagnosis Comments BREAST IMAGING MG SCREENING OUTSIDE REFERENCE Routine 03/18/2013 12:00 AM CDT documented in this encounter Results * Breast Imaging Screening Outside Reference (03/18/2013 12:00 AM CDT) Impressions [facility] - 01/03/2025 10:37 AM CDT These images are for Reference purposes only and have not been reviewed by [facility]. There will be no report generated by a [facility] Radiologist. Narrative [facility] - 01/03/2025 10:37 AM CDT EXAMINATION: Images For Reference Purposes Only us Provider Transcribed Order IMG MAMMO PROCEDURES Final Result [facility] documented in this encounter Visit Diagnoses Not on filedocumented in this encounter Additional Health Concerns Infection Onset Date Last Indicated Resolved Time COVID: Suspected 07/02/2025 07/02/2025 07/02/2025 3:40 PM BAND SALVAGER COVID: Suspected 07/02/2025 07/02/2025 07/02/2025 6:19 PM BAND SALVAGER documented as of this encounter
--- OUTSIDE RECORDS SUMMARY | 2017-03-26 23:00 | XMS_ITS | Encounter Summary ---
Author Organization [facility] Healthcare Address [address] [place] [address] Care Team Providers Care Blood Coordinator Name Role Phone Gerson Brand MD Primary Care Provider [phone] Reason for Visit * Diagnostic Imaging (Routine) - Pending Review Specialty Diagnoses / Procedures Referred By Contac t Referred To Contact Procedures Breast Imaging Screening Outside Reference Transcribed Order, Provider Referral ID Status Reason Start Date Expiration Date V isits Requested Visits Authorized [id number] Pending Review 01/03/2025 02/02/2026 1 1 Encounter Details Date Type Department Care Team (Late st Contact Info) Description 03/27/2017 Hospital Encounter [facility] [address] [place] [address] Social History Tobacco Use Types Packs/Day Years [...] often do you attend chur ch or voodoo services? 1 to 4 times per year 07/03/2025 Do you belong to any clubs o r organizations such as worship groups, unions, fraternal or athletic groups, or [...] any time in the past 12 m [facility], were you homeless or living in a detention (including now)? No 07/03/2025 [facility] Utilities Answer Date Recorded In the [...] on file Legal Sex Female 8:16 AM TECHNICAL APPLICATIONS SCIENTIST Gender Identity Not on file Sexual Orientation Not on file documented as of this encounter Functional Status * Difference in Last Two Lauri Scores Answer Date of Assessment Author 0 07/04/2025 7:10 AM Carole Nick, RN * Weiner Fall Risk Question Answer Date of Assessment Author History of Falling 0 07/04/2025 7:10 AM Carole Nick, RN Secondary Diagnosis 0 07/04/2025 7:10 AM Carole Clarke RN Ambulatory Aids 0 07/04/2025 7:10 AM TECHNICAL APPLICATIONS SCIENTIST Carole Whiting RN Intravenous Therapy/Heparin/Saline Lock 20 07/04/2025 7:10 AM Carole Nick RN Gait/Transferring 0 07/04/2025 7:10 AM TECHNICAL APPLICATIONS SCIENTIST Carole Brock RN Mental Status 0 07/04/2025 7:10 AM TECHNICAL APPLICATIONS SCIENTIST Carole Masters RN * Lauri Scale Question Answer Date of Assessment Author Sensory Perceptions 4 07/04/2025 7:10 AM Carole Clarke RN Moisture 4 07/04/2025 7:10 AM TECHNICAL APPLICATIONS SCIENTIST Carole Morris RN Activity 3 07/04/2025 7:10 AM TECHNICAL APPLICATIONS SCIENTIST Carole Morris RN Mobility 4 07/04/2025 7:10 AM TECHNICAL APPLICATIONS SCIENTIST Carole Morrsi RN Nutrition 3 07/04/2025 7:10 AM TECHNICAL APPLICATIONS SCIENTIST Carole Morris RN Friction and Shear 3 07/04/2025 7:10 AM TECHNICAL APPLICATIONS SCIENTIST Carole Brock RN * MAP (mmHg) Answer Date of Assessment Author 100 07/04/2025 7:25 AM Dio Fitzgerald * Lauri Scale Score Answer Date of Assessment Author 21 07/04/2025 7:10 AM Carole Nick RN * Question Answer Date of Assessment Author BP Location Left arm 07/04/2025 7:25 AM Doi Mary BP Method Automatic 07/04/2025 7:25 AM [...] EXCEPT: Bed alarm;Chair alarm 07/03/2025 8:00 PM TECHNICAL APPLICATIONS SCIENTIST Verónica Fu, JULIENNE Reason For Exception(s) BMAT 4 07/03/2025 8:00 P M TECHNICAL APPLICATIONS SCIENTIST Verónica Fu, JULIENNE * Weiner Fall Risk Score (Score >= [...] dry (Sensory Perception/Moisture ) 07/04/2025 7:10 AM TECHNICAL APPLICATIONS SCIENTIST Carole Brock, JULIENNE 2 Nurse Skin Assessment JULIENNE Waters and Sander RN 07/04/2025 7:10 AM TECHNICAL APPLICATIONS SCIENTIST Carole Brock, JULIENNE * Transdermal Patch Admission Assessment Question Answer Date of Assessment Author Transdermal Patch Assessment on Admission Not Present 07/01/2025 2:00 PM TECHNICAL APPLICATIONS SCIENTIST Anthony Sharma RN * Fall Risk Assessment Tool - MEDFRAT Question Answer Date of Assessment Author Prior Fall Event (Autopopula juliana from EMR) None found 07/01/2025 8:09 AM Mary Moreno RN Pt needs supervision/assista nce with ambulation? (makes [...] Beltran RN Fall risk score: (1-2 low risk), (3-4 moderate risk), (5 or more high risk) 0 07/01/2025 8:09 AM Mary Moreno R N * Integumentary Question Answer Date of Assessment Author Integumentary (WDL) WDL 07/04/2025 7:10 AM Carole Clarke, JULIENNE * Question Answer Date of Assessment Author Percent Meal Eaten (%) 75 07/04/2025 1:20 PM Silva Barnes Feeding Level of Assistance Able to feed self 07/04/2025 1:20 PM TECHNICAL APPLICATIONS SCIENTIST Rosa Jauregui Appetite Good 07/04/2025 1:20 PM TECHNICAL APPLICATIONS SCIENTIST Silva Garcia Percent Snack Eaten (%) 0 07/04/2025 8:45 A M TECHNICAL APPLICATIONS SCIENTIST Dio Chairez * Question Answer Date of [...] EXCEPT: Bed alarm;Chair alarm 07/03/2025 8:00 PM TECHNICAL APPLICATIONS SCIENTIST Verónica Fu RN Reason For Exception(s) BMAT 4 07/03/2025 8:00 P M TECHNICAL APPLICATIONS SCIENTIST Verónica Fu RN * ADL Screening Question [...] Right Ear Functional 07/01/2025 2:00 PM CS Moise Rea RN Hearing - Left Ear Functional 07/01/2025 [...] 2 07/01/2025 2:00 PM Moise Hatch RN ENROLLMENT NURSE Evaluation Needed 2 07/01/2025 2:00 PM Moise [...] Martinez RN Patient is in need of ENROLLMENT NURSE Order: No ENROLLMENT NURSE order needed from this assessment 07/01/2025 2:00 PM TECHNICAL APPLICATIONS SCIENTIST Dimaporo, Vernalee, RN * Hygiene Question Answer Date of Assessment Author Hygiene Level of Assistance Independent 07/04/2025 2:00 PM TECHNICAL APPLICATIONS SCIENTIST Dio Chairez Toileting: Assistance with Up to bathroom toilet 07/04/2025 2:00 PM TECHNICAL APPLICATIONS SCIENTIST Dio Chairez Toileting: Level of assistance Independent 07/04/2025 2:00 PM TECHNICAL APPLICATIONS SCIENTIST Dio Chairez Bath Bathed/showered non- chg (CHG not indicated OR not required here) 07/03/2025 2:00 PM TECHNICAL APPLICATIONS SCIENTIST Silva Jauregui documented as of this encounter Mental Status * Question Answer Entry Date Author Neuro (CHERRIEL) WDL 07/04/2025 7:10 AM TECHNICAL APPLICATIONS SCIENTIST Carole Morris RN documented in this encounter Plan of Treatment Not on file documented as of this encounter Procedures Procedure Name Priority Date/Time Associated Diagnosis Comments BREAST IMAGING MG SCREENING OUTSIDE REFERENCE Routine 03/27/2017 12:00 AM CDT documented in this encounter Results * Breast Imaging Screening Outside Reference (03/27/2017 12:00 AM CDT) Impressions [facility] - 01/03/2025 10:37 AM CDT These images are for Reference purposes only and have not been reviewed by [facility] Radiology. There will be no report generated by a [facility] Radiologist. Narrative [facility] - 01/03/2025 10:37 AM CDT EXAMINATION: Images For Reference Purposes Only us Provider Transcribed Order IMG MAMMO PROCEDURES Final Result [facility] documented in this encounter Visit Diagnoses Not on filedocumented in this encounter Additional Health Concerns Infection Onset Date Last Indicated Resolved Time COVID: Suspected 07/02/2025 07/02/2025 07/02/2025 3:40 PM TECHNICAL APPLICATIONS SCIENTIST COVID: Suspected 07/02/2025 07/02/2025 07/02/2025 6:19 PM TECHNICAL APPLICATIONS SCIENTIST documented as of this encounter Care Teams Blood Coordinator Relationship Specialty Start Date End Date Gerson Brand MD PCP - General 01/05/17 02/09/18 documented as of this encounter
--- NOTE | ~2025-07-17 | XR_ITS ---
EXAMINATION: XR foot RT min 3V DATE: 07/17/2025 09:44 INDICATION: Pain, right forefoot TECHNIQUE: AP, oblique, lateral views of the right foot were obtained. COMPARISON: None. FINDINGS: No acute bony lesions. 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 No valgus deformity of the toes. Joints in the mid foot including Lisfranc joints are normal. Prominent calcaneal spur. IMPRESSION: 1. Prominent plantar calcaneal spur. 2. 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 Reviewed, dictated and finalized at location T. RMAL WAITER/WAITRESS
--- NOTE | ~2025-07-17 | XR_ITS ---
EXAMINATION: XR knee LT min 4V, XR knee RT min 4V DATE: 07/17/2025 09:44 INDICATION: Bilateral knee pain. Chondromalacia patella. TECHNIQUE: [place] view of patellofemoral joints on both sides were obtained. AP standing view both knees, oblique views and lateral views were obtained as well. COMPARISON: Left knee x-ray dated 03/01/2025, right knee x-ray dated 03/01/2025 FINDINGS: Medial and lateral compartments of both knee joints are normal on AP weightbearing views. On the sunrise views, grade 2 degenerative changes of the lateral compartment of patellofemoral articulation on both sides. Soft tissues are unremarkable. IMPRESSION: 1. Mild degenerative changes are the lateral facet of patellofemoral joint of both knee joints noted. Remaining compartments are normal on both sides. Reviewed, dictated and finalized at location T. HOUSE CLERK IMPRESSION: 1. Mild degenerative changes are the lateral facet of patellofemoral joint of b oth knee joints noted. Remaining compartments are normal on both sides.
--- OUTSIDE RECORDS SUMMARY | 2025-07-17 09:29 | XMS_ITS | Clinical Summary ---
Author Organization [facility] Address [address] [place] [address] Care Team Providers [employer] Name Role Phone Alta Obregon NP Primary Care Provider [phone] Allergies Active Allergy Reactions Criticality Noted Date Comments Hydrocodone-Acetaminophen Itching Low 11/10/2008 Reaction: ITCHING Morphine (Bulk) Itching Low 11/10/2008 Medications calcium carbonate-vitamin D3 (CALCIUM+D) 400-133.3 mg-unit tablet Take 1 tablet by mouth daily Active ADDERALL XR 20 mg 24 hr capsule Take 1 capsule (20 mg total) by mouth every morning 8 Active exmbxptm-myi-hrqg fum-folic ac 7.5 mg iron-400 mcg tablet Take 1 tablet by mouth daily Active lisinopriL (PRINIVIL,ZESTRIL) 5 mg tablet Take 1 tablet (5 mg total) by mouth 2 (two) times a day 5 Active metroNIDAZOLE (FLAGYL) 500 mg tabletIndications: Abdominal/Pelvic Infection Take 1 tablet (500 mg total) by mouth 2 (two) times a day 7 tablet 5 Active ondansetron ODT (ZOFRAN-ODT) 4 mg disintegrating tabletIndications: Nausea and Vomiting Take 1 tablet (4 mg total) by mouth every 6 (six) hours as needed for nausea or vomiting 20 tablet [address] (PROTONIX) 40 mg EC tabletIndications: Treatment of Non-Bleeding Gastric Disorder Take 1 tablet (40 mg total) by mouth daily 14 tablet 5 11/26/2 025 Active cefdinir (OMNICEF) 300 mg capsule Take 1 capsule (300 mg total) by mouth 2 (two) times a day 6 capsule Active amoxicillin-clavul anate (AUGMENTIN) 875-125 mg per tablet 8 Discontin ued(Thera py completed ) diclofenac sodium (VOLTAREN) 1 % gel Place on the skin. 8 025 Discontin ued(Thera py completed ) estradiol (CLIMARA) 0.025 mg/[address] on the skin. Discontin ued(Thera py completed ) famotidine (PEPCID) 40 mg tablet daily. Discontin ued(Thera py completed ) diclofenac epolamine (FLECTOR) 1.3 %Indications:Sprai ns and Strains Place on the skin. Discontin ued(Thera py completed ) lidocaine (LIDODERM) 5 % APPLY 2 PATCHs TO THE AFFECTED AREA AND LEAVE IN PLACE FOR 12 HOURS, THEN REMOVE AND LEAVE OFF FOR 12 HOURS. 9 Discontin ued(Thera py completed ) Active Problems Problem Noted Date Diagnosed Date Primary hypertension 07/02/2025 Assessment & Plan (07/03/2025 8:42 AM AIR INTELLIGENCE SPECIALIST): Continue lisinopril Assessment & Plan (07/02/2025 6:41 PM AIR INTELLIGENCE SPECIALIST): Continue lisinopril ADHD 07/02/2025 Assessment & Plan (07/03/2025 8:42 AM AIR INTELLIGENCE SPECIALIST): Continue Adderall Assessment & Plan (07/02/2025 6:41 PM AIR INTELLIGENCE SPECIALIST): Continue Adderall Acute cough 07/02/2025 Assessment & Plan (07/03/2025 8:09 PM AIR INTELLIGENCE SPECIALIST): Absent fever, normal lung exam. Swab for RSV, COVID and influenza negative. P.r.n. cough syrup. Subsiding. Follow for resolution. Assessment & Plan (07/02/2025 6:41 PM AIR INTELLIGENCE SPECIALIST): Absent fever, normal lung exam. Swab for RSV, COVID and influenza negative. P.r.n. cough syrup. Follow for resolution. Colitis 07/01/2025 Assessment & Plan (07/03/2025 8:14 PM AIR INTELLIGENCE SPECIALIST): H/o recurrent colitis. Past colonoscopies done within the last 5 years unremarkable per patient but for a polyp removed. Continue Flagyl and ceftriaxone day 3 No stool sample sent, no bowel movement since admit S/p IVFs now on a full liquid diet. Advance to a regular, low-fiber diet for dinner. Patient will pick foods that are easier to digest. IV PPI now transitioned to oral PPI daily Advised outpatient GI referral for repeat colonoscopy; referral placed. Oral Tylenol for mild pain, IV Toradol for second-line pain (we will use this p.r.n. as suspect bleeding from colitis and not from an upper GI source), IV morphine with Benadryl for severe pain or breakthrough pain. Assessment & Plan (07/02/2025 6:41 PM AIR INTELLIGENCE SPECIALIST): Continue IV Flagyl and ceftriaxone day 2 Full liquid diet Continue IV PPI daily Advised outpatient GI referral for repeat colonoscopy Oral Tylenol for mild pain, IV Toradol for second-line pain (we will use this p.r.n. as suspect bleeding from colitis and not from an upper GI source), IV morphine with Benadryl for severe pain or breakthrough pain. Discontinue IV fluids. Hematochezia 07/01/2025 Assessment & Plan (07/03/2025 8:14 PM AIR INTELLIGENCE SPECIALIST): H/o recurrent colitis. Past colonoscopies done within the last 5 years unremarkable per patient but for a polyp removed. Continue Flagyl and ceftriaxone day 3 No stool sample sent, no bowel movement since admit S/p IVFs now on a full liquid diet. Advance to a regular, low-fiber diet for dinner. Patient will pick foods that are easier to digest. IV PPI now transitioned to oral PPI daily Advised outpatient GI referral for repeat colonoscopy; referral placed. Oral Tylenol for mild pain, IV Toradol for second-line pain (we will use this p.r.n. as suspect bleeding from colitis and not from an upper GI source), IV morphine with Benadryl for severe pain or breakthrough pain. Assessment & Plan (07/02/2025 6:41 PM AIR INTELLIGENCE SPECIALIST): Continue IV Flagyl and ceftriaxone day 2 Full liquid diet Continue IV PPI daily Advised outpatient GI referral for repeat colonoscopy Oral Tylenol for mild pain, IV Toradol for second-line pain (we will use this p.r.n. as suspect bleeding from colitis and not from an upper GI source), IV morphine with Benadryl for severe pain or breakthrough pain. Discontinue IV fluids. Encounters Date Type Department Care Team Description 07/01/2025 8:35 AM AIR INTELLIGENCE SPECIALIST - 07/04/2025 3:00 PM AIR INTELLIGENCE SPECIALIST Hospital Encounter [address] [address] Shira Marino MD Chowdhury, Farhanaz, MD Colitis (Primary Dx); Hematochezia Discharge Disposition: Discharge to home or self care 04/27/2025 1:00 PM CDT [facility] [address] [place] [phone] Ailyn Santos PA Breast pain (Primary Dx) 04/18/2025 [facility] [address] [place] [phone] Sena Lugo CMA 04/18/2025 Orders Only [facility] [address] [place] [phone] Ailyn Santos PA Breast pain, left (Primary Dx) from Last 3 Months Surgical History Surgery [...] Tobacco: Never Tobacco Cessation:Counseling Given: Not Answered Social Connection and Isolation Panel Answer Date Recorded In a typical week, how many times do you talk on the phone with family, friends, or neighbors? Three times a week 07/03/20 How often do you get togethe r with friends or relatives? Three times a week 07/03/2025 How often do you attend chur ch or church services? 1 to 4 times per year 07/03/2025 Do you belong to any clubs o r organizations such as pentecostal groups, unions, fraternal or athletic groups, or [...] money to buy more. Never true 07/03/20 Within the past 12 months, t he [...] any time in the past 12 m [facility], were you homeless or living in a chcf (including now)? No 07/03/2025 [facility] Utilities Answer Date Recorded In the past 12 months has th e electric, gas, oil, or water [employer] threatened to shut off services in your home? No 07/03/2025 Personal Safety Answer Date Recorded Have you ever been in or are you currently in a harmful physical or emotional relationship or is someone making you feel afraid or unsafe? Denies 07/01/2025 Comments No Sex and Gender Information Value Date Recorded Sex Assigned at Not on file Legal Sex Female 8:16 AM AIR INTELLIGENCE SPECIALIST Gender Identity Not on file Sexual Orientation Not on file Obstetrics History Para Term AB IAB SAB Ectopic Multiple Livin g Live Births 2 2 2 Date Outcome GA Total Labor Labor/2nd/3rd Weight Sex Type Anes PTL Katelin A1 A5 Name Clin Term Term Last Filed Vital Signs Vital Sign Reading Time Taken Comments Blood Pressure 133/85 07/04/2025 7:25 AM AIR INTELLIGENCE SPECIALIST Pulse 57 07/04/2025 7:25 AM AIR INTELLIGENCE SPECIALIST Temperature 36.6 C (97.9 F) 07/04/2025 7:25 AM AIR INTELLIGENCE SPECIALIST Respiratory Rate 18 07/04/2025 7:25 AM AIR INTELLIGENCE SPECIALIST Oxygen Saturation 98% 07/04/2025 7:25 AM AIR INTELLIGENCE SPECIALIST Inhaled Oxygen Concentration - - Weight 65.1 kg (143 lb 8.3 oz) 07/01/2025 1:32 P M AIR INTELLIGENCE SPECIALIST Height 157.5 cm (5' 2) 07/01/2025 1:32 PM AIR INTELLIGENCE SPECIALIST Body Mass Index 26.25 07/01/2025 1:32 PM AIR INTELLIGENCE SPECIALIST Plan of Treatment Health Maintenance Due Date Last Done Comments Colon Cancer Screening-Colonoscopy 1950 Depression Screening 1950 Hepatitis C Screening 1950 Osteoporosis Screening-Bone Density Scan 1950 Hepatitis B Screening 1969 DTaP/Tdap/Td Vaccine (1 - Tdap) 06/20/2014 4 Well Visit 65+ 2016 Zoster Vaccine (2 of 2) 01/17/2019 11/22/2018, 09/13 Covid-19 Vaccine (3 - 2024-2 6 season) 2025 11/21/2020, 10/31/2020 Influenza Vaccine (#1) 2025 , 05/14/2019, 04/22/2018, Additional history exists Breast Cancer Screening-Mammogram 11/24/2025 11/24/2024, 11/02/2019, 08/01/2015 Fall Risk Assessment 07/04/2026 07/04/2025 Pneumococcal vaccine 65+ Completed 02/12/2018, 02/2017 Medical Devices Implanted Type Area Surgical Services Coordinator Device Identifier Shelf Expiration Date Model / Serial / Lot Bard Peripheral Vascular Ultraclip Bard 17ga 10cm 2 Trigger Permanent Ultrasound [id number] - [id number] Implanted:Qty: 1 on 02/02/2025 by Taryn Gutierrez MD at [facility] Left: Breast [employer] Peripheral V[employer] [id number] / / Procedures Procedure Name Priority Date/Time Associated Diagnosis Comments EGFR Routine 07/04/2025 3:48 AM AIR INTELLIGENCE SPECIALIST DIFFERENTIAL AUTO Routine 07/04/2025 3:4 8 AM AIR INTELLIGENCE SPECIALIST FOLATE Routine 07/04/2025 3:48 AM AIR INTELLIGENCE SPECIALIST CBC WITH AUTO DIFFERENTIAL Routine 07/04/2025 3:48 AM AIR INTELLIGENCE SPECIALIST BASIC METABOLIC PANEL Routine 07/04/2025 3:48 AM AIR INTELLIGENCE SPECIALIST IRON PROFILE W/ IBC Routine 07/03/2025 6 :39 AM AIR INTELLIGENCE SPECIALIST VITAMIN B12 Routine 07/03/2025 6:39 AM AIR INTELLIGENCE SPECIALIST FERRITIN Routine 07/03/2025 6:39 AM AIR INTELLIGENCE SPECIALIST EGFR Routine 07/03/2025 6:39 AM AIR INTELLIGENCE SPECIALIST DIFFERENTIAL AUTO Routine 07/03/2025 6:3 9 AM AIR INTELLIGENCE SPECIALIST CBC WITH AUTO DIFFERENTIAL Routine 07/03/2025 6:39 AM AIR INTELLIGENCE SPECIALIST BASIC METABOLIC PANEL Routine 07/03/2025 6:39 AM AIR INTELLIGENCE SPECIALIST HEMOGLOBIN AND HEMATOCRIT Timed 07/02/2025 5:17 PM AIR INTELLIGENCE SPECIALIST INFLUENZA A/B, RSV, AND COVID-19 PCR Routine 07/02/2025 2:52 PM AIR INTELLIGENCE SPECIALIST EGFR Routine 07/02/2025 4:23 AM AIR INTELLIGENCE SPECIALIST DIFFERENTIAL AUTO Routine 07/02/2025 4:2 3 AM AIR INTELLIGENCE SPECIALIST CBC WITH AUTO DIFFERENTIAL Routine 07/02/2025 4:23 AM AIR INTELLIGENCE SPECIALIST BASIC METABOLIC PANEL Routine 07/02/2025 4:23 AM AIR INTELLIGENCE SPECIALIST HEMOGLOBIN AND HEMATOCRIT STAT 07/01/2025 9:39 PM AIR INTELLIGENCE SPECIALIST BLOOD CULTURE STAT 07/01/2025 11:25 AM AIR INTELLIGENCE SPECIALIST SEPSIS LACTATE WITH REFLEX STAT 07/01/2025 11:24 AM AIR INTELLIGENCE SPECIALIST BLOOD CULTURE STAT 07/01/2025 11:24 AM AIR INTELLIGENCE SPECIALIST CTA ABDOMEN PELVIS W WO CONTRAST ED 07/01/2025 9:36 AM AIR INTELLIGENCE SPECIALIST URINALYSIS AND REFLEX TO MICROSCOPIC AND CULTURE STAT 07/01/2025 8:49 AM AIR INTELLIGENCE SPECIALIST EGFR STAT 07/01/2025 8:23 AM AIR INTELLIGENCE SPECIALIST DIFFERENTIAL AUTO STAT 07/01/2025 8:2 3 AM AIR INTELLIGENCE SPECIALIST LIPASE STAT 07/01/2025 8:23 AM AIR INTELLIGENCE SPECIALIST COMPREHENSIVE METABOLIC PANEL STAT 07/01/2025 8:23 AM AIR INTELLIGENCE SPECIALIST CBC WITH AUTO DIFFERENTIAL STAT 07/01/2025 8:23 AM AIR INTELLIGENCE SPECIALIST DIAGNOSTIC MAMMOGRAM Schedule Routine, Read Routine (OP Routine) 11/24/2024 7:38 AM CDT from Last 3 Months or Most Recently Relevant to Health Maintenance Results * eGFR (07/04/2025 3:48 AM AIR INTELLIGENCE SPECIALIST) Pathologist [facility] eGFR >90 >=60 mL/min/1. 73 m2 Comment: Interpretive Data Reference Interval Normal >/= 90 mL/min/1.73m2 Mildly decreased* 60 - 89 mL/min/1.73m2 Mildly to moderately decreased 45 - 59 mL/min/1.73m2 Moderately to severely decreased 30 - 44 mL/min/1.73m2 Severely decreased 15 - 29 mL/min/1.73m2 Kidney Failure < 15 mL/min/1.73m2 *Relative to young adult level Estimated glomerular filtration rate is determined by the 2020 CKD-EPI equation recommended by the National Kidney Foundation (A Unifying Approach to GFR Estimation: Recommendations of the NKF-ASK Task Force on Reassessing the Inclusion of Race in Diagnosing Kidney Disease, JASN 2020). The CKD-EPI equation should not be used for patients with unstable renal function and has not been validated in children and those over 70. Current interpretive data was last reviewed 2021. Blood 07/04/2025 3:48 AM AIR INTELLIGENCE SPECIALIST 07/04/2025 4:13 AM AIR INTELLIGENCE SPECIALIST us Regulo Wright NP LAB BLOOD ORDERABLES Final Re sult [facility] [address] [facility] Department [place] [address] * Differential, auto (07/04/2025 3:48 AM AIR INTELLIGENCE SPECIALIST) [facility] Neutrophil abs 4.55 1.50 - 6.50 K/cumm Imm gran abs 0.02 0.00 - 0.10 K/cumm [facility] Lymphocyte abs 1.92 0.80 - 3.30 K/cumm [facility] Monocyte abs 0.61 0.20 - 0.80 K/cumm [facility] Eosinophil abs 0.24 0.00 - 0.50 K/cumm [facility] Basophil abs 0.04 0.00 - 0.10 K/cumm [facility] Neutrophil pct 61.6 % [facility] Comment: Interpretive Data Percent cell count reference ranges are not reported, since discordance with absolute values may lead to misinterpretation of CBC data. Current Interpretive Data was last revised on 2017. Imm gran pct 0.3 % [facility] Comment: Interpretive Data Percent cell count reference ranges are not reported, since discordance with absolute values may lead to misinterpretation of CBC data. Current Interpretive Data was last revised on 2017. Lymphocyte pct 26.0 % [facility] Comment: Interpretive Data Percent cell count reference ranges are not reported, since discordance with absolute values may lead to misinterpretation of CBC data. Current Interpretive Data was last revised on 2017. Monocyte pct 8.3 % [facility] Comment: Interpretive Data Percent cell count reference ranges are not reported, since discordance with absolute values may lead to misinterpretation of CBC data. Current Interpretive Data was last revised on 2017. Eosinophil pct 3.3 % [facility] Comment: Interpretive Data Percent cell count reference ranges are not reported, since discordance with absolute values may lead to misinterpretation of CBC data. Current Interpretive Data was last revised on 2017. Basophil pct 0.5 % [facility] Comment: Interpretive Data Percent cell count reference ranges are not reported, since discordance with absolute values may lead to misinterpretation of CBC data. Current Interpretive Data was last revised on 2017. Blood 07/04/2025 3:48 AM AIR INTELLIGENCE SPECIALIST 07/04/2025 4:13 AM AIR INTELLIGENCE SPECIALIST us Regulo Wright NP LAB BLOOD ORDERABLES Final Re sult [facility] [address] [facility] Department [place] [address] * (ABNORMAL) CBC with auto differential (07/04/2025 3:48 AM AIR INTELLIGENCE SPECIALIST) WBC 7.38 3.80 - 9.90 K/cumm Hgb 9.8(L) 11.9 - 15.5 g/dL [facility] Hct 31.3(L) 35.6 - 45.5 % [facility] Plt 201 150 - 400 K/cumm [facility] MPV 11.5 9.1 - 12.3 fL [facility] RBC 3.47(L) 3.90 - 5.20 M/cumm [facility] MCV 90.2 81.3 - 96.4 fL [facility] MCH 28.2 27.1 - 33.3 pg [facility] MCHC 31.3(L) 32.3 - 35.7 g/dL [facility] RDW CV 13.6 11.1 - 14.9 % [facility] RDW SD 45.0 35.7 - 48.1 fL [facility] NRBC abs 0.00 0.00 - 0.01 K/cumm [facility] Blood 07/04/2025 3:48 AM AIR INTELLIGENCE SPECIALIST 07/04/2025 4:13 AM AIR INTELLIGENCE SPECIALIST Regulo Wright NP LAB BLOOD ORDERABLES Final Re sult Performing Organization Address City/[facility]/ZIP Co de Phone Number [address] [place] [address] * Folate (07/04/2025 3:48 AM AIR INTELLIGENCE SPECIALIST) [facility] Folic acid >20.0 >=5.0 ng/mL Blood 07/04/2025 3:48 AM AIR INTELLIGENCE SPECIALIST 07/04/2025 4:13 AM AIR INTELLIGENCE SPECIALIST Shira Marino MD LAB BLOOD ORDERABLES Irma l Result Performing Organization Address [facility] Co de Phone Number [address] [place] [address] * Basic metabolic panel (07/04/2025 3:48 AM AIR INTELLIGENCE SPECIALIST) [facility] Sodium 139 135 - 145 mmol/L Potassium, pl 4.5 3.3 - 4.9 mmol/L [facility] Chloride 105 97 - 110 mmol/L [facility] CO2 25 22 - 32 mmol/L [facility] Anion gap 9 2 - 15 mmol/L [facility] BUN 14 6 - 25 mg/dL [facility] Creatinine 0.69 0.60 - 1.10 mg/dL [facility] Glucose 99 70 - 199 mg/dL [facility] Comment: Interpretive Data Fasting glucose >/= 126 mg/dl is diagnostic for diabetes. Fasting is defined as no caloric intake for at least 8 hours. Fasting glucose between 100 mg/dl to 125 mg/dl is diagnostic of prediabetes. In a patient with classic symptoms of hyperglycemia or hyperglycemic crisis, a random glucose >/= 200 mg/dl is diagnostic for diabetes. In the absence of unequivocal hyperglycemia, results should be confirmed by repeat testing. The classification and Diagnosis of Diabetes Diabetes Care 2021; 46: S19-S40. Current interpretive data was last revised 2022. Calcium 9.0 8.5 - 10.3 mg/dL [facility] Blood 07/04/2025 3:48 AM AIR INTELLIGENCE SPECIALIST 07/04/2025 4:13 AM AIR INTELLIGENCE SPECIALIST us Regulo Wright NP LAB BLOOD ORDERABLES Final Re sult [facility] Department [place] [address] * eGFR (07/03/2025 6:39 AM AIR INTELLIGENCE SPECIALIST) eGFR >90 >=60 mL/min/1. 73 m2 Comment: Interpretive Data Reference Interval Normal >/= 90 mL/min/1.73m2 Mildly decreased* 60 - 89 mL/min/1.73m2 Mildly to moderately decreased 45 - 59 mL/min/1.73m2 Moderately to severely decreased 30 - 44 mL/min/1.73m2 Severely decreased 15 - 29 mL/min/1.73m2 Kidney Failure < 15 mL/min/1.73m2 *Relative to young adult level Estimated glomerular filtration rate is determined by the 2020 CKD-EPI equation recommended by the National Kidney Foundation (A Unifying Approach to GFR Estimation: Recommendations of the NKF-ASK Task Force on Reassessing the Inclusion of Race in Diagnosing Kidney Disease, JASN 202). The CKD-EPI equation should not be used for patients with unstable renal function and has not been validated in children and those over 70. Current interpretive data was last reviewed 2021. Blood 07/03/2025 6:39 AM AIR INTELLIGENCE SPECIALIST 07/03/2025 6:45 AM AIR INTELLIGENCE SPECIALIST us Regulo Wright NP LAB BLOOD ORDERABLES Final Re sult [facility] [address] [facility] Department [place] [address] * Differential, auto (07/03/2025 6:39 AM AIR INTELLIGENCE SPECIALIST) Neutrophil abs 4.82 1.50 - 6.50 K/cumm Imm gran abs 0.03 0.00 - 0.10 K/cumm [facility] Lymphocyte abs 1.95 0.80 - 3.30 K/cumm [facility] Monocyte abs 0.47 0.20 - 0.80 K/cumm [facility] Eosinophil abs 0.15 0.00 - 0.50 K/cumm [facility] Basophil abs 0.03 0.00 - 0.10 K/cumm [facility] Neutrophil pct 64.7 % [facility] Comment: Interpretive Data Percent cell count reference ranges are not reported, since discordance with absolute values may lead to misinterpretation of CBC data. Current Interpretive Data was last revised on 2017. Imm gran pct 0.4 % [facility] Comment: Interpretive Data Percent cell count reference ranges are not reported, since discordance with absolute values may lead to misinterpretation of CBC data. Current Interpretive Data was last revised on 2017. Lymphocyte pct 26.2 % [facility] Comment: Interpretive Data Percent cell count reference ranges are not reported, since discordance with absolute values may lead to misinterpretation of CBC data. Current Interpretive Data was last revised on 2017. Monocyte pct 6.3 % [facility] Comment: Interpretive Data Percent cell count reference ranges are not reported, since discordance with absolute values may lead to misinterpretation of CBC data. Current Interpretive Data was last revised on 2017. Eosinophil pct 2.0 % [facility] Comment: Interpretive Data Percent cell count reference ranges are not reported, since discordance with absolute values may lead to misinterpretation of CBC data. Current Interpretive Data was last revised on 2017. Basophil pct 0.4 % [facility] Comment: Interpretive Data Percent cell count reference ranges are not reported, since discordance with absolute values may lead to misinterpretation of CBC data. Current Interpretive Data was last revised on 2017. Blood 07/03/2025 6:39 AM AIR INTELLIGENCE SPECIALIST 07/03/2025 6:45 AM AIR INTELLIGENCE SPECIALIST us Regulo Wright NP LAB BLOOD ORDERABLES Final Re sult Performing Organization Address [facility] Co de Phone Number [address] [place] [address] * (ABNORMAL) Iron profile w/ IBC (07/03/2025 6:39 AM AIR INTELLIGENCE SPECIALIST) [facility] Iron 51 35 - 145 mcg/dL TIBC 206(L) 250 - 400 mcg/dL [facility] Transferrin saturation 25 20 - 50 % [facility] Blood 07/03/2025 6:39 AM AIR INTELLIGENCE SPECIALIST 07/03/2025 6:45 AM AIR INTELLIGENCE SPECIALIST Shira Marino MD LAB BLOOD ORDERABLES Irma l Result Performing Organization Address [facility] Co de Phone Number [address] [address] * (ABNORMAL) CBC with auto differential (07/03/2025 6:39 AM AIR INTELLIGENCE SPECIALIST) [facility] WBC 7.45 3.80 - 9.90 K/cumm Hgb 10.6(L) 11.9 - 15.5 g/dL [facility] Hct 33.7(L) 35.6 - 45.5 % [facility] Plt 193 150 - 400 K/cumm [facility] MPV 11.0 9.1 - 12.3 fL [facility] RBC 3.71(L) 3.90 - 5.20 M/cumm [facility] MCV 90.8 81.3 - 96.4 fL [facility] MCH 28.6 27.1 - 33.3 pg [facility] MCHC 31.5(L) 32.3 - 35.7 g/dL [facility] RDW CV 13.5 11.1 - 14.9 % [facility] RDW SD 45.3 35.7 - 48.1 fL [facility] NRBC abs 0.00 0.00 - 0.01 K/cumm [facility] Blood 07/03/2025 6:39 AM AIR INTELLIGENCE SPECIALIST 07/03/2025 6:45 AM AIR INTELLIGENCE SPECIALIST Regulo Wright NP LAB BLOOD ORDERABLES Final Re sult Performing Organization Address [facility] Co de Phone Number [address] [place] [address] * (ABNORMAL) Ferritin (07/03/2025 6:39 AM AIR INTELLIGENCE SPECIALIST) [facility] Ferritin 373(H) 13 - 150 ng/mL Blood 07/03/2025 6:39 AM AIR INTELLIGENCE SPECIALIST 07/03/2025 6:45 AM AIR INTELLIGENCE SPECIALIST Shira Marino MD LAB BLOOD ORDERABLES Irma l Result Performing Organization Address [facility] Co de Phone Number [address] [place] [address] * (ABNORMAL) Vitamin B12 (07/03/2025 6:39 AM AIR INTELLIGENCE SPECIALIST) [facility] Vitamin B12 >2,000(H) 230 - 1,250 pg/mL Blood 07/03/2025 6:39 AM AIR INTELLIGENCE SPECIALIST 07/03/2025 6:45 AM AIR INTELLIGENCE SPECIALIST Shira Marino MD LAB BLOOD ORDERABLES Irma l Result Performing Organization Address [facility] Co de Phone Number [address] [place] [address] * Basic metabolic panel (07/03/2025 6:39 AM AIR INTELLIGENCE SPECIALIST) [facility] Sodium 138 135 - 145 mmol/L Potassium, pl 4.4 3.3 - 4.9 mmol/L [facility] Chloride 106 97 - 110 mmol/L [facility] CO2 26 22 - 32 mmol/L [facility] Anion gap 6 2 - 15 mmol/L [facility] BUN 11 6 - 25 mg/dL [facility] Creatinine 0.64 0.60 - 1.10 mg/dL [facility] Glucose 91 70 - 199 mg/dL [facility] Comment: Interpretive Data Fasting glucose >/= 126 mg/dl is diagnostic for diabetes. Fasting is defined as no caloric intake for at least 8 hours. Fasting glucose between 100 mg/dl to 125 mg/dl is diagnostic of prediabetes. In a patient with classic symptoms of hyperglycemia or hyperglycemic crisis, a random glucose >/= 200 mg/dl is diagnostic for diabetes. In the absence of unequivocal hyperglycemia, results should be confirmed by repeat testing. The classification and Diagnosis of Diabetes Diabetes Care 2021; 46: S19-S40. Current interpretive data was last revised 2022. Calcium 9.2 8.5 - 10.3 mg/dL [facility] Blood 07/03/2025 6:39 AM AIR INTELLIGENCE SPECIALIST 07/03/2025 6:45 AM AIR INTELLIGENCE SPECIALIST Regulo Wright NP LAB BLOOD ORDERABLES Final Re sult Performing Organization Address City/[facility] Co de Phone Number [address] [place] [place] [address] * (ABNORMAL) Hemoglobin and hematocrit (07/02/2025 5:17 PM AIR INTELLIGENCE SPECIALIST) [facility] Hgb 10.5(L) 11.9 - 15.5 g/dL Hct 32.7(L) 35.6 - 45.5 % [facility] Blood 07/02/2025 5:17 PM AIR INTELLIGENCE SPECIALIST 07/02/2025 6:02 PM AIR INTELLIGENCE SPECIALIST Shira Marino MD LAB BLOOD ORDERABLES Irma l Result Performing Organization Address City/[facility] Co de Phone Number [address] [place] [address] * Influenza A/B, RSV, and COVID-19 PCR Nasopharyngeal (07/02/2025 2:52 PM AIR INTELLIGENCE SPECIALIST) [facility] COVID-19 RNA Negative Negative Influenza A RNA Negative Negative [facility] Influenza B RNA Negative Negative [facility] RSV RNA Negative Negative [facility] Comment: Interpretive data: Testing performed by [facility]. This test is performed using the miradio[employer] Xpert Xpress CoV-2/Flu/RSV plus assay. This is a multiplex, real-time reverse transcriptase PCR assay intended for the qualitative detection of nucleic acid from SARS-CoV-2, influenza A, influenza B, and respiratory syncytial virus. This assay has been cleared by the [place] Food and Drug administration. The performance characteristics have been verified by the [facility]. Results must be considered in the clinical context, and a negative result does not rule out infection. Interpretive Data last revised 2023 Nasopharyngeal 07/02/2025 2: 52 PM AIR INTELLIGENCE SPECIALIST 07/02/2025 2:57 PM AIR INTELLIGENCE SPECIALIST Narrative [facility] - 07/02/2025 3:39 PM AIR INTELLIGENCE SPECIALIST Is the Patient experiencing symptoms consistent with COVID?->Yes Shira Yissel Marino MD LAB MICROBIOLOGY - GENERA L ORDERABLES Final Result [facility] [address] [facility] Department [place] [address] * eGFR (07/02/2025 4:23 AM AIR INTELLIGENCE SPECIALIST) eGFR >90 >=60 mL/min/1. 73 m2 Comment: Interpretive Data Reference Interval Normal >/= 90 mL/min/1.73m2 Mildly decreased* 60 - 89 mL/min/1.73m2 Mildly to moderately decreased 45 - 59 mL/min/1.73m2 Moderately to severely decreased 30 - 44 mL/min/1.73m2 Severely decreased 15 - 29 mL/min/1.73m2 Kidney Failure < 15 mL/min/1.73m2 *Relative to young adult level Estimated glomerular filtration rate is determined by the 2020 CKD-EPI equation recommended by the National Kidney Foundation (A Unifying Approach to GFR Estimation: Recommendations of the NKF-ASK Task Force on Reassessing the Inclusion of Race in Diagnosing Kidney Disease, JASN 202). The CKD-EPI equation should not be used for patients with unstable renal function and has not been validated in children and those over 70. Current interpretive data was last reviewed 2021. Blood 07/02/2025 4:23 AM AIR INTELLIGENCE SPECIALIST 07/02/2025 4:57 AM AIR INTELLIGENCE SPECIALIST us Regulo Wright NP LAB BLOOD ORDERABLES Final Re sult [facility] [address] [facility] Department [place] [address] * (ABNORMAL) Differential, auto (07/02/2025 4:23 AM AIR INTELLIGENCE SPECIALIST) Neutrophil abs 6.52(H) 1.50 - 6.50 K/cumm Imm gran abs 0.02 0.00 - 0.10 K/cumm [facility] Lymphocyte abs 2.11 0.80 - 3.30 K/cumm [facility] Monocyte abs 0.79 0.20 - 0.80 K/cumm [facility] Eosinophil abs 0.12 0.00 - 0.50 K/cumm [facility] Basophil abs 0.03 0.00 - 0.10 K/cumm [facility] Neutrophil pct 68.0 % [facility] Comment: Interpretive Data Percent cell count reference ranges are not reported, since discordance with absolute values may lead to misinterpretation of CBC data. Current Interpretive Data was last revised on 2017. Imm gran pct 0.2 % [facility] Comment: Interpretive Data Percent cell count reference ranges are not reported, since discordance with absolute values may lead to misinterpretation of CBC data. Current Interpretive Data was last revised on 2017. Lymphocyte pct 22.0 % [facility] Comment: Interpretive Data Percent cell count reference ranges are not reported, since discordance with absolute values may lead to misinterpretation of CBC data. Current Interpretive Data was last revised on 2017. Monocyte pct 8.2 % [facility] Comment: Interpretive Data Percent cell count reference ranges are not reported, since discordance with absolute values may lead to misinterpretation of CBC data. Current Interpretive Data was last revised on 2017. Eosinophil pct 1.3 % [facility] Comment: Interpretive Data Percent cell count reference ranges are not reported, since discordance with absolute values may lead to misinterpretation of CBC data. Current Interpretive Data was last revised on 2017. Basophil pct 0.3 % [facility] Comment: Interpretive Data Percent cell count reference ranges are not reported, since discordance with absolute values may lead to misinterpretation of CBC data. Current Interpretive Data was last revised on 2017. Blood 07/02/2025 4:23 AM AIR INTELLIGENCE SPECIALIST 07/02/2025 4:57 AM AIR INTELLIGENCE SPECIALIST [facility] BLOOD ORDERABLES Final Re sult Performing Organization Address [facility]/ZIP Co de Phone Number [address] [employer] [place], [place] [id number] * (ABNORMAL) CBC with auto differential (07/02/2025 4:23 AM AIR INTELLIGENCE SPECIALIST) WBC 9.59 3.80 - 9.90 K/cumm Hgb 10.7(L) 11.9 - 15.5 g/dL [facility] Hct 34.4(L) 35.6 - 45.5 % [facility] Plt 202 150 - 400 K/cumm [facility] MPV 11.3 9.1 - 12.3 fL [facility] RBC 3.76(L) 3.90 - 5.20 M/cumm [facility] MCV 91.5 81.3 - 96.4 fL [facility] MCH 28.5 27.1 - 33.3 pg [facility] MCHC 31.1(L) 32.3 - 35.7 g/dL [facility] RDW CV 13.7 11.1 - 14.9 % [facility] RDW SD 46.2 35.7 - 48.1 fL [facility] NRBC abs 0.00 0.00 - 0.01 K/cumm [facility] Blood 07/02/2025 4:23 AM AIR INTELLIGENCE SPECIALIST 07/02/2025 4:57 AM AIR INTELLIGENCE SPECIALIST [facility] BLOOD ORDERABLES Final Re sult Performing Organization Address City/[facility]/ZIP Co de Phone Number [address] [place] [address] * Basic metabolic panel (07/02/2025 4:23 AM AIR INTELLIGENCE SPECIALIST) Sodium 138 135 - 145 mmol/L Potassium, pl 4.4 3.3 - 4.9 mmol/L [facility] Chloride 105 97 - 110 mmol/L [facility] CO2 25 22 - 32 mmol/L [facility] Anion gap 8 2 - 15 mmol/L [facility] BUN 14 6 - 25 mg/dL [facility] Creatinine 0.69 0.60 - 1.10 mg/dL [facility] Glucose 108 70 - 199 mg/dL [facility] Comment: Interpretive Data Fasting glucose >/= 126 mg/dl is diagnostic for diabetes. Fasting is defined as no caloric intake for at least 8 hours. Fasting glucose between 100 mg/dl to 125 mg/dl is diagnostic of prediabetes. In a patient with classic symptoms of hyperglycemia or hyperglycemic crisis, a random glucose >/= 200 mg/dl is diagnostic for diabetes. In the absence of unequivocal hyperglycemia, results should be confirmed by repeat testing. The classification and Diagnosis of Diabetes Diabetes Care 2021; 46: S19-S40. Current interpretive data was last revised 2022. Calcium 9.3 8.5 - 10.3 mg/dL [facility] Blood 07/02/2025 4:23 AM AIR INTELLIGENCE SPECIALIST 07/02/2025 4:57 AM AIR INTELLIGENCE SPECIALIST us Regulo Wright NP LAB BLOOD ORDERABLES Final [facility] Organization Address City/State/ZIP Co de Phone Number [facility] [address] [facility] [place] [address] * (ABNORMAL) Hemoglobin and hematocrit (07/01/2025 9:39 PM AIR INTELLIGENCE SPECIALIST) Hgb 10.9(L) 11.9 - 15.5 g/dL Hct 34.7(L) 35.6 - 45.5 % [facility] Blood 07/01/2025 9:39 PM AIR INTELLIGENCE SPECIALIST 07/01/2025 9:58 PM AIR INTELLIGENCE SPECIALIST Shira Marino MD LAB BLOOD ORDERABLES Irma l Result Performing Organization Address City/[facility]/ZIP Co de Phone Number [facility] Department [place] [employer] [place] [address] * Blood culture Blood (07/01/2025 11:25 AM AIR INTELLIGENCE SPECIALIST) Report Final Report: No growth Comment:Testing performed by : [facility], [address] [place]., [address] Blood 07/01/2025 11:2 5 AM AIR INTELLIGENCE SPECIALIST 07/01/2025 1:05 PM AIR INTELLIGENCE SPECIALIST Narrative [facility] - 07/05/2025 4:00 PM AIR INTELLIGENCE SPECIALIST Collection->Peripheral 1. Blood cultures are incubated for 4 days on a continuously monitored blood culture system. The first report of a negative culture is issued within 24 hours of receipt of the specimen in the laboratory. 2. Positive culture results are reported as soon as they are detected. 3. The most important factor for detection of microbes in the setting of bloodstream infection is the volume of blood submitted for culture. Failure to collect an optimal blood volume can result in false negative blood cultures. 4. For pediatric patients, the recommended blood volume to collect follows a weight based strategy. See the electronic test catalog for collection instructions. 5. For positive blood cultures, a rapid molecular test may be performed for organism identification using the red ePlex blood culture identification panel for gram positive (BCID-GP) and gram negative (BCID-GN) organisms. This nucleic acid amplification test detects microbial DNA in positive blood culture broth. This assay has been cleared by the [place] Food and Drug Administration and its performance characteristics have been verified by the [facility]biology [facility]. For questions about this culture, contact the Microbiology Laboratory at [phone]. Interpretive data was last revised on 24. Tisha RINCON LAB MICROBIOLOGY - GENERAL O RDERABLES Final Result Performing Organization Address City/[facility]/ZIP Co de Phone Number [facility] [address] [facility] Department [place] [address] * Sepsis Lactate w/ Reflex (07/01/2025 11:24 AM AIR INTELLIGENCE SPECIALIST) Sepsis Lactate 1.0 0.7 - 2.0 mmol/L Blood 07/01/2025 11:2 4 AM AIR INTELLIGENCE SPECIALIST 07/01/2025 11:36 AM AIR INTELLIGENCE SPECIALIST Tisha RINCON LAB BLOOD ORDERABLES Final R esult [facility] Department [place] [address] * Blood culture Blood (07/01/2025 11:24 AM AIR INTELLIGENCE SPECIALIST) Report Final Report: No growth Comment:Testing performed by : [facility], [address] [place] [address] Blood 07/01/2025 11:2 4 AM AIR INTELLIGENCE SPECIALIST 07/01/2025 1:05 PM AIR INTELLIGENCE SPECIALIST Narrative [facility] - 07/05/2025 4:00 PM AIR INTELLIGENCE SPECIALIST Collection->Peripheral 1. Blood cultures are incubated for 4 days on a continuously monitored blood culture system. The first report of a negative culture is issued within 24 hours of receipt of the specimen in the laboratory. 2. Positive culture results are reported as soon as they are detected. 3. The most important factor for detection of microbes in the setting of bloodstream infection is the volume of blood submitted for culture. Failure to collect an optimal blood volume can result in false negative blood cultures. 4. For pediatric patients, the recommended blood volume to collect follows a weight based strategy. See the electronic test catalog for collection instructions. 5. For positive blood cultures, a rapid molecular test may be performed for organism identification using the red ePlex blood culture identification panel for gram positive (BCID-GP) and gram negative (BCID-GN) organisms. This nucleic acid amplification test detects microbial DNA in positive blood culture broth. This assay has been cleared by the [place] Food and Drug Administration and its performance characteristics have been verified by the [facility] Microbiology Laboratory. For questions about this culture, contact the Microbiology Laboratory at [phone]. Interpretive data was last revised on 24. Tisha RINCON LAB MICROBIOLOGY - GENERAL O RDERABLES Final Result [facility] [address] [facility] [place] [address] * CTA Abdomen Pelvis (07/01/2025 9:36 AM AIR INTELLIGENCE SPECIALIST) Anatomical Region Laterality Modality Body N/A Computed Tomogra phy 07/01/2025 10:2 5 AM AIR INTELLIGENCE SPECIALIST Impressions 07/01/2025 10:25 AM AIR INTELLIGENCE SPECIALIST 1. Segment of circumferential wall thickening and pericolonic fat stranding at the splenic flexure likely related to colitis. There is a diverticulum in the middle of this segment but no focal fat stranding surrounding the diverticulum to suggest diverticulitis. No intraluminal pooling of contrast is identified. Electronically signed by: Calin Stallworth M.D. Narrative 07/01/2025 10:25 AM AIR INTELLIGENCE SPECIALIST EXAMINATION: CTA ABDOMEN PELVIS HISTORY: Rectal bleeding. TECHNIQUE: CTA of the abdominal aorta was performed with intravenous contrast using helical scanning technique. Unenhanced images of the abdomen and pelvis were obtained. Arterial and portal venous phase images were obtained of the abdomen and pelvis. Images reviewed with soft tissue and bone windows. Reconstructed coronal and sagittal MPR images reviewed. All images stored on PACS. 3D MIP images rendered on scanning unit and reviewed at time of interpretation. Automated exposure control was used as a dose optimization technique for this examination. COMPARISON: None FINDINGS: VASCULATURE: ABDOMINAL AORTA: No aortic aneurysm or dissection. Mild atherosclerotic calcification of the aorta. No intramural hematoma on the unenhanced series. MESENTERIC/RENAL: No flowing limiting disease. Single renal arteries bilaterally. No anatomic variation of the mesenteric vessels. Common/external iliac arteries: Mild atherosclerotic calcification without significant stenosis Internal iliac arteries: Mild atherosclerotic calcification without significant stenosis. LOWER CHEST: No significant pulmonary abnormalities. No pleural effusion. LIVER: No focal liver lesion. GALLBLADDER: Prior cholecystectomy. BILE DUCTS: No intrahepatic or extrahepatic ductal dilatation. SPLEEN: Normal size. No focal lesions. PANCREAS: No masses. No adjacent inflammation or peripancreatic fluid collections. No pancreatic ductal dilatation. ADRENALS: Normal. KIDNEYS/URINARY TRACT: No identified significant cystic or solid masses. No hydronephrosis or hydroureter. Symmetric nephrograms. Urinary bladder is unremarkable. GI: Segmental circumferential wall thickening and pericolonic fat stranding at the splenic flexure. There is an adjacent diverticulum but the segment of wall thickening appears to involve a larger portion of the colon than would be expected for diverticulitis. This is favored represent colitis. No bowel obstruction. The appendix is not seen. No pericecal inflammatory change. Tiny hiatal hernia. PERITONEUM: No ascites or free air. RETROPERITONEUM: No mass or lymphadenopathy. REPRODUCTIVE: No significant abnormality. VASCULATURE: See above. MUSCULOSKELETAL: No significant abnormality. Sacralization of the transverse process of L5. Minimal bilateral hip osteoarthritis. OTHER: No other abnormality. Procedure Note Calin Stallworth MD - 07/01/2025 EXAMINATION: CTA ABDOMEN PELVIS HISTORY: Rectal bleeding. TECHNIQUE: CTA of the abdominal aorta was performed with intravenous contrast using helical scanning technique. Unenhanced images of the abdomen and pelvis were obtained. Arterial and portal venous phase images were obtained of the abdomen and pelvis. Images reviewed with soft tissue and bone windows. Reconstructed coronal and sagittal MPR images reviewed. All images stored on PACS. 3D MIP images rendered on scanning unit and reviewed at time of interpretation. Automated exposure control was used as a dose optimization technique for this examination. COMPARISON: None FINDINGS: VASCULATURE: ABDOMINAL AORTA: No aortic aneurysm or dissection. Mild atherosclerotic calcification of the aorta. No intramural hematoma on the unenhanced series. MESENTERIC/RENAL: No flowing limiting disease. Single renal arteries bilaterally. No anatomic variation of the mesenteric vessels. Common/external iliac arteries: Mild atherosclerotic calcification without significant stenosis Internal iliac arteries: Mild atherosclerotic calcification without significant stenosis. LOWER CHEST: No significant pulmonary abnormalities. No pleural effusion. LIVER: No focal liver lesion. GALLBLADDER: Prior cholecystectomy. BILE DUCTS: No intrahepatic or extrahepatic ductal dilatation. SPLEEN: Normal size. No focal lesions. PANCREAS: No masses. No adjacent inflammation or peripancreatic fluid collections. No pancreatic ductal dilatation. ADRENALS: Normal. KIDNEYS/URINARY TRACT: No identified significant cystic or solid masses. No hydronephrosis or hydroureter. Symmetric nephrograms. Urinary bladder is unremarkable. GI: Segmental circumferential wall thickening and pericolonic fat stranding at the splenic flexure. There is an adjacent diverticulum but the segment of wall thickening appears to involve a larger portion of the colon than would be expected for diverticulitis. This is favored represent colitis. No bowel obstruction. The appendix is not seen. No pericecal inflammatory change. Tiny hiatal hernia. PERITONEUM: No ascites or free air. RETROPERITONEUM: No mass or lymphadenopathy. REPRODUCTIVE: No significant abnormality. VASCULATURE: See above. MUSCULOSKELETAL: No significant abnormality. Sacralization of the transverse process of L5. Minimal bilateral hip osteoarthritis. OTHER: No other abnormality. IMPRESSION: 1. Segment of circumferential wall thickening and pericolonic fat stranding at the splenic flexure likely related to colitis. There is a diverticulum in the middle of this segment but no focal fat stranding surrounding the diverticulum to suggest diverticulitis. No intraluminal pooling of contrast is identified. Electronically signed by: Calin Stallworth M.D. Tisha RINCON IMG CT PROCEDURES Final Resu lt * Urinalysis reflex to microscopic and culture Urine (07/01/2025 8:49 AM AIR INTELLIGENCE SPECIALIST) Color, ur Yellow Yellow Clarity, ur Clear Clear [facility] Specific gravity, ur 1.013 1.003 - 1.030 [facility] pH, urine 5.5 [facility] Comment: Interpretive Data U rine pH is affected by diet, medications, systemic acid-base disturbances, and renal tubular function. pH may affect urinary stone formation. For example, urine pH below 6.0 may help reduce the tendency for calcium phosphate stones and pH greater than 6.0 may reduce the tendency for uric acid stone formation. Source: [facility] Current Interpretive Data was last revised on 2017 Protein, ur ql Negative Negative [facility] Glucose, ur ql Negative Negative [facility] Ketones, ur Negative Negative [facility] Bilirubin, ur Negative Negative [facility] Blood, ur Negative Negative [facility] Urobilinogen, ur <2.0 <2.0 mg/dL [facility] Nitrite, ur Negative Negative [facility] Leukocyte esterase, ur Negative Negative [facility] UA reflex comment Reflex conditions for microscopic UA and culture not met. [facility] Urine 07/01/2025 8:49 AM AIR INTELLIGENCE SPECIALIST 07/01/2025 8:52 AM AIR INTELLIGENCE SPECIALIST Shira Marino MD LAB MICROBIOLOGY - GENERA L ORDERABLES Final Result [facility] [address] Department [place] [address] * eGFR (07/01/2025 8:23 AM AIR INTELLIGENCE SPECIALIST) [facility] eGFR >90 >=60 mL/min/1. 73 m2 Comment: Interpretive Data Reference Interval Normal >/= 90 mL/min/1.73m2 Mildly decreased* 60 - 89 mL/min/1.73m2 Mildly to moderately decreased 45 - 59 mL/min/1.73m2 Moderately to severely decreased 30 - 44 mL/min/1.73m2 Severely decreased 15 - 29 mL/min/1.73m2 Kidney Failure < 15 mL/min/1.73m2 *Relative to young adult level Estimated glomerular filtration rate is determined by the 2020 CKD-EPI equation recommended by the National Kidney Foundation (A Unifying Approach to GFR Estimation: Recommendations of the NKF-ASK Task Force on Reassessing the Inclusion of Race in Diagnosing Kidney Disease, JASN 2020). The CKD-EPI equation should not be used for patients with unstable renal function and has not been validated in children and those over 70. Current interpretive data was last reviewed 2021. Blood 07/01/2025 8:23 AM AIR INTELLIGENCE SPECIALIST 07/01/2025 8:26 AM AIR INTELLIGENCE SPECIALIST us Shira Marino MD LAB BLOOD ORDERABLES Irma l Result Performing Organization Address [facility] Co de Phone Number [facility] [address] Department [place] [address] * (ABNORMAL) Differential, auto (07/01/2025 8:23 AM AIR INTELLIGENCE SPECIALIST) [facility] Neutrophil abs 9.34(H) 1.50 - 6.50 K/cumm Imm gran abs 0.05 0.00 - 0.10 K/cumm [facility] Lymphocyte abs 2.02 0.80 - 3.30 K/cumm [facility] Monocyte abs 0.78 0.20 - 0.80 K/cumm [facility] Eosinophil abs 0.08 0.00 - 0.50 K/cumm [facility] [facility] Basophil abs 0.03 0.00 - 0.10 K/cumm [facility] Neutrophil pct 76.0 % [facility] Comment: Interpretive Data Percent cell count reference ranges are not reported, since discordance with absolute values may lead to misinterpretation of CBC data. Current Interpretive Data was last revised on 2017. Imm gran pct 0.4 % [facility] Comment: Interpretive Data Percent cell count reference ranges are not reported, since discordance with absolute values may lead to misinterpretation of CBC data. Current Interpretive Data was last revised on 2017. Lymphocyte pct 16.4 % [facility] Comment: Interpretive Data Percent cell count reference ranges are not reported, since discordance with absolute values may lead to misinterpretation of CBC data. Current Interpretive Data was last revised on 2017. Monocyte pct 6.3 % [facility] Comment: Interpretive Data Percent cell count reference ranges are not reported, since discordance with absolute values may lead to misinterpretation of CBC data. Current Interpretive Data was last revised on 2017. Eosinophil pct 0.7 % [facility] Comment: Interpretive Data Percent cell count reference ranges are not reported, since discordance with absolute values may lead to misinterpretation of CBC data. Current Interpretive Data was last revised on 2017. Basophil pct 0.2 % [facility] Comment: Interpretive Data Percent cell count reference ranges are not reported, since discordance with absolute values may lead to misinterpretation of CBC data. Current Interpretive Data was last revised on 2017. Blood 07/01/2025 8:23 AM AIR INTELLIGENCE SPECIALIST 07/01/2025 8:26 AM AIR INTELLIGENCE SPECIALIST us Shira Yissel Marino MD LAB BLOOD ORDERABLES Irma l Result [facility] [address] [facility] [place] [address] * (ABNORMAL) CBC with auto differential (07/01/2025 8:23 AM AIR INTELLIGENCE SPECIALIST) WBC 12.30(H) 3.80 - 9.90 K/cumm Hgb 13.0 11.9 - 15.5 g/dL [facility] Hct 40.7 35.6 - 45.5 % [facility] Plt 258 150 - 400 K/cumm [facility] MPV 11.0 9.1 - 12.3 fL [facility] RBC 4.51 3.90 - 5.20 M/cumm [facility] MCV 90.2 81.3 - 96.4 fL [facility] MCH 28.8 27.1 - 33.3 pg [facility] MCHC 31.9(L) 32.3 - 35.7 g/dL [facility] RDW CV 13.5 11.1 - 14.9 % [facility] RDW SD 45.0 35.7 - 48.1 fL [facility] NRBC abs 0.00 0.00 - 0.01 K/cumm [facility] Blood Venous blood specimen / Unknown 07/01/2025 8:23 AM AIR INTELLIGENCE SPECIALIST 07/01/2025 8:26 AM AIR INTELLIGENCE SPECIALIST Shira Marino MD LAB BLOOD ORDERABLES Irma l Result Performing Organization Address [facility] Co de Phone Number [address] [place] [address] * Lipase (07/01/2025 8:23 AM AIR INTELLIGENCE SPECIALIST) [facility] Lipase 20 10 - 99 Units/L Blood Venous blood specimen / Unknown 07/01/2025 8:23 AM AIR INTELLIGENCE SPECIALIST 07/01/2025 8:26 AM AIR INTELLIGENCE SPECIALIST Shira Marino MD LAB BLOOD ORDERABLES Irma l Result Performing Organization Address [facility] Co de Phone Number [address] [place] [address] * Comprehensive metabolic panel (07/01/2025 8:23 AM AIR INTELLIGENCE SPECIALIST) [facility] Sodium 137 135 - 145 mmol/L Potassium, pl 4.2 3.3 - 4.9 mmol/L [facility] Comment:Hemolyzed; Potassium value may be falsely elevated by as much as 1.0 mmol/L. Suggest redraw and reanalysis. Chloride 103 97 - 110 mmol/L [facility] CO2 23 22 - 32 mmol/L [facility] Anion gap 11 2 - 15 mmol/L [facility] BUN 14 6 - 25 mg/dL [facility] Creatinine 0.60 0.60 - 1.10 mg/dL [facility] Glucose 108 70 - 199 mg/dL [facility] Comment: Interpretive Data Fasting glucose >/= 126 mg/dl is diagnostic for diabetes. Fasting is defined as no caloric intake for at least 8 hours. Fasting glucose between 100 mg/dl to 125 mg/dl is diagnostic of prediabetes. In a patient with classic symptoms of hyperglycemia or hyperglycemic crisis, a random glucose >/= 200 mg/dl is diagnostic for diabetes. In the absence of unequivocal hyperglycemia, results should be confirmed by repeat testing. The classification and Diagnosis of Diabetes Diabetes Care 2021; 46: S19-S40. Current interpretive data was last revised 2022. Calcium 10.2 8.5 - 10.3 mg/dL [facility] Bilirubin, total 0.7 0.1 - 1.2 mg/dL [facility] Protein, pl 7.2 6.5 - 8.5 g/dL [facility] Albumin 4.3 3.5 - 5.0 g/dL [facility] Alk phos 97 40 - 130 Units/L [facility] ALT 15 7 - 45 Units/L [facility] AST 23 10 - 45 Units/L [facility] Blood 07/01/2025 8:23 AM AIR INTELLIGENCE SPECIALIST 07/01/2025 8:26 AM AIR INTELLIGENCE SPECIALIST Shira Marino MD LAB BLOOD ORDERABLES Irma l Result [facility] [address] [facility] Department [place] [address] * Diagnostic Mammogram (11/24/2024 7:38 AM CDT) Anatomical Region Laterality Modality Breast Mammography Historical Provider IMG MAMMO PROCEDURES Irma l Result from Last 3 Months or Most Recently Relevant to Health Maintenance Insurance MEDICARE [facility] MEDICARE [facility] MEDICARE [facility] Advance Directives For more information, please contact: [phone] * Full Code (Latest Code Status on File) Date Activated Date Inactivated Comments 07/01/2025 11:59 AM 07/04/2025 8:07 PM Care Teams [employer] Relationship Specialty Start Date End Date Alta Obregon NP [address] [place] [address] PCP - General Nurse Practitioner 01/11/25
[2025-07-17 10:07] LABS: Hematocrit 40.9 % (37.0-47.0); Hemoglobin 12.8 g/dL (12.0-15.0); Immature Granulocyte Percent A 0.4 % (0-0.5); Lymphocytes Absolute Auto 1.92 K/mm3 (0.9-3.2); Mean Corpuscular HGB Conc 31.3 g/dl (32-36); Mean Corpuscular Hemoglobin 28.4 pg (26-34); Mean Corpuscular Volume 90.9 fl (80-100); Nucleated Red Blood Cells Absolute Auto 0.000 K/mm3 (0.0-0.012); Nucleated Red Blood Cells Perc 0.0 % (0.0-0.2); Platelet Count Result 296 k/mm3 (150-375); Red Blood Count 4.50 M/mm3 (4.2-5.4); White Blood Count 7.3 K/mm3 (4.5-10.0)
[2025-07-17 10:29] LABS: Alanine Aminotransferase 34 U/L (6-35); Albumin Level 4.3 g/dL (3.5-5.1); Alkaline Phosphatase 93 U/L (38-126); Anion Gap 8 mmol/L (4-12); Aspartate Amino Transferase 34 U/L (14-36); Bilirubin,Total 0.7 mg/dL (0.2-1.3); Blood Urea Nitrogen 16 mg/dL (7-17); Calcium 10.1 mg/dL (8.4-10.2); Carbon Dioxide 25 mmol/L (22-30); Chloride 103 mmol/L (98-107); Estimated Glomerular Filt Rate > 60; Glucose 101 mg/dL (65-110); Potassium 4.2 mmol/L (3.4-5.0); Sodium 136 mmol/L (137-145); Total Protein 7.5 g/dL (6.3-8.2); Uric Acid 5.2 mg/dL (2.5-7.5)
[2025-07-17 10:46] LABS: Free T3 3.42 pg/mL (2.45-5.93); Free T4 Free Thyroxine 1.20 ng/dL (0.78-2.19)
[2025-07-17 11:05] LABS: Thyroid Stimulating Hormone 1.520 uIU/mL (0.465-4.680)
[2025-07-17 11:40] LABS: Vitamin B12 882.0 pg/mL (239-931)
== END 2025-07-17 08:52 | disposition home or self-care (01) ==
PROVIDERS: PCP Nurse Practitioner Family; Visit Provider Nurse Practitioner Family
DX: F98.8 Other specified behavioral and emotional disorders with onset usually occurring in childhood and adolescence (principal); M22.42 Chondromalacia patellae, left knee; M22.41 Chondromalacia patellae, right knee; M10.9 Gout, unspecified; M79.674 Pain in right toe(s); F41.9 Anxiety disorder, unspecified; I10 Essential (primary) hypertension; E78.5 Hyperlipidemia, unspecified; R73.03 Prediabetes; R79.89 Other specified abnormal findings of blood chemistry; E55.9 Vitamin D deficiency, unspecified; K52.9 Noninfective gastroenteritis and colitis, unspecified; D64.9 Anemia, unspecified
CPT/HCPCS: 36415; 73564; 73630; 80053; 82306; 82607; 82746; 84439; 84443; 84481; 84550; 85025